=== PATIENT | female | born 1960 | race Caucasian/White ===

== ENCOUNTER 2018-03-12 16:24 | Inpatient (IN) | payer OTHER ==
[2018-03-12 17:00] VITALS: BMI 23.4
[2018-03-12] MEDS ORDERED: ALBUTEROL SO4 8 GM HFA INHALER IH PRN (18:21)
--- NOTE | 2018-03-12 18:21 | HP ---
Admission [facility] Chief Complaint: I am alcohol rehab Allergies/Adverse Reactions: Allergies Allergy/AdvReac Type Severity Reaction Status Date / Time No Known Allergies Allergy Verified 03/12/18 17:42 History of Present Illness: Patient is a 57 yo female with hx of nicotine, THC, crack / cocaine and alcohol dependence is here seeking alcohol rehabilitation. PMHX: GERD, COPD, OA, gastric bypass, depression and anxiety. Last detox [facility] 02/27/18 -03/03/18 . Denies suicidal or homicidal ideation. Denies hx of seizures, reports frequent blackouts with last episode two weeks ago. Longest period of sobriety 7 years. Exam Limitations: No Limitations - Ebola screening Have you been sick,other than usual withdrawal symptoms: No - Review of Systems Constitutional: Changes in sleep (" I feel anxious "), Unintentional Wgt. Loss EENT: reports: No Symptoms Reported Respiratory: reports: No Symptoms reported Cardiac: reports: No Symptoms Reported GI: reports: No Symptoms Reported : reports: Burning Musculoskeletal: reports: Back Pain, Joint Pain (right knee) Integumentary: reports: No Symptoms Reported Neuro: reports: Numbness (left hand) Endocrine: reports: Increased Thirst Hematology: reports: No Symptoms Reported Psychiatric: reports: Orientated x3, Anxious Other Systems: Reviewed and Negative Patient History - Patient Medical History Hx Anemia: No Hx Asthma: Yes Hx Chronic Obstructive Pulmonary Disease (COPD): Yes Hx Cancer: No Hx Cardiac Disorders: No Hx Congestive Heart Failure: No Hx Hypertension: Yes Hx Hypercholesterolemia: No Hx Pacemaker: No HX Cerebrovascular Accident: No Hx Seizures: No Hx Dementia: No Hx Diabetes: No Hx Gastrointestinal Disorders: Yes (GERD ) Hx Liver Disease: No Hx Genitourinary Disorders: No Hx Sexually Transmitted Disorders: No Hx Renal Disease (ESRD): No Hx Thyroid Disease: No Hx Human Immunodeficiency Virus (HIV): No Hx Hepatitis C: No Hx Depression: Yes Hx Suicide Attempt: No Hx Bipolar Disorder: No Hx Schizophrenia: No - Patient Surgical History Past Surgical History: Yes Hx Neurologic Surgery: No Hx Cataract Extraction: No Hx Cardiac Surgery: No Hx Lung Surgery: No Hx Breast Surgery: No Hx Breast Biopsy: No Hx Abdominal Surgery: Yes (tummy tuck, gastric by pass ) Hx Appendectomy: No Hx Cholecystectomy: No Hx Genitourinary Surgery: No Hx Section: Yes Hx Orthopedic Surgery: No Hx Hysterectomy: No Anesthesia Reaction: No - PPD History Previous Implant?: Yes Documented Results: Negative w/proof Date: 03/01/18 PPD to be Administered?: No - Reproductive History Patient is a Female of Child Bearing Age (11 -55 yrs old): No - Smoking Cessation Smoking history: Current every day smoker Have you smoked in the past 12 months: Yes Aproximately how many cigarettes per day: 20 Hx Chewing Tobacco Use: No Initiated information on smoking cessation: Yes 'Breaking Loose' booklet given: 03/12/18 - Substance & Tx. History Hx Alcohol Use: Yes Hx Substance Use: Yes Substance Use Type: Alcohol Hx Substance Use Treatment: Yes (Last detox [facility] 02/27/18 -03/03/18 .) Family Disease History - Family Disease History Family Disease History: Heart Disease: Father (, PA ), Mother (alive, HTN ), Sister ( PA), Other: Father, Mother, Sister Admission Physical Exam [facility] - Vital Signs Vital Signs: Vital Signs - 24 hr 03/12/18 16:48 Temperature 98.8 F Pulse Rate 95 H Respiratory 18 Rate Blood Pressure 138/78 - Physical General Appearance: Yes: Appropriately Dressed, Anxious HEENTM: Yes: EOMI, Hearing grossly Normal, Normal ENT Inspection, Normocephalic , Normal Voice, RODRIGO, Pharynx Normal, Tm's normal Respiratory: Yes: Chest Non-Tender, Lungs Clear, Normal Breath Sounds, No Respiratory Distress, No Accessory Muscle Use Neck: Yes: No masses,lesions,Nodules, Trachea in good position Breast: Yes: Breast Exam Deferred Cardiology: Yes: Regular Rhythm, Regular Rate Abdominal: Yes: Normal Bowel Sounds, Non Tender, Flat, Soft Genitourinary: Yes: Within Normal Limits Back: Yes: Normal Inspection Musculoskeletal: Yes: full range of Motion, Gait Steady, Pelvis Stable, Back pain, Other (right knee pain, no effusion or swelling, full rom) Extremities: Yes: Normal Capillary Refill, Normal Inspection, Normal Range of Motion, Non-Tender 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: 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: 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, Fully Oriented, Motor Strength 5/5, Depressed Affect Integumentary: Yes: Normal Color, Warm, Moist Lymphatic: Yes: Within Normal Limits - Diagnostic (1) Right knee pain Current Visit: Yes Status: Acute Qualifiers: Chronicity: acute Qualified Code(s): M25.561 - Pain in right knee (2) Alcohol dependence Current Visit: Yes Status: Acute Qualifiers: Substance use status: uncomplicated Qualified Code(s): F10.20 - Alcohol dependence, uncomplicated (3) COPD (chronic obstructive pulmonary disease) Current Visit: Yes Status: Chronic Qualifiers: Emphysema type: unspecified (4) Cocaine dependence Current Visit: Yes Status: Chronic Qualifiers: Substance use status: uncomplicated Qualified Code(s): F14.20 - Cocaine dependence, uncomplicated (5) GERD (gastroesophageal reflux disease) Current Visit: Yes Status: Chronic Qualifiers: Esophagitis presence: esophagitis presence not specified Qualified Code(s) : K21.9 - Gastro-esophageal reflux disease without esophagitis (6) History of gastric bypass Current Visit: Yes Status: Chronic (7) Nicotine dependence Current Visit: Yes Status: Chronic Qualifiers: Nicotine product type: cigarettes [facility] Breath Alcohol Content Breath Alcohol Content: 0 Urine Pregancy Test - Result Urine Test Results: Negative- NO Line Present Urine Drug Screen - Results Drug Screen Negative: No Urine Drug Screen Results: YASHIRA-Cocaine, BZO-Benzodiazepines Inpatient Rehab Admission - Initial Determination Are CD services needed?: Yes Free of communicable disease: Yes Not in need of hospitalization: Yes - Rehab Admission Criteria Previous failed treatment: Yes Poor recovery environment: Yes Comorbidities: Yes Lacks judgement: Yes Patient is meeting Inpatient Rehab admission criteria:: Yes
[2018-03-12] MEDS ORDERED: MAGNESIUM HYDROX 2400MG/30ML ORAL SUSPENSION 30 ML CUP PO PRN (18:27)
[2018-03-12] MEDS ORDERED: IBUPROFEN 400 MG TABLET (FP) PO PRN ×2 (18:27→18:33)
[2018-03-12] MEDS ORDERED: guaiFENesin/D-METHORPHAN HB 10 ML UNIT-DOSE CUPS PO PRN (18:27)
[2018-03-12] MEDS ORDERED: MAG HYDROX/AL HYDROX/SIMETH 30 ML UNIT-DOSE CUP PO PRN (18:27)
[2018-03-12] MEDS ORDERED: MAGNESIUM CITRATE 300 ML BOTTLE PO PRN (18:27)
[2018-03-12] MEDS ORDERED: LOPERAMIDE HCL 2 MG CAPSULE PO PRN (18:27)
[2018-03-12] MEDS ORDERED: P-EPHED 60MG/TRIPROLIDI 2.5MG TABLET PO PRN (18:27)
[2018-03-12] MEDS ORDERED: MENTHOL/PHENOL 1 EACH UD MM PRN (18:27)
[2018-03-12] MEDS ORDERED: NICOTINE POLACRILEX 2 MG GUM BUC PRN (18:54)
[2018-03-12] MEDS ORDERED: FLUTICASONE/SALMETEROL 100 MCG/50 MCG DISKUS IH SCH (22:00)
[2018-03-12] MEDS: METHYL SALICYLATE/MENTHOL OINT 30 GM TUBE TP SCH (22:32)
[2018-03-12] MEDS: BUDESONIDE/FORMETEROL FUMARATE 80/4.5 mcg INHALER IH SCH (22:32)
[2018-03-12] MEDS: THIAMINE HCL 100 MG TABLET (FP) PO SCH (22:33)
[2018-03-12] MEDS: hydrOXYzine PAMOATE 50 MG CAPSULE (FP) PO PRN (22:33)
[2018-03-13 00:09] LABS: URINE APPEARANCE TURBID; URINE BILIRUBIN NEGATIVE (<2.0 mg/dL); URINE COLOR YELLOW; URINE GLUCOSE (UA) NEGATIVE (NEGATIVE); URINE KETONE NEGATIVE (NEGATIVE); URINE LEUK ESTERASE NEGATIVE (NEGATIVE); URINE NITRITE NEGATIVE (NEGATIVE); URINE PROTEIN NEGATIVE (NEGATIVE); URINE UROBILINOGEN 4.0 E.U/dl mg/dL (0.2-1.0)
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
[2018-03-13 10:08] LABS: HEMATOCRIT 41.1 % (32.4-45.2); HEMOGLOBIN 13.7 GM/dL (10.7-15.3); MCH 30.3 pg (25.7-33.7); MCHC 33.3 g/dl (32.0-36.0); MEAN PLT VOLUME 8.4 fl (7.5-11.1); PLATELET COUNT 347 K/MM3 (134-434); RBC 4.51 M/mm3 (3.60-5.2); WHITE BLOOD COUNT 7.2 K/mm3 (4.0-10.0)
[2018-03-13] MEDS ORDERED: PT OWN MED DRAWER 7, Y5N ONE ×2 (10:32→19:46)
[2018-03-13] MEDS: hydrOXYzine PAMOATE 50 MG CAPSULE (FP) PO PRN ×2 (10:33→19:03)
[2018-03-13] MEDS: PRENATAL VITAMINS W/ FOLIC ACID TABLET (FP) PO SCH (10:33)
[2018-03-13] MEDS: METHYL SALICYLATE/MENTHOL OINT 30 GM TUBE TP SCH ×2 (10:34→22:09)
[2018-03-13] MEDS: NICOTINE 14 MG/24 HOURS TOPICAL PATCH TD SCH (10:34)
[2018-03-13] MEDS: BUDESONIDE/FORMETEROL FUMARATE 80/4.5 mcg INHALER IH SCH ×2 (10:36→22:09)
[2018-03-13 10:43] LABS: ALBUMIN 3.3 g/dl (3.4-5.0); ALK PHOS 72 U/L (45-117); ANION GAP 2 (8-16); BILIRUBIN,TOTAL 0.2 mg/dL (0.2-1.0); BLOOD UREA NITROGEN 10 mg/dL (7-18); CALCIUM 8.8 mg/dL (8.5-10.1); CHLORIDE 108 mmol/L (98-107); CO2 34 mmol/L (21-32); CREATININE 0.7 mg/dL (0.55-1.02); GLUCOSE,RANDOM 85 mg/dL (74-106); POTASSIUM 3.7 mmol/L (3.5-5.1); SGOT/AST 12 U/L (15-37); SGPT/ALT 17 U/L (12-78); SODIUM 144 mmol/L (136-145); TOT PROT 6.6 g/dl (6.4-8.2)
[2018-03-13] MEDS: SERTRALINE HCL 50 MG TABLET (FP) PO SCH (11:13)
--- NOTE | 2018-03-13 12:09 | EKG ---
Test Reason : Blood Pressure : / mmHG Vent. Rate : 095 BPM Atrial Rate : 095 BPM P-R Int : 194 ms QRS Dur : 098 ms QT Int : 380 ms P-R-T Axes : 079 -09 072 degrees QTc Int : 477 ms NORMAL SINUS RHYTHM BIATRIAL ENLARGEMENT INCOMPLETE RIGHT BUNDLE BRANCH BLOCK ABNORMAL ECG Confirmed by MD KERRY, JOHN ([id number]) on 03/13/2018 12:08:54 PM Referred By: Confirmed By:JOHN PAYNE MD
--- NOTE | 2018-03-13 13:14 | PN ---
[facility] Progress Note Note: Vital Signs Temperature 97.0 F L 03/13/18 06:41 Pulse Rate 98 H 03/13/18 09:23 Respiratory Rate 18 03/13/18 09:23 Blood Pressure 109/66 03/13/18 09:23 O2 Sat by Pulse Oximetry (%) Laboratory Last Values WBC 7.2 K/mm3 (4.0-10.0) 03/13/18 07:15 RBC 4.51 M/mm3 (3.60-5.2) 03/13/18 07:15 Hgb 13.7 GM/dL (10.7-15.3) 03/13/18 07:15 Hct 41.1 % (32.4-45.2) 03/13/18 07:15 MCV 91.0 fl (80-96) 03/13/18 07:15 MCH 30.3 pg (25.7-33.7) 03/13/18 07:15 MCHC 33.3 g/dl (32.0-36.0) 03/13/18 07:15 RDW 13.0 % (11.6-15.6) 03/13/18 07:15 Plt Count 347 K/MM3 (134-434) D 03/13/18 07:15 MPV 8.4 fl (7.5-11.1) 03/13/18 07:15 Sodium 144 mmol/L (136-145) 03/13/18 07:15 Potassium 3.7 mmol/L (3.5-5.1) 03/13/18 07:15 Chloride 108 mmol/L (98-107) H 03/13/18 07:15 Carbon Dioxide 34 mmol/L (21-32) H 03/13/18 07:15 Anion Gap 2 (8-16) L 03/13/18 07:15 BUN 10 mg/dL (7-18) 03/13/18 07:15 Creatinine 0.7 mg/dL (0.55-1.02) 03/13/18 07:15 Creat Clearance w eGFR > 60 (>60) 03/13/18 07:15 Random Glucose 85 mg/dL (74-106) 03/13/18 07:15 Calcium 8.8 mg/dL (8.5-10.1) 03/13/18 07:15 Total Bilirubin 0.2 mg/dL (0.2-1.0) 03/13/18 07:15 AST 12 U/L (15-37) L 03/13/18 07:15 ALT 17 U/L (12-78) 03/13/18 07:15 Alkaline Phosphatase 72 U/L (45-117) 03/13/18 07:15 Total Protein 6.6 g/dl (6.4-8.2) 03/13/18 07:15 Albumin 3.3 g/dl (3.4-5.0) L 03/13/18 07:15 Urine Color Yellow 03/12/18 23:50 Urine Appearance Turbid 03/12/18 23:50 Urine pH 5.0 (5.0-8.0) 03/12/18 23:50 Ur Specific [place] 1.030 (1.001-1.035) 03/12/18 23:50 Urine Protein Negative (NEGATIVE) 03/12/18 23:50 Urine Glucose (UA) Negative (NEGATIVE) 03/12/18 23:50 Urine Ketones Negative (NEGATIVE) 03/12/18 23:50 Urine Blood Negative (NEGATIVE) 03/12/18 23:50 Urine Nitrite Negative (NEGATIVE) 03/12/18 23:50 Urine Bilirubin Negative (<2.0 mg/dL) 03/12/18 23:50 Urine Urobilinogen 4.0 e.u/dl mg/dL (0.2-1.0) H 03/12/18 23:50 Ur Leukocyte Esterase Negative (NEGATIVE) 03/12/18 23:50 labs reviewed continue to monitor urine culture pending
[2018-03-13] MEDS: THIAMINE HCL 100 MG TABLET (FP) PO SCH (21:33)
[2018-03-13] MEDS ORDERED: QUEtiapine FUMARATE 50 MG TABLET PO SCH (22:00)
[2018-03-14] MEDS: ACETAMINOPHEN 325 MG TABLET (FP) PO PRN (06:40)
[2018-03-14] MEDS: hydrOXYzine PAMOATE 50 MG CAPSULE (FP) PO PRN ×2 (06:40→14:02)
[2018-03-14] MEDS: METHYL SALICYLATE/MENTHOL OINT 30 GM TUBE TP SCH ×2 (09:13→21:35)
[2018-03-14] MEDS: PRENATAL VITAMINS W/ FOLIC ACID TABLET (FP) PO SCH (09:14)
[2018-03-14] MEDS: SERTRALINE HCL 50 MG TABLET (FP) PO SCH (09:14)
[2018-03-14] MEDS: NICOTINE 14 MG/24 HOURS TOPICAL PATCH TD SCH (09:14)
[2018-03-14] MEDS: BUDESONIDE/FORMETEROL FUMARATE 80/4.5 mcg INHALER IH SCH ×2 (09:15→21:36)
[2018-03-14] MEDS: IBUPROFEN 600 MG TABLET (FP) PO PRN (10:05)
--- NOTE | 2018-03-14 13:21 | PN ---
[facility] Progress Note Note: PATIENT SEEN FOR C/O THICK, WHITE VAGINAL DISCHARGE AND VAGINAL ITCHING WITH BURNING UPON URINATION. RECENTLY TREATED FOR UTI IN PAST 2 WEEKS. DENIES FEVER AND PELVIC PAIN. Laboratory Tests 03/12/18 03/13/18 03/13/18 23:50 07:15 07:15 WBC 7.2 RBC 4.51 Hgb 13.7 Hct 41.1 MCV 91.0 MCH 30.3 MCHC 33.3 RDW 13.0 Plt Count 347 D MPV 8.4 Sodium 144 Potassium 3.7 Chloride 108 H Carbon Dioxide 34 H Anion Gap 2 L BUN 10 Creatinine 0.7 Creat Clearance w eGFR > 60 Random Glucose 85 Calcium 8.8 Total Bilirubin 0.2 AST 12 L ALT 17 Alkaline Phosphatase 72 Total Protein 6.6 Albumin 3.3 L Urine Color Yellow Urine Appearance Turbid Urine pH 5.0 Ur Specific [place] 1.030 Urine Protein Negative Urine Glucose (UA) Negative Urine Ketones Negative Urine Blood Negative Urine Nitrite Negative Urine Bilirubin Negative Urine Urobilinogen 4.0 e.u/dl H Ur Leukocyte Esterase Negative Vital Signs Temperature 97.6 F 03/14/18 07:26 Pulse Rate 83 03/14/18 07:26 Respiratory Rate 18 03/14/18 07:26 Blood Pressure 128/89 03/14/18 07:26 O2 Sat by Pulse Oximetry (%) OBJ: SKIN WARM AND DRY GI: NT, ND, SOFT : NO PELVIC TENDERNESS, NO CVAT A/P: VAGINITIS URINE C/S PENDING WILL START FLAGYL 500MG BID X 7 DAYS CONTINUE TO MONITOR CLINICALLY
--- NOTE | 2018-03-14 13:41 | PN ---
Psychiatric Progress Note Vital Signs: Vital Signs Period Temp Pulse Resp BP Sys/Rust Pulse Ox Last 24 Hr 97.6 F 83 16-18 128/89 Date of Session: 03/14/18 Chief Complaint:: "I can't sleep and i have anxiety." HPI: Patient admitted to [facility] for alcohol, marijuana, and cocaine dependence. ROS: Significant for COPD, hypertension, GERD, osteoarthritis, history of gastric bypass and sunshine tuck surgeries. Current Medications: Active Medications Generic Name Dose Route Start Last Admin Trade Name Freq PRN Reason Stop Dose Admin Acetaminophen 650 mg 03/12/18 18:27 03/14/18 06:40 Tylenol - PO 650 mg Q4H PRN Administration FEVER Al Hydroxide/Mg Hydroxide 30 ml 03/12/18 18:27 Mylanta Oral Suspension - PO Q6H PRN DYSPEPSIA Albuterol Sulfate 2 puff 03/12/18 18:21 Ventolin Hfa Inhaler - IH Q4H PRN ASTHMA Budesonide/Formoterol Fumarate 2 puff 03/12/18 22:00 03/14/18 09:15 Symbicort 80/4.5mcg - IH 2 puff BID SATISH Administration Cyclobenzaprine HCl 10 mg 03/14/18 14:00 Flexeril - PO TID SATISH Eucalyptus/Menthol/Phenol/Sorbitol 1 each 03/12/18 18:27 Cepastat Lozenge - MM Q4H PRN SORE THROAT Guaifenesin 10 ml 03/12/18 18:27 Robitussin Dm - PO Q6H PRN COUGH Hydroxyzine Pamoate 50 mg 03/12/18 18:27 03/14/18 06:40 Vistaril - PO 50 mg Q4H PRN Administration AGITATION Ibuprofen 600 mg 03/14/18 09:29 03/14/18 10:05 Motrin - PO 600 mg Q8H PRN Administration Pain level 4-6 Loperamide HCl 4 mg 03/12/18 18:27 Imodium - PO Q6H PRN DIARRHEA Magnesium Citrate 300 ml 03/12/18 18:27 Citroma - PO Q48H PRN CONSTIPATION Magnesium Hydroxide 30 ml 03/12/18 18:27 Milk Of Magnesia - PO DAILY PRN CONSTIPATION Melatonin 5 mg 03/12/18 22:00 Melatonin PO HS PRN INSOMNIA Methyl Salicylate 1 applic 03/12/18 22:00 03/14/18 09:13 Devante-Bernstein - TP 1 applic BID SATISH Administration Metronidazole 500 mg 03/14/18 22:00 Flagyl - PO 03/21/18 21:59 BID SATISH Nicotine 14 mg 03/13/18 10:00 03/14/18 09:14 Nicoderm Patch - TD 14 mg DAILY SATISH Administration Nicotine Polacrilex 2 mg 03/12/18 18:54 Nicorette Gum - BUC Q2H PRN NICOTINE REPLACEMENT RX Multivit/Folic Acid/Iron 1 tab 03/13/18 10:00 03/14/18 09:14 Vitamins (Sjr) - PO 1 tab DAILY SATISH Administration Pseudoephedrine/Triprolidine 1 combo 03/12/18 18:27 Actifed - PO TID PRN NASAL CONGESTION Quetiapine Fumarate 100 mg 03/14/18 22:00 Seroquel - PO HS SATISH Sertraline HCl 50 mg 03/13/18 10:45 03/14/18 09:14 Zoloft - PO 50 mg DAILY SATISH Administration Thiamine HCl 100 mg 03/12/18 22:00 03/13/18 21:33 Vitamin B1 - PO 100 mg HS SATISH Administration Medication(s) Change(s): Yes will increase seroquel to 100mg qhs Current Side Effect: No Lab tests ordered: No Lab tests reviewed: Yes Provider note:: Hide Stretcher Hand met with patient for psychiatric follow up. Pt. reports poor sleep and anxiety. States she is awake throughout the night and is tired during the day. Chart reviewed. Dr. Lopez's and Dr. Ca's note read and appreciated. Pt. is currently prescribed seroquel 50mg. Pt. was prescribed seroquel 100mg while in detox. As per chart, patient d/c seroquel 100mg due to feeling sluggish and therefore was restarted at Seroquel 50mg when she was admitted to rehab. Patient now requesting to increase seroquel to 100mg. Pt. also encouraged to accept melatonin 5mg for sleep. Pt. was also informed of the medication vistaril 50mg which is ordered for anxiety and is available for her every four hours as needed. Benefits and side effects discussed. Verbal consent given. Total face to face time:: 25 Mental Status Exam - Mental Status Exam Alert and Oriented to: Time, Place, Person Cognitive Function: Good Patient Appearance: Well Groomed Mood: Euthymic Affect: Mood Congruent Patient Behavior: Appropriate, Cooperative Speech Pattern: Clear, Appropriate Voice Loudness: Normal Thought Process: Goal Oriented Thought Disorder: Not Present Hallucinations: Denies Suicidal Ideation: Denies Homicidal Ideation: Denies Insight/Judgement: Poor Sleep: Poorly Appetite: Fair Muscle strength/Tone: Normal Gait/Station: Normal Psychiatric Treatment Plan - Problem List (1) Alcohol dependence Current Visit: Yes (2) Cocaine dependence Current Visit: Yes (3) Substance induced mood disorder Current Visit: Yes (4) Substance-induced sleep disorder Current Visit: Yes (5) COPD (chronic obstructive pulmonary disease) Current Visit: Yes Qualifiers: Emphysema type: unspecified (6) GERD (gastroesophageal reflux disease) Current Visit: Yes Qualifiers: Esophagitis presence: esophagitis presence not specified Qualified Code(s) : K21.9 - Gastro-esophageal reflux disease without esophagitis (7) History of gastric bypass Current Visit: Yes (8) Osteoarthritis Current Visit: Yes (9) MDD (major depressive disorder), recurrent episode, moderate Current Visit: Yes
[2018-03-14] MEDS: CYCLOBENZAPRINE HCL 10 MG TABLET (FP) PO SCH ×2 (15:13→21:33)
[2018-03-14] MEDS ORDERED: PT OWN MED DRAWER 7, Y5N ONE (15:15)
[2018-03-14] MEDS: THIAMINE HCL 100 MG TABLET (FP) PO SCH (21:33)
[2018-03-14] MEDS: MELATONIN 5 MG TABLETS PO PRN (21:34)
[2018-03-14] MEDS: metroNIDAZOLE 250 MG TABLET PO SCH (21:35)
[2018-03-14] MEDS: QUEtiapine FUMARATE 100 MG TABLET (FP) PO SCH (21:36)
[2018-03-15] MEDS: CYCLOBENZAPRINE HCL 10 MG TABLET (FP) PO SCH ×3 (06:22→21:31)
[2018-03-15] MEDS: hydrOXYzine PAMOATE 50 MG CAPSULE (FP) PO PRN ×3 (06:22→21:29)
[2018-03-15] MEDS ORDERED: PT OWN MED DRAWER 7, Y5N ONE (08:36)
[2018-03-15] MEDS: METHYL SALICYLATE/MENTHOL OINT 30 GM TUBE TP SCH ×2 (09:11→21:31)
[2018-03-15] MEDS: NICOTINE 14 MG/24 HOURS TOPICAL PATCH TD SCH (09:11)
[2018-03-15] MEDS: SERTRALINE HCL 50 MG TABLET (FP) PO SCH (09:11)
[2018-03-15] MEDS: metroNIDAZOLE 250 MG TABLET PO SCH ×2 (09:11→21:29)
[2018-03-15] MEDS: PRENATAL VITAMINS W/ FOLIC ACID TABLET (FP) PO SCH (09:11)
[2018-03-15] MEDS: BUDESONIDE/FORMETEROL FUMARATE 80/4.5 mcg INHALER IH SCH ×2 (09:12→21:30)
[2018-03-15] MEDS: QUEtiapine FUMARATE 100 MG TABLET (FP) PO SCH (21:29)
[2018-03-15] MEDS: THIAMINE HCL 100 MG TABLET (FP) PO SCH (21:30)
[2018-03-16] MEDS: CYCLOBENZAPRINE HCL 10 MG TABLET (FP) PO SCH ×3 (06:22→21:27)
[2018-03-16] MEDS: hydrOXYzine PAMOATE 50 MG CAPSULE (FP) PO PRN ×3 (06:22→21:27)
[2018-03-16] MEDS: IBUPROFEN 600 MG TABLET (FP) PO PRN (06:23)
[2018-03-16] MEDS ORDERED: PT OWN MED DRAWER 7, Y5N ONE (08:36)
[2018-03-16] MEDS: METHYL SALICYLATE/MENTHOL OINT 30 GM TUBE TP SCH ×2 (09:10→21:28)
[2018-03-16] MEDS: BUDESONIDE/FORMETEROL FUMARATE 80/4.5 mcg INHALER IH SCH ×2 (09:11→21:28)
[2018-03-16] MEDS: metroNIDAZOLE 250 MG TABLET PO SCH ×2 (09:11→21:27)
[2018-03-16] MEDS: PRENATAL VITAMINS W/ FOLIC ACID TABLET (FP) PO SCH (09:11)
[2018-03-16] MEDS: NICOTINE 14 MG/24 HOURS TOPICAL PATCH TD SCH (09:11)
[2018-03-16] MEDS: SERTRALINE HCL 50 MG TABLET (FP) PO SCH (09:11)
--- NOTE | 2018-03-16 14:27 | PN ---
[facility] Progress Note Note: LIDOCAINE PATCH ORDERED FOR LBP. WILL CONTINUE TO MONITOR CLINICALLY.
[2018-03-16] MEDS: LIDOCAINE 5% TOPICAL PATCH TP SCH (15:25)
[2018-03-16] MEDS: THIAMINE HCL 100 MG TABLET (FP) PO SCH (21:26)
[2018-03-16] MEDS: QUEtiapine FUMARATE 100 MG TABLET (FP) PO SCH (21:27)
[2018-03-16] MEDS: LIDOCAINE PATCH REMOVAL MC SCH (21:28)
[2018-03-17] MEDS: hydrOXYzine PAMOATE 50 MG CAPSULE (FP) PO PRN ×3 (06:25→18:28)
[2018-03-17] MEDS: CYCLOBENZAPRINE HCL 10 MG TABLET (FP) PO SCH ×3 (06:25→21:31)
[2018-03-17] MEDS ORDERED: PT OWN MED DRAWER 7, Y5N ONE (08:38)
[2018-03-17] MEDS: SERTRALINE HCL 50 MG TABLET (FP) PO SCH (10:06)
[2018-03-17] MEDS: metroNIDAZOLE 250 MG TABLET PO SCH ×2 (10:06→21:31)
[2018-03-17] MEDS: NICOTINE 14 MG/24 HOURS TOPICAL PATCH TD SCH (10:06)
[2018-03-17] MEDS: PRENATAL VITAMINS W/ FOLIC ACID TABLET (FP) PO SCH (10:06)
[2018-03-17] MEDS: BUDESONIDE/FORMETEROL FUMARATE 80/4.5 mcg INHALER IH SCH ×2 (10:08→21:32)
[2018-03-17] MEDS: LIDOCAINE 5% TOPICAL PATCH TP SCH (10:08)
[2018-03-17] MEDS: METHYL SALICYLATE/MENTHOL OINT 30 GM TUBE TP SCH ×2 (10:09→22:11)
[2018-03-17] MEDS: QUEtiapine FUMARATE 100 MG TABLET (FP) PO SCH (21:31)
[2018-03-17] MEDS: LIDOCAINE PATCH REMOVAL MC SCH (21:31)
[2018-03-17] MEDS: THIAMINE HCL 100 MG TABLET (FP) PO SCH (21:31)
[2018-03-17] MEDS: MELATONIN 5 MG TABLETS PO PRN (21:32)
[2018-03-18] MEDS: hydrOXYzine PAMOATE 50 MG CAPSULE (FP) PO PRN ×3 (06:12→21:19)
[2018-03-18] MEDS: CYCLOBENZAPRINE HCL 10 MG TABLET (FP) PO SCH ×3 (06:12→21:17)
[2018-03-18] MEDS ORDERED: PT OWN MED DRAWER 7, Y5N ONE (08:55)
[2018-03-18] MEDS: LIDOCAINE 5% TOPICAL PATCH TP SCH (09:09)
[2018-03-18] MEDS: metroNIDAZOLE 250 MG TABLET PO SCH ×2 (09:09→21:17)
[2018-03-18] MEDS: NICOTINE 14 MG/24 HOURS TOPICAL PATCH TD SCH (09:09)
[2018-03-18] MEDS: METHYL SALICYLATE/MENTHOL OINT 30 GM TUBE TP SCH ×2 (09:09→21:20)
[2018-03-18] MEDS: SERTRALINE HCL 50 MG TABLET (FP) PO SCH (09:09)
[2018-03-18] MEDS: BUDESONIDE/FORMETEROL FUMARATE 80/4.5 mcg INHALER IH SCH ×2 (09:10→21:17)
[2018-03-18] MEDS: PRENATAL VITAMINS W/ FOLIC ACID TABLET (FP) PO SCH (09:10)
[2018-03-18] MEDS: QUEtiapine FUMARATE 100 MG TABLET (FP) PO SCH (21:17)
[2018-03-18] MEDS: MELATONIN 5 MG TABLETS PO PRN (21:18)
[2018-03-18] MEDS: LIDOCAINE PATCH REMOVAL MC SCH (21:18)
[2018-03-18] MEDS: THIAMINE HCL 100 MG TABLET (FP) PO SCH (21:18)
[2018-03-19] MEDS: CYCLOBENZAPRINE HCL 10 MG TABLET (FP) PO SCH ×3 (06:44→21:35)
[2018-03-19] MEDS: hydrOXYzine PAMOATE 50 MG CAPSULE (FP) PO PRN ×3 (06:44→21:37)
[2018-03-19] MEDS ORDERED: PT OWN MED DRAWER 7, Y5N ONE (08:59)
[2018-03-19] MEDS: metroNIDAZOLE 250 MG TABLET PO SCH ×2 (10:10→21:35)
[2018-03-19] MEDS: SERTRALINE HCL 50 MG TABLET (FP) PO SCH (10:10)
[2018-03-19] MEDS: PRENATAL VITAMINS W/ FOLIC ACID TABLET (FP) PO SCH (10:10)
[2018-03-19] MEDS: NICOTINE 14 MG/24 HOURS TOPICAL PATCH TD SCH (10:11)
[2018-03-19] MEDS: METHYL SALICYLATE/MENTHOL OINT 30 GM TUBE TP SCH ×2 (10:12→21:34)
[2018-03-19] MEDS: LIDOCAINE 5% TOPICAL PATCH TP SCH (10:12)
[2018-03-19] MEDS: BUDESONIDE/FORMETEROL FUMARATE 80/4.5 mcg INHALER IH SCH ×2 (10:13→21:36)
[2018-03-19] MEDS: QUEtiapine FUMARATE 100 MG TABLET (FP) PO SCH (21:35)
[2018-03-19] MEDS: THIAMINE HCL 100 MG TABLET (FP) PO SCH (21:35)
[2018-03-19] MEDS: MELATONIN 5 MG TABLETS PO PRN (21:36)
[2018-03-19] MEDS: LIDOCAINE PATCH REMOVAL MC SCH (21:36)
[2018-03-20] MEDS: CYCLOBENZAPRINE HCL 10 MG TABLET (FP) PO SCH ×3 (06:24→21:45)
[2018-03-20] MEDS: hydrOXYzine PAMOATE 50 MG CAPSULE (FP) PO PRN ×3 (06:25→21:46)
[2018-03-20] MEDS: ACETAMINOPHEN 325 MG TABLET (FP) PO PRN (08:54)
[2018-03-20] MEDS ORDERED: ONDANSETRON *ODT* 4 MG TABLET SL PRN (08:56)
--- NOTE | 2018-03-20 08:58 | PN ---
[facility] Progress Note Note: nausea Vital Signs Temperature 97.3 F L 03/20/18 07:42 Pulse Rate 80 03/20/18 07:42 Respiratory Rate 18 03/20/18 07:42 Blood Pressure 111/74 03/20/18 07:42 O2 Sat by Pulse Oximetry (%) zofran 4 mg sl close monitoringprn for nausea,vomiting
[2018-03-20] MEDS: metroNIDAZOLE 250 MG TABLET PO SCH ×2 (09:23→21:46)
[2018-03-20] MEDS: NICOTINE 14 MG/24 HOURS TOPICAL PATCH TD SCH (09:23)
[2018-03-20] MEDS: PRENATAL VITAMINS W/ FOLIC ACID TABLET (FP) PO SCH (09:23)
[2018-03-20] MEDS: BUDESONIDE/FORMETEROL FUMARATE 80/4.5 mcg INHALER IH SCH ×2 (09:23→21:47)
[2018-03-20] MEDS: SERTRALINE HCL 50 MG TABLET (FP) PO SCH (09:23)
[2018-03-20] MEDS: LIDOCAINE 5% TOPICAL PATCH TP SCH (09:23)
[2018-03-20] MEDS: METHYL SALICYLATE/MENTHOL OINT 30 GM TUBE TP SCH ×2 (09:25→21:47)
--- NOTE | 2018-03-20 13:30 | PN ---
[facility] Progress Note Note: Vital Signs Temperature 97.3 F L 03/20/18 07:42 Pulse Rate 80 03/20/18 07:42 Respiratory Rate 18 03/20/18 07:42 Blood Pressure 111/74 03/20/18 07:42 O2 Sat by Pulse Oximetry (%) c/o of chronic right knee pain and at times the knee shauna. As per patient she pending (R) knee replacement sx. A/P Patient Aox3 no distress no adventitious breath sound FULL ROM, ambulating in the unit - chronic right knee pain Plan: BEN bandage right knee PRN, remove before bed cane for ambulation fall precautions NSAIDS PRN Patient educated on the importance to follow up with PMD upon discharge. continue to monitor
[2018-03-20] MEDS: QUEtiapine FUMARATE 100 MG TABLET (FP) PO SCH (21:45)
[2018-03-20] MEDS: THIAMINE HCL 100 MG TABLET (FP) PO SCH (21:45)
[2018-03-20] MEDS: MELATONIN 5 MG TABLETS PO PRN (21:46)
[2018-03-20] MEDS: LIDOCAINE PATCH REMOVAL MC SCH (21:46)
[2018-03-21] MEDS: CYCLOBENZAPRINE HCL 10 MG TABLET (FP) PO SCH ×3 (06:42→21:33)
[2018-03-21] MEDS: hydrOXYzine PAMOATE 50 MG CAPSULE (FP) PO PRN ×2 (06:43→14:41)
[2018-03-21] MEDS ORDERED: PT OWN MED DRAWER 7, Y5N ONE (08:30)
[2018-03-21] MEDS: LIDOCAINE 5% TOPICAL PATCH TP SCH (10:16)
[2018-03-21] MEDS: SERTRALINE HCL 50 MG TABLET (FP) PO SCH (10:17)
[2018-03-21] MEDS: BUDESONIDE/FORMETEROL FUMARATE 80/4.5 mcg INHALER IH SCH ×2 (10:17→21:33)
[2018-03-21] MEDS: PRENATAL VITAMINS W/ FOLIC ACID TABLET (FP) PO SCH (10:17)
[2018-03-21] MEDS: metroNIDAZOLE 250 MG TABLET PO SCH (10:17)
[2018-03-21] MEDS: NICOTINE 14 MG/24 HOURS TOPICAL PATCH TD SCH (10:17)
[2018-03-21] MEDS: METHYL SALICYLATE/MENTHOL OINT 30 GM TUBE TP SCH ×2 (10:17→21:34)
--- NOTE | 2018-03-21 13:13 | PN ---
Psychiatric Progress Note Vital Signs: Vital Signs Period Temp Pulse Resp BP Sys/Rust Pulse Ox Last 24 Hr 97.4 F 85 18-18 110/75 Date of Session: 03/21/18 Chief Complaint:: "I still feel depressed and i have trouble sleeping." HPI: Patient admitted to for alcohol, marijuana, and cocaine dependence. ROS: Significant for COPD, hypertension, GERD, osteoarthritis, history of gastric bypass and sunshine tuck surgeries. Current Medications: Active Medications Generic Name Dose Route Start Last Admin Trade Name Freq PRN Reason Stop Dose Admin Acetaminophen 650 mg 03/12/18 18:27 03/20/18 08:54 Tylenol - PO 650 mg Q4H PRN Administration FEVER Al Hydroxide/Mg Hydroxide 30 ml 03/12/18 18:27 Mylanta Oral Suspension - PO Q6H PRN DYSPEPSIA Albuterol Sulfate 2 puff 03/12/18 18:21 Ventolin Hfa Inhaler - IH Q4H PRN ASTHMA Budesonide/Formoterol Fumarate 2 puff 03/12/18 22:00 03/21/18 10:17 Symbicort 80/4.5mcg - IH 2 puff BID SATISH Administration Cyclobenzaprine HCl 10 mg 03/14/18 14:00 03/21/18 06:42 Flexeril - PO 10 mg TID SATISH Administration Eucalyptus/Menthol/Phenol/Sorbitol 1 each 03/12/18 18:27 Cepastat Lozenge - MM Q4H PRN SORE THROAT Guaifenesin 10 ml 03/12/18 18:27 Robitussin Dm - PO Q6H PRN COUGH Hydroxyzine Pamoate 50 mg 03/12/18 18:27 03/21/18 06:43 Vistaril - PO 50 mg Q4H PRN Administration AGITATION Ibuprofen 600 mg 03/14/18 09:29 03/16/18 06:23 Motrin - PO 600 mg Q8H PRN Administration Pain level 4-6 Lidocaine 1 patch 03/16/18 14:45 03/21/18 10:16 Lidoderm Patch - TP 1 patch DAILY SATISH Administration Loperamide HCl 4 mg 03/12/18 18:27 Imodium - PO Q6H PRN DIARRHEA Magnesium Citrate 300 ml 03/12/18 18:27 Citroma - PO Q48H PRN CONSTIPATION Magnesium Hydroxide 30 ml 03/12/18 18:27 Milk Of Magnesia - PO DAILY PRN CONSTIPATION Melatonin 5 mg 03/12/18 22:00 03/20/18 21:46 Melatonin PO 5 mg HS PRN Administration INSOMNIA Methyl Salicylate 1 applic 03/12/18 22:00 03/21/18 10:17 Devante-Bernstein - TP Not Given BID SATISH Metronidazole 500 mg 03/14/18 22:00 03/21/18 10:17 Flagyl - PO 03/21/18 21:59 500 mg BID SATISH Administration Miscellaneous 1 each 03/16/18 22:00 03/20/18 21:46 Lidoderm Patch Removal MC 1 each DAILY@2200 SATISH Administration Nicotine 14 mg 03/13/18 10:00 03/21/18 10:17 Nicoderm Patch - TD 14 mg DAILY SATISH Administration Nicotine Polacrilex 2 mg 03/12/18 18:54 Nicorette Gum - BUC Q2H PRN NICOTINE REPLACEMENT RX Ondansetron HCl 4 mg 03/20/18 08:56 Zofran Odt - SL Q6H PRN NAUSEA AND/OR VOMITING Multivit/Folic Acid/Iron 1 tab 03/13/18 10:00 03/21/18 10:17 Vitamins (Sjr) - PO 1 tab DAILY SATISH Administration Pseudoephedrine/Triprolidine 1 combo 03/12/18 18:27 Actifed - PO TID PRN NASAL CONGESTION Quetiapine Fumarate 100 mg 03/14/18 22:00 03/20/18 21:45 Seroquel - PO 100 mg HS SATISH Administration Sertraline HCl 50 mg 03/13/18 10:45 03/21/18 10:17 Zoloft - PO 50 mg DAILY SATISH Administration Thiamine HCl 100 mg 03/12/18 22:00 03/20/18 21:45 Vitamin B1 - PO 100 mg HS SATISH Administration Medication(s) Change(s): Yes. Will increase zoloft to 75mg. Melatonin increased to 8mg Current Side Effect: No Lab tests ordered: No Lab tests reviewed: Yes Provider note:: Computer Sciences Professor spoke to patient requesting psychiatric follow up. Patient reports increase in depression and anxiety, poor appetite, and feeling down. Pt. also reports poor sleep. Pt does report feeling motivated to wake up everyday and continues to focus on completing rehab. Pt. is currently prescribed zoloft 50mg + Seroquel 100mg + melatonin 5mg. Patient agreeable to increase in Zoloft to 75mg and melatonin 8mg. Benefits and side effects discussed. Verbal consent given. Total face to face time:: 25 Mental Status Exam - Mental Status Exam Alert and Oriented to: Time, Place, Person Cognitive Function: Good Patient Appearance: Well Groomed Mood: Euthymic Affect: Mood Congruent Patient Behavior: Appropriate, Cooperative Speech Pattern: Clear, Appropriate Voice Loudness: Normal Thought Process: Intact Thought Disorder: Not Present Hallucinations: Denies Suicidal Ideation: Denies Homicidal Ideation: Denies Insight/Judgement: Fair Sleep: Poorly Appetite: Fair Muscle strength/Tone: Normal Gait/Station: Normal Psychiatric Treatment Plan - Problem List (1) Alcohol dependence Current Visit: Yes (2) Cocaine dependence Current Visit: Yes (3) Substance induced mood disorder Current Visit: Yes (4) Substance-induced sleep disorder Current Visit: Yes (5) COPD (chronic obstructive pulmonary disease) Current Visit: Yes Qualifiers: Emphysema type: unspecified (6) GERD (gastroesophageal reflux disease) Current Visit: Yes Qualifiers: Esophagitis presence: esophagitis presence not specified Qualified Code(s) : K21.9 - Gastro-esophageal reflux disease without esophagitis (7) History of gastric bypass Current Visit: Yes (8) Osteoarthritis Current Visit: Yes (9) MDD (major depressive disorder), recurrent episode, moderate Current Visit: Yes
[2018-03-21] MEDS: THIAMINE HCL 100 MG TABLET (FP) PO SCH (21:33)
[2018-03-21] MEDS: MELATONIN 5 MG, MELATONIN 3 MG PO PRN (21:33)
[2018-03-21] MEDS: LIDOCAINE PATCH REMOVAL MC SCH (21:33)
[2018-03-21] MEDS: QUEtiapine FUMARATE 100 MG TABLET (FP) PO SCH (21:33)
[2018-03-21] MEDS ORDERED: MELATONIN 5 MG TABLETS PO PRN (22:00)
[2018-03-22] MEDS: CYCLOBENZAPRINE HCL 10 MG TABLET (FP) PO SCH ×3 (06:47→21:43)
[2018-03-22] MEDS: hydrOXYzine PAMOATE 50 MG CAPSULE (FP) PO PRN ×2 (06:48→21:43)
[2018-03-22] MEDS ORDERED: PT OWN MED DRAWER 7, Y5N ONE ×2 (08:34→21:42)
[2018-03-22] MEDS: NICOTINE 14 MG/24 HOURS TOPICAL PATCH TD SCH (09:13)
[2018-03-22] MEDS: BUDESONIDE/FORMETEROL FUMARATE 80/4.5 mcg INHALER IH SCH ×2 (09:14→21:43)
[2018-03-22] MEDS: METHYL SALICYLATE/MENTHOL OINT 30 GM TUBE TP SCH ×2 (09:14→21:44)
[2018-03-22] MEDS: PRENATAL VITAMINS W/ FOLIC ACID TABLET (FP) PO SCH (09:14)
[2018-03-22] MEDS: SERTRALINE HCL 25 MG TABLET (FP) PO SCH (09:15)
[2018-03-22] MEDS: LIDOCAINE 5% TOPICAL PATCH TP SCH (09:15)
[2018-03-22] MEDS: MELATONIN 5 MG, MELATONIN 3 MG PO PRN (21:43)
[2018-03-22] MEDS: QUEtiapine FUMARATE 100 MG TABLET (FP) PO SCH (21:43)
[2018-03-22] MEDS: THIAMINE HCL 100 MG TABLET (FP) PO SCH (21:43)
[2018-03-22] MEDS: LIDOCAINE PATCH REMOVAL MC SCH (21:44)
[2018-03-23] MEDS: CYCLOBENZAPRINE HCL 10 MG TABLET (FP) PO SCH ×3 (06:18→21:38)
[2018-03-23] MEDS: hydrOXYzine PAMOATE 50 MG CAPSULE (FP) PO PRN ×3 (06:19→21:42)
[2018-03-23] MEDS: PRENATAL VITAMINS W/ FOLIC ACID TABLET (FP) PO SCH (09:22)
[2018-03-23] MEDS: SERTRALINE HCL 25 MG TABLET (FP) PO SCH (09:22)
[2018-03-23] MEDS: LIDOCAINE 5% TOPICAL PATCH TP SCH (09:23)
[2018-03-23] MEDS: BUDESONIDE/FORMETEROL FUMARATE 80/4.5 mcg INHALER IH SCH ×2 (09:23→21:38)
[2018-03-23] MEDS: NICOTINE 14 MG/24 HOURS TOPICAL PATCH TD SCH (09:23)
[2018-03-23] MEDS: METHYL SALICYLATE/MENTHOL OINT 30 GM TUBE TP SCH ×2 (09:24→21:39)
[2018-03-23] MEDS ORDERED: BENZOCAINE 10 % GEL TUBE MM PRN (12:43)
--- NOTE | 2018-03-23 12:46 | PN ---
S Progress Note Note: PATIENT PRESENTS WITH C/O MOUTH SORE. DENIES FEVER. +OCCASIONAL PAIN TO GUMS. EXAM SHOWS SMALL SORE ON INSIDE OF BOTTOM LIP. NO ACTIVE BLEEDING. WILL ORDER ORAGEL MM NEEDED AND CONTINUE TO MONITOR CLINICALLY.
[2018-03-23] MEDS: THIAMINE HCL 100 MG TABLET (FP) PO SCH (21:38)
[2018-03-23] MEDS: QUEtiapine FUMARATE 100 MG TABLET (FP) PO SCH (21:38)
[2018-03-23] MEDS: LIDOCAINE PATCH REMOVAL MC SCH (21:39)
[2018-03-23] MEDS: MELATONIN 5 MG, MELATONIN 3 MG PO PRN (21:41)
[2018-03-23] MEDS ORDERED: PT OWN MED DRAWER 7, Y5N ONE (21:41)
[2018-03-24] MEDS: CYCLOBENZAPRINE HCL 10 MG TABLET (FP) PO SCH ×2 (06:51→13:57)
[2018-03-24 07:41] VITALS: BP 109/70; PULSE 97; TEMP 97.6
[2018-03-24] MEDS: BUDESONIDE/FORMETEROL FUMARATE 80/4.5 mcg INHALER IH SCH (10:17)
[2018-03-24] MEDS: SERTRALINE HCL 25 MG TABLET (FP) PO SCH (10:17)
[2018-03-24] MEDS: LIDOCAINE 5% TOPICAL PATCH TP SCH (10:17)
[2018-03-24] MEDS: PRENATAL VITAMINS W/ FOLIC ACID TABLET (FP) PO SCH (10:17)
[2018-03-24] MEDS: hydrOXYzine PAMOATE 50 MG CAPSULE (FP) PO PRN (10:18)
[2018-03-24] MEDS: METHYL SALICYLATE/MENTHOL OINT 30 GM TUBE TP SCH (10:19)
[2018-03-24] MEDS: NICOTINE 14 MG/24 HOURS TOPICAL PATCH TD SCH (10:19)
--- NOTE | 2018-03-24 16:00 | PN ---
RICH Progress Note Note: Psychiatrist instructional manager note Called by nursing staff for patient requesting to be discharged ahead of her scheduled discharge date of 03/26/18. Patient has a referral for outpatient treatment at [facility]. Her psychotropic medications(Zoloft, Seroquel) are electronically transferred to [facility] at [address] [place] [address]. As per nursing saff, patient is stable for discharge. Refer to nursing staff note for further information
== END 2018-03-24 16:06 | disposition home or self-care (01) | DRG 772 ==
LOC: YASAS 16:24 → Y3E 18:53
PROVIDERS: ADMIT Psychiatry & Neurology Psychiatry; ATTEND Psychiatry & Neurology Psychiatry
PROC: HZ42ZZZ Group Counseling for Substance Abuse Treatment, Cognitive-Behavioral (ICD-10-PCS; principal; 2018-03-12)
DX: F10.20 Alcohol dependence, uncomplicated (principal); F14.20 Cocaine dependence, uncomplicated; F12.20 Cannabis dependence, uncomplicated; F17.210 Nicotine dependence, cigarettes, uncomplicated; F33.1 Major depressive disorder, recurrent, moderate; F19.24 Other psychoactive substance dependence with psychoactive substance-induced mood disorder; F19.282 Other psychoactive substance dependence with psychoactive substance-induced sleep disorder; I10 Essential (primary) hypertension; K21.9 Gastro-esophageal reflux disease without esophagitis; J44.9 Chronic obstructive pulmonary disease, unspecified; M19.90 Unspecified osteoarthritis, unspecified site; K13.79 Other lesions of oral mucosa; M25.561 Pain in right knee; N76.0 Acute vaginitis; R26.89 Other abnormalities of gait and mobility; Z99.89 Dependence on other enabling machines and devices; Z98.84 Bariatric surgery status
CPT/HCPCS: 36415; 80053; 81003; 85027; 86593; 87086; 93005; 93010

== ENCOUNTER 2018-07-25 18:38 | Inpatient (IN) | payer OTHER ==
[2018-07-25 19:09] VITALS: BMI 25.9
--- NOTE | 2018-07-25 22:45 | HP ---
CIWA Score Nausea/Vomitin-Mild Nausea/No Vomiting Muscle Tremors: 4-Moderate,w/Arms Extend Anxiety: 4-Mod. Anxious/Guarded Agitation: 4-Moderately Restless Paroxysmal Sweats: 3 (Facial moisture) Orientation: 3-Disoriented Date>2 days Tacttile Disturbances: 0-None Auditory Disturbances: 0-None Visual Disturbances: 0-None Headache: 2-Mild CIWA-Ar Total Score: 21 - Admission Criteria OASAS Guidelines: Admission for Medically Managed Detox: Requires at least one of the followin. CIWA greater than 12 2. Seizures within the past 24 hours 3. Delirium tremens within the past 24 hours 4. Hallucinations within the past 24 hours 5. Acute intervention needed for co occurring medical disorder 6. Acute intervention needed for co occurring psychiatric disorder 7. Severe withdrawal that cannot be handled at a lower level of care (continued vomiting, continued diarrhea, abnormal vital signs) requiring intravenous medication and/or fluids 8. Patient presents the following: CIWA greater than 12 Admission Criteria Met: Admission criteria met Admission ROS [facility] Chief Complaint: Here for alcohol withdrawal. Allergies/Adverse Reactions: Allergies Allergy/AdvReac Type Severity Reaction Status Date / Time No Known Allergies Allergy Verified 07/25/18 21:52 History of Present Illness: Here for alcohol detox. Alcohol use since age 21. Cocaine use since age30. Nicotine use since age 25. Denies blackouts, seizures, overdose. Longest length of sobriety 8 years. Hx: asthma/COPD, acid reflux, s/p (R) Knee strain and (R) foot fracture MH: anxiety, depression - no current mental health provider Search Terms: Mariajose Silva, 1960 Search Date: 07/25/2018 10:35:37 PM The Drug Utilization Report below displays all of the controlled substance prescriptions, if any, that your patient has filled in the last twelve months. The information displayed on this report is compiled from pharmacy submissions to the Department, and accurately reflects the information as submitted by the pharmacies. This report was requested by: Megan Snider | Reference #: [id number] There are no results for the search terms that you entered. Exam Limitations: No Limitations - Ebola screening Have you traveled outside of the country in the last 21 days: No (N) Have you had contact with anyone from an Ebola affected area: Yes Have you been sick,other than usual withdrawal symptoms: No Do you have a fever: No - Review of Systems Constitutional: Diaphoresis, Changes in sleep (Difficulty falling asleep) EENT: reports: Blurred Vision, Nose Congestion, Dental Problems (Dentures - chews and swallows ok) Respiratory: reports: Shortness of Breath (Recent exacerbation of asthma) Cardiac: reports: No Symptoms Reported GI: reports: Nausea, Vomiting (of saliva), Indigestion (Acid reflux) : reports: No Symptoms Reported Musculoskeletal: reports: Other (Recent sprain in (R) knee and (R) broken foot - was seen at [facility]. Soft splint d/c but states foot still hurts. States pain in knee is a burning sensation and goes up to a "10") Integumentary: reports: Dryness Neuro: reports: Headache, Tremors (mild shakes) Endocrine: reports: No Symptoms Reported Hematology: reports: No Symptoms Reported Psychiatric: reports: Judgement Intact, Agitated, Anxious, Depressed (Denies thoughts of harming self or others), Disorientated (Knows month and year not date) Patient History - Patient Medical History Hx Anemia: No Hx Asthma: Yes (ON MDI) Hx Chronic Obstructive Pulmonary Disease (COPD): No Hx Cancer: No Hx Cardiac Disorders: No Hx Congestive Heart Failure: No Hx Hypertension: Yes Hx Hypercholesterolemia: No Hx Pacemaker: No HX Cerebrovascular Accident: No Hx Seizures: No Hx Dementia: No Hx Diabetes: No Hx Gastrointestinal Disorders: Yes (GASTRITIC BYPASS 4 YRS AGO) Hx Liver Disease: No Hx Genitourinary Disorders: No Hx Sexually Transmitted Disorders: No Hx Renal Disease (ESRD): No Hx Thyroid Disease: No Hx Human Immunodeficiency Virus (HIV): No (2018 - Neg) Hx Hepatitis C: No Hx Depression: Yes ( denies thoughts of harming self or others) Hx Suicide Attempt: No Hx Bipolar Disorder: No Hx Schizophrenia: No - Patient Surgical History Past Surgical History: Yes Hx Neurologic Surgery: No Hx Cataract Extraction: No Hx Cardiac Surgery: No Hx Lung Surgery: No Hx Breast Surgery: No Hx Breast Biopsy: No Hx Abdominal Surgery: Yes (tummy tuck, gastric by pass ) Hx Appendectomy: No Hx Cholecystectomy: No Hx Genitourinary Surgery: No Hx Section: Yes Hx Orthopedic Surgery: No Hx Hysterectomy: No Anesthesia Reaction: No - PPD History Previous Implant?: Yes Documented Results: Negative w/o proof Implanted On Prior R Admission?: Yes Date: 03/01/18 PPD to be Administered?: No - Reproductive History Patient is a Female of Child Bearing Age (11 -55 yrs old): No Patient : No - Smoking Cessation Smoking history: Current every day smoker Have you smoked in the past 12 months: Yes Aproximately how many cigarettes per day: 10 Hx Chewing Tobacco Use: No Initiated information on smoking cessation: Yes 'Breaking Loose' booklet given: 07/25/18 - Substance & Tx. History Hx Alcohol Use: Yes Hx Substance Use: Yes Substance Use Type: Alcohol, Cocaine Hx Substance Use Treatment: Yes (detox, rehab) - Substances Abused Alcohol Route: Oral Frequency: Daily Amount used: liquor- 1/2 pint, beer- 1 six pack Age of first use: 21 Date of Last Use: 07/25/18 Cocaine Route: Inhalation Frequency: Daily Amount used: 2 bags Age of first use: 30 Date of Last Use: 07/25/18 Family Disease History - Family Disease History Family Disease History: Heart Disease: Father (, [place] ), Mother (alive, HTN ), Sister ( [place]), Other: Father, Mother, Sister Admission Physical Exam [facility] - Vital Signs Vital Signs: Vital Signs - 24 hr 07/25/18 19:07 Temperature 97.2 F L Pulse Rate 90 Respiratory 18 Rate Blood Pressure 114/73 - Physical General Appearance: Yes: Mild Distress, Tremorous, Irritable, Sweating, Anxious HEENTM: Yes: EOMI, Hearing grossly Normal, Normocephalic, RODRIGO, Other ( Perforated nasal septum) Respiratory: Yes: Lungs Clear, Normal Breath Sounds, No Respiratory Distress Neck: Yes: No masses,lesions,Nodules, Supple Breast: Yes: Breast Exam Deferred Cardiology: Yes: Regular Rhythm, Regular Rate, S1, S2 Abdominal: Yes: Non Tender, Flat, Soft, Increased Bowel Sounds Genitourinary: Yes: Within Normal Limits Back: Yes: Normal Inspection Musculoskeletal: Yes: full range of Motion, Other (c/o tenderness (R) foot. FROM toes and ankle. Pedal pulses (+)) Extremities: Yes: Normal Capillary Refill, Tremors (moderate tremors of hands when arms extended) 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: Yes: hide inspector and sorter II-XII NML intact, Alert, Motor Strength 5/5, Normal Mood /Affect Integumentary: Yes: Normal Color, Dry, Warm Lymphatic: Yes: Within Normal Limits - Diagnostic (1) Nontraumatic perforated nasal septum Current Visit: Yes Status: Chronic (2) Alcohol dependence with withdrawal Current Visit: Yes Status: Acute Qualifiers: Complication of substance-induced condition: uncomplicated Qualified Code(s ): F10.230 - Alcohol dependence with withdrawal, uncomplicated (3) Right knee pain Current Visit: No Status: Acute Qualifiers: Chronicity: chronic Qualified Code(s): M25.561 - Pain in right knee; G89.29 - Other chronic pain Comment: States hx of sprain. (4) Cocaine dependence Current Visit: Yes Status: Chronic Qualifiers: Substance use status: uncomplicated Qualified Code(s): F14.20 - Cocaine dependence, uncomplicated (5) GERD (gastroesophageal reflux disease) Current Visit: Yes Status: Chronic Qualifiers: Esophagitis presence: esophagitis presence not specified Qualified Code(s) : K21.9 - Gastro-esophageal reflux disease without esophagitis (6) History of gastric bypass Current Visit: Yes Status: Chronic (7) COPD (chronic obstructive pulmonary disease) Current Visit: Yes Status: Chronic Qualifiers: COPD type: unspecified COPD Qualified Code(s): J44.9 - Chronic obstructive pulmonary disease, unspecified (8) Personal history of healed traumatic fracture Current Visit: Yes Status: Chronic Comment: (R) foot Cleared for Admission S - Detox or Rehab [facility] Level of Care: Medically Managed Detox Regimen/Protocol: Librium S Breath Alcohol Content Breath Alcohol Content: 0 Urine Pregancy Test - Result Urine Test Results: Negative- NO Line Present Urine Drug Screen - Results Drug Screen Negative: No Urine Drug Screen Results: YASHIRA-Cocaine
[2018-07-25] MEDS ORDERED: MAGNESIUM HYDROX 2400MG/30ML ORAL SUSPENSION 30 ML CUP PO PRN (23:09)
[2018-07-25] MEDS ORDERED: MENTHOL/PHENOL 1 EACH UD MM PRN (23:09)
[2018-07-25] MEDS ORDERED: MAGNESIUM CITRATE 300 ML BOTTLE PO PRN (23:09)
[2018-07-25] MEDS ORDERED: chlordiazePOXIDE HCL 25 MG CAPSULE PO PRN (23:09)
[2018-07-25] MEDS ORDERED: LOPERAMIDE HCL 2 MG CAPSULE PO PRN (23:09)
[2018-07-25] MEDS ORDERED: IBUPROFEN 400 MG TABLET (FP) PO PRN ×2 (23:09→23:11)
[2018-07-25] MEDS ORDERED: MAG HYDROX/AL HYDROX/SIMETH 30 ML UNIT-DOSE CUP PO PRN (23:09)
[2018-07-25] MEDS ORDERED: ACETAMINOPHEN 325 MG TABLET (FP) PO PRN (23:09)
[2018-07-25] MEDS ORDERED: hydrOXYzine HCL 25 MG TABLET (FP) PO PRN (23:11)
[2018-07-25] MEDS ORDERED: ALBUTEROL SO4 8 GM HFA INHALER IH PRN (23:11)
[2018-07-26] MEDS: chlordiazePOXIDE HCL 25 MG CAPSULE PO SCH ×5 (00:52→22:50)
[2018-07-26] MEDS: PANTOPRAZOLE 20 MG TABLET (FP) PO SCH ×3 (00:53→22:50)
[2018-07-26 01:50] LABS: URINE APPEARANCE TURBID; URINE BILIRUBIN NEGATIVE (<2.0 mg/dL); URINE COLOR YELLOW; URINE GLUCOSE (UA) NEGATIVE (NEGATIVE); URINE KETONE NEGATIVE (NEGATIVE); URINE LEUK ESTERASE 2+ (NEGATIVE); URINE NITRITE NEGATIVE (NEGATIVE); URINE PROTEIN NEGATIVE (NEGATIVE); URINE UROBILINOGEN NEGATIVE mg/dL (0.2-1.0)
[2018-07-26 02:17] LABS: EPI CELLS RARE /HPF (FEW); URINE BACTERIA RARE /hpf (NONE SEEN); URINE MUCUS RARE
[2018-07-26 10:21] LABS: HEMOGLOBIN 12.4 GM/dL (10.7-15.3); MCH 31.5 pg (25.7-33.7); MCHC 35.5 g/dl (32.0-36.0); MEAN CELL VOLUME 88.7 fl (80-96); MEAN PLT VOLUME 8.5 fl (7.5-11.1); PLATELET COUNT 277 K/MM3 (134-434); RBC 3.95 M/mm3 (3.60-5.2); RDW 13.7 % (11.6-15.6); WHITE BLOOD COUNT 6.1 K/mm3 (4.0-10.0)
[2018-07-26] MEDS: PRENATAL VITAMINS W/ FOLIC ACID TABLET (FP) PO SCH (10:43)
[2018-07-26] MEDS: BUDESONIDE/FORMETEROL FUMARATE 160/4.5 mcg INHALER IH SCH ×2 (10:44→22:49)
[2018-07-26] MEDS: NICOTINE 21 MG/24 HOURS TOPICAL PATCH TD SCH (10:45)
--- NOTE | 2018-07-26 10:55 | PN ---
S CIWA - CIWA Score Nausea/Vomitin-No Nausea/No Vomiting Muscle Tremors: 3 Anxiety: 3 Agitation: 3 Paroxysmal Sweats: 3 Orientation: 0-Oriented Tacttile Disturbances: 0-None Auditory Disturbances: 0-None Visual Disturbances: 0-None Headache: 0-None Present CIWA-Ar Total Score: 12 S Progress Note (SOAP) Subjective: sweats irritable dizzy agitation interrupted sleep Objective: 07/26/18 10:55 Vital Signs Temperature 97.9 F 07/26/18 09:35 Pulse Rate 97 H 07/26/18 09:35 Respiratory Rate 18 07/26/18 09:35 Blood Pressure 122/71 07/26/18 09:35 O2 Sat by Pulse Oximetry (%) Laboratory Tests 07/25/18 07/26/18 23:35 07:50 WBC 6.1 RBC 3.95 Hgb 12.4 Hct 35.0 MCV 88.7 MCH 31.5 MCHC 35.5 RDW 13.7 Plt Count 277 D MPV 8.5 Urine Color Yellow Urine Appearance Turbid Urine pH 5.0 Ur Specific [place] 1.027 Urine Protein Negative Urine Glucose (UA) Negative Urine Ketones Negative Urine Blood Negative Urine Nitrite Negative Urine Bilirubin Negative Urine Urobilinogen Negative Ur Leukocyte Esterase 2+ H Urine WBC (Auto) None Urine RBC (Auto) 2 Ur Epithelial Cells Rare Urine Bacteria Rare Urine Mucus Rare rest of labs pending aaox3 ambulating no acute distress Assessment: 07/26/18 10:55 withdrawal sx Plan: continue detox increase fluids labs pending
[2018-07-26 10:59] LABS: ALBUMIN 2.9 g/dl (3.4-5.0); ALK PHOS 64 U/L (45-117); ANION GAP 10 MMOL/L (8-16); BILIRUBIN,TOTAL 0.4 mg/dL (0.2-1); BLOOD UREA NITROGEN 19 mg/dL (7-18); CALCIUM 7.8 mg/dL (8.5-10.1); CHLORIDE 110 mmol/L (98-107); CO2 24 mmol/L (21-32); CREATININE 0.8 mg/dL (0.55-1.3); GLUCOSE,RANDOM 112 mg/dL (74-106); POTASSIUM 3.7 mmol/L (3.5-5.1); SGOT/AST 10 U/L (15-37); SGPT/ALT 13 U/L (13-61); SODIUM 144 mmol/L (136-145); TOT PROT 5.8 g/dl (6.4-8.2)
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
[2018-07-26] MEDS: QUEtiapine FUMARATE 100 MG TABLET (FP) PO SCH (22:50)
[2018-07-26] MEDS: THIAMINE HCL 100 MG TABLET (FP) PO SCH (22:50)
[2018-07-27] MEDS: chlordiazePOXIDE HCL 25 MG CAPSULE PO SCH ×3 (06:07→22:20)
[2018-07-27] MEDS: PRENATAL VITAMINS W/ FOLIC ACID TABLET (FP) PO SCH (10:41)
[2018-07-27] MEDS: BUDESONIDE/FORMETEROL FUMARATE 160/4.5 mcg INHALER IH SCH ×2 (10:41→22:40)
[2018-07-27] MEDS: NICOTINE 21 MG/24 HOURS TOPICAL PATCH TD SCH (10:41)
[2018-07-27] MEDS: PANTOPRAZOLE 20 MG TABLET (FP) PO SCH ×2 (10:42→22:37)
[2018-07-27] MEDS: SERTRALINE HCL 25 MG TABLET (FP) PO SCH (10:43)
--- NOTE | 2018-07-27 12:26 | PN ---
[facility] CIWA - CIWA Score Nausea/Vomitin-No Nausea/No Vomiting Muscle Tremors: 3 Anxiety: 3 Agitation: 3 Paroxysmal Sweats: 2 Orientation: 0-Oriented Tacttile Disturbances: 0-None Auditory Disturbances: 0-None Visual Disturbances: 0-None Headache: 0-None Present CIWA-Ar Total Score: 11 [facility] Progress Note (SOAP) Subjective: sweats chills shakes agitation Objective: 07/27/18 12:25 Vital Signs Temperature 97.9 F 07/27/18 09:23 Pulse Rate 99 H 07/27/18 09:23 Respiratory Rate 18 07/27/18 09:23 Blood Pressure 147/64 07/27/18 09:23 O2 Sat by Pulse Oximetry (%) Laboratory Tests 07/25/18 07/26/18 07/26/18 23:35 07:50 07:50 WBC 6.1 RBC 3.95 Hgb 12.4 Hct 35.0 MCV 88.7 MCH 31.5 MCHC 35.5 RDW 13.7 Plt Count 277 D MPV 8.5 Sodium 144 Potassium 3.7 Chloride 110 H Carbon Dioxide 24 Anion Gap 10 BUN 19 H Creatinine 0.8 Creat Clearance w eGFR > 60 Random Glucose 112 H Calcium 7.8 L Total Bilirubin 0.4 AST 10 L ALT 13 Alkaline Phosphatase 64 Total Protein 5.8 L Albumin 2.9 L Urine Color Yellow Urine Appearance Turbid Urine pH 5.0 Ur Specific [place] 1.027 Urine Protein Negative Urine Glucose (UA) Negative Urine Ketones Negative Urine Blood Negative Urine Nitrite Negative Urine Bilirubin Negative Urine Urobilinogen Negative Ur Leukocyte Esterase 2+ H Urine WBC (Auto) None Urine RBC (Auto) 2 Ur Epithelial Cells Rare Urine Bacteria Rare Urine Mucus Rare RPR Titer HIV 1&2 Antibody Screen HIV P24 Antigen 07/26/18 07/26/18 07:50 08:20 WBC RBC Hgb Hct MCV MCH MCHC RDW Plt Count MPV Sodium Potassium Chloride Carbon Dioxide Anion Gap BUN Creatinine Creat Clearance w eGFR Random Glucose Calcium Total Bilirubin AST ALT Alkaline Phosphatase Total Protein Albumin Urine Color Urine Appearance Urine pH Ur Specific [place] Urine Protein Urine Glucose (UA) Urine Ketones Urine Blood Urine Nitrite Urine Bilirubin Urine Urobilinogen Ur Leukocyte Esterase Urine WBC (Auto) Urine RBC (Auto) Ur Epithelial Cells Urine Bacteria Urine Mucus RPR Titer Nonreactive HIV 1&2 Antibody Screen Negative HIV P24 Antigen Negative aaox3 ambulating no acute distress Assessment: 07/27/18 12:25 withdrawal sx Plan: continue detox increase fluids
[2018-07-27] MEDS: chlordiazePOXIDE 5 MG CAPSULE PO SCH (22:38)
[2018-07-27] MEDS: QUEtiapine FUMARATE 100 MG TABLET (FP) PO SCH (22:38)
[2018-07-27] MEDS: MELATONIN 5 MG TABLETS PO PRN (22:39)
[2018-07-27] MEDS: NICOTINE POLACRILEX 2 MG GUM BC PRN (22:39)
[2018-07-27] MEDS: THIAMINE HCL 100 MG TABLET (FP) PO SCH (22:39)
[2018-07-28] MEDS: chlordiazePOXIDE 5 MG CAPSULE PO SCH ×3 (05:41→17:17)
[2018-07-28] MEDS: NICOTINE POLACRILEX 2 MG GUM BC PRN (05:45)
[2018-07-28] MEDS: BUDESONIDE/FORMETEROL FUMARATE 160/4.5 mcg INHALER IH SCH ×2 (10:24→22:16)
[2018-07-28] MEDS: SERTRALINE HCL 25 MG TABLET (FP) PO SCH (10:24)
[2018-07-28] MEDS: PRENATAL VITAMINS W/ FOLIC ACID TABLET (FP) PO SCH (10:24)
[2018-07-28] MEDS: NICOTINE 21 MG/24 HOURS TOPICAL PATCH TD SCH (10:24)
[2018-07-28] MEDS: PANTOPRAZOLE 20 MG TABLET (FP) PO SCH ×2 (10:24→22:17)
--- NOTE | 2018-07-28 12:57 | PN ---
[facility] Progress Note (SOAP) Subjective: anxiety restless Objective: 07/28/18 12:56 Vital Signs Temperature 98.4 F 07/28/18 09:42 Pulse Rate 86 07/28/18 09:42 Respiratory Rate 16 07/28/18 09:42 Blood Pressure 140/74 07/28/18 09:42 O2 Sat by Pulse Oximetry (%) aaox3 ambulating no acute distress Assessment: 07/28/18 12:56 withdrawal sx Plan: continue detox increase fluids d/c tomorrow to rehab [facility].
[2018-07-28] MEDS: QUEtiapine FUMARATE 100 MG TABLET (FP) PO SCH (22:17)
[2018-07-28] MEDS: MELATONIN 5 MG TABLETS PO PRN (22:17)
[2018-07-28] MEDS: THIAMINE HCL 100 MG TABLET (FP) PO SCH (22:17)
[2018-07-28] MEDS: chlordiazePOXIDE HCL 10 MG CAPSULE PO SCH (22:17)
[2018-07-29] MEDS: chlordiazePOXIDE HCL 10 MG CAPSULE PO SCH ×2 (05:53→10:23)
[2018-07-29 09:36] VITALS: BP 117/85; PULSE 99; TEMP 97.9
[2018-07-29] MEDS: PRENATAL VITAMINS W/ FOLIC ACID TABLET (FP) PO SCH (10:24)
[2018-07-29] MEDS: BUDESONIDE/FORMETEROL FUMARATE 160/4.5 mcg INHALER IH SCH (10:24)
[2018-07-29] MEDS: PANTOPRAZOLE 20 MG TABLET (FP) PO SCH (10:24)
[2018-07-29] MEDS: NICOTINE 21 MG/24 HOURS TOPICAL PATCH TD SCH (10:24)
[2018-07-29] MEDS: SERTRALINE HCL 25 MG TABLET (FP) PO SCH (10:24)
--- NOTE | 2018-07-29 11:09 | DS ---
[facility] Detox Discharge Summary Admission Date: 07/25/18 Discharge Date: 07/29/18 - History Present History: Alcohol Dependence - Physical Exam Results Vital Signs: Vital Signs Temperature 97.9 F 07/29/18 09:34 Pulse Rate 99 H 07/29/18 09:34 Respiratory Rate 16 07/29/18 09:34 Blood Pressure 117/85 07/29/18 09:34 O2 Sat by Pulse Oximetry (%) Pertinent Admission Physical Exam Findings: alcohol withdrawal sx Vital Signs Temperature 97.9 F 07/29/18 09:34 Pulse Rate 99 H 07/29/18 09:34 Respiratory Rate 16 07/29/18 09:34 Blood Pressure 117/85 07/29/18 09:34 O2 Sat by Pulse Oximetry (%) Laboratory Last Values WBC 6.1 K/mm3 (4.0-10.0) 07/26/18 07:50 RBC 3.95 M/mm3 (3.60-5.2) 07/26/18 07:50 Hgb 12.4 GM/dL (10.7-15.3) 07/26/18 07:50 Hct 35.0 % (32.4-45.2) 07/26/18 07:50 MCV 88.7 fl (80-96) 07/26/18 07:50 MCH 31.5 pg (25.7-33.7) 07/26/18 07:50 MCHC 35.5 g/dl (32.0-36.0) 07/26/18 07:50 RDW 13.7 % (11.6-15.6) 07/26/18 07:50 Plt Count 277 K/MM3 (134-434) D 07/26/18 07:50 MPV 8.5 fl (7.5-11.1) 07/26/18 07:50 Sodium 144 mmol/L (136-145) 07/26/18 07:50 Potassium 3.7 mmol/L (3.5-5.1) 07/26/18 07:50 Chloride 110 mmol/L (98-107) H 07/26/18 07:50 Carbon Dioxide 24 mmol/L (21-32) 07/26/18 07:50 Anion Gap 10 MMOL/L (8-16) 07/26/18 07:50 BUN 19 mg/dL (7-18) H 07/26/18 07:50 Creatinine 0.8 mg/dL (0.55-1.3) 07/26/18 07:50 Creat Clearance w eGFR > 60 (>60) 07/26/18 07:50 Random Glucose 112 mg/dL (74-106) H 07/26/18 07:50 Calcium 7.8 mg/dL (8.5-10.1) L 07/26/18 07:50 Total Bilirubin 0.4 mg/dL (0.2-1) 07/26/18 07:50 AST 10 U/L (15-37) L 07/26/18 07:50 ALT 13 U/L (13-61) 07/26/18 07:50 Alkaline Phosphatase 64 U/L (45-117) 07/26/18 07:50 Total Protein 5.8 g/dl (6.4-8.2) L 07/26/18 07:50 Albumin 2.9 g/dl (3.4-5.0) L 07/26/18 07:50 Urine Color Yellow 07/25/18 23:35 Urine Appearance Turbid 07/25/18 23:35 Urine pH 5.0 (5.0-8.0) 07/25/18 23:35 Ur Specific [place] 1.027 (1.010-1.035) 07/25/18 23:35 Urine Protein Negative (NEGATIVE) 07/25/18 23:35 Urine Glucose (UA) Negative (NEGATIVE) 07/25/18 23:35 Urine Ketones Negative (NEGATIVE) 07/25/18 23:35 Urine Blood Negative (NEGATIVE) 07/25/18 23:35 Urine Nitrite Negative (NEGATIVE) 07/25/18 23:35 Urine Bilirubin Negative (<2.0 mg/dL) 07/25/18 23:35 Urine Urobilinogen Negative mg/dL (0.2-1.0) 07/25/18 23:35 Ur Leukocyte Esterase 2+ (NEGATIVE) H 07/25/18 23:35 Urine WBC (Auto) None /hpf (3-5) 07/25/18 23:35 Urine RBC (Auto) 2 /hpf (0-3) 07/25/18 23:35 Ur Epithelial Cells Rare /HPF (FEW) 07/25/18 23:35 Urine Bacteria Rare /hpf (NONE SEEN) 07/25/18 23:35 Urine Mucus Rare 07/25/18 23:35 RPR Titer Nonreactive (NONREACTIVE) 07/26/18 07:50 HIV 1&2 Antibody Screen Negative 07/26/18 08:20 HIV P24 Antigen Negative 07/26/18 08:20 lab noted - Treatment Hospital Course: Detox Protocol Followed, Detoxed Safely, Responded well, Discharged Condition Good, Rehab Referral Accepted Patient has Accepted a Rehab Referral to: [facility] - Medication Discharge Medications: Ambulatory Orders Permethrin 60 gm TP ONCE #2 tube 06/15/16 hydrOXYzine HCL [Atarax -] 25 mg PO TID PRN #21 tablet 06/15/16 Sertraline HCl [Zoloft] 100 mg PO DAILY 03/02/18 Albuterol Sulfate Inhaler - [Ventolin HFA Inhaler -] 2 inh PO Q4H PRN #1 inhaler 03/23/18 Salmeterol/Fluticasone [Advair 100Mcg/50Mcg -] 1 inh PO BID #1 inhaler 03/23/18 Sertraline HCl [Zoloft -] 75 mg PO DAILY #90 tablet 03/24/18 Ibuprofen 800 mg PO TID PRN #21 tablet 05/03/18 Quetiapine Fumarate [Seroquel] 100 mg PO HS #30 tablet 07/26/18 Sertraline HCl [Zoloft -] 75 mg PO DAILY #90 tablet 07/26/18 - Diagnosis (1) Alcohol dependence with withdrawal Status: Acute Qualifiers: Complication of substance-induced condition: uncomplicated Qualified Code(s ): F10.230 - Alcohol dependence with withdrawal, uncomplicated (2) Substance induced mood disorder Status: Suspected (3) COPD (chronic obstructive pulmonary disease) Status: Chronic Qualifiers: Emphysema type: unspecified (4) GERD (gastroesophageal reflux disease) Status: Chronic Qualifiers: Esophagitis presence: esophagitis presence not specified Qualified Code(s) : K21.9 - Gastro-esophageal reflux disease without esophagitis (5) Nicotine dependence Status: Acute Qualifiers: Nicotine product type: cigarettes Substance use status: in withdrawal Qualified Code(s): F17.213 - Nicotine dependence, cigarettes, with withdrawal - AMA Did Patient Leave Against Medical Advice: No
== END 2018-07-29 11:01 | disposition other institution (70) | DRG 774 ==
LOC: YASAS 18:38 → Y6N 22:54
PROVIDERS: ADMIT Neuromusculoskeletal Medicine & OMM; ATTEND Neuromusculoskeletal Medicine & OMM
PROC: HZ2ZZZZ Detoxification Services for Substance Abuse Treatment (ICD-10-PCS; principal; 2018-07-25)
DX: F10.230 Alcohol dependence with withdrawal, uncomplicated (principal); F14.20 Cocaine dependence, uncomplicated; F12.20 Cannabis dependence, uncomplicated; F17.210 Nicotine dependence, cigarettes, uncomplicated; F19.282 Other psychoactive substance dependence with psychoactive substance-induced sleep disorder; F19.24 Other psychoactive substance dependence with psychoactive substance-induced mood disorder; F33.1 Major depressive disorder, recurrent, moderate; J44.9 Chronic obstructive pulmonary disease, unspecified; K21.9 Gastro-esophageal reflux disease without esophagitis; M19.90 Unspecified osteoarthritis, unspecified site; M25.561 Pain in right knee; G89.29 Other chronic pain; K13.79 Other lesions of oral mucosa; Z87.81 Personal history of (healed) traumatic fracture; Z98.84 Bariatric surgery status
CPT/HCPCS: 36415; 80053; 81003; 81015; 85027; 86593; 87389

== ENCOUNTER 2018-07-29 10:54 | Inpatient (IN) | payer OTHER ==
[2018-07-29] MEDS ORDERED: MAGNESIUM CITRATE 300 ML BOTTLE PO PRN (11:06)
[2018-07-29] MEDS ORDERED: NICOTINE POLACRILEX 2 MG GUM BUC PRN (11:06)
[2018-07-29] MEDS ORDERED: guaiFENesin/D-METHORPHAN HB 10 ML UNIT-DOSE CUPS PO PRN (11:06)
[2018-07-29] MEDS ORDERED: ACETAMINOPHEN 325 MG TABLET (FP) PO PRN (11:06)
[2018-07-29] MEDS ORDERED: MAGNESIUM HYDROX 2400MG/30ML ORAL SUSPENSION 30 ML CUP PO PRN (11:06)
[2018-07-29] MEDS ORDERED: P-EPHED 60MG/TRIPROLIDI 2.5MG TABLET PO PRN (11:06)
[2018-07-29] MEDS ORDERED: NICOTINE 14 MG/24 HOURS TOPICAL PATCH TD PRN (11:06)
[2018-07-29] MEDS ORDERED: MAG HYDROX/AL HYDROX/SIMETH 30 ML UNIT-DOSE CUP PO PRN (11:06)
[2018-07-29] MEDS ORDERED: MENTHOL/PHENOL 1 EACH UD MM PRN (11:06)
[2018-07-29] MEDS ORDERED: LOPERAMIDE HCL 2 MG CAPSULE PO PRN (11:06)
--- NOTE | 2018-07-29 11:06 | HP ---
[facility] Rehab Assess/Revision - Admission History Admitted to Rehab from: [facility] Date of Admission to Rehab: 07/29/18 - Findings Detox History & Physical reviewed: Yes Concur with findings: Yes Comments/Additional Findings: transferred from detox to rehab admission as per protocol Inpatient Rehab Admission - Initial Determination Are CD services needed?: Yes Free of communicable disease: Yes Not in need of hospitalization: Yes - Rehab Admission Criteria Previous failed treatment: Yes Poor recovery environment: Yes Comorbidities: Yes Lacks judgement: No Patient is meeting Inpatient Rehab admission criteria:: Yes
[2018-07-29] MEDS ORDERED: ALBUTEROL SO4 8 GM HFA INHALER IH PRN (15:54)
[2018-07-29] MEDS ORDERED: PATIENT'S OWN MEDICATION (NON-FORMULARY) (Ibuprofen [Ibuprofen] 800 MG) PO PRN (15:54)
[2018-07-29] MEDS ORDERED: hydrOXYzine HCL 25 MG TABLET (FP) PO PRN (16:01)
--- NOTE | 2018-07-29 16:01 | PN ---
[facility] Progress Note Note: Psychiatry Attending's on-call note : Called for medications orders. Chart reviewed. Dr Lopez's note (07/26/18) : appreciated. Ms Silva completed detox (6 N). Now at [facility]. For rehabilitation treatment. Medications revisited. Doses confirmed. Reconciled. As : seroquel 100 mg po hs zoloft 75 mg po daily vistaril 25 mg po q 4 hrs prn Regimen since detox on [address] [place] [address] unit. Well tolerated. No report of adverse effects. Requested by the patient for continuity of care. Orders entered at nurse/patient's requests.
[2018-07-29] MEDS: THIAMINE HCL 100 MG TABLET (FP) PO SCH (21:50)
[2018-07-29] MEDS: QUEtiapine FUMARATE 100 MG TABLET (FP) PO SCH (21:52)
[2018-07-29] MEDS: BUDESONIDE/FORMETEROL FUMARATE 80/4.5 mcg INHALER IH SCH (21:52)
[2018-07-29] MEDS: PANTOPRAZOLE 20 MG TABLET (FP) PO SCH (23:51)
[2018-07-30] MEDS: PRENATAL VITAMINS W/ FOLIC ACID TABLET (FP) PO SCH (10:28)
[2018-07-30] MEDS: SERTRALINE HCL 25 MG TABLET (FP) PO SCH (10:28)
[2018-07-30] MEDS: PANTOPRAZOLE 20 MG TABLET (FP) PO SCH ×2 (10:29→21:58)
[2018-07-30] MEDS: BUDESONIDE/FORMETEROL FUMARATE 80/4.5 mcg INHALER IH SCH ×2 (10:30→21:59)
--- NOTE | 2018-07-30 10:39 | HP ---
Psychiatrist Admission - Data Date of interview: 07/30/18 Admission source: detox Identifying data: This is the first admission to [address] [place] [address] for this 57 yo H mother of 5 ,homeless,supported by [facility]. Medical History: COPD,H/O Gastric bypass. Psychiatric History: First contact with psychiatrist about 10 [facility] ([facility]).She was dx with MDD and placed on medications.patient reports 4-5 more psychiatric admissions.Most recent was about 6 years ago.patient is non compliant with her outpatient [facility] care.Patient stopped to see her psychiatrist about 1 year ago.restarted Zoloft 75 mg po daily and Seroquel 100 mg po hs while being in Detox on ,prescribed by . Physical/Sexual Abuse/Trauma History: denies Vital Signs: Vital Signs - 24 hr 07/29/18 07/30/18 07/30/18 11:24 00:30 03:30 Temperature 97.1 F L Pulse Rate 105 H Respiratory 16 16 16 Rate Blood Pressure 122/78 07/30/18 07:14 Temperature 97.1 F L Pulse Rate 90 Respiratory 16 Rate Blood Pressure 120/79 Allergies/Adverse Reactions: Allergies Allergy/AdvReac Type Severity Reaction Status Date / Time No Known Allergies Allergy Verified 07/25/18 21:52 Date of last physical exam: 07/25/18 Concur with the findings of this exam: Yes - Substance Abuse/Tx History Hx Alcohol Use: Yes Hx Substance Use: Yes Substance Use Type: Alcohol, Cocaine Hx Substance Use Treatment: Yes Mental Status Exam - Mental Status Exam Alert and Oriented to: Time, Place, Person Cognitive Function: Grossly Intact Patient Appearance: Unkempt Mood: Sad, Anxious Affect: Labile Patient Behavior: Cooperative Speech Pattern: Clear Voice Loudness: Normal Thought Process: Goal Oriented Thought Disorder: Not Present Hallucinations: Denies Suicidal Ideation: Denies Homicidal Ideation: Denies Insight/Judgement: Fair Sleep: Fair Appetite: Fair Muscle strength/Tone: Normal Gait/Station: Normal Psychiatric Findings - Problem List ([place] 1, 2,3) (1) Cocaine dependence Current Visit: Yes Status: Chronic Qualifiers: Substance use status: uncomplicated Qualified Code(s): F14.20 - Cocaine dependence, uncomplicated (2) Marijuana dependence Current Visit: Yes Status: Chronic (3) Nicotine dependence Current Visit: Yes Status: Chronic Qualifiers: Nicotine product type: cigarettes Substance use status: in withdrawal Qualified Code(s): F17.213 - Nicotine dependence, cigarettes, with withdrawal (4) COPD (chronic obstructive pulmonary disease) Current Visit: Yes Status: Chronic (5) History of gastric bypass Current Visit: Yes Status: Chronic (6) MDD (major depressive disorder), recurrent episode, moderate Current Visit: Yes Status: Chronic (7) Osteoarthritis Current Visit: Yes Status: Chronic (8) Cocaine dependence Current Visit: Yes Status: Chronic (9) GERD (gastroesophageal reflux disease) Current Visit: Yes Status: Chronic Qualifiers: Esophagitis presence: esophagitis presence not specified Qualified Code(s) : K21.9 - Gastro-esophageal reflux disease without esophagitis - Initial Treatment Plan Initial Treatment Plan: Seroquel 100 mg po hs,Zoloft 75 mg po dsaily and Vistaril 50 mg po q 4 hrs for anxiety.
[2018-07-30] MEDS: IBUPROFEN 400 MG TABLET (FP) PO PRN (11:18)
[2018-07-30] MEDS: hydrOXYzine HCL 25 MG TABLET (FP) PO PRN ×2 (11:18→21:56)
[2018-07-30] MEDS: THIAMINE HCL 100 MG TABLET (FP) PO SCH (21:56)
[2018-07-30] MEDS: QUEtiapine FUMARATE 100 MG TABLET (FP) PO SCH (21:57)
[2018-07-30] MEDS: METHYL SALICYLATE/MENTHOL OINT 30 GM TUBE TP SCH (22:01)
[2018-07-31] MEDS: hydrOXYzine HCL 25 MG TABLET (FP) PO PRN ×3 (06:32→21:45)
[2018-07-31] MEDS: SERTRALINE HCL 25 MG TABLET (FP) PO SCH (09:12)
[2018-07-31] MEDS: METHYL SALICYLATE/MENTHOL OINT 30 GM TUBE TP SCH ×2 (09:12→21:46)
[2018-07-31] MEDS: PRENATAL VITAMINS W/ FOLIC ACID TABLET (FP) PO SCH (09:12)
[2018-07-31] MEDS: PANTOPRAZOLE 20 MG TABLET (FP) PO SCH ×2 (09:12→21:42)
[2018-07-31] MEDS: IBUPROFEN 400 MG TABLET (FP) PO PRN (09:13)
[2018-07-31] MEDS: BUDESONIDE/FORMETEROL FUMARATE 80/4.5 mcg INHALER IH SCH ×2 (09:14→21:43)
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
[2018-07-31] MEDS: LIDOCAINE 5% TOPICAL PATCH TP SCH (11:47)
[2018-07-31] MEDS ORDERED: FLU VACCINE QUAD 60 MCG/0.5 ML (MDV 18-19) IM ONE (12:00)
--- NOTE | 2018-07-31 16:25 | PN ---
Psychiatric Progress Note Vital Signs: Vital Signs Period Temp Pulse Resp BP Sys/Ruts Pulse Ox Last 24 Hr 97.2 F 98 16-18 135/76 Date of Session: 07/31/18 Chief Complaint:: "I have anxiety." HPI: Patient admitted to for treatment of alcohol and cocaine dependence. Current Medications: Active Medications Generic Name Dose Route Start Last Admin Trade Name Freq PRN Reason Stop Dose Admin Acetaminophen 650 mg 07/29/18 11:06 Tylenol - PO Q4H PRN FEVER Al Hydroxide/Mg Hydroxide 30 ml 07/29/18 11:06 Mylanta Oral Suspension - PO Q6H PRN DYSPEPSIA Albuterol Sulfate 2 puff 07/29/18 15:54 Ventolin Hfa Inhaler - IH Q4H PRN ASTHMA Budesonide/Formoterol Fumarate 2 puff 07/29/18 22:00 07/31/18 09:14 Symbicort 80/4.5mcg - IH 2 inh BID SATISH Administration Eucalyptus/Menthol/Phenol/Sorbitol 1 each 07/29/18 11:06 Cepastat Lozenge - MM Q4H PRN SORE THROAT Guaifenesin 10 ml 07/29/18 11:06 Robitussin Dm - PO Q6H PRN COUGH Hydroxyzine HCl 50 mg 07/30/18 10:39 07/31/18 16:04 Atarax - PO 50 mg Q8H PRN Administration itching Ibuprofen 400 mg 07/29/18 11:06 07/31/18 09:13 Motrin - PO 400 mg Q6H PRN Administration Pain Level 4-6 Lidocaine 1 patch 07/31/18 10:45 07/31/18 11:47 Lidoderm Patch - TP 1 patch DAILY SATISH Administration Loperamide HCl 4 mg 07/29/18 11:06 Imodium - PO Q6H PRN DIARRHEA Magnesium Citrate 300 ml 07/29/18 11:06 Citroma - PO Q48H PRN CONSTIPATION Magnesium Hydroxide 30 ml 07/29/18 11:06 Milk Of Magnesia - PO DAILY PRN CONSTIPATION Melatonin 5 mg 07/29/18 22:00 Melatonin PO HS PRN INSOMNIA Methyl Salicylate 1 applic 07/30/18 22:00 07/31/18 09:12 Devante-Bernstein - TP 1 applic BID SATISH Administration Miscellaneous 1 each 07/31/18 22:00 Lidoderm Patch Removal MC DAILY@2200 SATISH Nicotine 14 mg 07/29/18 11:06 Nicoderm Patch - TD DAILY PRN WITHDRAWAL(CONT SUBST) Nicotine Polacrilex 2 mg 07/29/18 11:06 Nicorette Gum - BUC Q2H PRN NICOTINE REPLACEMENT RX Pantoprazole Sodium 20 mg 07/29/18 22:00 07/31/18 09:12 Protonix - PO 20 mg BID SATISH Administration Multivit/Folic Acid/Iron 1 tab 07/30/18 10:00 07/31/18 09:12 Vitamins (Sjr) - PO 1 tab DAILY SATISH Administration Pseudoephedrine/Triprolidine 1 combo 07/29/18 11:06 Actifed - PO TID PRN NASAL CONGESTION Quetiapine Fumarate 100 mg 07/29/18 22:00 07/30/18 21:57 Seroquel - PO 100 mg HS SATISH Administration Sertraline HCl 75 mg 07/30/18 10:00 07/31/18 09:12 Zoloft - PO 75 mg DAILY SATISH Administration Thiamine HCl 100 mg 07/29/18 22:00 07/30/18 21:56 Vitamin B1 - PO 100 mg HS SATISH Administration Medication(s) Change(s): Yes. Will d/c vistaril 50mg q8h and add vistaril 50mg q6h Current Side Effect: No Lab tests ordered: No Lab tests reviewed: Yes Provider note:: Chart reviewed. Patient is currently prescribed vistaril 50mg q8h for anxiety. Patient requesting to have the medication available more often due to her ongoing anxiety on 3E. Pt. encouraged to utilize her coping skills to help manage her anxiety. Will d/c vistaril 50mg q8h and order vistaril 50mg q6h. Verbal consent given. Patient satisified and receptive to feedback. Total face to face time:: 25 Mental Status Exam - Mental Status Exam Alert and Oriented to: Time (Patient ambulates with a cane. ), Place, Person Cognitive Function: Good Patient Appearance: Well Groomed Mood: Hopeful, Euthymic Affect: Appropriate Patient Behavior: Appropriate, Cooperative Speech Pattern: Appropriate Voice Loudness: Normal Thought Process: Intact, Goal Oriented Thought Disorder: Not Present Hallucinations: Denies Suicidal Ideation: Denies Homicidal Ideation: Denies Insight/Judgement: Poor Sleep: Fair Appetite: Fair Muscle strength/Tone: Normal Gait/Station: Other ([place]) Psychiatric Treatment Plan - Problem List (1) Cocaine dependence Current Visit: Yes Qualifiers: Substance use status: uncomplicated Qualified Code(s): F14.20 - Cocaine dependence, uncomplicated (2) MDD (major depressive disorder), recurrent episode, moderate Current Visit: Yes (3) Marijuana dependence Current Visit: Yes (4) Nicotine dependence Current Visit: Yes Qualifiers: Nicotine product type: cigarettes Substance use status: in withdrawal Qualified Code(s): F17.213 - Nicotine dependence, cigarettes, with withdrawal
[2018-07-31] MEDS ORDERED: hydrOXYzine HCL 25 MG TABLET (FP) PO PRN (16:35)
[2018-07-31] MEDS: QUEtiapine FUMARATE 100 MG TABLET (FP) PO SCH (21:42)
[2018-07-31] MEDS: THIAMINE HCL 100 MG TABLET (FP) PO SCH (21:42)
[2018-07-31] MEDS: LIDOCAINE PATCH REMOVAL MC SCH (21:42)
[2018-08-01] MEDS ORDERED: PT OWN MED DRAWER 7, Y5N ONE (08:37)
[2018-08-01] MEDS: PANTOPRAZOLE 20 MG TABLET (FP) PO SCH ×2 (10:00→21:27)
[2018-08-01] MEDS: LIDOCAINE 5% TOPICAL PATCH TP SCH (10:00)
[2018-08-01] MEDS: SERTRALINE HCL 25 MG TABLET (FP) PO SCH (10:00)
[2018-08-01] MEDS: PRENATAL VITAMINS W/ FOLIC ACID TABLET (FP) PO SCH (10:00)
[2018-08-01] MEDS: hydrOXYzine HCL 25 MG TABLET (FP) PO PRN ×2 (10:02→17:46)
[2018-08-01] MEDS: BUDESONIDE/FORMETEROL FUMARATE 80/4.5 mcg INHALER IH SCH ×2 (10:04→21:27)
[2018-08-01] MEDS: METHYL SALICYLATE/MENTHOL OINT 30 GM TUBE TP SCH ×2 (10:04→21:28)
[2018-08-01] MEDS: MINERAL OIL/PETROLAT/WATER TOPICAL CREAM 113 GM JAR TP SCH (13:30)
[2018-08-01] MEDS: THIAMINE HCL 100 MG TABLET (FP) PO SCH (21:26)
[2018-08-01] MEDS: QUEtiapine FUMARATE 100 MG TABLET (FP) PO SCH (21:27)
[2018-08-01] MEDS: LIDOCAINE PATCH REMOVAL MC SCH (21:28)
[2018-08-02] MEDS: MINERAL OIL/PETROLAT/WATER TOPICAL CREAM 113 GM JAR TP SCH (10:07)
[2018-08-02] MEDS: METHYL SALICYLATE/MENTHOL OINT 30 GM TUBE TP SCH ×2 (10:07→21:20)
[2018-08-02] MEDS: LIDOCAINE 5% TOPICAL PATCH TP SCH (10:07)
[2018-08-02] MEDS: PANTOPRAZOLE 20 MG TABLET (FP) PO SCH ×2 (10:08→21:19)
[2018-08-02] MEDS: PRENATAL VITAMINS W/ FOLIC ACID TABLET (FP) PO SCH (10:08)
[2018-08-02] MEDS: BUDESONIDE/FORMETEROL FUMARATE 80/4.5 mcg INHALER IH SCH ×2 (10:08→23:59)
[2018-08-02] MEDS: SERTRALINE HCL 25 MG TABLET (FP) PO SCH (10:09)
[2018-08-02] MEDS: hydrOXYzine HCL 25 MG TABLET (FP) PO PRN ×2 (10:09→16:23)
[2018-08-02] MEDS: THIAMINE HCL 100 MG TABLET (FP) PO SCH (21:19)
[2018-08-02] MEDS: QUEtiapine FUMARATE 100 MG TABLET (FP) PO SCH (21:19)
[2018-08-02] MEDS: MELATONIN 5 MG TABLETS PO PRN (21:20)
[2018-08-02] MEDS: LIDOCAINE PATCH REMOVAL MC SCH (21:20)
[2018-08-02] MEDS: HYDROCORTISONE 1% TOPICAL CREAM 30 GM TUBE TP SCH (23:58)
[2018-08-03] MEDS: hydrOXYzine HCL 25 MG TABLET (FP) PO PRN (06:34)
[2018-08-03] MEDS ORDERED: PT OWN MED DRAWER 7, Y5N ONE (08:47)
[2018-08-03] MEDS: PRENATAL VITAMINS W/ FOLIC ACID TABLET (FP) PO SCH (10:07)
[2018-08-03] MEDS: PANTOPRAZOLE 20 MG TABLET (FP) PO SCH ×2 (10:07→21:44)
[2018-08-03] MEDS: SERTRALINE HCL 25 MG TABLET (FP) PO SCH (10:07)
[2018-08-03] MEDS: MINERAL OIL/PETROLAT/WATER TOPICAL CREAM 113 GM JAR TP SCH (10:08)
[2018-08-03] MEDS: METHYL SALICYLATE/MENTHOL OINT 30 GM TUBE TP SCH ×2 (10:08→21:45)
[2018-08-03] MEDS: BUDESONIDE/FORMETEROL FUMARATE 80/4.5 mcg INHALER IH SCH ×2 (10:08→21:46)
[2018-08-03] MEDS: HYDROCORTISONE 1% TOPICAL CREAM 30 GM TUBE TP SCH ×2 (10:09→21:45)
[2018-08-03] MEDS: LIDOCAINE 5% TOPICAL PATCH TP SCH (10:09)
--- NOTE | 2018-08-03 14:36 | PN ---
Psychiatric Progress Note Vital Signs: Vital Signs Period Temp Pulse Resp BP Sys/Rust Pulse Ox Last 24 Hr 97.5 F 78 17-17 105/64 Date of Session: 08/03/18 Chief Complaint:: Floyd very nervious and restless durine the day. HPI: Cannabis,Cocaine dependence comorbid with Substance induced mood disorder. ROS: Significant for COPD,GERD,H/O Gastric bypass. Current Medications: Active Medications Generic Name Dose Route Start Last Admin Trade Name Freq PRN Reason Stop Dose Admin Acetaminophen 650 mg 07/29/18 11:06 Tylenol - PO Q4H PRN FEVER Al Hydroxide/Mg Hydroxide 30 ml 07/29/18 11:06 Mylanta Oral Suspension - PO Q6H PRN DYSPEPSIA Albuterol Sulfate 2 puff 07/29/18 15:54 Ventolin Hfa Inhaler - IH Q4H PRN ASTHMA Budesonide/Formoterol Fumarate 2 puff 07/29/18 22:00 08/03/18 10:08 Symbicort 80/4.5mcg - IH Not Given BID SATISH Eucalyptus/Menthol/Phenol/Sorbitol 1 each 07/29/18 11:06 Cepastat Lozenge - MM Q4H PRN SORE THROAT Guaifenesin 10 ml 07/29/18 11:06 Robitussin Dm - PO Q6H PRN COUGH Hydrocortisone 1 applic 08/02/18 22:00 08/03/18 10:09 Hytone 1% Cream - TP Not Given BID SATISH Hydroxyzine HCl 50 mg 07/31/18 16:36 08/03/18 06:34 Atarax - PO 50 mg Q6H PRN Administration ANXIETY Ibuprofen 400 mg 07/29/18 11:06 07/31/18 09:13 Motrin - PO 400 mg Q6H PRN Administration Pain Level 4-6 Lidocaine 1 patch 07/31/18 10:45 08/03/18 10:09 Lidoderm Patch - TP 1 patch DAILY SATISH Administration Loperamide HCl 4 mg 07/29/18 11:06 Imodium - PO Q6H PRN DIARRHEA Magnesium Citrate 300 ml 07/29/18 11:06 Citroma - PO Q48H PRN CONSTIPATION Magnesium Hydroxide 30 ml 07/29/18 11:06 Milk Of Magnesia - PO DAILY PRN CONSTIPATION Melatonin 5 mg 07/29/18 22:00 08/02/18 21:20 Melatonin PO 5 mg HS PRN Administration INSOMNIA Methyl Salicylate 1 applic 07/30/18 22:00 08/03/18 10:08 Devante-Bernstein - TP Not Given BID SATISH Miscellaneous 1 each 07/31/18 22:00 08/02/18 21:20 Lidoderm Patch Removal MC 1 each DAILY@2200 SATISH Administration Multi-Ingredient Lotion 1 applic 08/01/18 12:30 08/03/18 10:08 Eucerin (Small Jar) - TP Not Given DAILY SATISH Nicotine 14 mg 07/29/18 11:06 Nicoderm Patch - TD DAILY PRN WITHDRAWAL(CONT SUBST) Nicotine Polacrilex 2 mg 07/29/18 11:06 Nicorette Gum - BUC Q2H PRN NICOTINE REPLACEMENT RX Pantoprazole Sodium 20 mg 07/29/18 22:00 08/03/18 10:07 Protonix - PO 20 mg BID SATISH Administration Multivit/Folic Acid/Iron 1 tab 07/30/18 10:00 08/03/18 10:07 Vitamins (Sjr) - PO 1 tab DAILY SATISH Administration Pseudoephedrine/Triprolidine 1 combo 07/29/18 11:06 Actifed - PO TID PRN NASAL CONGESTION Quetiapine Fumarate 100 mg 07/29/18 22:00 08/02/18 21:19 Seroquel - PO 100 mg HS SATISH Administration Quetiapine Fumarate 25 mg 08/03/18 14:30 Seroquel - PO DAILY SATISH Sertraline HCl 100 mg 08/03/18 14:27 Zoloft - PO DAILY SATISH Thiamine HCl 100 mg 07/29/18 22:00 08/02/18 21:19 Vitamin B1 - PO 100 mg HS SATISH Administration Current Side Effect: No Lab tests ordered: No Lab tests reviewed: Yes Provider note:: Chart was revuewes,labs noticed ,met with the patient.She addressed ongoing anxity,restlessness,inability to stay still,nerviousness, depressed mood on and off.Porperties of Zoloft has been discussed with the patient including side effects,benefits and dose adjustment.Zoloft 75 mg po daily will be adjust to 100 mg po daily,Seroquel 25 mg po daily will be added today. Supportive therapy provided,relaxation techniques has been discussed as well. Total face to face time:: 35 Mental Status Exam - Mental Status Exam Alert and Oriented to: Time, Place, Person Cognitive Function: Grossly Intact Patient Appearance: Well Groomed Mood: Anxious, Expansive Affect: Labile Patient Behavior: Cooperative Speech Pattern: Clear Voice Loudness: Normal Thought Process: Goal Oriented Thought Disorder: Not Present Hallucinations: Denies Suicidal Ideation: Denies Homicidal Ideation: Denies Insight/Judgement: Fair Sleep: Fair Appetite: Good Muscle strength/Tone: Normal Gait/Station: Normal Psychiatric Treatment Plan - Problem List (1) Cocaine dependence Current Visit: Yes Qualifiers: Substance use status: uncomplicated Qualified Code(s): F14.20 - Cocaine dependence, uncomplicated (2) Marijuana dependence Current Visit: Yes (3) Nicotine dependence Current Visit: Yes Qualifiers: Nicotine product type: cigarettes Substance use status: in withdrawal Qualified Code(s): F17.213 - Nicotine dependence, cigarettes, with withdrawal (4) COPD (chronic obstructive pulmonary disease) Current Visit: Yes (5) History of gastric bypass Current Visit: Yes (6) MDD (major depressive disorder), recurrent episode, moderate Current Visit: Yes (7) Osteoarthritis Current Visit: Yes (8) Cocaine dependence Current Visit: Yes (9) GERD (gastroesophageal reflux disease) Current Visit: Yes Qualifiers: Esophagitis presence: esophagitis presence not specified Qualified Code(s) : K21.9 - Gastro-esophageal reflux disease without esophagitis
[2018-08-03] MEDS: QUEtiapine FUMARATE 25 MG TABLET (FP) PO SCH (14:50)
[2018-08-03] MEDS ORDERED: SERTRALINE HCL 50 MG TABLET (FP) PO SCH (15:00)
[2018-08-03] MEDS: QUEtiapine FUMARATE 100 MG TABLET (FP) PO SCH (21:44)
[2018-08-03] MEDS: THIAMINE HCL 100 MG TABLET (FP) PO SCH (21:44)
[2018-08-03] MEDS: LIDOCAINE PATCH REMOVAL MC SCH (21:45)
[2018-08-04] MEDS ORDERED: PT OWN MED DRAWER 7, Y5N ONE (08:47)
[2018-08-04] MEDS: QUEtiapine FUMARATE 25 MG TABLET (FP) PO SCH (10:19)
[2018-08-04] MEDS: PRENATAL VITAMINS W/ FOLIC ACID TABLET (FP) PO SCH (10:19)
[2018-08-04] MEDS: SERTRALINE HCL 50 MG TABLET (FP) PO SCH (10:19)
[2018-08-04] MEDS: PANTOPRAZOLE 20 MG TABLET (FP) PO SCH ×2 (10:19→21:19)
[2018-08-04] MEDS: LIDOCAINE 5% TOPICAL PATCH TP SCH (10:20)
[2018-08-04] MEDS: METHYL SALICYLATE/MENTHOL OINT 30 GM TUBE TP SCH ×2 (10:20→21:20)
[2018-08-04] MEDS: HYDROCORTISONE 1% TOPICAL CREAM 30 GM TUBE TP SCH ×2 (10:20→22:37)
[2018-08-04] MEDS: BUDESONIDE/FORMETEROL FUMARATE 80/4.5 mcg INHALER IH SCH ×2 (10:21→21:19)
[2018-08-04] MEDS: MINERAL OIL/PETROLAT/WATER TOPICAL CREAM 113 GM JAR TP SCH (10:21)
[2018-08-04] MEDS: hydrOXYzine HCL 25 MG TABLET (FP) PO PRN (16:55)
[2018-08-04] MEDS: THIAMINE HCL 100 MG TABLET (FP) PO SCH (21:19)
[2018-08-04] MEDS: QUEtiapine FUMARATE 100 MG TABLET (FP) PO SCH (21:19)
[2018-08-04] MEDS: LIDOCAINE PATCH REMOVAL MC SCH (21:30)
[2018-08-05] MEDS: LIDOCAINE 5% TOPICAL PATCH TP SCH (09:23)
[2018-08-05] MEDS: PRENATAL VITAMINS W/ FOLIC ACID TABLET (FP) PO SCH (09:23)
[2018-08-05] MEDS: PANTOPRAZOLE 20 MG TABLET (FP) PO SCH ×2 (09:24→21:13)
[2018-08-05] MEDS: BUDESONIDE/FORMETEROL FUMARATE 80/4.5 mcg INHALER IH SCH ×2 (09:24→21:24)
[2018-08-05] MEDS: SERTRALINE HCL 50 MG TABLET (FP) PO SCH (09:24)
[2018-08-05] MEDS: QUEtiapine FUMARATE 25 MG TABLET (FP) PO SCH (09:24)
[2018-08-05] MEDS: MINERAL OIL/PETROLAT/WATER TOPICAL CREAM 113 GM JAR TP SCH (09:26)
[2018-08-05] MEDS: METHYL SALICYLATE/MENTHOL OINT 30 GM TUBE TP SCH ×2 (09:26→22:50)
[2018-08-05] MEDS: HYDROCORTISONE 1% TOPICAL CREAM 30 GM TUBE TP SCH ×2 (09:26→22:50)
[2018-08-05] MEDS: hydrOXYzine HCL 25 MG TABLET (FP) PO PRN (17:25)
[2018-08-05] MEDS ORDERED: PT OWN MED DRAWER 7, Y5N ONE (20:02)
[2018-08-05] MEDS: QUEtiapine FUMARATE 100 MG TABLET (FP) PO SCH (21:13)
[2018-08-05] MEDS: THIAMINE HCL 100 MG TABLET (FP) PO SCH (21:13)
[2018-08-05] MEDS: MELATONIN 5 MG TABLETS PO PRN (21:14)
[2018-08-05] MEDS: LIDOCAINE PATCH REMOVAL MC SCH (21:24)
[2018-08-06] MEDS: BUDESONIDE/FORMETEROL FUMARATE 80/4.5 mcg INHALER IH SCH ×2 (10:23→22:07)
[2018-08-06] MEDS: PRENATAL VITAMINS W/ FOLIC ACID TABLET (FP) PO SCH (10:23)
[2018-08-06] MEDS: LIDOCAINE 5% TOPICAL PATCH TP SCH (10:23)
[2018-08-06] MEDS: QUEtiapine FUMARATE 25 MG TABLET (FP) PO SCH (10:23)
[2018-08-06] MEDS: PANTOPRAZOLE 20 MG TABLET (FP) PO SCH ×2 (10:23→21:37)
[2018-08-06] MEDS: SERTRALINE HCL 50 MG TABLET (FP) PO SCH (10:23)
[2018-08-06] MEDS: MINERAL OIL/PETROLAT/WATER TOPICAL CREAM 113 GM JAR TP SCH (10:24)
[2018-08-06] MEDS: HYDROCORTISONE 1% TOPICAL CREAM 30 GM TUBE TP SCH ×2 (10:24→21:38)
[2018-08-06] MEDS: METHYL SALICYLATE/MENTHOL OINT 30 GM TUBE TP SCH ×2 (10:24→22:07)
[2018-08-06] MEDS ORDERED: PT OWN MED DRAWER 7, Y5N ONE ×2 (11:25→16:41)
--- NOTE | 2018-08-06 14:03 | PN ---
[facility] Progress Note Note: PATIENT C/O RASH TO RIGHT FOREARM. DENIES RECENT CHANGE IN SOAP, DETERGENT OR FOOD. PATIENT ALERT AND ORIENTED X 3, SKIN WARM AND DRY. MILD MACULAR-RED RASH NOTED ON RIGHT FOREARM, NO OPEN AREAS. A/P CONTACT DERMATITIS. WILL TREAT WITH HYDORCORTISONE CREAM AND CONTINUE TO MONITOR CLINICALLY. Vital Signs Temperature 97.7 F 08/06/18 07:10 Pulse Rate 84 08/06/18 07:10 Respiratory Rate 16 08/06/18 07:10 Blood Pressure 117/81 08/06/18 07:10 O2 Sat by Pulse Oximetry (%)
[2018-08-06] MEDS: QUEtiapine FUMARATE 25 MG TABLET (FP) PO PRN (14:05)
[2018-08-06] MEDS: hydrOXYzine HCL 25 MG TABLET (FP) PO PRN (16:43)
[2018-08-06] MEDS: THIAMINE HCL 100 MG TABLET (FP) PO SCH (21:36)
[2018-08-06] MEDS: QUEtiapine FUMARATE 100 MG TABLET (FP) PO SCH (21:36)
[2018-08-06] MEDS: MELATONIN 5 MG TABLETS PO PRN (21:37)
[2018-08-06] MEDS: LIDOCAINE PATCH REMOVAL MC SCH (22:07)
[2018-08-07] MEDS: hydrOXYzine HCL 25 MG TABLET (FP) PO PRN ×2 (06:23→17:55)
[2018-08-07] MEDS ORDERED: PT OWN MED DRAWER 7, Y5N ONE ×2 (06:23→09:18)
[2018-08-07] MEDS: BUDESONIDE/FORMETEROL FUMARATE 80/4.5 mcg INHALER IH SCH ×2 (09:15→21:09)
[2018-08-07] MEDS: METHYL SALICYLATE/MENTHOL OINT 30 GM TUBE TP SCH ×2 (09:16→21:10)
[2018-08-07] MEDS: LIDOCAINE 5% TOPICAL PATCH TP SCH (09:16)
[2018-08-07] MEDS: MINERAL OIL/PETROLAT/WATER TOPICAL CREAM 113 GM JAR TP SCH (09:17)
[2018-08-07] MEDS: HYDROCORTISONE 1% TOPICAL CREAM 30 GM TUBE TP SCH ×2 (09:18→21:10)
[2018-08-07] MEDS: PRENATAL VITAMINS W/ FOLIC ACID TABLET (FP) PO SCH (09:19)
[2018-08-07] MEDS: PANTOPRAZOLE 20 MG TABLET (FP) PO SCH ×2 (09:19→21:09)
[2018-08-07] MEDS: SERTRALINE HCL 50 MG TABLET (FP) PO SCH (09:19)
[2018-08-07] MEDS: QUEtiapine FUMARATE 25 MG TABLET (FP) PO PRN (09:20)
[2018-08-07] MEDS: THIAMINE HCL 100 MG TABLET (FP) PO SCH (21:09)
[2018-08-07] MEDS: QUEtiapine FUMARATE 100 MG TABLET (FP) PO SCH (21:09)
[2018-08-07] MEDS: LIDOCAINE PATCH REMOVAL MC SCH (21:10)
[2018-08-08] MEDS: hydrOXYzine HCL 25 MG TABLET (FP) PO PRN ×3 (08:43→18:17)
[2018-08-08] MEDS: PRENATAL VITAMINS W/ FOLIC ACID TABLET (FP) PO SCH (10:01)
[2018-08-08] MEDS: PANTOPRAZOLE 20 MG TABLET (FP) PO SCH ×2 (10:01→21:24)
[2018-08-08] MEDS: SERTRALINE HCL 50 MG TABLET (FP) PO SCH (10:01)
[2018-08-08] MEDS: BUDESONIDE/FORMETEROL FUMARATE 80/4.5 mcg INHALER IH SCH ×2 (10:01→21:24)
[2018-08-08] MEDS: LIDOCAINE 5% TOPICAL PATCH TP SCH (10:01)
[2018-08-08] MEDS: QUEtiapine FUMARATE 25 MG TABLET (FP) PO PRN (10:02)
[2018-08-08] MEDS: METHYL SALICYLATE/MENTHOL OINT 30 GM TUBE TP SCH ×2 (10:02→21:23)
[2018-08-08] MEDS: MINERAL OIL/PETROLAT/WATER TOPICAL CREAM 113 GM JAR TP SCH (10:03)
[2018-08-08] MEDS: HYDROCORTISONE 1% TOPICAL CREAM 30 GM TUBE TP SCH ×2 (10:03→21:24)
[2018-08-08] MEDS ORDERED: COLLOIDAL OATMEAL 1 BAR EACH TP PRN (10:25)
--- NOTE | 2018-08-08 10:30 | PN ---
[facility] Progress Note Note: PATIENT C/O ITCHING OR RIGHT ARM, CURRENTLY HAS HYDROCORTISONE FOR RASH. SKIN WARM AND DRY, RIGHT ARM RASH RESOLVING, SMALL SCAB NOTED DUE TO SCRATCHING WILL CONTINUE HYDROCORTISONE CREAM AND ADD AVEENO SOAP PRN. CONTINUE TO MONITOR.
[2018-08-08] MEDS: THIAMINE HCL 100 MG TABLET (FP) PO SCH (21:24)
[2018-08-08] MEDS: MELATONIN 5 MG TABLETS PO PRN (21:24)
[2018-08-08] MEDS: LIDOCAINE PATCH REMOVAL MC SCH (21:24)
[2018-08-08] MEDS: QUEtiapine FUMARATE 100 MG TABLET (FP) PO SCH (21:24)
[2018-08-09 07:19] VITALS: TEMP 97.8
[2018-08-09] MEDS ORDERED: PT OWN MED DRAWER 7, Y5N ONE (08:21)
[2018-08-09] MEDS: hydrOXYzine HCL 25 MG TABLET (FP) PO PRN ×3 (09:58→21:11)
[2018-08-09] MEDS: PANTOPRAZOLE 20 MG TABLET (FP) PO SCH ×2 (09:58→21:11)
[2018-08-09] MEDS: PRENATAL VITAMINS W/ FOLIC ACID TABLET (FP) PO SCH (09:58)
[2018-08-09] MEDS: QUEtiapine FUMARATE 25 MG TABLET (FP) PO PRN (09:59)
[2018-08-09] MEDS: SERTRALINE HCL 50 MG TABLET (FP) PO SCH (10:01)
[2018-08-09] MEDS: MINERAL OIL/PETROLAT/WATER TOPICAL CREAM 113 GM JAR TP SCH (10:29)
[2018-08-09] MEDS: METHYL SALICYLATE/MENTHOL OINT 30 GM TUBE TP SCH ×2 (10:33→21:12)
[2018-08-09] MEDS: HYDROCORTISONE 1% TOPICAL CREAM 30 GM TUBE TP SCH ×2 (10:33→21:12)
[2018-08-09] MEDS: LIDOCAINE 5% TOPICAL PATCH TP SCH (10:34)
[2018-08-09] MEDS: BUDESONIDE/FORMETEROL FUMARATE 80/4.5 mcg INHALER IH SCH ×2 (10:34→23:12)
--- NOTE | 2018-08-09 11:59 | PN ---
Psychiatric Progress Note Vital Signs: Vital Signs Period Temp Pulse Resp BP Sys/Rust Pulse Ox Last 24 Hr 97.8 F 98 16-18 110/75 Date of Session: 08/09/18 Chief Complaint:: Discharge Note HPI: Patient addressing Cocaine and Cannabis Dependence comorbid with Nicotine Dependence and MDD ROS: COPD, GERD, Osteoarthritis, S/P Gastric bypass Current Medications: Active Medications Generic Name Dose Route Start Last Admin Trade Name Freq PRN Reason Stop Dose Admin Acetaminophen 650 mg 07/29/18 11:06 Tylenol - PO Q4H PRN FEVER Al Hydroxide/Mg Hydroxide 30 ml 07/29/18 11:06 Mylanta Oral Suspension - PO Q6H PRN DYSPEPSIA Albuterol Sulfate 2 puff 07/29/18 15:54 Ventolin Hfa Inhaler - IH Q4H PRN ASTHMA Budesonide/Formoterol Fumarate 2 puff 07/29/18 22:00 08/09/18 10:34 Symbicort 80/4.5mcg - IH Not Given BID SATISH Colloidal Oatmeal 1 applic 08/08/18 10:25 08/08/18 10:40 Aveeno Soap - TP 1 applic DAILY PRN Administration HYGEINE Eucalyptus/Menthol/Phenol/Sorbitol 1 each 07/29/18 11:06 08/07/18 09:22 Cepastat Lozenge - MM 1 each Q4H PRN Administration SORE THROAT Guaifenesin 10 ml 07/29/18 11:06 Robitussin Dm - PO Q6H PRN COUGH Hydrocortisone 1 applic 08/02/18 22:00 08/09/18 10:33 Hytone 1% Cream - TP 1 applic BID SATISH Administration Hydroxyzine HCl 50 mg 08/06/18 11:01 08/09/18 09:58 Atarax - PO 50 mg Q4H PRN Administration ANXIETY Ibuprofen 400 mg 07/29/18 11:06 07/31/18 09:13 Motrin - PO 400 mg Q6H PRN Administration Pain Level 4-6 Lidocaine 1 patch 07/31/18 10:45 08/09/18 10:34 Lidoderm Patch - TP 1 patch DAILY SATISH Administration Loperamide HCl 4 mg 07/29/18 11:06 Imodium - PO Q6H PRN DIARRHEA Magnesium Citrate 300 ml 07/29/18 11:06 Citroma - PO Q48H PRN CONSTIPATION Magnesium Hydroxide 30 ml 07/29/18 11:06 Milk Of Magnesia - PO DAILY PRN CONSTIPATION Melatonin 5 mg 07/29/18 22:00 08/08/18 21:24 Melatonin PO 5 mg HS PRN Administration INSOMNIA Methyl Salicylate 1 applic 07/30/18 22:00 08/09/18 10:33 Devante-Bernstein - TP 1 applic BID SATISH Administration Miscellaneous 1 each 07/31/18 22:00 08/08/18 21:24 Lidoderm Patch Removal MC 1 each DAILY@2200 SATISH Administration Multi-Ingredient Lotion 1 applic 08/01/18 12:30 08/09/18 10:29 Eucerin (Small Jar) - TP 1 applic DAILY SATISH Administration Nicotine 14 mg 07/29/18 11:06 Nicoderm Patch - TD DAILY PRN WITHDRAWAL(CONT SUBST) Nicotine Polacrilex 2 mg 07/29/18 11:06 Nicorette Gum - BUC Q2H PRN NICOTINE REPLACEMENT RX Pantoprazole Sodium 20 mg 07/29/18 22:00 08/09/18 09:58 Protonix - PO 20 mg BID SATISH Administration Multivit/Folic Acid/Iron 1 tab 07/30/18 10:00 08/09/18 09:58 Vitamins (Sjr) - PO 1 tab DAILY SATISH Administration Pseudoephedrine/Triprolidine 1 combo 07/29/18 11:06 Actifed - PO TID PRN NASAL CONGESTION Quetiapine Fumarate 100 mg 07/29/18 22:00 08/08/18 21:24 Seroquel - PO 100 mg HS SATISH Administration Quetiapine Fumarate 25 mg 08/06/18 11:00 08/09/18 09:59 Seroquel - PO 25 mg DAILY PRN Administration ANXIETY Sertraline HCl 100 mg 08/04/18 10:00 08/09/18 10:01 Zoloft - PO 100 mg DAILY SATISH Administration Thiamine HCl 100 mg 07/29/18 22:00 08/08/18 21:24 Vitamin B1 - PO 100 mg HS SATISH Administration Current Side Effect: No Lab tests ordered: Yes Lab tests reviewed: Yes Provider note:: Patient will complete this program on 08/10/18. She has met her treatment goals and will continue to address her issues in outpatient treatment at [facility] at [address] [place] [address]. Told movie writer that from her participation in this program, he has learned the importance of making meetings and get a sponsor. She responded well to Seroquel 25 mg daily & 100 mg HS and Zoloft 100 mg po daily. Scripts for 30 days supply of medications will be electronicaly transmitted to [facility] at [address] [place] [address]. She is stable for discharge on 08/10/18 Total face to face time:: 35 Mental Status Exam - Mental Status Exam Alert and Oriented to: Time, Place, Person Cognitive Function: Fair Patient Appearance: Well Groomed Mood: Hopeful, Euthymic Affect: Appropriate Patient Behavior: Cooperative Speech Pattern: Clear Voice Loudness: Normal Thought Process: Intact, Goal Oriented Hallucinations: Denies Suicidal Ideation: Denies Homicidal Ideation: Denies Insight/Judgement: Fair Sleep: Fair Appetite: Fair Muscle strength/Tone: Normal Gait/Station: Normal Psychiatric Treatment Plan - Problem List (1) Cocaine dependence Current Visit: Yes Qualifiers: Substance use status: uncomplicated Qualified Code(s): F14.20 - Cocaine dependence, uncomplicated (2) Cannabis dependence Current Visit: Yes (3) Nicotine dependence Current Visit: Yes Qualifiers: Nicotine product type: cigarettes Substance use status: in withdrawal Qualified Code(s): F17.213 - Nicotine dependence, cigarettes, with withdrawal (4) MDD (major depressive disorder), recurrent episode, moderate Current Visit: Yes (5) COPD (chronic obstructive pulmonary disease) Current Visit: Yes (6) GERD (gastroesophageal reflux disease) Current Visit: Yes Qualifiers: Esophagitis presence: esophagitis presence not specified Qualified Code(s) : K21.9 - Gastro-esophageal reflux disease without esophagitis (7) History of gastric bypass Current Visit: Yes (8) Osteoarthritis Current Visit: Yes Initial treatment plan: Patient will be discharged tomorrow and referred to [facility] for outpatient treatment
[2018-08-09] MEDS: MELATONIN 5 MG TABLETS PO PRN (21:11)
[2018-08-09] MEDS: LIDOCAINE PATCH REMOVAL MC SCH (21:11)
[2018-08-09] MEDS: QUEtiapine FUMARATE 100 MG TABLET (FP) PO SCH (21:11)
[2018-08-09] MEDS: THIAMINE HCL 100 MG TABLET (FP) PO SCH (21:12)
[2018-08-10 07:08] VITALS: BP 117/78; PULSE 84
== END 2018-08-10 08:20 | disposition home or self-care (01) | DRG 772 ==
LOC: YASAS 10:54 → Y3E 10:55
PROVIDERS: ADMIT Psychiatry & Neurology Psychiatry; ATTEND Psychiatry & Neurology Psychiatry
PROC: HZ40ZZZ Group Counseling for Substance Abuse Treatment, Cognitive (ICD-10-PCS; principal; 2018-07-29)
DX: F14.20 Cocaine dependence, uncomplicated (principal); F12.20 Cannabis dependence, uncomplicated; F17.213 Nicotine dependence, cigarettes, with withdrawal; F33.1 Major depressive disorder, recurrent, moderate; K21.9 Gastro-esophageal reflux disease without esophagitis; J44.9 Chronic obstructive pulmonary disease, unspecified; M19.90 Unspecified osteoarthritis, unspecified site; R21 Rash and other nonspecific skin eruption; L25.9 Unspecified contact dermatitis, unspecified cause; R26.89 Other abnormalities of gait and mobility; Z99.89 Dependence on other enabling machines and devices; Z98.84 Bariatric surgery status; Z91.5 Personal history of self-harm
CPT/HCPCS: 90688; G0008

== ENCOUNTER 2018-12-01 18:57 | Inpatient (IN) | payer OTHER ==
[2018-12-01 20:56] VITALS: BMI 28.5
--- NOTE | 2018-12-01 21:51 | HP ---
CIWA Score Nausea/Vomitin-No Nausea/No Vomiting Muscle Tremors: None Anxiety: 4-Mod. Anxious/Guarded Agitation: 4-Moderately Restless Paroxysmal Sweats: 3 Orientation: 2-Disoriented Date<2 days Tacttile Disturbances: 2-Mild Itch/Numbness/Burn Auditory Disturbances: 2-Mild Harshness/Frighten Visual Disturbances: 2-Mild Sensitivity Headache: 2-Mild CIWA-Ar Total Score: 21 - Admission Criteria OASAS Guidelines: Admission for Medically Managed Detox: Requires at least one of the followin. CIWA greater than 12 2. Seizures within the past 24 hours 3. Delirium tremens within the past 24 hours 4. Hallucinations within the past 24 hours 5. Acute intervention needed for co occurring medical disorder 6. Acute intervention needed for co occurring psychiatric disorder 7. Severe withdrawal that cannot be handled at a lower level of care (continued vomiting, continued diarrhea, abnormal vital signs) requiring intravenous medication and/or fluids 8. Patient presents the following: CIWA greater than 12, Acute intervention needed for co-occurring med or psych disorder Admission Criteria Met: Admission criteria met Admission ROS [facility] Chief Complaint: C/O WORSENING WITHDRAWAL SX'S. SEEKING DETOX Allergies/Adverse Reactions: Allergies Allergy/AdvReac Type Severity Reaction Status Date / Time No Known Allergies Allergy Verified 12/01/18 20:30 History of Present Illness: 89 Y.O. FEMALE WITH ALCOHOLISM HERE FOR DETOX. CLIENT IS SELF REFERRED SHE IS KNOWN TO THIS PROGRAM. MULTIPLE PAST ADMISSION NOTED TO INCLUDE REHAB SERVICES. PRESENTS TODAY WITH C/O WORSENING WITHDRAWAL SX'S. CIWA 21. DENIES HX/ O SEIZURES BUT HAS BLACKED OUT. SHE REPORTS OTHER ILLICIT SUBSTANCE ABUSE TO INCLUDE CANNABIS. REPORTS LONGEST CLEAN TIME 7 YEARS. MOST RECENT CLEAN TIME 3 MONTHS RELAPSING A YEAR AGO. PMHX- GERD, ASTHMA, OA, HTN, . PSYCH- HX/O SI WITH ATTEMPTS PRESENTLY DENIES MOST RECENT WAS SI 1 MONTH AGO WITH A PLAN TO THROW HERSELF OVER A [place]. PRESENTLY DENIES SI/HI, AVH. LIVES WITH DAUGHTER, MIKE, DENIES LEGALS Exam Limitations: No Limitations - Ebola screening Have you traveled outside of the country in the last 21 days: No (N) Have you had contact with anyone from an Ebola affected area: No Have you been sick,other than usual withdrawal symptoms: No Do you have a fever: No - Review of Systems Constitutional: Chills, Loss of Appetite, Malaise (CHRONIC), Night Sweats, Changes in sleep EENT: reports: Dental Problems (DENTURES), Throat Pain ("FROM SMOKING CIGARETTES ") Respiratory: reports: Shortness of Breath (HX/O ASTHMA) Cardiac: reports: No Symptoms Reported GI: reports: Poor Appetite : reports: No Symptoms Reported Musculoskeletal: reports: Back Pain (CHRONIC), Joint Pain (CHRONIC) Integumentary: reports: No Symptoms Reported Neuro: reports: Tingling Endocrine: reports: No Symptoms Reported Hematology: reports: No Symptoms Reported Psychiatric: reports: Orientated x3, Anxious, Depressed Other Systems: Reviewed and Negative Patient History - Patient Medical History Hx Anemia: No Hx Asthma: Yes Hx Chronic Obstructive Pulmonary Disease (COPD): Yes Hx Cancer: No Hx Cardiac Disorders: No Hx Congestive Heart Failure: No Hx Hypertension: No Hx Hypercholesterolemia: No Hx Pacemaker: No HX Cerebrovascular Accident: No Hx Seizures: No Hx Dementia: No Hx Diabetes: No Hx Gastrointestinal Disorders: Yes (GERD) Hx Liver Disease: No Hx Genitourinary Disorders: No Hx Sexually Transmitted Disorders: No Hx Renal Disease (ESRD): No Hx Thyroid Disease: No Hx Human Immunodeficiency Virus (HIV): No Hx Hepatitis C: No Hx Depression: Yes Hx Suicide Attempt: No Hx Bipolar Disorder: No Hx Schizophrenia: No - Patient Surgical History Past Surgical History: Yes Hx Neurologic Surgery: No Hx Cataract Extraction: No Hx Cardiac Surgery: No Hx Lung Surgery: No Hx Breast Surgery: No Hx Breast Biopsy: No Hx Abdominal Surgery: Yes (tummy tuck, gastric by pass ) Hx Appendectomy: No Hx Cholecystectomy: No Hx Genitourinary Surgery: No Hx Section: Yes Hx Orthopedic Surgery: No Hx Hysterectomy: No Anesthesia Reaction: No - PPD History Previous Implant?: Yes Documented Results: Negative w/proof Implanted On Prior [facility] Admission?: Yes Date: 03/01/18 Results: 0MM PPD to be Administered?: No - Reproductive History Patient is a Female of Child Bearing Age (11 -55 yrs old): No Patient : No (NEG CG) - Smoking Cessation Smoking history: Current every day smoker Have you smoked in the past 12 months: Yes Aproximately how many cigarettes per day: 20 Cigars Per Day: 0 Hx Chewing Tobacco Use: No Initiated information on smoking cessation: Yes 'Breaking Loose' booklet given: 12/01/18 - Substance & Tx. History Hx Alcohol Use: Yes Hx Substance Use: Yes Substance Use Type: Alcohol, Marijuana Hx Substance Use Treatment: Yes ([facility]) - Substances Abused Alcohol Route: Oral Frequency: Daily Amount used: LIQUOR- 1 PINT, BEER- 1 SIX PACK Age of first use: 25 Date of Last Use: 12/01/18 Marijuana/Hashish Route: Smoking Frequency: Daily Amount used: 1 BLUNT Age of first use: 20 Date of Last Use: 11/30/18 Family Disease History - Family Disease History Family Disease History: Heart Disease: Father (, CA ), Mother (alive, HTN ), Sister ( [place]), Other: Father, Mother, Sister Admission Physical Exam [facility] - Vital Signs Vital Signs: Vital Signs - 24 hr 12/01/18 20:47 Temperature 97.2 F L Pulse Rate 92 H Respiratory 18 Rate Blood Pressure 127/82 - Physical General Appearance: Yes: Appropriately Dressed, Mild Distress, Anxious HEENTM: Yes: EOMI, Normocephalic, RODRIGO, Pharynx Normal, Other (OVERSIZED TOP DENTURES) Respiratory: Yes: Chest Non-Tender, Lungs Clear, Normal Breath Sounds, No Respiratory Distress, No Accessory Muscle Use Neck: Yes: No masses,lesions,Nodules, Supple, Trachea in good position Breast: Yes: Breast Exam Deferred Cardiology: Yes: Regular Rhythm, Regular Rate, S1, S2 Abdominal: Yes: Non Tender, Soft, Increased Bowel Sounds Genitourinary: Yes: Within Normal Limits (NO C/O OFFERED) Back: Yes: Normal Inspection Musculoskeletal: Yes: full range of Motion, Gait Steady Extremities: Yes: Normal Range of Motion, Non-Tender 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: Yes: Alert, Motor Strength 5/5, Depressed Affect Integumentary: Yes: Dry, Warm Lymphatic: Yes: Within Normal Limits - Diagnostic (1) Alcohol dependence with withdrawal Current Visit: Yes Status: Acute Qualifiers: Complication of substance-induced condition: uncomplicated Qualified Code(s ): F10.230 - Alcohol dependence with withdrawal, uncomplicated (2) Cannabis dependence Current Visit: Yes Status: Acute (3) Substance induced mood disorder Current Visit: Yes Status: Chronic (4) Substance-induced sleep disorder Current Visit: Yes Status: Chronic (5) COPD (chronic obstructive pulmonary disease) Current Visit: Yes Status: Chronic Qualifiers: Emphysema type: unspecified (6) GERD (gastroesophageal reflux disease) Current Visit: Yes Status: Chronic Qualifiers: Esophagitis presence: esophagitis presence not specified Qualified Code(s) : K21.9 - Gastro-esophageal reflux disease without esophagitis (7) MDD (major depressive disorder), recurrent episode, moderate Current Visit: Yes Status: Chronic (8) Nicotine dependence Current Visit: Yes Status: Chronic Qualifiers: Nicotine product type: cigarettes Substance use status: in withdrawal Qualified Code(s): F17.213 - Nicotine dependence, cigarettes, with withdrawal (9) Osteoarthritis Current Visit: Yes Status: Chronic Cleared for Admission [facility] - Detox or Rehab S Level of Care: Medically Managed Detox Regimen/Protocol: Librium Claeared for Rehab Admission: No BHS Breath Alcohol Content Breath Alcohol Content: 0 Urine Pregancy Test - Result Urine Test Results: Negative - NO line present Urine Drug Screen - Results Drug Screen Negative: No Urine Drug Screen Results: THC-Marijuana, YASHIRA-Cocaine Inpatient Rehab Admission - Rehab Decision to Admit Inpatient rehab admission?: No
[2018-12-01] MEDS ORDERED: NICOTINE POLACRILEX 2 MG GUM BUC PRN (21:56)
[2018-12-01] MEDS ORDERED: MAG HYDROX/AL HYDROX/SIMETH 30 ML UNIT-DOSE CUP PO PRN (21:56)
[2018-12-01] MEDS ORDERED: DICYCLOMINE HCL 10 MG CAPSULE PO PRN (21:56)
[2018-12-01] MEDS ORDERED: MENTHOL/PHENOL 1 EACH UD MM PRN (21:56)
[2018-12-01] MEDS ORDERED: guaiFENesin 200 MG/10 ML 10 ML UNIT-DOSE CUPS PO PRN (21:56)
[2018-12-01] MEDS ORDERED: P-EPHED 60MG/TRIPROLIDI 2.5MG TABLET PO PRN (21:56)
[2018-12-01] MEDS ORDERED: BISMUTH SUBSALICYLATE 524 MG/30 ML UD PO PRN (21:56)
[2018-12-01] MEDS ORDERED: METHOCARBAMOL 500 MG TABLET PO PRN (21:56)
[2018-12-01] MEDS ORDERED: MELATONIN 5 MG TABLETS PO PRN (21:56)
[2018-12-01] MEDS ORDERED: MAGNESIUM CITRATE 300 ML BOTTLE PO PRN (21:56)
[2018-12-01] MEDS ORDERED: IBUPROFEN 400 MG TABLET (FP) PO PRN (21:56)
[2018-12-01] MEDS ORDERED: ACETAMINOPHEN 325 MG TABLET (FP) PO PRN ×2 (21:56)
[2018-12-01] MEDS ORDERED: chlordiazePOXIDE HCL 25 MG CAPSULE PO PRN (21:56)
[2018-12-01] MEDS ORDERED: ONDANSETRON *ODT* 4 MG TABLET SL PRN (21:56)
[2018-12-01] MEDS ORDERED: MAGNESIUM HYDROX 2400MG/30ML ORAL SUSPENSION 30 ML CUP PO PRN (21:56)
[2018-12-01] MEDS: chlordiazePOXIDE HCL 25 MG CAPSULE PO SCH (23:43)
[2018-12-01] MEDS: THIAMINE HCL 100 MG TABLET (FP) PO SCH (23:44)
[2018-12-02] MEDS: chlordiazePOXIDE HCL 25 MG CAPSULE PO SCH ×4 (06:06→22:46)
[2018-12-02] MEDS: hydrOXYzine PAMOATE 25 MG CAPSULE (FP) PO PRN (06:08)
[2018-12-02 10:35] LABS: HEMOGLOBIN 12.6 GM/dL (10.7-15.3); MCH 29.2 pg (25.7-33.7); MCHC 32.3 g/dl (32.0-36.0); MEAN CELL VOLUME 90.5 fl (80-96); MEAN PLT VOLUME 8.4 fl (7.5-11.1); PLATELET COUNT 302 K/MM3 (134-434); RBC 4.31 M/mm3 (3.60-5.2); RDW 13.3 % (11.6-15.6); WHITE BLOOD COUNT 6.4 K/mm3 (4.0-10.0)
[2018-12-02 10:44] LABS: ALK PHOS 61 U/L (45-117); ANION GAP 6 MMOL/L (8-16); BILIRUBIN,TOTAL 0.2 mg/dL (0.2-1); BLOOD UREA NITROGEN 14 mg/dL (7-18); CALCIUM 7.9 mg/dL (8.5-10.1); CHLORIDE 110 mmol/L (98-107); CO2 28 mmol/L (21-32); CREATININE 0.9 mg/dL (0.55-1.3); GLUCOSE,RANDOM 97 mg/dL (74-106); POTASSIUM 3.9 mmol/L (3.5-5.1); SGOT/AST 10 U/L (15-37); SGPT/ALT 13 U/L (13-61); SODIUM 144 mmol/L (136-145); TOT PROT 5.8 g/dl (6.4-8.2)
[2018-12-02 10:50] LABS: EPI CELLS 2.8 /HPF (0-5); URINE APPEARANCE TURBID; URINE BACTERIA 27.3 /hpf (NEGATIVE); URINE BILIRUBIN NEGATIVE (NEGATIVE); URINE CASTS 3 /hpf (0-8); URINE COLOR DK YELLOW; URINE GLUCOSE (UA) NEGATIVE (NEGATIVE); URINE KETONE TRACE (NEGATIVE); URINE LEUK ESTERASE 1+ (NEGATIVE); URINE NITRITE NEGATIVE (NEGATIVE); URINE PROTEIN NEGATIVE (NEGATIVE); URINE RBC 2 /hpf (0-4); URINE WBC 4 /hpf (0-5)
[2018-12-02] MEDS: NICOTINE 21 MG/24 HOURS TOPICAL PATCH TD SCH (10:57)
[2018-12-02] MEDS: PRENATAL VITAMINS W/ FOLIC ACID TABLET (FP) PO SCH (10:57)
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
[2018-12-02] MEDS: SERTRALINE HCL 50 MG TABLET (FP) PO SCH (13:18)
[2018-12-02] MEDS: risperiDONE 2 MG TABLET PO SCH (13:19)
[2018-12-02 14:40] LABS: URINE CRYSTALS CA OC /hpf
--- NOTE | 2018-12-02 15:47 | PN ---
[facility] CIWA - CIWA Score Nausea/Vomitin-Mild Nausea/No Vomiting Muscle Tremors: 4-Moderate,w/Arms Extend Anxiety: 4-Mod. Anxious/Guarded Agitation: 3 Paroxysmal Sweats: 1-Minimal Palms Moist Orientation: 2-Disoriented Date<2 days Tacttile Disturbances: 0-None Auditory Disturbances: 0-None Visual Disturbances: 0-None Headache: 1-Very Mild CIWA-Ar Total Score: 16 BHS Progress Note (SOAP) Subjective: feeling ok today wish to be see by a paychiatrist Objective: 12/02/18 15:46 Vital Signs Temperature 98.3 F 12/02/18 13:18 Pulse Rate 88 12/02/18 13:18 Respiratory Rate 20 12/02/18 13:18 Blood Pressure 120/91 12/02/18 13:18 O2 Sat by Pulse Oximetry (%) Laboratory Last Values WBC 6.4 K/mm3 (4.0-10.0) 12/02/18 07:30 RBC 4.31 M/mm3 (3.60-5.2) 12/02/18 07:30 Hgb 12.6 GM/dL (10.7-15.3) 12/02/18 07:30 Hct 39.0 % (32.4-45.2) 12/02/18 07:30 MCV 90.5 fl (80-96) 12/02/18 07:30 MCH 29.2 pg (25.7-33.7) 12/02/18 07:30 MCHC 32.3 g/dl (32.0-36.0) 12/02/18 07:30 RDW 13.3 % (11.6-15.6) 12/02/18 07:30 Plt Count 302 K/MM3 (134-434) 12/02/18 07:30 MPV 8.4 fl (7.5-11.1) 12/02/18 07:30 Sodium 144 mmol/L (136-145) 12/02/18 07:30 Potassium 3.9 mmol/L (3.5-5.1) 12/02/18 07:30 Chloride 110 mmol/L (98-107) H 12/02/18 07:30 Carbon Dioxide 28 mmol/L (21-32) 12/02/18 07:30 Anion Gap 6 MMOL/L (8-16) L 12/02/18 07:30 BUN 14 mg/dL (7-18) 12/02/18 07:30 Creatinine 0.9 mg/dL (0.55-1.3) 12/02/18 07:30 Creat Clearance w eGFR 64.31 (>60) 12/02/18 07:30 Random Glucose 97 mg/dL (74-106) 12/02/18 07:30 Calcium 7.9 mg/dL (8.5-10.1) L 12/02/18 07:30 Total Bilirubin 0.2 mg/dL (0.2-1) 12/02/18 07:30 AST 10 U/L (15-37) L 12/02/18 07:30 ALT 13 U/L (13-61) 12/02/18 07:30 Alkaline Phosphatase 61 U/L (45-117) 12/02/18 07:30 Total Protein 5.8 g/dl (6.4-8.2) L 12/02/18 07:30 Albumin 3.0 g/dl (3.4-5.0) L 12/02/18 07:30 Urine Color Dk yellow 12/02/18 08:20 Urine Appearance Turbid 12/02/18 08:20 Urine pH 5.0 (5.0-8.0) 12/02/18 08:20 Ur Specific [place] 1.030 (1.010-1.035) 12/02/18 08:20 Urine Protein Negative (NEGATIVE) 12/02/18 08:20 Urine Glucose (UA) Negative (NEGATIVE) 12/02/18 08:20 Urine Ketones Trace (NEGATIVE) H 12/02/18 08:20 Urine Blood Negative (NEGATIVE) 12/02/18 08:20 Urine Nitrite Negative (NEGATIVE) 12/02/18 08:20 Urine Bilirubin Negative (NEGATIVE) 12/02/18 08:20 Urine Urobilinogen 1.0 mg/dL (0.2-1.0) 12/02/18 08:20 Ur Leukocyte Esterase 1+ (NEGATIVE) H 12/02/18 08:20 Urine WBC (Auto) 4 /hpf (0-5) 12/02/18 08:20 Urine RBC (Auto) 2 /hpf (0-4) 12/02/18 08:20 Urine Casts (Auto) 3 /hpf (0-8) 12/02/18 08:20 U Epithel Cells (Auto) 2.8 /HPF (0-5) 12/02/18 08:20 Urine Crystals (Auto) Ca oc /hpf 12/02/18 08:20 Urine Bacteria (Auto) 27.3 /hpf (NEGATIVE) 12/02/18 08:20 RPR Titer Nonreactive (NONREACTIVE) 12/02/18 07:30 lab noted Assessment: 12/02/18 15:47 withdrawl sx Plan: continue detox
[2018-12-02] MEDS: THIAMINE HCL 100 MG TABLET (FP) PO SCH (22:46)
[2018-12-03] MEDS: chlordiazePOXIDE HCL 25 MG CAPSULE PO SCH ×3 (05:31→17:54)
[2018-12-03] MEDS: risperiDONE 2 MG TABLET PO SCH (10:22)
[2018-12-03] MEDS: PRENATAL VITAMINS W/ FOLIC ACID TABLET (FP) PO SCH (10:22)
[2018-12-03] MEDS: BENZTROPINE MESYLATE 1 MG TABLET (FP) PO SCH (10:22)
[2018-12-03] MEDS: SERTRALINE HCL 50 MG TABLET (FP) PO SCH (10:22)
[2018-12-03] MEDS: NICOTINE 21 MG/24 HOURS TOPICAL PATCH TD SCH (10:23)
--- NOTE | 2018-12-03 15:26 | PN ---
S CIWA - CIWA Score Nausea/Vomitin-No Nausea/No Vomiting Muscle Tremors: None Anxiety: 3 Agitation: 0-Normal Activity Paroxysmal Sweats: 3 Orientation: 0-Oriented Tacttile Disturbances: 0-None Auditory Disturbances: 2-Mild Harshness/Frighten Visual Disturbances: 2-Mild Sensitivity Headache: 0-None Present CIWA-Ar Total Score: 10 BHS Progress Note (SOAP) Subjective: Body Aches, Anxious, Sweating. Objective: PATIENT A & O X 2 (UNCERTAIN ABOUT CURRENT DAY / DATE). IN NO ACUTE DISTRESS. 12/03/18 15:23 Vital Signs Temperature 98.9 F 12/03/18 13:05 Pulse Rate 115 H 12/03/18 13:05 Respiratory Rate 18 12/03/18 13:05 Blood Pressure 140/92 12/03/18 13:05 O2 Sat by Pulse Oximetry (%) Laboratory Tests 12/02/18 12/02/18 12/02/18 07:30 07:30 07:30 WBC 6.4 RBC 4.31 Hgb 12.6 Hct 39.0 MCV 90.5 MCH 29.2 MCHC 32.3 RDW 13.3 Plt Count 302 MPV 8.4 Sodium 144 Potassium 3.9 Chloride 110 H Carbon Dioxide 28 Anion Gap 6 L BUN 14 Creatinine 0.9 Creat Clearance w eGFR 64.31 Random Glucose 97 Calcium 7.9 L Total Bilirubin 0.2 AST 10 L ALT 13 Alkaline Phosphatase 61 Total Protein 5.8 L Albumin 3.0 L Urine Color Urine Appearance Urine pH Ur Specific [place] Urine Protein Urine Glucose (UA) Urine Ketones Urine Blood Urine Nitrite Urine Bilirubin Urine Urobilinogen Ur Leukocyte Esterase Urine WBC (Auto) Urine RBC (Auto) Urine Casts (Auto) U Epithel Cells (Auto) Urine Crystals (Auto) Urine Bacteria (Auto) RPR Titer Nonreactive 12/02/18 08:20 WBC RBC Hgb Hct MCV MCH MCHC RDW Plt Count MPV Sodium Potassium Chloride Carbon Dioxide Anion Gap BUN Creatinine Creat Clearance w eGFR Random Glucose Calcium Total Bilirubin AST ALT Alkaline Phosphatase Total Protein Albumin Urine Color Dk yellow Urine Appearance Turbid Urine pH 5.0 Ur Specific [place] 1.030 Urine Protein Negative Urine Glucose (UA) Negative Urine Ketones Trace H Urine Blood Negative Urine Nitrite Negative Urine Bilirubin Negative Urine Urobilinogen 1.0 Ur Leukocyte Esterase 1+ H Urine WBC (Auto) 4 Urine RBC (Auto) 2 Urine Casts (Auto) 3 U Epithel Cells (Auto) 2.8 Urine Crystals (Auto) Ca oc Urine Bacteria (Auto) 27.3 RPR Titer LABS NOTED. Assessment: 12/03/18 15:24 WITHDRAWAL SYMPTOMS. HYPOCALCEMIA. Plan: CONTINUE DETOX. OSCAL, 500 MG PO BID FOR HYPOCALCEMIA.
[2018-12-03] MEDS: LIDOCAINE 5% TOPICAL PATCH TP SCH (15:35)
[2018-12-03] MEDS: CALCIUM 500MG/VIT-D 200 UNITS COMBO TABLET (FP) PO SCH (22:24)
[2018-12-03] MEDS: chlordiazePOXIDE HCL 10 MG CAPSULE PO SCH (22:24)
[2018-12-03] MEDS: LIDOCAINE PATCH REMOVAL MC SCH (22:24)
[2018-12-03] MEDS: THIAMINE HCL 100 MG TABLET (FP) PO SCH (22:24)
[2018-12-03] MEDS ORDERED: chlordiazePOXIDE HCL 10 MG CAPSULE PO PRN (23:00)
[2018-12-04] MEDS: chlordiazePOXIDE HCL 10 MG CAPSULE PO SCH ×4 (05:24→22:10)
[2018-12-04] MEDS: hydrOXYzine PAMOATE 25 MG CAPSULE (FP) PO PRN (09:28)
[2018-12-04] MEDS: NICOTINE 21 MG/24 HOURS TOPICAL PATCH TD SCH (10:14)
[2018-12-04] MEDS: risperiDONE 2 MG TABLET PO SCH (10:15)
[2018-12-04] MEDS: SERTRALINE HCL 50 MG TABLET (FP) PO SCH (10:15)
[2018-12-04] MEDS: LIDOCAINE 5% TOPICAL PATCH TP SCH (10:15)
[2018-12-04] MEDS: PRENATAL VITAMINS W/ FOLIC ACID TABLET (FP) PO SCH (10:15)
[2018-12-04] MEDS: BENZTROPINE MESYLATE 1 MG TABLET (FP) PO SCH (10:15)
[2018-12-04] MEDS: CALCIUM 500MG/VIT-D 200 UNITS COMBO TABLET (FP) PO SCH ×2 (10:15→22:09)
--- NOTE | 2018-12-04 16:37 | PN ---
[facility] Progress Note (SOAP) Subjective: Body Aches. Objective: PATIENT A & O X 2 (UNCERTAIN ABOUT CURRENT DAY / DATE). PATIENT OBSERVED AMBULATING ON UNIT. IN NO ACUTE DISTRESS. 12/04/18 16:35 Vital Signs Temperature 97.5 F L 12/04/18 13:38 Pulse Rate 114 H 12/04/18 13:38 Respiratory Rate 18 12/04/18 13:38 Blood Pressure 125/85 12/04/18 13:38 O2 Sat by Pulse Oximetry (%) Laboratory Tests 12/02/18 12/02/18 12/02/18 07:30 07:30 07:30 WBC 6.4 RBC 4.31 Hgb 12.6 Hct 39.0 MCV 90.5 MCH 29.2 MCHC 32.3 RDW 13.3 Plt Count 302 MPV 8.4 Sodium 144 Potassium 3.9 Chloride 110 H Carbon Dioxide 28 Anion Gap 6 L BUN 14 Creatinine 0.9 Creat Clearance w eGFR 64.31 Random Glucose 97 Calcium 7.9 L Total Bilirubin 0.2 AST 10 L ALT 13 Alkaline Phosphatase 61 Total Protein 5.8 L Albumin 3.0 L Urine Color Urine Appearance Urine pH Ur Specific [place] Urine Protein Urine Glucose (UA) Urine Ketones Urine Blood Urine Nitrite Urine Bilirubin Urine Urobilinogen Ur Leukocyte Esterase Urine WBC (Auto) Urine RBC (Auto) Urine Casts (Auto) U Epithel Cells (Auto) Urine Crystals (Auto) Urine Bacteria (Auto) RPR Titer Nonreactive 12/02/18 08:20 WBC RBC Hgb Hct MCV MCH MCHC RDW Plt Count MPV Sodium Potassium Chloride Carbon Dioxide Anion Gap BUN Creatinine Creat Clearance w eGFR Random Glucose Calcium Total Bilirubin AST ALT Alkaline Phosphatase Total Protein Albumin Urine Color Dk yellow Urine Appearance Turbid Urine pH 5.0 Ur Specific [place] 1.030 Urine Protein Negative Urine Glucose (UA) Negative Urine Ketones Trace H Urine Blood Negative Urine Nitrite Negative Urine Bilirubin Negative Urine Urobilinogen 1.0 Ur Leukocyte Esterase 1+ H Urine WBC (Auto) 4 Urine RBC (Auto) 2 Urine Casts (Auto) 3 U Epithel Cells (Auto) 2.8 Urine Crystals (Auto) Ca oc Urine Bacteria (Auto) 27.3 RPR Titer LABS NOTED. Assessment: 12/04/18 16:36 WITHDRAWAL SYMPTOMS. HYPOCALCEMIA. 12/04/18 16:36 Plan: CONTINUE DETOX. CONTINUE OSCAL FOR HYPOCALCEMIA. PATIENT SCHEDULED FOR D/C TOMORROW AM.
[2018-12-04] MEDS: THIAMINE HCL 100 MG TABLET (FP) PO SCH (22:09)
[2018-12-04] MEDS: LIDOCAINE PATCH REMOVAL MC SCH (23:35)
[2018-12-05 06:20] VITALS: BP 117/79; PULSE 100; TEMP 97.1
[2018-12-05] MEDS ORDERED: CALCIUM 500MG/VIT-D 200 UNITS COMBO TABLET (FP) PO ONE (07:00)
[2018-12-05] MEDS: PRENATAL VITAMINS W/ FOLIC ACID TABLET (FP) PO SCH (10:01)
[2018-12-05] MEDS: BENZTROPINE MESYLATE 1 MG TABLET (FP) PO SCH (10:01)
[2018-12-05] MEDS: CALCIUM 500MG/VIT-D 200 UNITS COMBO TABLET (FP) PO SCH (10:01)
[2018-12-05] MEDS: SERTRALINE HCL 50 MG TABLET (FP) PO SCH (10:01)
[2018-12-05] MEDS: LIDOCAINE 5% TOPICAL PATCH TP SCH (10:02)
[2018-12-05] MEDS: NICOTINE 21 MG/24 HOURS TOPICAL PATCH TD SCH (10:02)
[2018-12-05] MEDS: risperiDONE 2 MG TABLET PO SCH (10:04)
[2018-12-05] MEDS: chlordiazePOXIDE HCL 10 MG CAPSULE PO SCH (10:05)
--- NOTE | 2018-12-05 13:41 | DS ---
[facility] Detox Discharge Summary Admission Date: 12/01/18 Discharge Date: 12/05/18 - History Present History: Alcohol Dependence, Cannabis Dependence, Cocaine Dependence Additional Comments: PATIENT GOING TO [facility] ([facility]) FOR AFTERCARE. PATIENT WAS DISCHARGED FROM DETOX UNIT TO BE TAKEN OVER TO REHAB UNIT IN STABLE MEDICAL CONDITION. Pertinent Past History: Asthma, C.O.P.D. (Chronic Emphysema), Major Depressive Disorder, G.E.R.D., Nicotine Dependence, Osteoarthritis, Hypocalcemia, History of Gastric Bypass. - Physical Exam Results Vital Signs: Vital Signs Temperature 97.1 F L 12/05/18 06:19 Pulse Rate 100 H 12/05/18 06:19 Respiratory Rate 18 12/05/18 06:30 Blood Pressure 117/79 12/05/18 06:19 O2 Sat by Pulse Oximetry (%) Pertinent Admission Physical Exam Findings: WITHDRAWAL SYMPTOMS. Laboratory Tests 12/02/18 12/02/18 12/02/18 07:30 07:30 07:30 WBC 6.4 RBC 4.31 Hgb 12.6 Hct 39.0 MCV 90.5 MCH 29.2 MCHC 32.3 RDW 13.3 Plt Count 302 MPV 8.4 Sodium 144 Potassium 3.9 Chloride 110 H Carbon Dioxide 28 Anion Gap 6 L BUN 14 Creatinine 0.9 Creat Clearance w eGFR 64.31 Random Glucose 97 Calcium 7.9 L Total Bilirubin 0.2 AST 10 L ALT 13 Alkaline Phosphatase 61 Total Protein 5.8 L Albumin 3.0 L Urine Color Urine Appearance Urine pH Ur Specific [place] Urine Protein Urine Glucose (UA) Urine Ketones Urine Blood Urine Nitrite Urine Bilirubin Urine Urobilinogen Ur Leukocyte Esterase Urine WBC (Auto) Urine RBC (Auto) Urine Casts (Auto) U Epithel Cells (Auto) Urine Crystals (Auto) Urine Bacteria (Auto) RPR Titer Nonreactive 12/02/18 08:20 WBC RBC Hgb Hct MCV MCH MCHC RDW Plt Count MPV Sodium Potassium Chloride Carbon Dioxide Anion Gap BUN Creatinine Creat Clearance w eGFR Random Glucose Calcium Total Bilirubin AST ALT Alkaline Phosphatase Total Protein Albumin Urine Color Dk yellow Urine Appearance Turbid Urine pH 5.0 Ur Specific [place] 1.030 Urine Protein Negative Urine Glucose (UA) Negative Urine Ketones Trace H Urine Blood Negative Urine Nitrite Negative Urine Bilirubin Negative Urine Urobilinogen 1.0 Ur Leukocyte Esterase 1+ H Urine WBC (Auto) 4 Urine RBC (Auto) 2 Urine Casts (Auto) 3 U Epithel Cells (Auto) 2.8 Urine Crystals (Auto) Ca oc Urine Bacteria (Auto) 27.3 RPR Titer LABS NOTED. - Treatment Hospital Course: Detox Protocol Followed, Detoxed Safely, Responded well, Discharged Condition Good, Rehab Referral Accepted Patient has Accepted a Rehab Referral to: [facility] ([place], [place]). - Medication Discharge Medications: Ambulatory Orders Ibuprofen 800 mg PO TID PRN #21 tablet 05/03/18 Pantoprazole Sodium [Protonix -] 20 mg PO BID 07/29/18 Albuterol Sulfate Inhaler - [Ventolin HFA Inhaler -] 2 inh PO Q4H PRN #1 inhaler 08/09/18 Quetiapine Fumarate [Seroquel] 100 mg PO HS #30 tablet 08/09/18 Salmeterol/Fluticasone [Advair 100Mcg/50Mcg -] 1 inh PO BID #1 inhaler 08/09/18 Benztropine Mesylate [Cogentin -] 1 mg PO DAILY 12/05/18 Calcium (Oyster Shell) [Os-Stefano 500Mg -] 500 mg PO BID 12/05/18 Quetiapine Fumarate [Seroquel -] 25 mg PO DAILY 12/05/18 Risperidone [Risperdal] 2 mg PO DAILY 12/05/18 Sertraline HCl [Zoloft] 50 mg PO DAILY 12/05/18 - Diagnosis (1) Alcohol dependence with withdrawal Status: Acute Qualifiers: Complication of substance-induced condition: uncomplicated Qualified Code(s ): F10.230 - Alcohol dependence with withdrawal, uncomplicated (2) Cannabis dependence Status: Acute (3) COPD (chronic obstructive pulmonary disease) Status: Chronic Qualifiers: COPD type: emphysema Emphysema type: unspecified Qualified Code(s): J43.9 - Emphysema, unspecified (4) GERD (gastroesophageal reflux disease) Status: Chronic Qualifiers: Esophagitis presence: esophagitis presence not specified Qualified Code(s) : K21.9 - Gastro-esophageal reflux disease without esophagitis (5) Osteoarthritis Status: Chronic Qualifiers: Osteoarthritis location: unspecified site Osteoarthritis type: unspecified Qualified Code(s): M19.90 - Unspecified osteoarthritis, unspecified site (6) Substance induced mood disorder Status: Chronic (7) Substance-induced sleep disorder Status: Chronic (8) MDD (major depressive disorder), recurrent episode, moderate Status: Ruled-out (9) Nicotine dependence Status: Chronic Qualifiers: Nicotine product type: cigarettes Substance use status: in withdrawal Qualified Code(s): F17.213 - Nicotine dependence, cigarettes, with withdrawal (10) History of gastric bypass Status: Chronic - AMA Did Patient Leave Against Medical Advice: No
== END 2018-12-05 10:30 | disposition other institution (70) | DRG 774 ==
LOC: YASAS 18:57 → Y3N 22:16
PROVIDERS: ADMIT Surgery; ATTEND Surgery
PROC: HZ2ZZZZ Detoxification Services for Substance Abuse Treatment (ICD-10-PCS; principal; 2018-12-01)
DX: F10.230 Alcohol dependence with withdrawal, uncomplicated (principal); F14.20 Cocaine dependence, uncomplicated; F12.20 Cannabis dependence, uncomplicated; F17.213 Nicotine dependence, cigarettes, with withdrawal; F19.24 Other psychoactive substance dependence with psychoactive substance-induced mood disorder; F19.282 Other psychoactive substance dependence with psychoactive substance-induced sleep disorder; F33.1 Major depressive disorder, recurrent, moderate; I10 Essential (primary) hypertension; J43.9 Emphysema, unspecified; K21.9 Gastro-esophageal reflux disease without esophagitis; M19.90 Unspecified osteoarthritis, unspecified site; E83.51 Hypocalcemia; Z98.84 Bariatric surgery status
CPT/HCPCS: 36415; 80053; 81003; 85027; 86593

== ENCOUNTER 2018-12-05 10:32 | Inpatient (IN) | payer OTHER ==
[2018-12-05] MEDS ORDERED: IBUPROFEN 400 MG TABLET (FP) PO PRN (11:58)
[2018-12-05] MEDS ORDERED: MENTHOL/PHENOL 1 EACH UD MM PRN (11:58)
[2018-12-05] MEDS ORDERED: ACETAMINOPHEN 325 MG TABLET (FP) PO PRN (11:58)
[2018-12-05] MEDS ORDERED: LOPERAMIDE HCL 2 MG CAPSULE PO PRN (11:58)
[2018-12-05] MEDS ORDERED: P-EPHED 60MG/TRIPROLIDI 2.5MG TABLET PO PRN (11:58)
[2018-12-05] MEDS ORDERED: MAGNESIUM HYDROX 2400MG/30ML ORAL SUSPENSION 30 ML CUP PO PRN (11:58)
[2018-12-05] MEDS ORDERED: MAGNESIUM CITRATE 300 ML BOTTLE PO PRN (11:58)
[2018-12-05] MEDS ORDERED: guaiFENesin 200 MG/10 ML 10 ML UNIT-DOSE CUPS PO PRN (11:58)
[2018-12-05] MEDS ORDERED: MAG HYDROX/AL HYDROX/SIMETH 30 ML UNIT-DOSE CUP PO PRN (11:58)
[2018-12-05] MEDS ORDERED: NICOTINE POLACRILEX 2 MG GUM BUC PRN (13:24)
[2018-12-05] MEDS ORDERED: ALBUTEROL SO4 8 GM HFA INHALER IH PRN (13:25)
--- NOTE | 2018-12-05 13:31 | HP ---
[facility] Rehab Assess/Revision - Admission History Date of Admission to Rehab: 12/05/2018 - Vital signs Vital Signs: Vital Signs Period Temp Pulse Resp BP Sys/Rust Pulse Ox Last 24 Hr 98.0 F 98 18 141/86 - Findings Detox History & Physical reviewed: Yes Concur with findings: Yes Comments/Additional Findings: PATIENT'S MEDICAL / MEDICATION HISTORY REVIEWED PRIOR TO DISCHARGE FROM DETOX UNIT. PATIENT WAS DISCHARGED FROM DETOX UNIT TO BE TAKEN OVER TO REHAB UNIT IN STABLE MEDICAL CONDITION. Inpatient Rehab Admission - Rehab Decision to Admit Inpatient rehab admission?: Yes - Initial Determination Are CD services needed?: Yes Free of communicable disease: Yes Not in need of hospitalization: Yes - Rehab Admission Criteria Previous failed treatment: Yes Poor recovery environment: Yes Comorbidities: Yes Lacks judgement: Yes Patient is meeting Inpatient Rehab admission criteria:: Yes
[2018-12-05] MEDS: hydrOXYzine PAMOATE 50 MG CAPSULE (FP) PO PRN ×2 (16:55→23:11)
[2018-12-05] MEDS: FLUTICASONE/SALMETEROL 100 MCG/50 MCG DISKUS IH SCH (21:40)
[2018-12-05] MEDS: PANTOPRAZOLE 20 MG TABLET (FP) PO SCH (21:42)
[2018-12-05] MEDS: CALCIUM (OYSTER SHELL) 500 MG TABLET (FP) PO SCH (21:43)
[2018-12-05] MEDS ORDERED: PT OWN MED DRAWER 7, Y5N ONE (21:43)
[2018-12-05] MEDS ORDERED: THIAMINE HCL 100 MG TABLET (FP) PO SCH (22:00)
[2018-12-05] MEDS ORDERED: LIDOCAINE PATCH REMOVAL MC SCH (22:00)
[2018-12-05] MEDS ORDERED: MELATONIN 5 MG TABLETS PO PRN (22:00)
[2018-12-06 07:09] VITALS: TEMP 97.1
[2018-12-06] MEDS ORDERED: PT OWN MED DRAWER 7, Y5N ONE (08:59)
[2018-12-06] MEDS: PANTOPRAZOLE 20 MG TABLET (FP) PO SCH (09:11)
[2018-12-06] MEDS: CALCIUM (OYSTER SHELL) 500 MG TABLET (FP) PO SCH (09:11)
[2018-12-06] MEDS: FLUTICASONE/SALMETEROL 100 MCG/50 MCG DISKUS IH SCH (09:11)
[2018-12-06] MEDS: hydrOXYzine PAMOATE 50 MG CAPSULE (FP) PO PRN (09:12)
[2018-12-06] MEDS ORDERED: NICOTINE 21 MG/24 HOURS TOPICAL PATCH TD SCH (10:00)
[2018-12-06] MEDS ORDERED: PRENATAL VITAMINS W/ FOLIC ACID TABLET (FP) PO SCH (10:00)
[2018-12-06] MEDS ORDERED: LIDOCAINE 5% TOPICAL PATCH TP SCH (10:00)
[2018-12-06 10:25] VITALS: BP 117/82; PULSE 99
--- NOTE | 2018-12-06 11:03 | PN ---
S Progress Note (SOAP) Subjective: Patient leaving against medical advice for personal reasons/ Objective: 12/06/18 10:59 Laboratory Results - last 24 hr 12/06/18 07:00 HIV 1&2 Antibody Screen Negative HIV P24 Antigen Negative 12/06/18 11:00 Vital Signs (72 hours) 12/05/18 12/06/18 12/06/18 11:15 00:43 07:09 Temperature 98.0 F 97.1 F L Pulse Rate 98 H 85 Respiratory 18 18 18 Rate Blood Pressure 141/86 128/87 12/06/18 10:00 Temperature Pulse Rate 99 H Respiratory Rate Blood Pressure 117/82 Medical stable for discharge; A+O x 3; 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ly intact, Heart rate regular , s1s2 audible. Assessment: Stable for discharge Diagnoses: ETOH dependance, chronic GERD Marijuana Dependance, chronic COPD Cocaine Dependance, Chronic 12/06/18 11:01 Plan: Client will seek aftercare at [facility]; she has primary care at Dr. Alcocer in [place].
== END 2018-12-06 11:42 | disposition left against medical advice (07) | DRG 770 ==
LOC: YASAS 10:32 → Y3E 10:36
PROVIDERS: ADMIT Neuromusculoskeletal Medicine & OMM; ATTEND Neuromusculoskeletal Medicine & OMM
PROC: HZ42ZZZ Group Counseling for Substance Abuse Treatment, Cognitive-Behavioral (ICD-10-PCS; principal; 2018-12-05)
DX: F10.20 Alcohol dependence, uncomplicated (principal); F14.20 Cocaine dependence, uncomplicated; F12.20 Cannabis dependence, uncomplicated; F17.210 Nicotine dependence, cigarettes, uncomplicated; F19.24 Other psychoactive substance dependence with psychoactive substance-induced mood disorder; F19.282 Other psychoactive substance dependence with psychoactive substance-induced sleep disorder; F33.1 Major depressive disorder, recurrent, moderate; K21.9 Gastro-esophageal reflux disease without esophagitis; J44.9 Chronic obstructive pulmonary disease, unspecified
CPT/HCPCS: 36415; 87389

== ENCOUNTER 2019-05-09 17:06 | Inpatient (IN) | payer OTHER ==
[2019-05-09 20:01] VITALS: BMI 30.4
--- NOTE | 2019-05-09 21:41 | HP ---
CIWA Score Nausea/Vomitin-Mild Nausea/No Vomiting Muscle Tremors: 3 Anxiety: 4-Mod. Anxious/Guarded Agitation: 3 Paroxysmal Sweats: 2 Orientation: 2-Disoriented Date<2 days Tacttile Disturbances: 0-None Auditory Disturbances: 0-None Visual Disturbances: 0-None Headache: 0-None Present CIWA-Ar Total Score: 15 - Admission Criteria OASAS Guidelines: Admission for Medically Managed Detox: Requires at least one of the followin. CIWA greater than 12 2. Seizures within the past 24 hours 3. Delirium tremens within the past 24 hours 4. Hallucinations within the past 24 hours 5. Acute intervention needed for co occurring medical disorder 6. Acute intervention needed for co occurring psychiatric disorder 7. Severe withdrawal that cannot be handled at a lower level of care (continued vomiting, continued diarrhea, abnormal vital signs) requiring intravenous medication and/or fluids 8. Admission ROS [facility] Chief Complaint: Alcohol withdrawal symptoms Allergies/Adverse Reactions: Allergies Allergy/AdvReac Type Severity Reaction Status Date / Time No Known Allergies Allergy Verified 05/09/19 19:47 History of Present Illness: 58 years old female with a long history of alcohol dependence is seeking admission to detox. Patient has been to previous detox and reports 7 years of sobriety. She has history of asthma, depression, hypertension, anxiety,GERD and COPD. She reports suicide attempt in 2017 and denies suicidal ideation at this time. - Ebola screening Have you traveled outside of the country in the last 21 days: No (N) Have you had contact with anyone from an Ebola affected area: No Do you have a fever: No - Review of Systems Constitutional: Loss of Appetite, Malaise, Night Sweats, Changes in sleep, Weakness EENT: reports: Sinus Pressure Respiratory: reports: No Symptoms reported Cardiac: reports: No Symptoms Reported GI: reports: Poor Appetite, Poor Fluid Intake, Abdominal cramping : reports: No Symptoms Reported Musculoskeletal: reports: Back Pain, Joint Pain, Muscle Pain Integumentary: reports: Dryness, Flushing Neuro: reports: Headache, Tremors Endocrine: reports: No Symptoms Reported Hematology: reports: No Symptoms Reported Psychiatric: reports: Mood/Affect Appropiate, Orientated x3, Anxious, Depressed Other Systems: Reviewed and Negative Patient History - Patient Medical History Hx Anemia: No Hx Asthma: Yes (Advair, Ventolin, Symbicort) Hx Chronic Obstructive Pulmonary Disease (COPD): Yes ([place], Ventolin, Symbicort) Hx Cancer: No Hx Cardiac Disorders: No Hx Congestive Heart Failure: No Hx Hypertension: Yes (Not on medication) Hx Hypercholesterolemia: No Hx Pacemaker: No HX Cerebrovascular Accident: No Hx Seizures: No Hx Dementia: No Hx Diabetes: No Hx Gastrointestinal Disorders: No Hx Liver Disease: No Hx Genitourinary Disorders: No Hx Sexually Transmitted Disorders: No Hx Renal Disease (ESRD): No Hx Thyroid Disease: No Hx Human Immunodeficiency Virus (HIV): No Hx Hepatitis C: No Hx Depression: Yes (Xanax) Hx Suicide Attempt: Yes (2yrs ago with pills. Denies suicidal ideation at this time) Hx Bipolar Disorder: No Hx Schizophrenia: No Other Medical History: Anxiety, - Xanax - Patient Surgical History Past Surgical History: Yes Hx Neurologic Surgery: No Hx Cataract Extraction: No Hx Cardiac Surgery: No Hx Lung Surgery: No Hx Breast Surgery: No Hx Breast Biopsy: No Hx Abdominal Surgery: Yes (Tummy tuck 2015, gastric by pass 2016) Hx Appendectomy: No Hx Cholecystectomy: No Hx Genitourinary Surgery: No Hx Section: Yes (32 years ago) Hx Orthopedic Surgery: No Hx Hysterectomy: No Anesthesia Reaction: No - PPD History Previous Implant?: Yes Documented Results: Negative w/proof Implanted On Prior [facility] Admission?: Yes Date: 03/01/18 Results: 0mm PPD to be Administered?: Yes - Reproductive History Patient is a Female of Child Bearing Age (11 -55 yrs old): Yes LMP comment: last period at age 49 Patient : No - Smoking Cessation Smoking history: Current every day smoker Have you smoked in the past 12 months: Yes Aproximately how many cigarettes per day: 6 Cigars Per Day: 0 Hx Chewing Tobacco Use: No Initiated information on smoking cessation: Yes 'Breaking Loose' booklet given: 05/09/19 - Substance & Tx. History Hx Alcohol Use: Yes Hx Substance Use: Yes Substance Use Type: Alcohol, Cocaine Hx Substance Use Treatment: Yes ([facility]) - Substances abused Crack Substance route: Smoking Frequency: Daily Amount used: 100 to 200 dollars Age of first use: 20 Date of last use: 05/08/19 Alcohol Substance route: Oral Frequency: Daily Amount used: 1 and half to 2 pints of Bacardi, 12 of the 12 ounces. Age of first use: 20 Date of last use: 05/09/19 Family Disease History - Family Disease History Family Disease History: Heart Disease: Father (, [place] ), Mother (alive, HTN ), Sister ( [place]), Other: Father, Mother, Sister Admission Physical Exam [facility] - Vital Signs Vital Signs: Vital Signs - 24 hr 05/09/19 19:56 Temperature 99.8 F H Pulse Rate 100 H Respiratory 20 Rate Blood Pressure 122/76 - Physical General Appearance: Yes: Moderate Distress, Tremorous, Sweating, Anxious HEENTM: Yes: Within Normal Limits Respiratory: Yes: Lungs Clear, Normal Breath Sounds, No Respiratory Distress Neck: Yes: Supple Breast: Yes: Breast Exam Deferred Cardiology: Yes: Regular Rhythm, Regular Rate Abdominal: Yes: Normal Bowel Sounds Genitourinary: Yes: Within Normal Limits Back: Yes: Normal Inspection Musculoskeletal: Yes: Back pain, Muscle Pain Extremities: Yes: Tremors 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: Yes: Within Normal Limits, Alert, Normal Mood/Affect Integumentary: Yes: Warm Lymphatic: Yes: Within Normal Limits - Diagnostic (1) Hypertension Current Visit: Yes Status: Chronic Qualifiers: Hypertension type: essential hypertension Qualified Code(s): I10 - Essential (primary) hypertension (2) Asthma Current Visit: Yes Status: Acute Qualifiers: Asthma severity: unspecified severity (3) Depression Current Visit: Yes Status: Chronic Qualifiers: Depression Type: unspecified Qualified Code(s): F32.9 - Major depressive disorder, single episode, unspecified (4) Anxiety Current Visit: Yes Status: Chronic (5) Alcohol dependence with withdrawal Current Visit: Yes Status: Acute Qualifiers: Complication of substance-induced condition: uncomplicated Qualified Code(s ): F10.230 - Alcohol dependence with withdrawal, uncomplicated (6) Cannabis dependence Current Visit: Yes Status: Chronic (7) COPD (chronic obstructive pulmonary disease) Current Visit: Yes Status: Chronic Qualifiers: COPD type: emphysema Emphysema type: unspecified Qualified Code(s): J43.9 - Emphysema, unspecified (8) GERD (gastroesophageal reflux disease) Current Visit: Yes Status: Chronic Qualifiers: Esophagitis presence: esophagitis presence not specified Qualified Code(s) : K21.9 - Gastro-esophageal reflux disease without esophagitis (9) Nicotine dependence Current Visit: Yes Status: Chronic Qualifiers: Nicotine product type: cigarettes Substance use status: in withdrawal Qualified Code(s): F17.213 - Nicotine dependence, cigarettes, with withdrawal Cleared for Admission [facility] - Detox or Rehab [facility] Level of Care: Medically Managed Detox Regimen/Protocol: Librium Breathalyzer - Breathalyzer Breathalyzer: 0 Urine Drug Screen - Test Device Lot number: [id number] Expiration date: 02/01/21 - Control Is test valid?: Yes - Results Drug screen NEGATIVE: No Urine drug screen results: YASHIRA-Cocaine Inpatient Rehab Admission - Rehab Decision to Admit Inpatient rehab admission?: No
[2019-05-09] MEDS ORDERED: chlordiazePOXIDE HCL 25 MG CAPSULE PO PRN (21:56)
[2019-05-09] MEDS ORDERED: BISMUTH SUBSALICYLATE 524 MG/30 ML UD PO PRN (21:56)
[2019-05-09] MEDS ORDERED: MAGNESIUM CITRATE 300 ML BOTTLE PO PRN (21:56)
[2019-05-09] MEDS ORDERED: NICOTINE POLACRILEX 2 MG GUM BUC PRN (21:56)
[2019-05-09] MEDS ORDERED: MAG HYDROX/AL HYDROX/SIMETH 30 ML UNIT-DOSE CUP PO PRN (21:56)
[2019-05-09] MEDS ORDERED: MENTHOL/PHENOL 1 EACH UD MM PRN (21:56)
[2019-05-09] MEDS ORDERED: ACETAMINOPHEN 325 MG TABLET (FP) PO PRN ×2 (21:56)
[2019-05-09] MEDS ORDERED: MAGNESIUM HYDROX 2400MG/30ML ORAL SUSPENSION 30 ML CUP PO PRN (21:56)
[2019-05-10] MEDS: chlordiazePOXIDE HCL 25 MG CAPSULE PO SCH ×5 (00:51→22:34)
[2019-05-10] MEDS: PANTOPRAZOLE 20 MG TABLET (FP) PO SCH ×3 (00:53→22:34)
[2019-05-10] MEDS: CALCIUM (OYSTER SHELL) 500 MG TABLET (FP) PO SCH ×3 (00:55→22:36)
[2019-05-10] MEDS: THIAMINE HCL 100 MG TABLET (FP) PO SCH ×2 (00:55→22:34)
[2019-05-10] MEDS: FLUTICASONE/SALMETEROL 100 MCG/50 MCG DISKUS IH SCH ×3 (00:55→22:36)
[2019-05-10] MEDS: ALBUTEROL SO4 8 GM HFA INHALER IH PRN ×2 (06:16→22:39)
[2019-05-10] MEDS: NICOTINE 14 MG/24 HOURS TOPICAL PATCH TD SCH (10:08)
[2019-05-10] MEDS: PRENATAL VITAMINS W/ FOLIC ACID TABLET (FP) PO SCH (10:08)
[2019-05-10] MEDS: hydrOXYzine PAMOATE 25 MG CAPSULE (FP) PO PRN (10:11)
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
[2019-05-10 12:10] LABS: HEMATOCRIT 32.6 % (32.4-45.2); HEMOGLOBIN 10.4 GM/dL (10.7-15.3); MCH 26.2 pg (25.7-33.7); MEAN CELL VOLUME 81.6 fl (80-96); MEAN PLT VOLUME 8.3 fl (7.5-11.1); PLATELET COUNT 376 K/MM3 (134-434); RBC 3.99 M/mm3 (3.60-5.2); RDW 14.4 % (11.6-15.6)
[2019-05-10 12:17] LABS: ALBUMIN 3.1 g/dl (3.4-5.0); BILIRUBIN,TOTAL 0.2 mg/dL (0.2-1); CALCIUM 8.9 mg/dL (8.5-10.1); CREATININE 0.7 mg/dL (0.55-1.3); POTASSIUM 3.5 mmol/L (3.5-5.1); TOT PROT 6.2 g/dl (6.4-8.2)
--- NOTE | 2019-05-10 12:17 | EKG ---
Test Reason : Blood Pressure : / mmHG Vent. Rate : 090 BPM Atrial Rate : 090 BPM P-R Int : 146 ms QRS Dur : 092 ms QT Int : 396 ms P-R-T Axes : 074 -11 053 degrees QTc Int : 484 ms NORMAL SINUS RHYTHM RSR' OR QR PATTERN IN V1 SUGGESTS RIGHT VENTRICULAR CONDUCTION DELAY PROLONGED QT ABNORMAL ECG WHEN COMPARED WITH ECG OF 12-MAR-2018 21:16, NO SIGNIFICANT CHANGE WAS FOUND Confirmed by JUANCHO GARCIA MD ([id number]) on 05/10/2019 12:17:20 PM Referred By: GILBERTO ODEN Confirmed By:JUANCHO GARCIA MD
--- NOTE | 2019-05-10 14:14 | PN ---
S CIWA - CIWA Score Nausea/Vomitin-No Nausea/No Vomiting Muscle Tremors: 3 Anxiety: 2 Agitation: 3 Paroxysmal Sweats: 3 Orientation: 0-Oriented Tacttile Disturbances: 0-None Auditory Disturbances: 0-None Visual Disturbances: 0-None Headache: 0-None Present CIWA-Ar Total Score: 11 S Progress Note (SOAP) Subjective: irritable agitation sweats interrupted sleep Objective: 05/10/19 14:14 Vital Signs Temperature 98.1 F 05/10/19 09:36 Pulse Rate 98 H 05/10/19 09:36 Respiratory Rate 18 05/10/19 09:36 Blood Pressure 111/72 05/10/19 09:36 O2 Sat by Pulse Oximetry (%) Laboratory Tests 05/10/19 05/10/19 05/10/19 08:30 08:30 08:30 WBC 6.0 RBC 3.99 Hgb 10.4 L Hct 32.6 D MCV 81.6 MCH 26.2 D MCHC 32.0 RDW 14.4 Plt Count 376 D MPV 8.3 Sodium 145 Potassium 3.5 Chloride 110 H Carbon Dioxide 28 Anion Gap 6 L BUN 12.0 Creatinine 0.7 Est GFR (CKD-EPI)AfAm 110.69 Est GFR (CKD-EPI)NonAf 95.50 Random Glucose 74 Calcium 8.9 Total Bilirubin 0.2 AST 12 L ALT 13 Alkaline Phosphatase 68 Total Protein 6.2 L Albumin 3.1 L RPR Titer Nonreactive labs noted aaox3 ambulating no acute distress Assessment: 05/10/19 14:14 withdrawal sx Plan: continue detox increase fluids
[2019-05-10] MEDS: MELATONIN 5 MG TABLETS PO PRN (22:39)
[2019-05-11] MEDS: chlordiazePOXIDE HCL 25 MG CAPSULE PO SCH ×4 (05:57→22:38)
[2019-05-11] MEDS: hydrOXYzine PAMOATE 25 MG CAPSULE (FP) PO PRN ×2 (09:49→17:53)
[2019-05-11] MEDS: PANTOPRAZOLE 20 MG TABLET (FP) PO SCH ×2 (10:15→22:37)
[2019-05-11] MEDS: CALCIUM (OYSTER SHELL) 500 MG TABLET (FP) PO SCH ×2 (10:16→22:40)
[2019-05-11] MEDS: FLUTICASONE/SALMETEROL 100 MCG/50 MCG DISKUS IH SCH ×2 (10:16→22:41)
[2019-05-11] MEDS: PRENATAL VITAMINS W/ FOLIC ACID TABLET (FP) PO SCH (10:16)
[2019-05-11] MEDS: NICOTINE 14 MG/24 HOURS TOPICAL PATCH TD SCH (10:16)
[2019-05-11] MEDS: IBUPROFEN 400 MG TABLET (FP) PO PRN ×2 (10:17→17:53)
[2019-05-11] MEDS: METHOCARBAMOL 500 MG TABLET PO PRN ×2 (10:18→17:53)
--- NOTE | 2019-05-11 12:48 | PN ---
S CIWA - CIWA Score Nausea/Vomitin-No Nausea/No Vomiting Muscle Tremors: None Anxiety: 3 Agitation: 3 Paroxysmal Sweats: 3 Orientation: 0-Oriented Tacttile Disturbances: 0-None Auditory Disturbances: 0-None Visual Disturbances: 0-None Headache: 2-Mild CIWA-Ar Total Score: 11 S Progress Note (SOAP) Subjective: c/o agitation, anxiety, headache, and sweats. Objective: 05/11/19 12:47 Vital Signs 05/11/19 05/11/19 06:00 09:21 Temperature 97.0 F L 96.1 F L Pulse Rate 79 88 Respiratory 18 18 Rate Blood Pressure 107/64 120/74 Lab Results WBC 6.0 K/mm3 (4.0-10.0) 05/10/19 08:30 RBC 3.99 M/mm3 (3.60-5.2) 05/10/19 08:30 Hgb 10.4 GM/dL (10.7-15.3) L 05/10/19 08:30 Hct 32.6 % (32.4-45.2) D 05/10/19 08:30 MCV 81.6 fl (80-96) 05/10/19 08:30 MCHC 32.0 g/dl (32.0-36.0) 05/10/19 08:30 RDW 14.4 % (11.6-15.6) 05/10/19 08:30 Plt Count 376 K/MM3 (134-434) D 05/10/19 08:30 Sodium 145 mmol/L (136-145) 05/10/19 08:30 Potassium 3.5 mmol/L (3.5-5.1) 05/10/19 08:30 Chloride 110 mmol/L (98-107) H 05/10/19 08:30 Carbon Dioxide 28 mmol/L (21-32) 05/10/19 08:30 Anion Gap 6 MMOL/L (8-16) L 05/10/19 08:30 BUN 12.0 mg/dL (7-18) 05/10/19 08:30 Creatinine 0.7 mg/dL (0.55-1.3) 05/10/19 08:30 Random Glucose 74 mg/dL (74-106) 05/10/19 08:30 Calcium 8.9 mg/dL (8.5-10.1) 05/10/19 08:30 Labs noted. Assessment: 05/11/19 12:47 AOX3, in no acute respiratory distress. Full ROM, ambulating in the unit. Withdrawal symptoms. Plan: continue detox.
[2019-05-11] MEDS: THIAMINE HCL 100 MG TABLET (FP) PO SCH (22:37)
[2019-05-11] MEDS: MELATONIN 5 MG TABLETS PO PRN (22:40)
[2019-05-11] MEDS: ALBUTEROL SO4 8 GM HFA INHALER IH PRN (22:43)
--- NOTE | 2019-05-11 23:57 | PN ---
[facility] Progress Note Note: Psychiatry Attending's note : Called earlier by nurse. Reason : order for paxil + seroquel. Chart reviewed. Dr Lopez's note : read. Nursing progress notes : appreciated. Report of adequate sleep. Benign hospital course. Orders will be entered by Dr Lopez in the morning. Discussed with nurse.
[2019-05-12] MEDS ORDERED: chlordiazePOXIDE HCL 10 MG CAPSULE PO PRN
[2019-05-12] MEDS: chlordiazePOXIDE HCL 10 MG CAPSULE PO SCH ×4 (05:40→22:55)
[2019-05-12] MEDS: hydrOXYzine PAMOATE 25 MG CAPSULE (FP) PO PRN (05:43)
[2019-05-12] MEDS: FLUTICASONE/SALMETEROL 100 MCG/50 MCG DISKUS IH SCH ×2 (10:11→22:58)
[2019-05-12] MEDS: NICOTINE 14 MG/24 HOURS TOPICAL PATCH TD SCH (10:12)
[2019-05-12] MEDS: PRENATAL VITAMINS W/ FOLIC ACID TABLET (FP) PO SCH (10:12)
[2019-05-12] MEDS: PANTOPRAZOLE 20 MG TABLET (FP) PO SCH ×2 (10:12→22:56)
[2019-05-12] MEDS: CALCIUM (OYSTER SHELL) 500 MG TABLET (FP) PO SCH ×2 (10:12→22:55)
[2019-05-12] MEDS: IBUPROFEN 400 MG TABLET (FP) PO PRN ×2 (10:13→17:54)
[2019-05-12] MEDS: METHOCARBAMOL 500 MG TABLET PO PRN ×2 (10:15→16:56)
[2019-05-12] MEDS: PARoxetine HCL 10 MG TABLET PO SCH (14:33)
--- NOTE | 2019-05-12 17:51 | PN ---
S CIWA - CIWA Score Nausea/Vomitin-No Nausea/No Vomiting Muscle Tremors: 2 Anxiety: 3 Agitation: 2 Paroxysmal Sweats: 2 Orientation: 0-Oriented Tacttile Disturbances: 0-None Auditory Disturbances: 0-None Visual Disturbances: 0-None Headache: 0-None Present CIWA-Ar Total Score: 9 BHS Progress Note (SOAP) Subjective: Tremor, anxious, interrupted sleep. Patient c/o right knee pain (s/p right knee surgery 2 months ago as per patient, motrin not enough and requesting muscle relaxant and cane for easier mobility) Objective: 05/12/19 17:50 Last Vital Signs Temp Pulse Resp BP Pulse Ox 98.4 F 94 H 18 132/73 05/12/19 17:04 05/12/19 17:04 05/12/19 17:04 05/12/19 17:04 Laboratory Tests 05/10/19 05/10/19 05/10/19 08:30 08:30 08:30 WBC 6.0 RBC 3.99 Hgb 10.4 L Hct 32.6 D MCV 81.6 MCH 26.2 D MCHC 32.0 RDW 14.4 Plt Count 376 D MPV 8.3 Sodium 145 Potassium 3.5 Chloride 110 H Carbon Dioxide 28 Anion Gap 6 L BUN 12.0 Creatinine 0.7 Est GFR (CKD-EPI)AfAm 110.69 Est GFR (CKD-EPI)NonAf 95.50 Random Glucose 74 Calcium 8.9 Total Bilirubin 0.2 AST 12 L ALT 13 Alkaline Phosphatase 68 Total Protein 6.2 L Albumin 3.1 L RPR Titer Nonreactive TB (QFT) Incubation TB Test (QFT) Nil TB Test (QFT) Mitogen TB Test (QFT) Antigen TB Test (QFT) TB Positive Criteria 05/10/19 08:30 WBC RBC Hgb Hct MCV MCH MCHC RDW Plt Count MPV Sodium Potassium Chloride Carbon Dioxide Anion Gap BUN Creatinine Est GFR (CKD-EPI)AfAm Est GFR (CKD-EPI)NonAf Random Glucose Calcium Total Bilirubin AST ALT Alkaline Phosphatase Total Protein Albumin RPR Titer TB (QFT) Incubation TB Test (QFT) Nil 0.03 TB Test (QFT) Mitogen >10.00 TB Test (QFT) Antigen 0.03 TB Test (QFT) Negative TB Positive Criteria Labs reviewed Assessment: 05/12/19 17:51 Withdrawal sxs Plan: Continue detox Encouraged PO water intake
[2019-05-12] MEDS ORDERED: QUEtiapine FUMARATE 25 MG TABLET (FP) PO SCH (22:00)
[2019-05-12] MEDS: THIAMINE HCL 100 MG TABLET (FP) PO SCH (22:58)
[2019-05-13] MEDS ORDERED: chlordiazePOXIDE HCL 10 MG CAPSULE PO SCH (05:00)
[2019-05-13 09:48] VITALS: BP 132/72; PULSE 88; TEMP 97.3
[2019-05-13] MEDS: PRENATAL VITAMINS W/ FOLIC ACID TABLET (FP) PO SCH (10:16)
[2019-05-13] MEDS: FLUTICASONE/SALMETEROL 100 MCG/50 MCG DISKUS IH SCH (10:16)
[2019-05-13] MEDS: CALCIUM (OYSTER SHELL) 500 MG TABLET (FP) PO SCH (10:16)
[2019-05-13] MEDS: PANTOPRAZOLE 20 MG TABLET (FP) PO SCH (10:16)
[2019-05-13] MEDS: hydrOXYzine PAMOATE 25 MG CAPSULE (FP) PO PRN (10:17)
[2019-05-13] MEDS: NICOTINE 14 MG/24 HOURS TOPICAL PATCH TD SCH (10:17)
[2019-05-13] MEDS: PARoxetine HCL 10 MG TABLET PO SCH (10:17)
[2019-05-13] MEDS: ALBUTEROL SO4 8 GM HFA INHALER IH PRN (10:19)
--- NOTE | 2019-05-13 10:30 | DS ---
[facility] Detox Discharge Summary Admission Date: 05/09/19 Discharge Date: 05/13/19 - History Present History: Alcohol Dependence, Cannabis Dependence, Cocaine Dependence - Physical Exam Results Vital Signs: Vital Signs Temperature 97.3 F L 05/13/19 09:48 Pulse Rate 88 05/13/19 09:48 Respiratory Rate 17 05/13/19 09:48 Blood Pressure 132/72 05/13/19 09:48 O2 Sat by Pulse Oximetry (%) Pertinent Admission Physical Exam Findings: pt arrived in withdrawals Laboratory Tests 05/10/19 05/10/19 05/10/19 08:30 08:30 08:30 WBC 6.0 RBC 3.99 Hgb 10.4 L Hct 32.6 D MCV 81.6 MCH 26.2 D MCHC 32.0 RDW 14.4 Plt Count 376 D MPV 8.3 Sodium 145 Potassium 3.5 Chloride 110 H Carbon Dioxide 28 Anion Gap 6 L BUN 12.0 Creatinine 0.7 Est GFR (CKD-EPI)AfAm 110.69 Est GFR (CKD-EPI)NonAf 95.50 Random Glucose 74 Calcium 8.9 Total Bilirubin 0.2 AST 12 L ALT 13 Alkaline Phosphatase 68 Total Protein 6.2 L Albumin 3.1 L RPR Titer Nonreactive TB (QFT) Incubation TB Test (QFT) Nil TB Test (QFT) Mitogen TB Test (QFT) Antigen TB Test (QFT) TB Positive Criteria 05/10/19 08:30 WBC RBC Hgb Hct MCV MCH MCHC RDW Plt Count MPV Sodium Potassium Chloride Carbon Dioxide Anion Gap BUN Creatinine Est GFR (CKD-EPI)AfAm Est GFR (CKD-EPI)NonAf Random Glucose Calcium Total Bilirubin AST ALT Alkaline Phosphatase Total Protein Albumin RPR Titer TB (QFT) Incubation TB Test (QFT) Nil 0.03 TB Test (QFT) Mitogen >10.00 TB Test (QFT) Antigen 0.03 TB Test (QFT) Negative TB Positive Criteria today pt is aaox3 ambulating no acute distress no s/s of withdrawals - Treatment Hospital Course: Detox Protocol Followed, Detoxed Safely, Responded well, Discharged Condition Good, Rehab Referral Accepted Patient has Accepted a Rehab Referral to: referred to [facility] - Medication Discharge Medications: Ambulatory Orders Ibuprofen 800 mg PO TID PRN #21 tablet 05/03/18 Benztropine Mesylate [Cogentin -] 1 mg PO DAILY 12/05/18 Quetiapine Fumarate [Seroquel -] 50 mg PO DAILY 12/05/18 Risperidone [Risperdal] 2 mg PO DAILY 12/05/18 Sertraline HCl [Zoloft] 50 mg PO DAILY 12/05/18 Albuterol Sulfate Inhaler - [Ventolin HFA Inhaler -] 2 inh PO Q4H PRN #1 inhaler 12/06/18 Calcium (Oyster Shell) [Os-Stefano 500MG -] 500 mg PO BID 14 Days #14 tablet Pantoprazole Sodium [Protonix -] 20 mg PO BID 7 Days #7 tab 12/06/18 Quetiapine Fumarate [Seroquel] 100 mg PO HS #30 tablet 12/06/18 Salmeterol/Fluticasone [Advair 100Mcg/50Mcg -] 1 inh PO BID #1 inhaler 12/06/18 Alprazolam [Xanax] 0.5 mg PO BID 05/09/19 Oxycodone HCl/Acetaminophen [Percocet 10-325 mg Tablet] 1 tablet PO BID - Diagnosis (1) Alcohol dependence with withdrawal Status: Chronic Qualifiers: Complication of substance-induced condition: uncomplicated Qualified Code(s ): F10.230 - Alcohol dependence with withdrawal, uncomplicated (2) Cocaine dependence Status: Acute (3) Foot fracture, right Status: Acute Qualifiers: Encounter type: initial encounter Fracture type: closed Qualified Code(s) : S92.901A - Unspecified fracture of right foot, initial encounter for closed fracture (4) Hypocalcemia Status: Chronic (5) Right knee pain Status: Acute Qualifiers: Chronicity: chronic Qualified Code(s): M25.561 - Pain in right knee; G89.29 - Other chronic pain (6) Right knee sprain Status: Acute Qualifiers: Encounter type: initial encounter Involved ligament of knee: other ligament Qualified Code(s): S83.8X1A - Sprain of other specified parts of right knee, initial encounter (7) Substance induced mood disorder Status: Acute (8) Substance-induced sleep disorder Status: Acute (9) Anxiety Status: Chronic (10) Asthma Status: Chronic Qualifiers: Asthma severity: unspecified severity Asthma persistence: unspecified Asthma complication type: uncomplicated Qualified Code(s): J45.909 - Unspecified asthma, uncomplicated (11) COPD (chronic obstructive pulmonary disease) Status: Chronic Qualifiers: COPD type: emphysema Emphysema type: unspecified Qualified Code(s): J43.9 - Emphysema, unspecified (12) Cannabis dependence Status: Chronic (13) Cocaine dependence Status: Chronic Qualifiers: Substance use status: uncomplicated Qualified Code(s): F14.20 - Cocaine dependence, uncomplicated (14) Depression Status: Chronic Qualifiers: Depression Type: unspecified Qualified Code(s): F32.9 - Major depressive disorder, single episode, unspecified (15) Drug-induced mood disorder Status: Chronic (16) GERD (gastroesophageal reflux disease) Status: Chronic Qualifiers: Esophagitis presence: without esophagitis Qualified Code(s): K21.9 - Gastro -esophageal reflux disease without esophagitis (17) Hypertension Status: Chronic Qualifiers: Hypertension type: essential hypertension Qualified Code(s): I10 - Essential (primary) hypertension (18) MDD (major depressive disorder), recurrent episode, moderate Status: Chronic (19) Nicotine dependence Status: Chronic Qualifiers: Nicotine product type: cigarettes Substance use status: uncomplicated Qualified Code(s): F17.210 - Nicotine dependence, cigarettes, uncomplicated (20) Nontraumatic perforated nasal septum Status: Chronic (21) Osteoarthritis Status: Chronic Qualifiers: Osteoarthritis location: unspecified site Osteoarthritis type: unspecified Qualified Code(s): M19.90 - Unspecified osteoarthritis, unspecified site (22) Personal history of healed traumatic fracture Status: Chronic (23) Substance induced mood disorder Status: Suspected (24) History of gastric bypass Status: Chronic (25) Bipolar II disorder Status: Ruled-out (26) MDD (major depressive disorder), recurrent episode, moderate Status: Ruled-out - AMA Did Patient Leave Against Medical Advice: No
[2019-05-13] MEDS ORDERED: hydrOXYzine PAMOATE 50 MG CAPSULE (FP) PO PRN (11:43)
[2019-05-14] MEDS ORDERED: chlordiazePOXIDE HCL 10 MG CAPSULE PO ONE (05:00)
== END 2019-05-13 12:44 | disposition other institution (70) | DRG 774 ==
LOC: YASAS 17:06 → Y6N 22:27
PROVIDERS: ADMIT Surgery; ATTEND Surgery
PROC: HZ2ZZZZ Detoxification Services for Substance Abuse Treatment (ICD-10-PCS; principal; 2019-05-09)
DX: F10.230 Alcohol dependence with withdrawal, uncomplicated (principal); F14.20 Cocaine dependence, uncomplicated; F12.20 Cannabis dependence, uncomplicated; F17.210 Nicotine dependence, cigarettes, uncomplicated; F33.1 Major depressive disorder, recurrent, moderate; F31.81 Bipolar II disorder; F19.24 Other psychoactive substance dependence with psychoactive substance-induced mood disorder; F19.282 Other psychoactive substance dependence with psychoactive substance-induced sleep disorder; F41.9 Anxiety disorder, unspecified; I10 Essential (primary) hypertension; J43.9 Emphysema, unspecified; J45.909 Unspecified asthma, uncomplicated; E83.51 Hypocalcemia; K21.9 Gastro-esophageal reflux disease without esophagitis; M19.90 Unspecified osteoarthritis, unspecified site; Z96.651 Presence of right artificial knee joint; Z98.84 Bariatric surgery status
CPT/HCPCS: 36415; 80053; 85027; 86480; 86593; 93005; 93010

== ENCOUNTER 2019-05-13 13:16 | Inpatient (IN) | payer OTHER | END 2019-05-22 13:14 | disposition home or self-care (01) | LOC: Y3E 05-15 11:26 → YASAS 13:16 → Y3E 13:17 ==

== ENCOUNTER 2020-05-04 14:44 | Inpatient (IN) | payer OTHER ==
--- NOTE | 2020-05-04 15:08 | BHS.RME ---
Substance Use & Tx History - Substance Use History Alcohol Substance amount: 1-2 pints Vodka, beer: 6 pck or 2 every 2 days Frequency of use: Daily Substance route: Oral Date of Last Use: 05/04/20 Cocaine-Crack Substance amount: $500 Frequency of use: Daily Substance route: Smoking Date of Last Use: 05/02/20 Nicotine Substance amount: 1.5 ppd Frequency of use: Daily Substance route: Smoking Date of Last Use: 05/04/20 - Last Treatment Date of last treatment: 05/09/19 to 05/22/19 Detox and Rehab Treatment type: Substance Use Disorder (ELEONORA) Physical/Psych/Mental Status - Behavior General Behavior: Increased activity (restlessness, agitation) Eye Contact: Normal - Cooperativeness Cooperativeness: Cooperative - Thinking Thought Processes: Tight Thought content: Future oriented - Physical Health Problems Is patient presently having any pain?: Yes (low back pain, chronic, right knee pain) Does patient presently have any injuries (include location): Yes (fell at home 2 days ago, hit right elbow) Does patient currently have a fever: No CIWA Nausea/Vomitin-No Nausea/No Vomiting Muscle Tremors: 2 Anxiety: 4-Mod. Anxious/Guarded Agitation: 1-Slight > Activity Paroxysmal Sweats: 1-Minimal Palms Moist Orientation: 1-Uncertain about Date Tacttile Disturbances: 1-Very Mild Itch/Numbness Auditory Disturbances: 2-Mild Harshness/Frighten Visual Disturbances: 2-Mild Sensitivity Headache: 0-None Present CIWA-Ar Total Score: 14
[2020-05-04 16:58] VITALS: BMI 27.6
--- NOTE | 2020-05-04 17:11 | HP ---
CIWA Score Nausea/Vomitin Muscle Tremors: 3 Anxiety: 4-Mod. Anxious/Guarded Agitation: 2 Paroxysmal Sweats: 2 Orientation: 1-Uncertain about Date Tacttile Disturbances: 1-Very Mild Itch/Numbness Auditory Disturbances: 0-None Visual Disturbances: 0-None Headache: 0-None Present CIWA-Ar Total Score: 15 - Admission Criteria OASAS Guidelines: Admission for Medically Managed Detox: Requires at least one of the followin. CIWA greater than 12 2. Seizures within the past 24 hours 3. Delirium tremens within the past 24 hours 4. Hallucinations within the past 24 hours 5. Acute intervention needed for co occurring medical disorder 6. Acute intervention needed for co occurring psychiatric disorder 7. Severe withdrawal that cannot be handled at a lower level of care (continued vomiting, continued diarrhea, abnormal vital signs) requiring intravenous medication and/or fluids 8. Admitting History and Physical - Smoking History Smoking history: Current every day smoker Have you smoked in the past 12 months: Yes Aproximately how many cigarettes per day: 6 - Alcohol/Substance Use Hx Alcohol Use: Yes Admission [facility] Chief Complaint: Alcohol withdrawal symptoms Allergies/Adverse Reactions: Allergies Allergy/AdvReac Type Severity Reaction Status Date / Time No Known Allergies Allergy Verified 05/09/19 19:47 History of Present Illness: 59 years old female with a long history of alcohol dependence is seeking admission to detox. Her last detox was for the period 05/13/2019 - 05/22/2019 and she relapsed a couple of days post discharge. She reports that she drinks 2 pints of vodka daily. She has medical history of COPD, asthma, osteoarthritis, GERD, hypertension, psych. of depression and anxiety. Patient reports suicide attempt in 2016 and denies suicidal ideation at this time. She is unemployed, lives with her son and denies any legal issues. She reports + eye carton filler, blackouts and denies alcohol related seizures. Exam Limitations: No Limitations - Ebola screening Have you traveled outside of the country in the last 21 days: No Have you had contact with anyone from an Ebola affected area: No Have you been sick,other than usual withdrawal symptoms: No Do you have a fever: No - Review of Systems Constitutional: Chills, Malaise, Changes in sleep EENT: reports: No Symptoms Reported Respiratory: reports: No Symptoms reported Cardiac: reports: No Symptoms Reported GI: reports: Constipated, Nausea, Poor Appetite, Poor Fluid Intake, Abdominal c ramping : reports: No Symptoms Reported Musculoskeletal: reports: Back Pain, Muscle Pain Integumentary: reports: Dryness, Flushing Neuro: reports: Tremors Endocrine: reports: No Symptoms Reported Hematology: reports: No Symptoms Reported Psychiatric: reports: Orientated x3, Anxious, Depressed Other Systems: Reviewed and Negative Patient History - Patient Medical History Hx Anemia: No Hx Asthma: Yes (Albuterol) Hx Chronic Obstructive Pulmonary Disease (COPD): Yes Hx Cancer: No Hx Cardiac Disorders: No Hx Congestive Heart Failure: No Hx Hypertension: Yes Hx Hypercholesterolemia: No Hx Pacemaker: No HX Cerebrovascular Accident: No Hx Seizures: No Hx Dementia: No Hx Diabetes: No Hx Gastrointestinal Disorders: Yes (GERD) Hx Liver Disease: No Hx Genitourinary Disorders: No Hx Sexually Transmitted Disorders: No Hx Renal Disease (ESRD): No Hx Thyroid Disease: No Hx Human Immunodeficiency Virus (HIV): No (Negative 2018) Hx Hepatitis C: No Hx Depression: Yes Hx Suicide Attempt: Yes (Attempt in 2016, denies suicidal ideation at this time) Hx Bipolar Disorder: No Hx Schizophrenia: No Other Medical History: Arthrits - Patient Surgical History Past Surgical History: Yes Hx Neurologic Surgery: No Hx Cataract Extraction: No Hx Cardiac Surgery: No Hx Lung Surgery: No Hx Breast Surgery: No Hx Breast Biopsy: No Hx Abdominal Surgery: Yes (Tummy tuck 2015, gastric by pass 2016) Hx Appendectomy: No Hx Cholecystectomy: No Hx Genitourinary Surgery: No Hx Section: Yes (32 years ago) Hx Orthopedic Surgery: No Hx Hysterectomy: No Anesthesia Reaction: No - PPD History Previous Implant?: Yes Documented Results: Negative w/proof Implanted On Prior [facility] Admission?: Yes Date: 03/01/18 Results: 0mm PPD to be Administered?: Yes - Reproductive History Patient is a Female of Child Bearing Age (11 -55 yrs old): Yes LMP comment: Menopausal - Smoking Cessation Smoking history: Current every day smoker Have you smoked in the past 12 months: Yes Aproximately how many cigarettes per day: 40 Hx Chewing Tobacco Use: No Initiated information on smoking cessation: Yes 'Breaking Loose' booklet given: 05/04/20 - Substance & Tx. History Hx Alcohol Use: Yes Hx Substance Use: Yes Substance Use Type: Alcohol, Cocaine Hx Substance Use Treatment: Yes ([facility]) - Substances abused Alcohol Substance route: Oral Frequency: Daily Amount used: 2 PINTS VODKKeegan Age of first use: 25 Date of last use: 05/04/20 Admission Physical Exam S - Vital Signs Vital Signs: Vital Signs - 24 hr 05/04/20 16:55 Temperature 98.7 F Pulse Rate 105 H Respiratory 16 Rate Blood Pressure 121/82 - Physical General Appearance: Yes: Moderate Distress, Tremorous, Irritable, Anxious HEENTM: Yes: Within Normal Limits Respiratory: Yes: Lungs Clear, Normal Breath Sounds, No Respiratory Distress Neck: Yes: Within Normal Limits Breast: Yes: Breast Exam Deferred Cardiology: Yes: Tachycardia Abdominal: Yes: Normal Bowel Sounds Genitourinary: Yes: Within Normal Limits Back: Yes: Normal Inspection Musculoskeletal: Yes: Back pain, Muscle Pain Extremities: Yes: Tremors 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: Yes: Within Normal Limits Integumentary: Yes: Within Normal Limits Lymphatic: Yes: Within Normal Limits - Diagnostic (1) Alcohol dependence with withdrawal, uncomplicated Current Visit: Yes Status: Acute (2) Anxiety Current Visit: Yes Status: Chronic (3) Asthma Current Visit: Yes Status: Chronic Qualifiers: Asthma severity: moderate Asthma persistence: persistent Asthma complication type: uncomplicated Qualified Code(s): J45.40 - Moderate persistent asthma, uncomplicated (4) COPD (chronic obstructive pulmonary disease) Current Visit: Yes Status: Chronic Qualifiers: COPD type: emphysema Emphysema type: unspecified Qualified Code(s): J43.9 - Emphysema, unspecified (5) Cocaine dependence Current Visit: Yes Status: Chronic Qualifiers: Substance use status: uncomplicated Qualified Code(s): F14.20 - Cocaine dependence, uncomplicated (6) Depression Current Visit: Yes Status: Chronic Qualifiers: Depression Type: unspecified Qualified Code(s): F32.9 - Major depressive disorder, single episode, unspecified (7) Hypertension Current Visit: Yes Status: Chronic Qualifiers: Hypertension type: essential hypertension Qualified Code(s): I10 - Essential (primary) hypertension (8) Nicotine dependence Current Visit: Yes Status: Chronic Qualifiers: Nicotine product type: cigarettes Substance use status: uncomplicated Qualified Code(s): F17.210 - Nicotine dependence, cigarettes, uncomplicated Comment: .. (9) Osteoarthritis Current Visit: Yes Status: Chronic Qualifiers: Osteoarthritis location: unspecified site Osteoarthritis type: unspecified Qualified Code(s): M19.90 - Unspecified osteoarthritis, unspecified site (10) Bipolar II disorder Current Visit: Yes Status: Chronic Cleared for Admission B[facility] - Detox or Rehab [facility] Level of Care: Medically Managed Detox Regimen/Protocol: Librium Claeared for Rehab Admission: No Breathalyzer - Breathalyzer Breathalyzer: 0.060 Urine Drug Screen - Test Device Lot number: [id number] Expiration date: 05/04/21 - Control Is test valid?: Yes - Results Drug screen NEGATIVE: No Urine drug screen results: YASHIRA-Cocaine Inpatient Rehab Admission - Rehab Decision to Admit Inpatient rehab admission?: No
[2020-05-04] MEDS ORDERED: ONDANSETRON *ODT* 4 MG TABLET SL ONE (17:34)
[2020-05-04] MEDS ORDERED: hydrOXYzine PAMOATE 25 MG CAPSULE (FP) PO PRN (17:34)
[2020-05-04] MEDS ORDERED: BISMUTH SUBSALICYLATE 524 MG/30 ML UD PO PRN (17:34)
[2020-05-04] MEDS ORDERED: MAG HYDROX/AL HYDROX/SIMETH 30 ML UNIT-DOSE CUP PO PRN (17:34)
[2020-05-04] MEDS ORDERED: ACETAMINOPHEN 325 MG TABLET (FP) PO PRN ×2 (17:34)
[2020-05-04] MEDS ORDERED: MAGNESIUM CITRATE 300 ML BOTTLE PO PRN (17:34)
[2020-05-04] MEDS ORDERED: IBUPROFEN 400 MG TABLET (FP) PO PRN (17:34)
[2020-05-04] MEDS ORDERED: chlordiazePOXIDE HCL 25 MG CAPSULE PO PRN (17:34)
[2020-05-04] MEDS ORDERED: MENTHOL/PHENOL 1 EACH UD MM PRN (17:34)
[2020-05-04] MEDS ORDERED: MAGNESIUM HYDROX 2400MG/30ML ORAL SUSPENSION 30 ML CUP PO PRN (17:34)
[2020-05-04] MEDS ORDERED: NICOTINE POLACRILEX 2 MG GUM BUC PRN (17:34)
[2020-05-04] MEDS: METHOCARBAMOL 500 MG TABLET PO PRN (19:38)
[2020-05-04] MEDS: THIAMINE HCL 100 MG TABLET (FP) PO SCH (22:47)
[2020-05-04] MEDS: MELATONIN 5 MG TABLETS PO SCH (22:47)
[2020-05-04] MEDS: chlordiazePOXIDE HCL 25 MG CAPSULE PO SCH (22:47)
[2020-05-04] MEDS: FLUTICASONE/SALMETEROL 100 MCG/50 MCG DISKUS IH SCH (22:50)
[2020-05-05] MEDS: chlordiazePOXIDE HCL 25 MG CAPSULE PO SCH ×4 (05:43→22:26)
--- NOTE | 2020-05-05 09:27 | PN ---
S CIWA - CIWA Score Nausea/Vomitin-Mild Nausea/No Vomiting Muscle Tremors: 3 Anxiety: 3 Agitation: 1-Slight > Activity Paroxysmal Sweats: 2 Orientation: 0-Oriented Tacttile Disturbances: 0-None Auditory Disturbances: 0-None Visual Disturbances: 0-None Headache: 2-Mild CIWA-Ar Total Score: 12 BHS Progress Note (SOAP) Subjective: 59 years old female was admitted on 05/04/20 for alcohol withdrawal sx management treating with librium detox regiment muscle cramping and aching robaxin 750 mg po x 1 motrin 400 mgl po x 1 ms rodriguez requests to be seen by a psychiatrist for chronic anxiety Objective: 05/05/20 09:28 Vital Signs - 24 hr 05/04/20 05/04/20 05/04/20 16:55 19:03 20:49 Temperature 98.7 F 96.4 F L 98.0 F Pulse Rate 105 H 108 H 97 H Respiratory 16 18 16 Rate Blood Pressure 121/82 110/75 112/73 O2 Sat by Pulse 100 94 L Oximetry (%) 05/05/20 05/05/20 06:37 08:45 Temperature 97.6 F 97.7 F Pulse Rate 55 L 96 H Respiratory 18 18 Rate Blood Pressure 105/62 119/76 O2 Sat by Pulse 100 100 Oximetry (%) 05/05/20 09:29 lab pending Assessment: 05/05/20 09:29 alcohol withdrawal Plan: librium regiment
[2020-05-05] MEDS ORDERED: METHOCARBAMOL 750 MG TABLET PO ONE (09:45)
[2020-05-05] MEDS ORDERED: IBUPROFEN 400 MG TABLET (FP) PO ONE (09:45)
[2020-05-05] MEDS ORDERED: NICOTINE 21 MG/24 HOURS TOPICAL PATCH TD SCH (10:00)
[2020-05-05] MEDS: PRENATAL VITAMINS W/ FOLIC ACID TABLET (FP) PO SCH (10:16)
[2020-05-05] MEDS: FLUTICASONE/SALMETEROL 100 MCG/50 MCG DISKUS IH SCH ×2 (10:17→22:23)
[2020-05-05] MEDS: NICOTINE 21 MG/24 HOURS TOPICAL PATCH TD SCH (10:18)
[2020-05-05 10:27] LABS: HEMOGLOBIN 12.3 GM/dL (10.7-15.3); MCH 28.6 pg (25.7-33.7); MCHC 33.1 g/dl (32.0-36.0); MEAN CELL VOLUME 86.3 fl (80-96); MEAN PLT VOLUME 8.8 fl (7.5-11.1); PLATELET COUNT 325 K/MM3 (134-434); RBC 4.29 M/mm3 (3.60-5.2); WHITE BLOOD COUNT 6.6 K/mm3 (4.0-10.0)
--- NOTE | 2020-05-05 10:39 | EKG ---
Test Reason : Blood Pressure : / mmHG Vent. Rate : 098 BPM Atrial Rate : 098 BPM P-R Int : 142 ms QRS Dur : 090 ms QT Int : 376 ms P-R-T Axes : 076 -10 063 degrees QTc Int : 480 ms NORMAL SINUS RHYTHM POSSIBLE LEFT ATRIAL ENLARGEMENT PROLONGED QT ABNORMAL ECG WHEN COMPARED WITH ECG OF 09-MAY-2019 23:45, NO SIGNIFICANT CHANGE WAS FOUND Confirmed by Rao Buckner MD ([id number]) on 05/05/2020 10:38:43 AM Referred By: Confirmed By:Rao Buckner MD
[2020-05-05 10:44] LABS: ALBUMIN 3.2 g/dl (3.4-5.0); BILIRUBIN,TOTAL 0.3 mg/dL (0.2-1); BLOOD UREA NITROGEN 14.7 mg/dL (7-18); CALCIUM 8.6 mg/dL (8.5-10.1); CREATININE 0.7 mg/dL (0.55-1.3); POTASSIUM 4.3 mmol/L (3.5-5.1); TOT PROT 6.4 g/dl (6.4-8.2)
[2020-05-05] MEDS: FAMOTIDINE 20 MG TABLET PO SCH ×2 (11:16→22:22)
[2020-05-05] MEDS: NICOTINE POLACRILEX 2 MG GUM BUC PRN (11:26)
--- NOTE | 2020-05-05 11:49 | EKG ---
Test Reason : Blood Pressure : / mmHG Vent. Rate : 088 BPM Atrial Rate : 088 BPM P-R Int : 130 ms QRS Dur : 080 ms QT Int : 386 ms P-R-T Axes : 064 -02 050 degrees QTc Int : 467 ms NORMAL SINUS RHYTHM NORMAL ECG WHEN COMPARED WITH ECG OF 04-MAY-2020 17:23, NO SIGNIFICANT CHANGE WAS FOUND Confirmed by MD LOPEZ PENG ([id number]) on 05/05/2020 11:48:30 AM Referred By: Confirmed By:PRINCE LOPEZ MD
--- NOTE | 2020-05-05 15:20 | CONSULT ---
[facility] Psychiatric Consult - Data Date of interview: 05/05/20 Admission source: [facility] Identifying data: Readmission to [facility] at [address] [place] [address] for this 59 y/o female self-referred for detoxification treatment. ELEONORA issues : alcohol, crack/cocaine, nicotine. Patient is , a mother of five, domiciled (lives with son), unemployed and supported on SSI benefits. Substance Abuse History: Discussed with the patient. ELEONORA profile as follows : Sm oking history: Current every day smoker. Have you smoked in the past 12 months: Yes. Approximately how many cigarettes per day: 40. Hx Chewing Tobacco Use: No. Initiated information on smoking cessation: Yes. 'Breaking Loose' booklet given: 05/04/20. - Substance & Tx. History. Hx Alcohol Use: Yes. Hx Substance Use: Yes. Substance Use Type: Alcohol, Cocaine. Hx Substance Use Treatment: Shad castillo ([facility]). - Substances abused. Alcohol. Substance route: Oral. Frequency: Daily. Amount used: 2 PINTS VODKA. Age of first use: 25. Date of last use: 05/04/20 Medical History: Medical background is remarkable for bronchial asthma, COPD, hypertension, GERD and multiple surgeries (gastric bypass in 2017, tummy tuck in 2016, section 32 years ago, right knee replacement in January 2019). No known allergies. Psychiatric History: Patient presents with history of multiple psychiatric hospitalizations ([facility] + [facility]). First psychiatric breakdown occurred about 10 years ago (depression + suicide attempt via overdose with pills). Diagnosed with MDD and Anxiety Disorder (self-report). Patient reports chronic non-adherence to OPD care and psychotropic medications. No contact with mental health workers (psychologists, psychiatrists, therapists or nurse practitioners). Ms Silva relies on her primary care providers for refills of seroquel + prozac (or paxil). Patient endorses remote history of suicide attempts (overdose + self-mutilation). Physical/Sexual Abuse/Trauma History: Patient denies. Additional Comment: Urine drug screen results: YASHIRA-Cocaine. Noted. Mental Status Exam - Mental Status Exam Alert and Oriented to: Time, Place, Person Cognitive Function: Good Patient Appearance: Well Groomed (short stature) Mood: Nervous, Irritable Affect: Mood Congruent, Labile Patient Behavior: Fatigued, Impulsive, Talkative, Cooperative Speech Pattern: Clear, Appropriate Voice Loudness: Normal Thought Process: Goal Oriented Thought Disorder: Not Present Hallucinations: Denies Suicidal Ideation: Denies Homicidal Ideation: Denies Insight/Judgement: Poor Sleep: Poorly, Difficulty falling asleep Appetite: Good Gait/Station: Normal Psychiatric Findings - Problem List (Irving 1, 2,3) (1) Alcohol dependence with withdrawal, uncomplicated Status: Acute (2) Cocaine dependence Status: Chronic Qualifiers: Substance use status: uncomplicated Qualified Code(s): F14.20 - Cocaine dependence, uncomplicated (3) Nicotine dependence Status: Chronic Qualifiers: Nicotine product type: cigarettes Substance use status: uncomplicated Qualified Code(s): F17.210 - Nicotine dependence, cigarettes, uncomplicated Comment: .. (4) Substance induced mood disorder Status: Chronic Comment: .. (5) History of depression Status: Chronic (6) Insomnia Status: Chronic (7) Non-compliance Status: Chronic Comment: Non-adherent to OPD care. - Initial Treatment Plan Initial Treatment Plan: Contact made with pharmacist at [facility] ([phone]) : most recent refills for paxil 10 mg/30 tablets + seroquel 25 mg/30 tablets were picked up in December 2019. Will resume seroquel 25 mg po bid + paxil 10 mg po daily. Side effects/benefits of these drugs are discussed with the patient. Ms Silva consent to this plan of care. Psychoeducation. Support. Sleep hygiene. Observation.
[2020-05-05] MEDS: QUEtiapine FUMARATE 50 MG TABLET PO SCH (22:21)
[2020-05-05] MEDS: MELATONIN 5 MG TABLETS PO SCH (22:21)
[2020-05-05] MEDS: THIAMINE HCL 100 MG TABLET (FP) PO SCH (22:21)
[2020-05-06] MEDS: chlordiazePOXIDE HCL 25 MG CAPSULE PO SCH ×4 (05:29→23:24)
--- NOTE | 2020-05-06 09:37 | PN ---
S CIWA - CIWA Score Nausea/Vomitin-Mild Nausea/No Vomiting Muscle Tremors: 1-None Visible, but [place] Anxiety: 2 Agitation: 2 Paroxysmal Sweats: No Perspiration Orientation: 0-Oriented Tacttile Disturbances: 0-None Auditory Disturbances: 0-None Visual Disturbances: 0-None Headache: 1-Very Mild CIWA-Ar Total Score: 7 S Progress Note (SOAP) Subjective: 59 years old female was admitted on 05/04/20 for alcohol withdrawal sx management treating with librium detox regiment seen by psychiatrist brody leigh feels ok today ambulating on hallway encourage to consider options for aftercare and follow up with aftercare arrangement Objective: 05/06/20 09:50 Vital Signs - 24 hr 05/05/20 05/05/20 05/05/20 12:45 16:44 20:57 Temperature 97.8 F 98.1 F 97.3 F L Pulse Rate 92 H 100 H 96 H Respiratory 18 18 18 Rate Blood Pressure 126/77 119/69 138/89 O2 Sat by Pulse 100 95 Oximetry (%) 05/06/20 05/06/20 06:33 08:48 Temperature 97.6 F 97.1 F L Pulse Rate 71 87 Respiratory 16 16 Rate Blood Pressure 103/74 115/83 O2 Sat by Pulse 99 Oximetry (%) Laboratory Tests 05/05/20 05/05/20 05/05/20 08:15 08:15 08:15 WBC 6.6 RBC 4.29 Hgb 12.3 Hct 37.0 MCV 86.3 MCH 28.6 MCHC 33.1 RDW 14.0 Plt Count 325 MPV 8.8 Sodium 142 Potassium 4.3 Chloride 109 H Carbon Dioxide 27 Anion Gap 6 L BUN 14.7 Creatinine 0.7 Est GFR (CKD-EPI)AfAm 109.91 Est GFR (CKD-EPI)NonAf 94.84 Random Glucose 120 H Calcium 8.6 Total Bilirubin 0.3 AST 10 L ALT 11 L Alkaline Phosphatase 84 Total Protein 6.4 Albumin 3.2 L Syphilis Serology Non-reactive HIV Ag/Ab Combo Qual 05/05/20 08:15 WBC RBC Hgb Hct MCV MCH MCHC RDW Plt Count MPV Sodium Potassium Chloride Carbon Dioxide Anion Gap BUN Creatinine Est GFR (CKD-EPI)AfAm Est GFR (CKD-EPI)NonAf Random Glucose Calcium Total Bilirubin AST ALT Alkaline Phosphatase Total Protein Albumin Syphilis Serology HIV Ag/Ab Combo Qual Negative 05/06/20 09:51 covid pending glucose elevation 05/06/20 09:54 fasting pending Assessment: 05/06/20 09:54 alcohol withdrawal Plan: librium regiment
[2020-05-06] MEDS: FLUTICASONE/SALMETEROL 100 MCG/50 MCG DISKUS IH SCH ×2 (10:10→23:25)
[2020-05-06] MEDS: NICOTINE 21 MG/24 HOURS TOPICAL PATCH TD SCH (10:11)
[2020-05-06] MEDS: FAMOTIDINE 20 MG TABLET PO SCH ×2 (10:11→23:25)
[2020-05-06] MEDS: PARoxetine HCL 10 MG TABLET PO SCH (10:11)
[2020-05-06] MEDS: PRENATAL VITAMINS W/ FOLIC ACID TABLET (FP) PO SCH (10:11)
[2020-05-06] MEDS: QUEtiapine FUMARATE 50 MG TABLET PO SCH ×2 (10:11→23:25)
[2020-05-06] MEDS: ALBUTEROL SO4 HFA INHALER IH PRN (23:22)
[2020-05-06] MEDS: THIAMINE HCL 100 MG TABLET (FP) PO SCH (23:24)
[2020-05-06] MEDS: MELATONIN 5 MG TABLETS PO SCH (23:25)
[2020-05-07] MEDS ORDERED: chlordiazePOXIDE HCL 10 MG CAPSULE PO PRN
[2020-05-07] MEDS: chlordiazePOXIDE HCL 10 MG CAPSULE PO SCH ×4 (05:45→22:25)
[2020-05-07] MEDS ORDERED: MASKS NR ONE (09:09)
[2020-05-07] MEDS ORDERED: IBUPROFEN 600 MG TABLET (FP) PO PRN (09:35)
[2020-05-07] MEDS: FLUTICASONE/SALMETEROL 100 MCG/50 MCG DISKUS IH SCH ×2 (10:08→22:26)
[2020-05-07] MEDS: PRENATAL VITAMINS W/ FOLIC ACID TABLET (FP) PO SCH (10:10)
[2020-05-07] MEDS: METHOCARBAMOL 500 MG TABLET PO PRN (10:10)
[2020-05-07] MEDS: PARoxetine HCL 10 MG TABLET PO SCH (10:10)
[2020-05-07] MEDS: FAMOTIDINE 20 MG TABLET PO SCH ×2 (10:10→22:25)
[2020-05-07] MEDS: QUEtiapine FUMARATE 50 MG TABLET PO SCH (10:10)
[2020-05-07] MEDS: NICOTINE 21 MG/24 HOURS TOPICAL PATCH TD SCH (10:11)
[2020-05-07] MEDS: ALBUTEROL SO4 HFA INHALER IH PRN ×2 (10:11→22:27)
[2020-05-07] MEDS: NICOTINE POLACRILEX 2 MG GUM BUC PRN (10:12)
[2020-05-07] MEDS ORDERED: hydrOXYzine PAMOATE 25 MG CAPSULE (FP) PO PRN (11:21)
--- NOTE | 2020-05-07 11:26 | PN ---
Psychiatric Progress Note Vital Signs: Vital Signs Period Temp Pulse Resp BP Sys/Rust Pulse Ox Last 24 Hr 96 F-97.7 F 69-103 16-18 105-130/72-92 96-98 Date of Session: 05/07/20 Chief Complaint:: " I'm having anxiety and I did not sleep well last night." HPI: Patient admitted to for alcohol, crack/cocaine, and nicotine dependence. Consulation ordered due to complaints of insomnia and anxiety. ROS: Patient is ambulatory, alert +oriented X3. Current Medications: Active Medications Generic Name Dose Route Start Last Admin Trade Name Freq PRN Reason Stop Dose Admin Acetaminophen 650 mg 05/04/20 17:34 05/05/20 22:26 Tylenol - PO 650 mg Q6H PRN Administration PAIN LEVEL 4 - 6 Acetaminophen 650 mg 05/04/20 17:34 Tylenol - PO Q6H PRN FEVER Al Hydroxide/Mg Hydroxide 30 ml 05/04/20 17:34 Mylanta Oral Suspension - PO Q6H PRN DYSPEPSIA Albuterol Sulfate 2 puff 05/04/20 17:38 05/07/20 10:11 Ventolin Hfa Inhaler - IH 2 puff Q4H PRN Administration ASTHMA Bismuth Subsalicylate 524 mg 05/04/20 17:34 Pepto-Bismol - PO Q1H PRN DIARRHEA Chlordiazepoxide HCl 10 mg 05/07/20 05:00 05/07/20 10:10 Librium - PO 05/07/20 23:01 10 mg [id number] SATISH Administration Chlordiazepoxide HCl 10 mg 05/08/20 05:00 Librium - PO 05/08/20 17:01 Q12H SATISH Chlordiazepoxide HCl 10 mg 05/07/20 00:00 Librium - PO 05/08/20 00:00 Q4H PRN WITHDRAWAL(CONT SUBST) Chlordiazepoxide HCl 10 mg 05/09/20 05:00 Librium - PO 05/09/20 05:01 ONCE@0500 ONE Eucalyptus/Menthol/Phenol/Sorbitol 1 each 05/04/20 17:34 Cepastat Lozenge - MM 05/10/20 17:34 Q4H PRN SORE THROAT Famotidine 20 mg 05/05/20 11:30 05/07/20 10:10 Pepcid - PO 20 mg BID SATISH Administration Ibuprofen 600 mg 05/07/20 09:35 05/07/20 10:09 Motrin - PO 600 mg Q6H PRN Administration PAIN LEVEL 4 - 6 Magnesium Citrate 300 ml 05/04/20 17:34 Citroma - PO Q48H PRN CONSTIPATION Magnesium Hydroxide 30 ml 05/04/20 17:34 Milk Of Magnesia - PO PRN PRN CONSTIPATION Melatonin 5 mg 05/04/20 22:00 05/06/20 23:25 Melatonin PO 5 mg HS SATISH Administration Methocarbamol 500 mg 05/04/20 17:34 05/07/20 10:10 Robaxin - PO 05/10/20 17:34 500 mg Q6H PRN Administration MUSCLE SPASMS Nicotine 21 mg 05/04/20 19:25 05/07/20 10:11 Nicoderm Patch - TD 21 mg DAILY SATISH Administration Nicotine Polacrilex 2 mg 05/04/20 19:25 05/07/20 10:12 Nicorette Gum - BUC 2 mg Q2H PRN Administration NICOTINE REPLACEMENT RX Paroxetine HCl 10 mg 05/06/20 10:00 05/07/20 10:10 Paxil - PO 10 mg DAILY SATISH Administration Multivit/Folic Acid/Iron 1 tab 05/05/20 10:00 05/07/20 10:10 Vitamins (Sjr) - PO 1 tab DAILY SATISH Administration Quetiapine Fumarate 100 mg 05/07/20 22:00 Seroquel - PO HS SATISH Quetiapine Fumarate 25 mg 05/08/20 10:00 Seroquel - PO DAILY SATISH Fluticasone/Salmeterol 1 puff 05/04/20 22:00 05/07/20 10:08 Advair 100mcg/50mcg - IH 1 pfu BID SATISH Administration Thiamine HCl 100 mg 05/04/20 22:00 05/06/20 23:24 Vitamin B1 - PO 100 mg HS SATISH Administration Medication(s) Change(s): Yes. Will d/c Seroquel 50mg BID. 2) Will order Seroquel 25mg daily + Seroquel 100mg HS. Current Side Effect: No Lab tests ordered: No Lab tests reviewed: Yes Provider note:: Patient seen by Dr. Howard. Dr. Howard note read and appreciated. Ms. Silva is reporting difficulty sleeping and worsening anxiety. Medications reviewed. 1) Will order Vistaril 25mg q4h PRN 2) Will d/c Seroquel 50mg BID + Melatonin 5mg HS. 3) Will order Seroquel 25mg daily + 75mg HS + Melatonin 10mg HS. Patient also educated on the importance of proper sleep hygiene and on utilizing her coping skills to better manage her anxiety. Patient receptive and satisifed with feedback. Benefits and side effects of medications discussed. Verbal consent given. Total face to face time:: 25 Mental Status Exam - Mental Status Exam Alert and Oriented to: Time, Place, Person Cognitive Function: Good Patient Appearance: Well Groomed Mood: Withdrawn Affect: Mood Congruent Patient Behavior: Cooperative Speech Pattern: Appropriate Voice Loudness: Normal Thought Process: Goal Oriented Thought Disorder: Not Present Hallucinations: Denies Suicidal Ideation: Denies Homicidal Ideation: Denies Insight/Judgement: Poor Sleep: Poorly Appetite: Fair Muscle strength/Tone: Normal Gait/Station: Normal Psychiatric Treatment Plan - Problem List (1) Alcohol dependence with withdrawal, uncomplicated Current Visit: Yes (2) Cocaine dependence Current Visit: Yes Qualifiers: Substance use status: uncomplicated Qualified Code(s): F14.20 - Cocaine dependence, uncomplicated (3) History of depression Current Visit: Yes (4) Nicotine dependence Current Visit: Yes Qualifiers: Nicotine product type: cigarettes Substance use status: uncomplicated Qualified Code(s): F17.210 - Nicotine dependence, cigarettes, uncomplicated Comment: .. (5) Substance induced mood disorder Current Visit: Yes Comment: .. (6) Substance-induced sleep disorder Current Visit: Yes
--- NOTE | 2020-05-07 15:43 | PN ---
S CIWA - CIWA Score Nausea/Vomitin-Mild Nausea/No Vomiting Muscle Tremors: 2 Anxiety: 2 Agitation: 2 Paroxysmal Sweats: No Perspiration Orientation: 0-Oriented Tacttile Disturbances: 1-Very Mild Itch/Numbness Auditory Disturbances: 0-None Visual Disturbances: 0-None Headache: 1-Very Mild CIWA-Ar Total Score: 9 S Progress Note (SOAP) Subjective: alert,irritable,anxious,interrupted sleep,pain in the back and knee Objective: 05/07/20 15:46 Vital Signs Temperature 98.0 F 05/07/20 12:48 Pulse Rate 104 H 05/07/20 12:48 Respiratory Rate 18 05/07/20 12:48 Blood Pressure 125/80 05/07/20 12:48 O2 Sat by Pulse Oximetry (%) 100 05/07/20 12:48 Assessment: 05/07/20 15:46 withdrawal symptom Plan: continue detox librium regimen,discharge in am
[2020-05-07] MEDS ORDERED: MELATONIN 5 MG TABLETS PO SCH (22:00)
[2020-05-07] MEDS ORDERED: QUEtiapine FUMARATE 50 MG TABLET PO SCH (22:00)
[2020-05-07] MEDS ORDERED: QUEtiapine FUMARATE 25 MG TABLET PO SCH (22:00)
[2020-05-07] MEDS: THIAMINE HCL 100 MG TABLET (FP) PO SCH (22:25)
[2020-05-08] MEDS ORDERED: chlordiazePOXIDE HCL 10 MG CAPSULE PO SCH (05:00)
[2020-05-08 09:17] VITALS: BP 140/80; PULSE 103; TEMP 97.3
[2020-05-08] MEDS ORDERED: QUEtiapine FUMARATE 25 MG TABLET PO SCH (10:00)
--- NOTE | 2020-05-08 10:07 | DS ---
[facility] Detox Discharge Summary Admission Date: 05/04/20 Discharge Date: 05/08/20 - History Additional Comments: alert,oriented x 3 ambulation on the unit lung clear on auscultation bilaterally no abdominal pain detox completed no withdrawal symptom patient is stable for discharge today follow up with after care program as arrangement,[facility] total time spending on discharge 35 minutes Pertinent Past History: hypertension low back pain arthritis history of depression - Physical Exam Results Vital Signs: Vital Signs Temperature 97.3 F L 05/08/20 08:52 Pulse Rate 103 H 05/08/20 08:52 Respiratory Rate 18 05/08/20 08:52 Blood Pressure 140/80 05/08/20 08:52 O2 Sat by Pulse Oximetry (%) 99 05/08/20 08:52 Pertinent Admission Physical Exam Findings: withdrawal sing and symptom Laboratory Last Values WBC 6.6 K/mm3 (4.0-10.0) 05/05/20 08:15 RBC 4.29 M/mm3 (3.60-5.2) 05/05/20 08:15 Hgb 12.3 GM/dL (10.7-15.3) 05/05/20 08:15 Hct 37.0 % (32.4-45.2) 05/05/20 08:15 MCV 86.3 fl (80-96) 05/05/20 08:15 MCH 28.6 pg (25.7-33.7) 05/05/20 08:15 MCHC 33.1 g/dl (32.0-36.0) 05/05/20 08:15 RDW 14.0 % (11.6-15.6) 05/05/20 08:15 Plt Count 325 K/MM3 (134-434) 05/05/20 08:15 MPV 8.8 fl (7.5-11.1) 05/05/20 08:15 Sodium 142 mmol/L (136-145) 05/05/20 08:15 Potassium 4.3 mmol/L (3.5-5.1) 05/05/20 08:15 Chloride 109 mmol/L (98-107) H 05/05/20 08:15 Carbon Dioxide 27 mmol/L (21-32) 05/05/20 08:15 Anion Gap 6 MMOL/L (8-16) L 05/05/20 08:15 BUN 14.7 mg/dL (7-18) 05/05/20 08:15 Creatinine 0.7 mg/dL (0.55-1.3) 05/05/20 08:15 Est GFR (CKD-EPI)AfAm 109.91 05/05/20 08:15 Est GFR (CKD-EPI)NonAf 94.84 05/05/20 08:15 Random Glucose 120 mg/dL (74-106) H 05/05/20 08:15 Fasting Glucose 121 mg/dL (74-106) H 05/08/20 08:40 Calcium 8.6 mg/dL (8.5-10.1) 05/05/20 08:15 Total Bilirubin 0.3 mg/dL (0.2-1) 05/05/20 08:15 AST 10 U/L (15-37) L 05/05/20 08:15 ALT 11 U/L (13-61) L 05/05/20 08:15 Alkaline Phosphatase 84 U/L (45-117) 05/05/20 08:15 Total Protein 6.4 g/dl (6.4-8.2) 05/05/20 08:15 Albumin 3.2 g/dl (3.4-5.0) L 05/05/20 08:15 Syphilis Serology Non-reactive (NONREACTIVE) 05/05/20 08:15 COVID-19 ([place]) Not detected (Not Detected) 05/04/20 18:50 HIV Ag/Ab Combo Qual Negative (NEGATIVE) 05/05/20 08:15 - Treatment Hospital Course: Detox Protocol Followed, Detoxed Safely, Responded well, Discharged Condition Good, Rehab Referral Accepted Patient has Accepted a Rehab Referral to: [facility] - Medication Discharge Medications: Ambulatory Orders Ibuprofen 800 mg PO TID PRN #21 tablet 05/03/18 Quetiapine Fumarate [Seroquel -] 50 mg PO BID 12/05/18 Risperidone [Risperdal] 2 mg PO DAILY 12/05/18 Sertraline HCl [Zoloft] 50 mg PO DAILY 12/05/18 Pantoprazole Sodium [Protonix -] 20 mg PO BID 7 Days #7 tab 12/06/18 Albuterol Sulfate Inhaler - [Ventolin HFA Inhaler -] 2 puff IH Q4H PRN 05/13/19 Quetiapine Fumarate [Seroquel -] 75 mg PO HS 05/13/19 Salmeterol/Fluticasone [Advair 100Mcg/50Mcg -] 1 puff IH BID 05/13/19 Paroxetine HCl [Paxil -] 10 mg PO DAILY #30 tablet 05/22/19 Famotidine [Acid Controller] 20 mg PO BID 05/08/20 Quetiapine Fumarate [Seroquel -] 25 mg PO DAILY 05/08/20 - Diagnosis (1) Alcohol dependence with withdrawal, uncomplicated Status: Acute (2) Cannabis dependence Status: Chronic (3) History of depression Status: Chronic (4) Hypertension Status: Chronic Qualifiers: Hypertension type: essential hypertension Qualified Code(s): I10 - Essential (primary) hypertension (5) Insomnia Status: Chronic (6) Osteoarthritis Status: Chronic Qualifiers: Osteoarthritis location: unspecified site Osteoarthritis type: unspecified Qualified Code(s): M19.90 - Unspecified osteoarthritis, unspecified site - AMA Did Patient Leave Against Medical Advice: No
--- NOTE | 2020-05-08 10:07 | PN ---
[facility] CIWA - CIWA Score Nausea/Vomitin-No Nausea/No Vomiting Muscle Tremors: None Anxiety: 1-Mildly Anxious Agitation: 0-Normal Activity Paroxysmal Sweats: No Perspiration Orientation: 0-Oriented Tacttile Disturbances: 0-None Auditory Disturbances: 0-None Visual Disturbances: 0-None Headache: 0-None Present CIWA-Ar Total Score: 1 S Progress Note (SOAP) Subjective: alert,no complaint Objective: 05/08/20 13:21 Vital Signs Temperature 97.3 F L 05/08/20 08:52 Pulse Rate 103 H 05/08/20 08:52 Respiratory Rate 18 05/08/20 08:52 Blood Pressure 140/80 05/08/20 08:52 O2 Sat by Pulse Oximetry (%) 99 05/08/20 08:52 Assessment: 05/08/20 14:03 detox completed,no withdrawal symptom Plan: stable for discharge today,follow up with after care program [facility] as arrangement
[2020-05-08] MEDS: FLUTICASONE/SALMETEROL 100 MCG/50 MCG DISKUS IH SCH (10:54)
[2020-05-08] MEDS: PRENATAL VITAMINS W/ FOLIC ACID TABLET (FP) PO SCH (10:55)
[2020-05-08] MEDS: PARoxetine HCL 10 MG TABLET PO SCH (10:55)
[2020-05-08] MEDS: FAMOTIDINE 20 MG TABLET PO SCH (10:55)
[2020-05-08] MEDS: NICOTINE 21 MG/24 HOURS TOPICAL PATCH TD SCH (10:55)
[2020-05-08] MEDS: ALBUTEROL SO4 HFA INHALER IH PRN (11:02)
[2020-05-09] MEDS ORDERED: chlordiazePOXIDE HCL 10 MG CAPSULE PO ONE (05:00)
== END 2020-05-08 11:34 | disposition other institution (70) | DRG 774 ==
LOC: YASAS 14:44 → Y3N 18:39
PROVIDERS: ADMIT Allergy & Immunology; ATTEND Allergy & Immunology
PROC: HZ2ZZZZ Detoxification Services for Substance Abuse Treatment (ICD-10-PCS; principal; 2020-05-04)
DX: F10.230 Alcohol dependence with withdrawal, uncomplicated (principal); F14.20 Cocaine dependence, uncomplicated; F12.20 Cannabis dependence, uncomplicated; F17.210 Nicotine dependence, cigarettes, uncomplicated; F19.282 Other psychoactive substance dependence with psychoactive substance-induced sleep disorder; F19.24 Other psychoactive substance dependence with psychoactive substance-induced mood disorder; F31.81 Bipolar II disorder; G47.00 Insomnia, unspecified; I10 Essential (primary) hypertension; J45.40 Moderate persistent asthma, uncomplicated; J44.9 Chronic obstructive pulmonary disease, unspecified; K21.9 Gastro-esophageal reflux disease without esophagitis; M19.90 Unspecified osteoarthritis, unspecified site; M54.5 Low back pain; Z96.651 Presence of right artificial knee joint; Z98.84 Bariatric surgery status; Z98.890 Other specified postprocedural states; Z91.5 Personal history of self-harm
CPT/HCPCS: 36415; 80053; 82947; 85027; 86780; 87389; 93005; 93010; U0003

== ENCOUNTER 2020-05-08 10:50 | Inpatient (IN) | payer OTHER ==
[2020-05-08] MEDS ORDERED: MENTHOL/PHENOL 1 EACH UD MM PRN (13:20)
[2020-05-08] MEDS ORDERED: NICOTINE POLACRILEX 2 MG GUM BUC PRN (13:20)
[2020-05-08] MEDS ORDERED: LOPERAMIDE HCL 2 MG CAPSULE PO PRN (13:20)
[2020-05-08] MEDS ORDERED: ACETAMINOPHEN 325 MG TABLET (FP) PO PRN (13:20)
[2020-05-08] MEDS ORDERED: MAGNESIUM HYDROX 2400MG/30ML ORAL SUSPENSION 30 ML CUP PO PRN (13:20)
[2020-05-08] MEDS ORDERED: guaiFENesin 200 MG/10 ML 10 ML UNIT-DOSE CUPS PO PRN (13:20)
[2020-05-08] MEDS ORDERED: P-EPHED 60MG/TRIPROLIDI 2.5MG TABLET PO PRN (13:20)
[2020-05-08] MEDS ORDERED: MAGNESIUM CITRATE 300 ML BOTTLE PO PRN (13:20)
[2020-05-08] MEDS ORDERED: MAG HYDROX/AL HYDROX/SIMETH 30 ML UNIT-DOSE CUP PO PRN (13:20)
--- NOTE | 2020-05-08 13:20 | HP ---
[facility] Rehab Assess/Revision - Admission History Admitted to Rehab from: [facility] - Vital signs Vital Signs: Vital Signs Period Temp Pulse Resp BP Sys/Rust Pulse Ox Last 24 Hr 97.7 F 107 16 120/81 - Findings Detox History & Physical reviewed: Yes Concur with findings: Yes Inpatient Rehab Admission - Rehab Decision to Admit Inpatient rehab admission?: Yes - Initial Determination Are CD services needed?: Yes Free of communicable disease: Yes Not in need of hospitalization: Yes - Rehab Admission Criteria Previous failed treatment: Yes Poor recovery environment: Yes Comorbidities: Yes Lacks judgement: No Patient is meeting Inpatient Rehab admission criteria:: Yes
[2020-05-08] MEDS: hydrOXYzine PAMOATE 25 MG CAPSULE (FP) PO PRN ×2 (17:14→21:29)
[2020-05-08] MEDS: THIAMINE HCL 100 MG TABLET (FP) PO SCH (21:26)
[2020-05-08] MEDS: MELATONIN 5 MG TABLETS PO SCH (21:26)
[2020-05-08] MEDS: QUEtiapine FUMARATE 25 MG TABLET PO SCH (21:28)
[2020-05-08] MEDS: FAMOTIDINE 20 MG TABLET PO SCH (21:29)
[2020-05-08] MEDS: FLUTICASONE/SALMETEROL 100 MCG/50 MCG DISKUS IH SCH (21:30)
[2020-05-08] MEDS ORDERED: MELATONIN 5 MG TABLETS PO SCH (22:00)
[2020-05-09] MEDS: FLUTICASONE/SALMETEROL 100 MCG/50 MCG DISKUS IH SCH ×2 (10:11→21:42)
[2020-05-09] MEDS: NICOTINE 7 MG/24 HOURS TOPICAL PATCH TD SCH (10:12)
[2020-05-09] MEDS: FAMOTIDINE 20 MG TABLET PO SCH ×2 (10:12→21:42)
[2020-05-09] MEDS: PRENATAL VITAMINS W/ FOLIC ACID TABLET (FP) PO SCH (10:12)
[2020-05-09] MEDS: QUEtiapine FUMARATE 25 MG TABLET PO SCH ×2 (10:13→21:41)
[2020-05-09] MEDS: hydrOXYzine PAMOATE 25 MG CAPSULE (FP) PO PRN ×3 (10:14→21:41)
[2020-05-09] MEDS: IBUPROFEN 400 MG TABLET (FP) PO PRN (21:39)
[2020-05-09] MEDS: THIAMINE HCL 100 MG TABLET (FP) PO SCH (21:42)
[2020-05-09] MEDS: MELATONIN 5 MG TABLETS PO SCH (21:42)
[2020-05-10] MEDS: hydrOXYzine PAMOATE 25 MG CAPSULE (FP) PO PRN ×3 (06:44→21:45)
[2020-05-10] MEDS ORDERED: PT OWN MED DRAWER 7, Y5N ONE ×2 (08:37→10:16)
[2020-05-10] MEDS: FAMOTIDINE 20 MG TABLET PO SCH ×2 (10:14→21:45)
[2020-05-10] MEDS: PRENATAL VITAMINS W/ FOLIC ACID TABLET (FP) PO SCH (10:14)
[2020-05-10] MEDS: NICOTINE 7 MG/24 HOURS TOPICAL PATCH TD SCH (10:16)
[2020-05-10] MEDS: FLUTICASONE/SALMETEROL 100 MCG/50 MCG DISKUS IH SCH ×2 (10:16→22:28)
[2020-05-10] MEDS: QUEtiapine FUMARATE 25 MG TABLET PO SCH ×2 (10:18→21:45)
[2020-05-10] MEDS: IBUPROFEN 400 MG TABLET (FP) PO PRN (10:31)
[2020-05-10] MEDS ORDERED: MASKS NR ONE (16:15)
[2020-05-10] MEDS: THIAMINE HCL 100 MG TABLET (FP) PO SCH (21:45)
[2020-05-10] MEDS: MELATONIN 5 MG TABLETS PO SCH (21:45)
[2020-05-11] MEDS ORDERED: PT OWN MED DRAWER 7, Y5N ONE (08:27)
[2020-05-11] MEDS ORDERED: NICOTINE POLACRILEX 4 MG GUM BUC PRN (09:07)
[2020-05-11] MEDS: QUEtiapine FUMARATE 25 MG TABLET PO SCH (10:01)
[2020-05-11] MEDS: hydrOXYzine PAMOATE 25 MG CAPSULE (FP) PO PRN ×3 (10:01→21:19)
[2020-05-11] MEDS: NICOTINE 21 MG/24 HOURS TOPICAL PATCH TD SCH (10:02)
[2020-05-11] MEDS: FAMOTIDINE 20 MG TABLET PO SCH ×2 (10:02→21:20)
[2020-05-11] MEDS: PRENATAL VITAMINS W/ FOLIC ACID TABLET (FP) PO SCH (10:02)
[2020-05-11] MEDS: ALBUTEROL SO4 HFA INHALER IH PRN (10:04)
[2020-05-11] MEDS: FLUTICASONE/SALMETEROL 100 MCG/50 MCG DISKUS IH SCH ×2 (10:04→21:21)
--- NOTE | 2020-05-11 12:45 | PN ---
[facility] Progress Note Note: Vital Signs Temperature 96.9 F L 05/10/20 06:40 Pulse Rate 90 05/10/20 06:40 Respiratory Rate 16 05/10/20 06:40 Blood Pressure 122/82 05/10/20 06:40 O2 Sat by Pulse Oximetry (%) 99 05/10/20 20:47 Patient evaluated for c/o right knee pain and body aches. Patient has hx of right TKR, OA, alcohol use and bipolar disorder. Also states feeling anxious and not sleeping well at night. PE alert and oriented x 3 skin warm and dry +perrla, eoms intact bl gi nt,nd ext mild swelling of right knee, no redness, +surgical scar (old) no tremors amb with limp A/P anxiety sleep disturbance right knee discomfort/OA Cane ordered Flexeril 5mg po tid prn for pain psych consult continue to monitor clinically
--- NOTE | 2020-05-11 15:15 | CONSULT ---
[facility] Psychiatric Consult - Data Date of interview: 05/11/20 Admission source: Transfer from [address] [place] [address]. Identifying data: Detoxification treatment completed at [address] [place] [address]. Readmission to [facility] for rehabilitation aiming at preservation of sobriety + management of co-morbid anxiety disorder. ELEONORA issues : alcohol, crack/cocaine, nicotine. Patient a 59 y/o female, , a mother of five, domiciled (lives with son), unemployed and supported on [facility] benefits. Substance Abuse History: Re-discussed with the patient in this interview. ELEONORA profile as follows : Smoking history: Current every day smoker. Have you smoked in the past 12 months: Yes. Approximately how many cigarettes per day: 40. Hx Chewing Tobacco Use: No. Initiated information on smoking cessation: Yes. 'Breaking Loose' booklet given: 05/04/20. - Substance & Tx. History. Hx Alcohol Use: Yes. Hx Substance Use: Yes. Substance Use Type: Alcohol, Cocaine. Hx Substance Use Treatment: Yes ([facility]). - Substances abused. Alcohol. Substance route: Oral. Frequency: Daily. Amount used: 2 PINTS VODKA. Age of first use: 25. Date of last use: 05/04/20. History of multiple ELEONORA treatment failures. Medical History: Medical background is remarkable for bronchial asthma, COPD, hypertension, GERD and multiple surgeries (gastric bypass in 2017, tummy tuck in 2015, remote history of section, right knee replacement in January 2019). No known allergies. Psychiatric History: No changes in personal history since my interview of 05/05/20 (refer to my note). As follows : patient presents with history of multiple psychiatric hospitalizations ([facility] + [facility]). First psychiatric breakdown occurred about 10 years ago (depression + suicide attempt via overdose with pills). Chronic non-adherence to OPD care and psychotropic medications. No contact with mental health workers (psychologists, psychiatrists, therapists or nurse practitioners). Ms Silva relies on her primary care providers for refills of seroquel + prozac (or paxil). Patient endorses remote history of suicide attempts (overdose + self- mutilation). Physical/Sexual Abuse/Trauma History: Patient denies. Additional Comment: Urine drug screen results: YASHIRA-Cocaine. Noted on admission (05/04/20). Mental Status Exam - Mental Status Exam Alert and Oriented to: Time, Place, Person Cognitive Function: Good Patient Appearance: Well Groomed Mood: Hopeful, Euthymic Affect: Appropriate, Normal Range Patient Behavior: Appropriate, Cooperative Speech Pattern: Clear, Appropriate Voice Loudness: Normal Thought Process: Intact, Goal Oriented Thought Disorder: Not Present Hallucinations: Denies Suicidal Ideation: Denies Homicidal Ideation: Denies Insight/Judgement: Fair Sleep: Well Appetite: Good Gait/Station: Normal Psychiatric Findings - Problem List ([place] 1, 2,3) (1) Alcohol dependence Current Visit: Yes Status: Chronic Qualifiers: Substance use status: uncomplicated Qualified Code(s): F10.20 - Alcohol dependence, uncomplicated Comment: .. (2) Cocaine dependence Current Visit: Yes Status: Chronic Qualifiers: Substance use status: uncomplicated Qualified Code(s): F14.20 - Cocaine dependence, uncomplicated (3) Nicotine dependence Current Visit: Yes Status: Chronic Qualifiers: Nicotine product type: cigarettes Substance use status: uncomplicated Qualified Code(s): F17.210 - Nicotine dependence, cigarettes, uncomplicated Comment: .. (4) Drug-induced mood disorder Current Visit: Yes Status: Chronic (5) History of depression Current Visit: Yes Status: Chronic (6) Insomnia Current Visit: Yes Status: Chronic (7) Non-compliance Current Visit: Yes Status: Chronic Comment: Non-adherent to OPD care. - Initial Treatment Plan Initial Treatment Plan: Motivational counseling. MAT-ETOH interventions : discussed. Psychoeducation. Support. AA meetings (with full observance of COVID- 19 guidelines : social distancing + mask wearing + hand washing). Continue seroquel (dose optimized to 100 mg/hs) + paxil 10 mg/day as ordered. Side eff ects/benefits discussed wih the patient. Consent (verbal) granted to MD. Head.
[2020-05-11] MEDS: QUEtiapine FUMARATE 100 MG TABLET (FP) PO SCH (21:19)
[2020-05-11] MEDS: THIAMINE HCL 100 MG TABLET (FP) PO SCH (21:19)
[2020-05-11] MEDS: MELATONIN 5 MG TABLETS PO SCH (21:20)
[2020-05-11] MEDS: IBUPROFEN 400 MG TABLET (FP) PO PRN (21:21)
[2020-05-12] MEDS ORDERED: PT OWN MED DRAWER 7, Y5N ONE ×4 (08:56→17:19)
[2020-05-12] MEDS: FLUTICASONE/SALMETEROL 100 MCG/50 MCG DISKUS IH SCH ×2 (10:02→21:16)
[2020-05-12] MEDS: NICOTINE 21 MG/24 HOURS TOPICAL PATCH TD SCH (10:02)
[2020-05-12] MEDS: PRENATAL VITAMINS W/ FOLIC ACID TABLET (FP) PO SCH (10:03)
[2020-05-12] MEDS: QUEtiapine FUMARATE 25 MG TABLET PO SCH (10:03)
[2020-05-12] MEDS: FAMOTIDINE 20 MG TABLET PO SCH ×2 (10:03→21:17)
[2020-05-12] MEDS: ALBUTEROL SO4 HFA INHALER IH PRN (10:04)
[2020-05-12] MEDS: PARoxetine HCL 10 MG TABLET PO SCH (10:32)
[2020-05-12] MEDS: hydrOXYzine PAMOATE 25 MG CAPSULE (FP) PO PRN ×3 (10:34→21:15)
--- NOTE | 2020-05-12 10:55 | PN ---
[facility] Progress Note (SOAP) Subjective: Patient with c/o right knee pain. States that her leg is swelling. Past surgical hx of knee replacement. Also c/o vaginal discharge. denies burning on urination. Rash on left forearm for 21mg nicoderm patch; patient states that the 7mg nicoderm patch does not give her a rash. Objective: 05/12/20 10:54 Vital Signs Period Temp Pulse Resp BP Sys/Rust Pulse Ox Last 24 Hr 97.5 F 94 18 148/86 98-100 P/E: General: no apparent distress MSK: full weight bearing, gait favors right leg. SKIN:surgical scar, right leg Extremities: slight lower leg edema, right; circular, raised, red area on left arm. : deferred at patient request 05/12/20 10:55 05/12/20 10:56 Assessment: Right leg pain vaginal discharge allergic rash, left forearm 05/12/20 10:56 05/12/20 10:57 Plan: Right Knee Pain: Cane ordered, BEN bandage ordered, lidoderm patch ordered, motrin dose increased and patient encouraged to use muscle relaxer Vaginal discharge: Diflucan ordered Allergic rash: 7mg Nicoderm patch ordered
[2020-05-12] MEDS: LIDOCAINE 5% TOPICAL PATCH TP SCH (10:58)
[2020-05-12] MEDS: CYCLOBENZAPRINE HCL 5 MG TABLET PO PRN ×2 (10:58→17:26)
[2020-05-12] MEDS: IBUPROFEN 600 MG TABLET (FP) PO PRN (10:59)
[2020-05-12] MEDS ORDERED: FLUCONAZOLE 50 MG TABLET PO ONE (11:00)
[2020-05-12] MEDS: NICOTINE 7 MG/24 HOURS TOPICAL PATCH TD SCH (11:03)
[2020-05-12] MEDS: QUEtiapine FUMARATE 100 MG TABLET (FP) PO SCH (21:15)
[2020-05-12] MEDS: THIAMINE HCL 100 MG TABLET (FP) PO SCH (21:15)
[2020-05-12] MEDS: MELATONIN 5 MG TABLETS PO SCH (21:17)
[2020-05-12] MEDS: LIDOCAINE PATCH REMOVAL MC SCH (21:17)
[2020-05-13] MEDS ORDERED: PT OWN MED DRAWER 7, Y5N ONE ×2 (03:17→18:00)
[2020-05-13] MEDS: hydrOXYzine PAMOATE 25 MG CAPSULE (FP) PO PRN ×3 (06:50→21:14)
[2020-05-13] MEDS: CYCLOBENZAPRINE HCL 5 MG TABLET PO PRN ×2 (06:50→18:01)
[2020-05-13] MEDS: LIDOCAINE 5% TOPICAL PATCH TP SCH (09:44)
[2020-05-13] MEDS: NICOTINE 7 MG/24 HOURS TOPICAL PATCH TD SCH (09:45)
[2020-05-13] MEDS: PARoxetine HCL 10 MG TABLET PO SCH (09:45)
[2020-05-13] MEDS: QUEtiapine FUMARATE 25 MG TABLET PO SCH (09:45)
[2020-05-13] MEDS: PRENATAL VITAMINS W/ FOLIC ACID TABLET (FP) PO SCH (09:46)
[2020-05-13] MEDS: FAMOTIDINE 20 MG TABLET PO SCH ×2 (09:46→21:14)
[2020-05-13] MEDS: FLUTICASONE/SALMETEROL 100 MCG/50 MCG DISKUS IH SCH ×2 (09:47→21:15)
[2020-05-13] MEDS: IBUPROFEN 600 MG TABLET (FP) PO PRN (18:01)
[2020-05-13] MEDS: THIAMINE HCL 100 MG TABLET (FP) PO SCH (21:13)
[2020-05-13] MEDS: QUEtiapine FUMARATE 100 MG TABLET (FP) PO SCH (21:14)
[2020-05-13] MEDS: MELATONIN 5 MG TABLETS PO SCH (21:15)
[2020-05-13] MEDS: LIDOCAINE PATCH REMOVAL MC SCH (21:15)
[2020-05-14] MEDS ORDERED: PT OWN MED DRAWER 7, Y5N ONE ×2 (03:09→09:08)
[2020-05-14] MEDS: CYCLOBENZAPRINE HCL 5 MG TABLET PO PRN (06:47)
[2020-05-14] MEDS: hydrOXYzine PAMOATE 25 MG CAPSULE (FP) PO PRN (06:47)
[2020-05-14] MEDS: LIDOCAINE 5% TOPICAL PATCH TP SCH (09:54)
[2020-05-14] MEDS: PARoxetine HCL 10 MG TABLET PO SCH (09:55)
[2020-05-14] MEDS: FAMOTIDINE 20 MG TABLET PO SCH ×2 (09:55→21:25)
[2020-05-14] MEDS: QUEtiapine FUMARATE 25 MG TABLET PO SCH (09:55)
[2020-05-14] MEDS: FLUTICASONE/SALMETEROL 100 MCG/50 MCG DISKUS IH SCH ×2 (09:55→21:25)
[2020-05-14] MEDS: NICOTINE 7 MG/24 HOURS TOPICAL PATCH TD SCH (09:55)
[2020-05-14] MEDS: PRENATAL VITAMINS W/ FOLIC ACID TABLET (FP) PO SCH (09:55)
[2020-05-14] MEDS ORDERED: hydrOXYzine PAMOATE 50 MG CAPSULE (FP) PO PRN (10:02)
--- NOTE | 2020-05-14 10:07 | PN ---
Psychiatric Progress Note Vital Signs: Vital Signs Period Temp Pulse Resp BP Sys/Rust Pulse Ox Last 24 Hr 97.8 F 94 20 104/68 98-100 Date of Session: 05/14/20 Chief Complaint:: "I feel restless and anxious and am not sleeping well." HPI: Patient admitted to for treatment of crack/cocaine, and nicotine dependence co-morbid anxiety disorder. ROS: Patient is ambulatory, alert +oriented X3. Current Medications: Active Medications Generic Name Dose Route Start Last Admin Trade Name Freq PRN Reason Stop Dose Admin Acetaminophen 650 mg 05/08/20 13:20 Tylenol - PO Q4H PRN FEVER Al Hydroxide/Mg Hydroxide 30 ml 05/08/20 13:20 Mylanta Oral Suspension - PO Q6H PRN DYSPEPSIA Albuterol Sulfate 2 puff 05/08/20 13:17 05/12/20 10:04 Ventolin Hfa Inhaler - IH 2 puff Q4H PRN Administration ASTHMA Cyclobenzaprine HCl 5 mg 05/11/20 12:43 05/14/20 06:47 Cyclobenzaprine Hcl PO 5 mg TID PRN Administration MODERATE PAIN Eucalyptus/Menthol/Phenol/Sorbitol 1 each 05/08/20 13:20 Cepastat Lozenge - MM Q4H PRN SORE THROAT Famotidine 20 mg 05/08/20 22:00 05/14/20 09:55 Pepcid - PO 20 mg BID SATISH Administration Guaifenesin 10 ml 05/08/20 13:20 Robitussin - PO Q6H PRN COUGH Hydroxyzine Pamoate 50 mg 05/14/20 10:03 Vistaril - PO Q6H PRN INSOMNIA Ibuprofen 600 mg 05/12/20 10:41 05/13/20 18:01 Motrin - PO 600 mg Q4H PRN Administration FEVER Lidocaine 1 patch 05/12/20 11:00 05/14/20 09:54 Lidoderm Patch - TP 1 patch DAILY SATISH Administration Loperamide HCl 4 mg 05/08/20 13:20 Imodium - PO Q6H PRN DIARRHEA Magnesium Citrate 300 ml 05/08/20 13:20 Citroma - PO Q48H PRN CONSTIPATION Magnesium Hydroxide 30 ml 05/08/20 13:20 Milk Of Magnesia - PO DAILY PRN CONSTIPATION Melatonin 10 mg 05/08/20 22:00 09/09/20 21:15 Melatonin PO 10 mg HS SATISH Administration Miscellaneous 1 each 05/12/20 22:00 05/13/20 21:15 Lidoderm Patch Removal MC 1 each DAILY@2200 SATISH Administration Nicotine 7 mg 05/12/20 11:00 05/14/20 09:55 Nicoderm Patch - TD 7 mg DAILY SATISH Administration Nicotine Polacrilex 4 mg 05/11/20 09:07 05/13/20 14:25 Nicorette Gum - BUC 4 mg Q2H PRN Administration NICOTINE REPLACEMENT RX Paroxetine HCl 10 mg 05/12/20 10:00 05/14/20 09:55 Paxil - PO 10 mg DAILY SATISH Administration Multivit/Folic Acid/Iron 1 tab 05/09/20 10:00 05/14/20 09:55 Vitamins (Sjr) - PO 1 tab DAILY SATISH Administration Pseudoephedrine/Triprolidine 1 combo 05/08/20 13:20 Actifed - PO TID PRN NASAL CONGESTION Quetiapine Fumarate 25 mg 05/09/20 10:00 05/14/20 09:55 Seroquel - PO 25 mg DAILY SATISH Administration Quetiapine Fumarate 100 mg 05/11/20 22:00 05/13/20 21:14 Seroquel - PO 100 mg HS SATISH Administration Fluticasone/Salmeterol 1 puff 05/08/20 22:00 05/14/20 09:55 Advair 100mcg/50mcg - IH Not Given BID SATISH Suvorexant 10 mg 05/14/20 22:00 Belsomra PO HS PRN INSOMNIA Thiamine HCl 100 mg 05/08/20 22:00 05/13/20 21:13 Vitamin B1 - PO 100 mg HS SATISH Administration Medication(s) Change(s): Yes. Will d/c seroquel 25mg daily + Vistaril 25mg q4h. Will order Seroquel 50mg daily + Vistaril 50mg q6h + Belsomra 10mg HS PRN for insomnia. Current Side Effect: No Lab tests ordered: No Lab tests reviewed: Yes Provider note:: Patient seen by press writer several times. Dr. Howard note read and appreciated. Patient reports worsening anxiety and difficulty sleeping. Medications reviewed. Medications to be adjusted (please review medication changes section). Patient edcuated on the importance of utilizing her coping ski lls to help better manage her anxiety. And also educated on the importance of proper sleep hygiene. Benefits and side effects of medications discussed. Verbal consent given. Patient satisifed and receptive to feedback. Total face to face time:: 25 Mental Status Exam - Mental Status Exam Alert and Oriented to: Time, Place, Person Cognitive Function: Good Patient Appearance: Well Groomed Mood: Anxious, Hopeful Affect: Mood Congruent Patient Behavior: Appropriate, Cooperative Speech Pattern: Appropriate Voice Loudness: Normal Thought Process: Intact, Goal Oriented Thought Disorder: Not Present Hallucinations: Denies Suicidal Ideation: Denies Homicidal Ideation: Denies Insight/Judgement: Poor Sleep: Poorly Appetite: Fair Muscle strength/Tone: Normal Gait/Station: Normal Psychiatric Treatment Plan - Problem List (1) Alcohol dependence Current Visit: Yes Qualifiers: Substance use status: uncomplicated Qualified Code(s): F10.20 - Alcohol d ependence, uncomplicated Comment: .. (2) Cocaine dependence Current Visit: Yes Qualifiers: Substance use status: uncomplicated Qualified Code(s): F14.20 - Cocaine dependence, uncomplicated (3) History of depression Current Visit: Yes (4) Nicotine dependence Current Visit: Yes Qualifiers: Nicotine product type: cigarettes Substance use status: uncomplicated Qualified Code(s): F17.210 - Nicotine dependence, cigarettes, uncomplicated Comment: .. (5) Substance-induced anxiety disorder Current Visit: Yes (6) Insomnia Current Visit: Yes
[2020-05-14] MEDS: hydrOXYzine PAMOATE 50 MG CAPSULE (FP) PO PRN ×2 (13:24→21:24)
[2020-05-14] MEDS: QUEtiapine FUMARATE 100 MG TABLET (FP) PO SCH (21:24)
[2020-05-14] MEDS: THIAMINE HCL 100 MG TABLET (FP) PO SCH (21:24)
[2020-05-14] MEDS: MELATONIN 5 MG TABLETS PO SCH (21:25)
[2020-05-14] MEDS: LIDOCAINE PATCH REMOVAL MC SCH (21:25)
[2020-05-14] MEDS ORDERED: SUVOREXANT 10 MG TABLET PO PRN (22:00)
[2020-05-15] MEDS ORDERED: PT OWN MED DRAWER 7, Y5N ONE ×4 (03:09→19:14)
[2020-05-15] MEDS: FLUTICASONE/SALMETEROL 100 MCG/50 MCG DISKUS IH SCH ×2 (09:38→21:18)
[2020-05-15] MEDS: QUEtiapine FUMARATE 50 MG TABLET PO SCH (09:38)
[2020-05-15] MEDS: PARoxetine HCL 10 MG TABLET PO SCH (09:38)
[2020-05-15] MEDS: PRENATAL VITAMINS W/ FOLIC ACID TABLET (FP) PO SCH (09:38)
[2020-05-15] MEDS: hydrOXYzine PAMOATE 50 MG CAPSULE (FP) PO PRN ×3 (09:39→21:20)
[2020-05-15] MEDS: LIDOCAINE 5% TOPICAL PATCH TP SCH (09:40)
[2020-05-15] MEDS: NICOTINE 7 MG/24 HOURS TOPICAL PATCH TD SCH (09:41)
[2020-05-15] MEDS: FAMOTIDINE 20 MG TABLET PO SCH ×2 (09:41→21:18)
[2020-05-15] MEDS: CYCLOBENZAPRINE HCL 5 MG TABLET PO PRN (12:28)
[2020-05-15] MEDS: IBUPROFEN 600 MG TABLET (FP) PO PRN (16:58)
[2020-05-15] MEDS: MELATONIN 5 MG TABLETS PO SCH (21:17)
[2020-05-15] MEDS: QUEtiapine FUMARATE 100 MG TABLET (FP) PO SCH (21:18)
[2020-05-15] MEDS: THIAMINE HCL 100 MG TABLET (FP) PO SCH (21:18)
[2020-05-15] MEDS: LIDOCAINE PATCH REMOVAL MC SCH (21:29)
[2020-05-16] MEDS: LIDOCAINE 5% TOPICAL PATCH TP SCH (09:47)
[2020-05-16] MEDS: PRENATAL VITAMINS W/ FOLIC ACID TABLET (FP) PO SCH (09:47)
[2020-05-16] MEDS: FLUTICASONE/SALMETEROL 100 MCG/50 MCG DISKUS IH SCH ×2 (09:47→21:24)
[2020-05-16] MEDS: PARoxetine HCL 10 MG TABLET PO SCH (09:48)
[2020-05-16] MEDS: FAMOTIDINE 20 MG TABLET PO SCH ×2 (09:48→21:23)
[2020-05-16] MEDS: NICOTINE 7 MG/24 HOURS TOPICAL PATCH TD SCH (09:48)
[2020-05-16] MEDS: QUEtiapine FUMARATE 50 MG TABLET PO SCH (09:48)
[2020-05-16] MEDS ORDERED: PT OWN MED DRAWER 7, Y5N ONE (12:31)
[2020-05-16] MEDS: CYCLOBENZAPRINE HCL 5 MG TABLET PO PRN (12:32)
[2020-05-16] MEDS: hydrOXYzine PAMOATE 50 MG CAPSULE (FP) PO PRN ×2 (12:32→21:22)
[2020-05-16] MEDS: THIAMINE HCL 100 MG TABLET (FP) PO SCH (21:22)
[2020-05-16] MEDS: QUEtiapine FUMARATE 100 MG TABLET (FP) PO SCH (21:23)
[2020-05-16] MEDS: MELATONIN 5 MG TABLETS PO SCH (21:23)
[2020-05-16] MEDS: LIDOCAINE PATCH REMOVAL MC SCH (21:24)
[2020-05-17] MEDS: hydrOXYzine PAMOATE 50 MG CAPSULE (FP) PO PRN ×3 (06:37→21:34)
[2020-05-17] MEDS: IBUPROFEN 600 MG TABLET (FP) PO PRN (06:37)
[2020-05-17] MEDS: FLUTICASONE/SALMETEROL 100 MCG/50 MCG DISKUS IH SCH ×2 (09:18→21:36)
[2020-05-17] MEDS: LIDOCAINE 5% TOPICAL PATCH TP SCH (09:18)
[2020-05-17] MEDS: PARoxetine HCL 10 MG TABLET PO SCH (09:19)
[2020-05-17] MEDS: PRENATAL VITAMINS W/ FOLIC ACID TABLET (FP) PO SCH (09:19)
[2020-05-17] MEDS: QUEtiapine FUMARATE 50 MG TABLET PO SCH (09:19)
[2020-05-17] MEDS: NICOTINE 7 MG/24 HOURS TOPICAL PATCH TD SCH (09:19)
[2020-05-17] MEDS: CYCLOBENZAPRINE HCL 5 MG TABLET PO PRN (09:19)
[2020-05-17] MEDS: FAMOTIDINE 20 MG TABLET PO SCH ×2 (09:20→21:36)
--- NOTE | 2020-05-17 11:16 | PN ---
[facility] Progress Note Note: Psychiatric nurse practitoner note: Belsomra 10mg renewed X3 days. Verbal consent given.
[2020-05-17] MEDS: THIAMINE HCL 100 MG TABLET (FP) PO SCH (21:34)
[2020-05-17] MEDS: QUEtiapine FUMARATE 100 MG TABLET (FP) PO SCH (21:35)
[2020-05-17] MEDS: LIDOCAINE PATCH REMOVAL MC SCH (21:36)
[2020-05-17] MEDS: MELATONIN 5 MG TABLETS PO SCH (21:36)
[2020-05-17] MEDS ORDERED: SUVOREXANT 10 MG TABLET PO PRN (22:00)
[2020-05-18] MEDS ORDERED: PT OWN MED DRAWER 7, Y5N ONE ×2 (08:55→09:39)
[2020-05-18] MEDS: FLUTICASONE/SALMETEROL 100 MCG/50 MCG DISKUS IH SCH ×2 (09:38→21:19)
[2020-05-18] MEDS: PARoxetine HCL 10 MG TABLET PO SCH (09:38)
[2020-05-18] MEDS: QUEtiapine FUMARATE 50 MG TABLET PO SCH (09:38)
[2020-05-18] MEDS: hydrOXYzine PAMOATE 50 MG CAPSULE (FP) PO PRN ×3 (09:39→21:16)
[2020-05-18] MEDS: CYCLOBENZAPRINE HCL 5 MG TABLET PO PRN (09:39)
[2020-05-18] MEDS: PRENATAL VITAMINS W/ FOLIC ACID TABLET (FP) PO SCH (09:40)
[2020-05-18] MEDS: LIDOCAINE 5% TOPICAL PATCH TP SCH (09:41)
[2020-05-18] MEDS: FAMOTIDINE 20 MG TABLET PO SCH ×2 (09:41→21:17)
[2020-05-18] MEDS: NICOTINE 7 MG/24 HOURS TOPICAL PATCH TD SCH (09:41)
[2020-05-18] MEDS ORDERED: COLLOIDAL OATMEAL 1 BAR EACH TP PRN (15:02)
[2020-05-18] MEDS ORDERED: NICOTINE POLACRILEX 4 MG GUM BUC PRN (15:04)
[2020-05-18] MEDS ORDERED: NICOTINE 7 MG/24 HOURS TOPICAL PATCH TD SCH (16:30)
[2020-05-18] MEDS: THIAMINE HCL 100 MG TABLET (FP) PO SCH (21:16)
[2020-05-18] MEDS: QUEtiapine FUMARATE 100 MG TABLET (FP) PO SCH (21:17)
[2020-05-18] MEDS: NICOTINE 21 MG/24 HOURS TOPICAL PATCH TD SCH (21:18)
[2020-05-18] MEDS: MELATONIN 5 MG TABLETS PO SCH (21:18)
[2020-05-18] MEDS: LIDOCAINE PATCH REMOVAL MC SCH (21:19)
[2020-05-19] MEDS ORDERED: PT OWN MED DRAWER 7, Y5N ONE ×2 (03:04→08:49)
[2020-05-19] MEDS: hydrOXYzine PAMOATE 50 MG CAPSULE (FP) PO PRN (06:51)
[2020-05-19 07:20] VITALS: BP 122/74; PULSE 66; TEMP 96
--- NOTE | 2020-05-19 08:40 | DS ---
[facility] Re[facility] Discharge Summary - [facility] Discharge Summary Admission Date: 05/08/20 Discharge Date: 05/19/20 - History Present History: Alcohol dependence, Cannabis dependence, Cocaine dependence Pertinent Past History: GERD Asthma COPD Osteoarthritis Depression - Discharge Physical Exam Vital Signs: Vital Signs Temperature 96 F L 05/19/20 06:20 Pulse Rate 66 05/19/20 06:20 Respiratory Rate 18 05/19/20 06:20 Blood Pressure 122/74 05/19/20 06:20 O2 Sat by Pulse Oximetry (%) 99 05/19/20 06:20 Pertinent Admission Physical Exam Findings: s/p detox Laboratory Tests 05/13/20 05/14/20 06:49 06:46 POC Glucometer 105 105 - Treatment Discharge Condition: Discharge condition good, Rehabilitated safely, Responded well, Outpatient referral accepted Hospital Course: Referred to [facility] for CD aftercare - Medication Discharge Medications: Ambulatory Orders Ibuprofen 800 mg PO TID PRN #21 tablet 05/03/18 Sertraline HCl [Zoloft] 50 mg PO DAILY 12/05/18 Pantoprazole Sodium [Protonix -] 20 mg PO BID 7 Days #7 tab 12/06/18 Quetiapine Fumarate [Seroquel -] 25 mg PO DAILY 05/08/20 Albuterol Sulfate Inhaler - [Ventolin HFA Inhaler -] 2 puff IH Q4H PRN #1 inhaler 05/19/20 Famotidine [Acid Controller] 20 mg PO BID #30 tablet 05/19/20 Nicotine [Nicotine Patch 21 mg/24 hr] 1 each TD DAILY #14 patch.td24 05/19/20 Paroxetine HCl [Paxil -] 10 mg PO DAILY #30 tablet 05/19/20 Quetiapine Fumarate [Seroquel -] 50 mg PO DAILY #30 tablet 05/19/20 Quetiapine Fumarate [Seroquel -] 100 mg PO HS #30 tablet 05/19/20 Salmeterol/Fluticasone [Advair 100Mcg/50Mcg -] 1 puff IH BID #1 inhaler 05/19/20 - Medication-Assisted Treatment (MAT) Medication-Assisted Treatment (MAT): No - Discharge Instructions Diet, activity, other medical instructions: Diet:Regular Activity: oob ad phillip Other medical instructions:follow up with CD aftercare as scheduled. folow up for medical management with your PCP Dr. Rodriguez, [address] [place] [address]. - Diagnosis (1) Alcohol use disorder Status: Chronic (2) Asthma Status: Chronic Qualifiers: Asthma severity: unspecified severity Asthma persistence: unspecified Asthma complication type: uncomplicated Qualified Code(s): J45.909 - Unspecified asthma, uncomplicated (3) COPD (chronic obstructive pulmonary disease) Status: Chronic Qualifiers: COPD type: emphysema Emphysema type: unspecified Qualified Code(s): J43.9 - Emphysema, unspecified (4) Cannabis dependence Status: Chronic (5) Cocaine dependence Status: Chronic Qualifiers: Substance use status: uncomplicated Qualified Code(s): F14.20 - Cocaine dependence, uncomplicated (6) GERD (gastroesophageal reflux disease) Status: Chronic Qualifiers: Esophagitis presence: without esophagitis Qualified Code(s): K21.9 - Gastro-esophageal reflux disease without esophagitis (7) Nicotine dependence Status: Chronic Qualifiers: Nicotine product type: cigarettes Substance use status: uncomplicated Qualified Code(s): F17.210 - Nicotine dependence, cigarettes, uncomplicated (8) Nontraumatic perforated nasal septum Status: Chronic (9) Osteoarthritis Status: Chronic Qualifiers: Osteoarthritis location: unspecified site Osteoarthritis type: unspecified Qualified Code(s): M19.90 - Unspecified osteoarthritis, unspecified site - Follow-up Referral Minutes to complete discharge: 25 - AMA Did Patient Leave Against Medical Advice: No Additional Comments: [facility] Rx for nicotine patch 21 mg daily #14, Pepcid 20 mg PO bid # 30, albuterol inhaler #1 electronically 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
[2020-05-19] MEDS: LIDOCAINE 5% TOPICAL PATCH TP SCH (09:06)
[2020-05-19] MEDS: FLUTICASONE/SALMETEROL 100 MCG/50 MCG DISKUS IH SCH (09:06)
[2020-05-19] MEDS: QUEtiapine FUMARATE 50 MG TABLET PO SCH (09:07)
[2020-05-19] MEDS: PRENATAL VITAMINS W/ FOLIC ACID TABLET (FP) PO SCH (09:07)
[2020-05-19] MEDS: PARoxetine HCL 10 MG TABLET PO SCH (09:09)
[2020-05-19] MEDS: FAMOTIDINE 20 MG TABLET PO SCH (09:10)
--- NOTE | 2020-05-19 09:18 | PN ---
[facility] Progress Note Note: Patient is discharged today. Script for 30 days supply of medications(Paxil 10 mg/day, Seroquel 50 mg/day & 100 mg/hs) are electronically transmitted to [facility], [address] [id number]
== END 2020-05-19 09:24 | disposition home or self-care (01) | DRG 772 ==
LOC: YASAS 10:50 → Y3E 10:51
PROVIDERS: ADMIT Allergy & Immunology; ATTEND Allergy & Immunology
PROC: HZ42ZZZ Group Counseling for Substance Abuse Treatment, Cognitive-Behavioral (ICD-10-PCS; principal; 2020-05-08)
DX: F10.20 Alcohol dependence, uncomplicated (principal); F14.20 Cocaine dependence, uncomplicated; F12.20 Cannabis dependence, uncomplicated; F17.210 Nicotine dependence, cigarettes, uncomplicated; F19.280 Other psychoactive substance dependence with psychoactive substance-induced anxiety disorder; F19.24 Other psychoactive substance dependence with psychoactive substance-induced mood disorder; F32.9 Major depressive disorder, single episode, unspecified; I10 Essential (primary) hypertension; J43.9 Emphysema, unspecified; J45.998 Other asthma; K21.9 Gastro-esophageal reflux disease without esophagitis; M19.90 Unspecified osteoarthritis, unspecified site; M17.0 Bilateral primary osteoarthritis of knee; N89.8 Other specified noninflammatory disorders of vagina; L23.3 Allergic contact dermatitis due to drugs in contact with skin; T44.1X5A Adverse effect of other parasympathomimetics [cholinergics], initial encounter; Y92.238 Other place in hospital as the place of occurrence of the external cause; Z96.651 Presence of right artificial knee joint; Z98.84 Bariatric surgery status; M25.561 Pain in right knee
CPT/HCPCS: 82962

== ENCOUNTER 2021-02-06 15:15 | Inpatient (IN) | payer OTHER ==
[2021-02-06 19:19] VITALS: BMI 28.3
[2021-02-06] MEDS ORDERED: chlordiazePOXIDE HCL 25 MG CAPSULE PO SCH (23:00)
[2021-02-06] MEDS ORDERED: NICOTINE POLACRILEX 2 MG GUM BUC PRN (23:18)
[2021-02-06] MEDS ORDERED: MENTHOL/PHENOL 1 EACH UD MM PRN (23:18)
[2021-02-06] MEDS ORDERED: chlordiazePOXIDE HCL 25 MG CAPSULE PO PRN (23:18)
[2021-02-06] MEDS ORDERED: MAGNESIUM CITRATE 300 ML BOTTLE PO PRN (23:18)
[2021-02-06] MEDS ORDERED: ONDANSETRON *ODT* 4 MG TABLET SL PRN (23:18)
[2021-02-06] MEDS ORDERED: MAG HYDROX/AL HYDROX/SIMETH 30 ML UNIT-DOSE CUP PO PRN (23:18)
[2021-02-06] MEDS ORDERED: MAGNESIUM HYDROX 2400MG/30ML ORAL SUSPENSION 30 ML CUP PO PRN (23:18)
[2021-02-06] MEDS ORDERED: BISMUTH SUBSALICYLATE 524 MG/30 ML PO PRN (23:18)
[2021-02-06] MEDS ORDERED: ACETAMINOPHEN 325 MG TABLET (FP) PO PRN ×2 (23:18)
[2021-02-07] MEDS: diazePAM 5 MG TABLET PO PRN ×2 (01:51→13:16)
[2021-02-07] MEDS: diazePAM 5 MG TABLET PO SCH ×4 (06:39→22:14)
[2021-02-07] MEDS: NICOTINE 21 MG/24 HOURS TOPICAL PATCH TD SCH (10:01)
[2021-02-07] MEDS: PRENATAL VITAMINS W/ FOLIC ACID TABLET (FP) PO SCH (10:01)
[2021-02-07] MEDS: METHOCARBAMOL 500 MG TABLET PO PRN ×2 (10:03→17:29)
[2021-02-07] MEDS: IBUPROFEN 400 MG TABLET (FP) PO PRN (10:03)
[2021-02-07] MEDS: PARoxetine HCL 10 MG TABLET PO SCH (13:31)
[2021-02-07] MEDS ORDERED: ALBUTEROL SO4 HFA INHALER IH PRN (14:00)
[2021-02-07] MEDS: FAMOTIDINE 20 MG TABLET PO SCH ×2 (14:58→22:14)
[2021-02-07] MEDS: MELATONIN 5 MG TABLETS PO SCH (22:14)
[2021-02-07] MEDS: THIAMINE HCL 100 MG TABLET (FP) PO SCH (22:14)
[2021-02-07] MEDS: QUEtiapine FUMARATE 50 MG TABLET PO SCH (22:14)
[2021-02-07] MEDS: BUDESONIDE/FORMETEROL FUMARATE 160/4.5 mcg INHALER IH SCH (22:16)
[2021-02-08] MEDS ORDERED: chlordiazePOXIDE HCL 25 MG CAPSULE PO SCH (05:00)
[2021-02-08] MEDS: diazePAM 5 MG TABLET PO SCH ×3 (06:08→22:14)
[2021-02-08 10:22] LABS: HEMATOCRIT 36.8 % (32.4-45.2); HEMOGLOBIN 12.2 GM/dL (10.7-15.3); MCH 29.1 pg (25.7-33.7); MCHC 33.2 g/dl (32.0-36.0); MEAN CELL VOLUME 87.5 fl (80-96); PLATELET COUNT 288 K/MM3 (134-434); RDW 14.2 % (11.6-15.6); WHITE BLOOD COUNT 6.3 K/mm3 (4.0-10.0)
[2021-02-08 10:29] LABS: ALBUMIN 2.9 g/dl (3.4-5.0); BLOOD UREA NITROGEN 9.6 mg/dL (7-18); CALCIUM 8.9 mg/dL (8.5-10.1)
[2021-02-08 10:32] LABS: BILIRUBIN,TOTAL 0.3 mg/dL (0.2-1); CREATININE 0.6 mg/dL (0.55-1.3); TOT PROT 5.7 g/dl (6.4-8.2)
[2021-02-08] MEDS: BUDESONIDE/FORMETEROL FUMARATE 160/4.5 mcg INHALER IH SCH ×2 (10:37→22:17)
[2021-02-08] MEDS: PARoxetine HCL 10 MG TABLET PO SCH (10:37)
[2021-02-08] MEDS: PRENATAL VITAMINS W/ FOLIC ACID TABLET (FP) PO SCH (10:37)
[2021-02-08] MEDS: FAMOTIDINE 20 MG TABLET PO SCH ×2 (10:37→22:13)
[2021-02-08] MEDS: NICOTINE 21 MG/24 HOURS TOPICAL PATCH TD SCH (10:38)
[2021-02-08] MEDS: METHOCARBAMOL 500 MG TABLET PO PRN ×2 (10:40→17:03)
[2021-02-08] MEDS: diazePAM 5 MG TABLET PO PRN ×2 (10:42→17:02)
[2021-02-08] MEDS: MELATONIN 5 MG TABLETS PO SCH (22:14)
[2021-02-08] MEDS: THIAMINE HCL 100 MG TABLET (FP) PO SCH (22:14)
[2021-02-08] MEDS: QUEtiapine FUMARATE 50 MG TABLET PO SCH (22:16)
[2021-02-09] MEDS ORDERED: chlordiazePOXIDE HCL 10 MG CAPSULE PO PRN
[2021-02-09] MEDS ORDERED: chlordiazePOXIDE HCL 10 MG CAPSULE PO SCH (05:00)
[2021-02-09] MEDS: diazePAM 5 MG TABLET PO SCH ×2 (06:07→17:39)
[2021-02-09] MEDS: METHOCARBAMOL 500 MG TABLET PO PRN ×2 (06:08→11:21)
[2021-02-09] MEDS: PRENATAL VITAMINS W/ FOLIC ACID TABLET (FP) PO SCH (10:17)
[2021-02-09] MEDS: NICOTINE 21 MG/24 HOURS TOPICAL PATCH TD SCH (10:17)
[2021-02-09] MEDS: BUDESONIDE/FORMETEROL FUMARATE 160/4.5 mcg INHALER IH SCH ×2 (10:17→22:23)
[2021-02-09] MEDS: FAMOTIDINE 20 MG TABLET PO SCH ×2 (10:17→22:23)
[2021-02-09] MEDS: PARoxetine HCL 10 MG TABLET PO SCH (10:18)
[2021-02-09] MEDS: diazePAM 5 MG TABLET PO PRN (10:19)
[2021-02-09] MEDS: IBUPROFEN 400 MG TABLET (FP) PO PRN (10:20)
[2021-02-09] MEDS ORDERED: cloNIDine HCL 0.1 MG TABLET PO PRN (15:01)
[2021-02-09] MEDS: hydrOXYzine PAMOATE 25 MG CAPSULE (FP) PO PRN (15:43)
[2021-02-09] MEDS: THIAMINE HCL 100 MG TABLET (FP) PO SCH (22:23)
[2021-02-09] MEDS: MELATONIN 5 MG TABLETS PO SCH (22:23)
[2021-02-09] MEDS: QUEtiapine FUMARATE 50 MG TABLET PO SCH (22:23)
[2021-02-10] MEDS ORDERED: chlordiazePOXIDE HCL 10 MG CAPSULE PO SCH (05:00)
[2021-02-10] MEDS: hydrOXYzine PAMOATE 25 MG CAPSULE (FP) PO PRN ×2 (05:53→10:36)
[2021-02-10] MEDS ORDERED: diazePAM 5 MG TABLET PO ONE (06:00)
[2021-02-10] MEDS: NICOTINE 21 MG/24 HOURS TOPICAL PATCH TD SCH (10:34)
[2021-02-10] MEDS: PARoxetine HCL 10 MG TABLET PO SCH (10:34)
[2021-02-10] MEDS: BUDESONIDE/FORMETEROL FUMARATE 160/4.5 mcg INHALER IH SCH (10:34)
[2021-02-10] MEDS: FAMOTIDINE 20 MG TABLET PO SCH (10:34)
[2021-02-10] MEDS: PRENATAL VITAMINS W/ FOLIC ACID TABLET (FP) PO SCH (10:34)
[2021-02-10 13:25] VITALS: BP 146/81; PULSE 97; TEMP 97.7
[2021-02-11] MEDS ORDERED: chlordiazePOXIDE HCL 10 MG CAPSULE PO ONE (05:00)
== END 2021-02-10 15:05 | disposition other institution (70) | DRG 774 ==
LOC: YASAS 15:15 → Y6N 02-07 01:10
PROVIDERS: ADMIT Allergy & Immunology; ATTEND Allergy & Immunology
PROC: HZ2ZZZZ Detoxification Services for Substance Abuse Treatment (ICD-10-PCS; principal; 2021-02-07)
DX: F10.230 Alcohol dependence with withdrawal, uncomplicated (principal); F14.20 Cocaine dependence, uncomplicated; F17.213 Nicotine dependence, cigarettes, with withdrawal; F31.81 Bipolar II disorder; F19.24 Other psychoactive substance dependence with psychoactive substance-induced mood disorder; I10 Essential (primary) hypertension; J43.9 Emphysema, unspecified; K21.9 Gastro-esophageal reflux disease without esophagitis; Z98.84 Bariatric surgery status; Z96.651 Presence of right artificial knee joint; Z99.89 Dependence on other enabling machines and devices
CPT/HCPCS: 36415; 80053; 85027; 86780; C9803; J0735; U0003; U0005

== ENCOUNTER 2021-02-10 15:18 | Inpatient (IN) | payer OTHER ==
[2021-02-10] MEDS ORDERED: P-EPHED 60MG/TRIPROLIDI 2.5MG TABLET PO PRN (15:50)
[2021-02-10] MEDS ORDERED: NICOTINE POLACRILEX 2 MG GUM BUC PRN (15:50)
[2021-02-10] MEDS ORDERED: ACETAMINOPHEN 325 MG TABLET (FP) PO PRN (15:50)
[2021-02-10] MEDS ORDERED: guaiFENesin 200 MG/10 ML 10 ML UNIT-DOSE CUPS PO PRN (15:50)
[2021-02-10] MEDS ORDERED: MENTHOL/PHENOL 1 EACH UD MM PRN (15:50)
[2021-02-10] MEDS ORDERED: IBUPROFEN 400 MG TABLET (FP) PO PRN (15:50)
[2021-02-10] MEDS ORDERED: MAGNESIUM CITRATE 300 ML BOTTLE PO PRN (15:50)
[2021-02-10] MEDS ORDERED: MAGNESIUM HYDROX 2400MG/30ML ORAL SUSPENSION 30 ML CUP PO PRN (15:50)
[2021-02-10] MEDS ORDERED: LOPERAMIDE HCL 2 MG CAPSULE PO PRN (15:50)
[2021-02-10] MEDS ORDERED: MAG HYDROX/AL HYDROX/SIMETH 30 ML UNIT-DOSE CUP PO PRN (15:50)
[2021-02-10] MEDS ORDERED: ALBUTEROL SO4 HFA INHALER IH PRN (15:54)
[2021-02-10] MEDS ORDERED: MASKS NR ONE (15:56)
[2021-02-10] MEDS: hydrOXYzine PAMOATE 25 MG CAPSULE (FP) PO SCH ×2 (17:58→21:30)
[2021-02-10] MEDS: METHOCARBAMOL 500 MG TABLET PO SCH ×2 (17:58→21:30)
[2021-02-10] MEDS: THIAMINE HCL 100 MG TABLET (FP) PO SCH (21:30)
[2021-02-10] MEDS: MELATONIN 5 MG TABLETS PO SCH (21:30)
[2021-02-10] MEDS ORDERED: QUEtiapine FUMARATE 50 MG TABLET PO SCH (22:00)
[2021-02-11] MEDS: hydrOXYzine PAMOATE 25 MG CAPSULE (FP) PO SCH ×2 (06:37→10:40)
[2021-02-11] MEDS ORDERED: NICOTINE 7 MG/24 HOURS TOPICAL PATCH TD SCH ×2 (10:00)
[2021-02-11] MEDS: METHOCARBAMOL 500 MG TABLET PO SCH ×4 (10:38→21:50)
[2021-02-11] MEDS: PARoxetine HCL 10 MG TABLET PO SCH (10:39)
[2021-02-11] MEDS: PRENATAL VITAMINS W/ FOLIC ACID TABLET (FP) PO SCH (10:40)
[2021-02-11] MEDS ORDERED: NICOTINE 21 MG/24 HOURS TOPICAL PATCH TD SCH (10:55)
[2021-02-11 10:59] LABS: HIV INTERPRETATION NEGATIVE (NEGATIVE)
[2021-02-11] MEDS: NICOTINE 21 MG/24 HOURS TOPICAL PATCH TD SCH (11:03)
[2021-02-11] MEDS: PANTOPRAZOLE 40 MG TABLET PO SCH (11:09)
[2021-02-11] MEDS: QUEtiapine FUMARATE 25 MG TABLET PO SCH (11:09)
[2021-02-11] MEDS ORDERED: ALBUTEROL SO4 HFA INHALER IH PRN (11:12)
[2021-02-11] MEDS: BUDESONIDE/FORMETEROL FUMARATE 160/4.5 mcg INHALER IH SCH ×2 (11:27→21:56)
[2021-02-11] MEDS: LIDOCAINE 5% TOPICAL PATCH TP SCH (11:28)
[2021-02-11] MEDS: METHYL SALICYLATE/MENTHOL OINT 30 GM TUBE TP SCH ×2 (11:43→22:00)
[2021-02-11] MEDS: hydrOXYzine PAMOATE 25 MG CAPSULE (FP) PO PRN ×2 (14:39→21:54)
[2021-02-11] MEDS: THIAMINE HCL 100 MG TABLET (FP) PO SCH (21:50)
[2021-02-11] MEDS: MELATONIN 5 MG TABLETS PO SCH (21:51)
[2021-02-11] MEDS: QUEtiapine FUMARATE 100 MG TABLET (FP) PO SCH (21:53)
[2021-02-11] MEDS: LIDOCAINE PATCH REMOVAL MC SCH (22:00)
[2021-02-12] MEDS: hydrOXYzine PAMOATE 25 MG CAPSULE (FP) PO PRN ×3 (06:39→21:57)
[2021-02-12] MEDS: PANTOPRAZOLE 40 MG TABLET PO SCH (10:20)
[2021-02-12] MEDS: PRENATAL VITAMINS W/ FOLIC ACID TABLET (FP) PO SCH (10:20)
[2021-02-12] MEDS: QUEtiapine FUMARATE 25 MG TABLET PO SCH (10:21)
[2021-02-12] MEDS: METHOCARBAMOL 500 MG TABLET PO SCH ×4 (10:21→21:56)
[2021-02-12] MEDS: PARoxetine HCL 10 MG TABLET PO SCH (10:21)
[2021-02-12] MEDS: BUDESONIDE/FORMETEROL FUMARATE 160/4.5 mcg INHALER IH SCH ×2 (10:21→21:55)
[2021-02-12] MEDS: NICOTINE 21 MG/24 HOURS TOPICAL PATCH TD SCH (10:22)
[2021-02-12] MEDS: METHYL SALICYLATE/MENTHOL OINT 30 GM TUBE TP SCH ×2 (10:23→21:58)
[2021-02-12] MEDS: LIDOCAINE 5% TOPICAL PATCH TP SCH (10:23)
[2021-02-12] MEDS ORDERED: PT OWN MED DRAWER 7, Y5N ONE (20:19)
[2021-02-12] MEDS: THIAMINE HCL 100 MG TABLET (FP) PO SCH (21:55)
[2021-02-12] MEDS: MELATONIN 5 MG TABLETS PO SCH (21:55)
[2021-02-12] MEDS: LIDOCAINE PATCH REMOVAL MC SCH (21:55)
[2021-02-12] MEDS: QUEtiapine FUMARATE 100 MG TABLET (FP) PO SCH (21:56)
[2021-02-13] MEDS ORDERED: MAGNESIUM HYDROX 2400MG/30ML ORAL SUSPENSION 30 ML CUP PO PRN (00:54)
[2021-02-13] MEDS ORDERED: guaiFENesin 200 MG/10 ML 10 ML UNIT-DOSE CUPS PO PRN (00:54)
[2021-02-13] MEDS ORDERED: MAG HYDROX/AL HYDROX/SIMETH 30 ML UNIT-DOSE CUP PO PRN (00:54)
[2021-02-13] MEDS ORDERED: NICOTINE POLACRILEX 2 MG GUM BUC PRN (00:54)
[2021-02-13] MEDS ORDERED: IBUPROFEN 400 MG TABLET (FP) PO PRN (00:54)
[2021-02-13] MEDS ORDERED: LOPERAMIDE HCL 2 MG CAPSULE PO PRN (00:54)
[2021-02-13] MEDS ORDERED: ACETAMINOPHEN 325 MG TABLET (FP) PO PRN (00:54)
[2021-02-13] MEDS ORDERED: MAGNESIUM CITRATE 300 ML BOTTLE PO PRN (00:54)
[2021-02-13] MEDS ORDERED: MENTHOL/PHENOL 1 EACH UD MM PRN (00:54)
[2021-02-13] MEDS ORDERED: P-EPHED 60MG/TRIPROLIDI 2.5MG TABLET PO PRN (00:54)
[2021-02-13] MEDS ORDERED: PRENATAL VITAMINS W/ FOLIC ACID TABLET (FP) PO SCH (10:00)
[2021-02-13] MEDS: PRENATAL VITAMINS W/ FOLIC ACID TABLET (FP) PO SCH (10:33)
[2021-02-13] MEDS: METHYL SALICYLATE/MENTHOL OINT 30 GM TUBE TP SCH ×2 (10:33→21:29)
[2021-02-13] MEDS: BUDESONIDE/FORMETEROL FUMARATE 160/4.5 mcg INHALER IH SCH ×2 (10:33→21:30)
[2021-02-13] MEDS: METHOCARBAMOL 500 MG TABLET PO SCH ×4 (10:34→21:29)
[2021-02-13] MEDS: PANTOPRAZOLE 40 MG TABLET PO SCH (10:34)
[2021-02-13] MEDS: QUEtiapine FUMARATE 25 MG TABLET PO SCH (10:34)
[2021-02-13] MEDS: LIDOCAINE 5% TOPICAL PATCH TP SCH (10:34)
[2021-02-13] MEDS: PARoxetine HCL 10 MG TABLET PO SCH (10:35)
[2021-02-13] MEDS: NICOTINE 21 MG/24 HOURS TOPICAL PATCH TD SCH (10:35)
[2021-02-13] MEDS: hydrOXYzine PAMOATE 25 MG CAPSULE (FP) PO PRN ×2 (10:36→17:41)
[2021-02-13] MEDS: QUEtiapine FUMARATE 100 MG TABLET (FP) PO SCH (21:29)
[2021-02-13] MEDS: MELATONIN 5 MG TABLETS PO SCH (21:29)
[2021-02-13] MEDS: LIDOCAINE PATCH REMOVAL MC SCH (21:29)
[2021-02-13] MEDS: THIAMINE HCL 100 MG TABLET (FP) PO SCH (21:29)
[2021-02-13] MEDS ORDERED: MELATONIN 5 MG TABLETS PO SCH (22:00)
[2021-02-13] MEDS ORDERED: THIAMINE HCL 100 MG TABLET (FP) PO SCH (22:00)
[2021-02-14] MEDS: METHYL SALICYLATE/MENTHOL OINT 30 GM TUBE TP SCH ×2 (10:40→21:47)
[2021-02-14] MEDS: LIDOCAINE 5% TOPICAL PATCH TP SCH (10:40)
[2021-02-14] MEDS: PANTOPRAZOLE 40 MG TABLET PO SCH (10:41)
[2021-02-14] MEDS: PARoxetine HCL 10 MG TABLET PO SCH (10:41)
[2021-02-14] MEDS: NICOTINE 21 MG/24 HOURS TOPICAL PATCH TD SCH (10:41)
[2021-02-14] MEDS: PRENATAL VITAMINS W/ FOLIC ACID TABLET (FP) PO SCH (10:41)
[2021-02-14] MEDS: QUEtiapine FUMARATE 25 MG TABLET PO SCH (10:41)
[2021-02-14] MEDS: METHOCARBAMOL 500 MG TABLET PO SCH ×4 (10:41→21:46)
[2021-02-14] MEDS: hydrOXYzine PAMOATE 25 MG CAPSULE (FP) PO PRN ×3 (10:42→21:48)
[2021-02-14] MEDS: BUDESONIDE/FORMETEROL FUMARATE 160/4.5 mcg INHALER IH SCH ×2 (10:42→21:49)
[2021-02-14] MEDS: MELATONIN 5 MG TABLETS PO SCH (21:46)
[2021-02-14] MEDS: QUEtiapine FUMARATE 100 MG TABLET (FP) PO SCH (21:46)
[2021-02-14] MEDS: LIDOCAINE PATCH REMOVAL MC SCH (21:47)
[2021-02-14] MEDS: THIAMINE HCL 100 MG TABLET (FP) PO SCH (21:47)
[2021-02-14] MEDS ORDERED: PT OWN MED DRAWER 7, Y5N ONE (21:49)
[2021-02-15 00:07] LABS: SARS-CoV-2 NAA Not Detected (Not Detected)
[2021-02-15] MEDS: PANTOPRAZOLE 40 MG TABLET PO SCH (10:35)
[2021-02-15] MEDS: BUDESONIDE/FORMETEROL FUMARATE 160/4.5 mcg INHALER IH SCH ×2 (10:35→21:50)
[2021-02-15] MEDS: PARoxetine HCL 10 MG TABLET PO SCH (10:35)
[2021-02-15] MEDS: hydrOXYzine PAMOATE 25 MG CAPSULE (FP) PO PRN ×3 (10:35→21:49)
[2021-02-15] MEDS: QUEtiapine FUMARATE 25 MG TABLET PO SCH (10:35)
[2021-02-15] MEDS: PRENATAL VITAMINS W/ FOLIC ACID TABLET (FP) PO SCH (10:35)
[2021-02-15] MEDS: NICOTINE 21 MG/24 HOURS TOPICAL PATCH TD SCH (10:36)
[2021-02-15] MEDS: METHOCARBAMOL 500 MG TABLET PO SCH ×4 (10:36→21:49)
[2021-02-15] MEDS: LIDOCAINE 5% TOPICAL PATCH TP SCH (10:37)
[2021-02-15] MEDS: METHYL SALICYLATE/MENTHOL OINT 30 GM TUBE TP SCH ×2 (10:38→21:50)
[2021-02-15] MEDS: MELATONIN 5 MG TABLETS PO SCH (21:49)
[2021-02-15] MEDS: THIAMINE HCL 100 MG TABLET (FP) PO SCH (21:49)
[2021-02-15] MEDS: QUEtiapine FUMARATE 100 MG TABLET (FP) PO SCH (21:49)
[2021-02-15] MEDS: LIDOCAINE PATCH REMOVAL MC SCH (21:50)
[2021-02-16] MEDS: LIDOCAINE 5% TOPICAL PATCH TP SCH (10:22)
[2021-02-16] MEDS: PRENATAL VITAMINS W/ FOLIC ACID TABLET (FP) PO SCH (10:22)
[2021-02-16] MEDS: QUEtiapine FUMARATE 25 MG TABLET PO SCH (10:23)
[2021-02-16] MEDS: METHOCARBAMOL 500 MG TABLET PO SCH ×4 (10:23→21:42)
[2021-02-16] MEDS: BUDESONIDE/FORMETEROL FUMARATE 160/4.5 mcg INHALER IH SCH ×2 (10:23→21:42)
[2021-02-16] MEDS: PANTOPRAZOLE 40 MG TABLET PO SCH (10:23)
[2021-02-16] MEDS: METHYL SALICYLATE/MENTHOL OINT 30 GM TUBE TP SCH ×2 (10:23→21:43)
[2021-02-16] MEDS: PARoxetine HCL 10 MG TABLET PO SCH (10:24)
[2021-02-16] MEDS: NICOTINE 21 MG/24 HOURS TOPICAL PATCH TD SCH (10:25)
[2021-02-16] MEDS: hydrOXYzine PAMOATE 25 MG CAPSULE (FP) PO PRN ×2 (14:05→21:42)
[2021-02-16] MEDS: MELATONIN 5 MG TABLETS PO SCH (21:42)
[2021-02-16] MEDS: THIAMINE HCL 100 MG TABLET (FP) PO SCH (21:42)
[2021-02-16] MEDS: QUEtiapine FUMARATE 100 MG TABLET (FP) PO SCH (21:42)
[2021-02-16] MEDS: LIDOCAINE PATCH REMOVAL MC SCH (21:43)
[2021-02-17] MEDS: PRENATAL VITAMINS W/ FOLIC ACID TABLET (FP) PO SCH (10:26)
[2021-02-17] MEDS: LIDOCAINE 5% TOPICAL PATCH TP SCH (10:26)
[2021-02-17] MEDS: METHOCARBAMOL 500 MG TABLET PO SCH ×4 (10:27→21:37)
[2021-02-17] MEDS: QUEtiapine FUMARATE 25 MG TABLET PO SCH (10:27)
[2021-02-17] MEDS: PANTOPRAZOLE 40 MG TABLET PO SCH (10:27)
[2021-02-17] MEDS: NICOTINE 21 MG/24 HOURS TOPICAL PATCH TD SCH (10:27)
[2021-02-17] MEDS: PARoxetine HCL 10 MG TABLET PO SCH (10:27)
[2021-02-17] MEDS: BUDESONIDE/FORMETEROL FUMARATE 160/4.5 mcg INHALER IH SCH ×2 (10:28→22:26)
[2021-02-17] MEDS: METHYL SALICYLATE/MENTHOL OINT 30 GM TUBE TP SCH ×2 (10:28→21:36)
[2021-02-17] MEDS: hydrOXYzine PAMOATE 25 MG CAPSULE (FP) PO PRN ×3 (10:29→21:37)
[2021-02-17] MEDS: MELATONIN 5 MG TABLETS PO SCH (21:37)
[2021-02-17] MEDS: QUEtiapine FUMARATE 100 MG TABLET (FP) PO SCH (21:37)
[2021-02-17] MEDS: LIDOCAINE PATCH REMOVAL MC SCH (21:37)
[2021-02-17] MEDS: THIAMINE HCL 100 MG TABLET (FP) PO SCH (21:37)
[2021-02-18] MEDS: METHYL SALICYLATE/MENTHOL OINT 30 GM TUBE TP SCH ×2 (10:41→21:29)
[2021-02-18] MEDS: LIDOCAINE 5% TOPICAL PATCH TP SCH (10:41)
[2021-02-18] MEDS: PRENATAL VITAMINS W/ FOLIC ACID TABLET (FP) PO SCH (10:41)
[2021-02-18] MEDS: QUEtiapine FUMARATE 25 MG TABLET PO SCH (10:42)
[2021-02-18] MEDS: PARoxetine HCL 10 MG TABLET PO SCH (10:42)
[2021-02-18] MEDS: METHOCARBAMOL 500 MG TABLET PO SCH ×4 (10:42→21:29)
[2021-02-18] MEDS: PANTOPRAZOLE 40 MG TABLET PO SCH (10:42)
[2021-02-18] MEDS: BUDESONIDE/FORMETEROL FUMARATE 160/4.5 mcg INHALER IH SCH ×2 (10:42→21:30)
[2021-02-18] MEDS: NICOTINE 21 MG/24 HOURS TOPICAL PATCH TD SCH (10:42)
[2021-02-18] MEDS: hydrOXYzine PAMOATE 25 MG CAPSULE (FP) PO PRN ×3 (10:43→21:29)
[2021-02-18] MEDS: DOCUSATE SODIUM 100 MG CAPSULE (FP) PO SCH ×2 (13:50→21:29)
[2021-02-18] MEDS: MELATONIN 5 MG TABLETS PO SCH (21:29)
[2021-02-18] MEDS: LIDOCAINE PATCH REMOVAL MC SCH (21:29)
[2021-02-18] MEDS: traZODone HCL 50 MG TABLET (FP) PO SCH (21:29)
[2021-02-18] MEDS: THIAMINE HCL 100 MG TABLET (FP) PO SCH (21:29)
[2021-02-18] MEDS: QUEtiapine FUMARATE 100 MG TABLET (FP) PO SCH (21:30)
[2021-02-19] MEDS: DOCUSATE SODIUM 100 MG CAPSULE (FP) PO SCH ×3 (07:06→21:22)
[2021-02-19] MEDS: PRENATAL VITAMINS W/ FOLIC ACID TABLET (FP) PO SCH (10:23)
[2021-02-19] MEDS: METHYL SALICYLATE/MENTHOL OINT 30 GM TUBE TP SCH ×2 (10:23→21:22)
[2021-02-19] MEDS: LIDOCAINE 5% TOPICAL PATCH TP SCH (10:23)
[2021-02-19] MEDS: PANTOPRAZOLE 40 MG TABLET PO SCH (10:25)
[2021-02-19] MEDS: METHOCARBAMOL 500 MG TABLET PO SCH ×4 (10:25→21:22)
[2021-02-19] MEDS: QUEtiapine FUMARATE 25 MG TABLET PO SCH (10:25)
[2021-02-19] MEDS: hydrOXYzine PAMOATE 25 MG CAPSULE (FP) PO PRN ×3 (10:26→21:22)
[2021-02-19] MEDS: NICOTINE 21 MG/24 HOURS TOPICAL PATCH TD SCH (10:27)
[2021-02-19] MEDS: BUDESONIDE/FORMETEROL FUMARATE 160/4.5 mcg INHALER IH SCH ×2 (10:27→21:44)
[2021-02-19] MEDS: PARoxetine HCL 20 MG TABLET PO SCH (10:57)
[2021-02-19] MEDS ORDERED: PT OWN MED DRAWER 7, Y5N ONE (19:45)
[2021-02-19] MEDS: QUEtiapine FUMARATE 100 MG TABLET (FP) PO SCH (21:22)
[2021-02-19] MEDS: traZODone HCL 50 MG TABLET (FP) PO SCH (21:22)
[2021-02-19] MEDS: THIAMINE HCL 100 MG TABLET (FP) PO SCH (21:23)
[2021-02-19] MEDS: LIDOCAINE PATCH REMOVAL MC SCH (21:23)
[2021-02-19] MEDS: MELATONIN 5 MG TABLETS PO SCH (21:23)
[2021-02-20] MEDS: DOCUSATE SODIUM 100 MG CAPSULE (FP) PO SCH ×3 (07:07→21:17)
[2021-02-20] MEDS ORDERED: PT OWN MED DRAWER 7, Y5N ONE ×2 (09:02→19:41)
[2021-02-20] MEDS: METHYL SALICYLATE/MENTHOL OINT 30 GM TUBE TP SCH ×2 (10:08→21:18)
[2021-02-20] MEDS: PRENATAL VITAMINS W/ FOLIC ACID TABLET (FP) PO SCH (10:08)
[2021-02-20] MEDS: LIDOCAINE 5% TOPICAL PATCH TP SCH (10:09)
[2021-02-20] MEDS: NICOTINE 21 MG/24 HOURS TOPICAL PATCH TD SCH (10:09)
[2021-02-20] MEDS: PARoxetine HCL 20 MG TABLET PO SCH (10:09)
[2021-02-20] MEDS: QUEtiapine FUMARATE 25 MG TABLET PO SCH (10:10)
[2021-02-20] MEDS: PANTOPRAZOLE 40 MG TABLET PO SCH (10:10)
[2021-02-20] MEDS: hydrOXYzine PAMOATE 25 MG CAPSULE (FP) PO PRN ×3 (10:11→21:17)
[2021-02-20] MEDS: BUDESONIDE/FORMETEROL FUMARATE 160/4.5 mcg INHALER IH SCH ×2 (10:11→21:17)
[2021-02-20] MEDS: METHOCARBAMOL 500 MG TABLET PO SCH ×4 (10:12→21:17)
[2021-02-20] MEDS: MELATONIN 5 MG TABLETS PO SCH (21:17)
[2021-02-20] MEDS: traZODone HCL 50 MG TABLET (FP) PO SCH (21:17)
[2021-02-20] MEDS: QUEtiapine FUMARATE 100 MG TABLET (FP) PO SCH (21:17)
[2021-02-20] MEDS: THIAMINE HCL 100 MG TABLET (FP) PO SCH (21:17)
[2021-02-20] MEDS: LIDOCAINE PATCH REMOVAL MC SCH (21:19)
[2021-02-21] MEDS: DOCUSATE SODIUM 100 MG CAPSULE (FP) PO SCH ×3 (06:35→21:13)
[2021-02-21] MEDS: NICOTINE 21 MG/24 HOURS TOPICAL PATCH TD SCH (10:00)
[2021-02-21] MEDS: METHYL SALICYLATE/MENTHOL OINT 30 GM TUBE TP SCH ×2 (10:00→21:14)
[2021-02-21] MEDS: LIDOCAINE 5% TOPICAL PATCH TP SCH (10:00)
[2021-02-21] MEDS: PARoxetine HCL 20 MG TABLET PO SCH (10:01)
[2021-02-21] MEDS: QUEtiapine FUMARATE 25 MG TABLET PO SCH (10:01)
[2021-02-21] MEDS: METHOCARBAMOL 500 MG TABLET PO SCH ×4 (10:01→21:13)
[2021-02-21] MEDS: PRENATAL VITAMINS W/ FOLIC ACID TABLET (FP) PO SCH (10:01)
[2021-02-21] MEDS: PANTOPRAZOLE 40 MG TABLET PO SCH (10:01)
[2021-02-21] MEDS: BUDESONIDE/FORMETEROL FUMARATE 160/4.5 mcg INHALER IH SCH ×2 (10:02→21:13)
[2021-02-21] MEDS: hydrOXYzine PAMOATE 25 MG CAPSULE (FP) PO PRN ×3 (10:03→18:25)
[2021-02-21] MEDS: QUEtiapine FUMARATE 100 MG TABLET (FP) PO SCH (21:13)
[2021-02-21] MEDS: traZODone HCL 50 MG TABLET (FP) PO SCH (21:13)
[2021-02-21] MEDS: MELATONIN 5 MG TABLETS PO SCH (21:13)
[2021-02-21] MEDS: THIAMINE HCL 100 MG TABLET (FP) PO SCH (21:13)
[2021-02-21] MEDS: LIDOCAINE PATCH REMOVAL MC SCH (21:14)
[2021-02-22] MEDS: DOCUSATE SODIUM 100 MG CAPSULE (FP) PO SCH (06:56)
[2021-02-22 07:31] VITALS: BP 127/66; PULSE 63; TEMP 97.1
[2021-02-22] MEDS: NICOTINE 21 MG/24 HOURS TOPICAL PATCH TD SCH (10:04)
[2021-02-22] MEDS: METHYL SALICYLATE/MENTHOL OINT 30 GM TUBE TP SCH (10:04)
[2021-02-22] MEDS: PRENATAL VITAMINS W/ FOLIC ACID TABLET (FP) PO SCH (10:04)
[2021-02-22] MEDS: METHOCARBAMOL 500 MG TABLET PO SCH (10:05)
[2021-02-22] MEDS: QUEtiapine FUMARATE 25 MG TABLET PO SCH (10:05)
[2021-02-22] MEDS: LIDOCAINE 5% TOPICAL PATCH TP SCH (10:05)
[2021-02-22] MEDS: PARoxetine HCL 20 MG TABLET PO SCH (10:05)
[2021-02-22] MEDS: PANTOPRAZOLE 40 MG TABLET PO SCH (10:05)
[2021-02-22] MEDS: BUDESONIDE/FORMETEROL FUMARATE 160/4.5 mcg INHALER IH SCH (10:06)
== END 2021-02-22 10:20 | disposition home or self-care (01) | DRG 772 ==
LOC: YASAS 15:18 → Y5N 15:21
PROVIDERS: ADMIT Allergy & Immunology; ATTEND Allergy & Immunology
PROC: HZ42ZZZ Group Counseling for Substance Abuse Treatment, Cognitive-Behavioral (ICD-10-PCS; principal; 2021-02-10)
DX: F10.20 Alcohol dependence, uncomplicated (principal); F14.20 Cocaine dependence, uncomplicated; F17.210 Nicotine dependence, cigarettes, uncomplicated; F19.282 Other psychoactive substance dependence with psychoactive substance-induced sleep disorder; F31.81 Bipolar II disorder; F41.9 Anxiety disorder, unspecified; F39 Unspecified mood [affective] disorder; G47.00 Insomnia, unspecified; I10 Essential (primary) hypertension; J44.9 Chronic obstructive pulmonary disease, unspecified; J45.20 Mild intermittent asthma, uncomplicated; K21.9 Gastro-esophageal reflux disease without esophagitis; M19.90 Unspecified osteoarthritis, unspecified site; M25.561 Pain in right knee; Z96.651 Presence of right artificial knee joint; Z98.84 Bariatric surgery status; Z99.89 Dependence on other enabling machines and devices; Z91.19 Patient's noncompliance with other medical treatment and regimen
CPT/HCPCS: 36415; 87389; C9803; U0003; U0005

== ENCOUNTER 2021-08-02 17:03 | Inpatient (IN) | payer OTHER ==
[2021-08-02 18:45] VITALS: BMI 27.9
[2021-08-02] MEDS ORDERED: MAGNESIUM HYDROX 2400MG/30ML ORAL SUSPENSION 30 ML CUP PO PRN (19:31)
[2021-08-02] MEDS ORDERED: MAGNESIUM CITRATE 300 ML BOTTLE PO PRN (19:31)
[2021-08-02] MEDS ORDERED: MAG HYDROX/AL HYDROX/SIMETH 30 ML UNIT-DOSE CUP PO PRN (19:31)
[2021-08-02] MEDS ORDERED: NICOTINE 10 MG CARTRIDGE (INHALER) IH PRN (19:31)
[2021-08-02] MEDS ORDERED: MENTHOL/PHENOL 1 EACH UD MM PRN (19:31)
[2021-08-02] MEDS ORDERED: BISMUTH SUBSALICYLATE 524 MG/30 ML PO PRN (19:31)
[2021-08-02] MEDS ORDERED: ACETAMINOPHEN 325 MG TABLET (FP) PO PRN ×2 (19:31)
[2021-08-02] MEDS ORDERED: PHENYLEPHRINE 0.25% NASAL SPRAY 15 ML BOTTLE NS PRN (19:37)
[2021-08-02] MEDS ORDERED: ALBUTEROL SO4 2 MG TABLET PO PRN (19:41)
[2021-08-02] MEDS ORDERED: QUEtiapine FUMARATE 100 MG TABLET (FP) PO ONE (22:00)
[2021-08-02] MEDS: MELATONIN 5 MG TABLETS PO SCH (22:11)
[2021-08-02] MEDS: hydrOXYzine PAMOATE 25 MG CAPSULE (FP) PO SCH (22:11)
[2021-08-02] MEDS: THIAMINE HCL 100 MG TABLET (FP) PO SCH (22:12)
[2021-08-02] MEDS: BUDESONIDE/FORMETEROL FUMARATE 160/4.5 mcg INHALER IH SCH (22:12)
[2021-08-02] MEDS: METHOCARBAMOL 500 MG TABLET PO PRN (22:13)
[2021-08-03] MEDS: hydrOXYzine PAMOATE 25 MG CAPSULE (FP) PO SCH ×5 (05:44→22:28)
[2021-08-03] MEDS: BUDESONIDE/FORMETEROL FUMARATE 160/4.5 mcg INHALER IH SCH ×2 (10:03→22:25)
[2021-08-03] MEDS: PANTOPRAZOLE 20 MG TABLET PO SCH (10:03)
[2021-08-03] MEDS: NICOTINE 21 MG/24 HOURS TOPICAL PATCH TD SCH (10:03)
[2021-08-03] MEDS: PRENATAL VITAMINS W/ FOLIC ACID TABLET (FP) PO SCH (10:04)
[2021-08-03] MEDS: METHOCARBAMOL 500 MG TABLET PO PRN (10:05)
[2021-08-03] MEDS ORDERED: chlordiazePOXIDE HCL 25 MG CAPSULE PO PRN (10:39)
[2021-08-03] MEDS: chlordiazePOXIDE HCL 25 MG CAPSULE PO SCH ×3 (11:19→22:26)
[2021-08-03] MEDS ORDERED: QUEtiapine FUMARATE 25 MG TABLET PO SCH (12:15)
[2021-08-03] MEDS ORDERED: QUEtiapine FUMARATE 50 MG TABLET PO ONE (12:17)
[2021-08-03] MEDS: LIDOCAINE 5% TOPICAL PATCH TP SCH (13:38)
[2021-08-03 14:03] LABS: HEMATOCRIT 34.9 % (32.4-45.2); HEMOGLOBIN 11.8 GM/dL (10.7-15.3); MCH 29.5 pg (25.7-33.7); MCHC 33.7 g/dl (32.0-36.0); MEAN CELL VOLUME 87.4 fl (80-96); MEAN PLT VOLUME 8.7 fl (7.5-11.1); PLATELET COUNT 273 10^3/uL (134-434); RDW 13.7 % (11.6-15.6); WHITE BLOOD COUNT 6.1 K/mm3 (4.0-10.0)
[2021-08-03 14:12] LABS: CALCIUM 8.5 mg/dL (8.5-10.1)
[2021-08-03 14:13] LABS: ALBUMIN 2.8 g/dl (3.4-5.0); BLOOD UREA NITROGEN 16.9 mg/dL (7-18)
[2021-08-03 14:16] LABS: CREATININE 0.8 mg/dL (0.55-1.3)
[2021-08-03 14:18] LABS: TOT PROT 5.8 g/dl (6.4-8.2)
[2021-08-03 14:21] LABS: BILIRUBIN,TOTAL 0.2 mg/dL (0.2-1)
[2021-08-03] MEDS: IBUPROFEN 400 MG TABLET (FP) PO PRN (17:32)
[2021-08-03] MEDS: MELATONIN 5 MG TABLETS PO SCH (22:25)
[2021-08-03] MEDS: THIAMINE HCL 100 MG TABLET (FP) PO SCH (22:26)
[2021-08-03] MEDS: traZODone HCL 50 MG TABLET (FP) PO SCH (22:26)
[2021-08-03] MEDS: QUEtiapine FUMARATE 100 MG TABLET (FP) PO SCH (22:26)
[2021-08-03] MEDS: LIDOCAINE PATCH REMOVAL MC SCH (22:27)
[2021-08-03] MEDS: ONDANSETRON *ODT* 4 MG TABLET SL PRN (22:28)
[2021-08-04] MEDS ORDERED: chlordiazePOXIDE HCL 10 MG CAPSULE PO PRN
[2021-08-04] MEDS: chlordiazePOXIDE HCL 25 MG CAPSULE PO SCH ×4 (06:35→22:54)
[2021-08-04] MEDS: hydrOXYzine PAMOATE 25 MG CAPSULE (FP) PO SCH ×5 (06:35→22:54)
[2021-08-04] MEDS: METHOCARBAMOL 500 MG TABLET PO PRN (06:35)
[2021-08-04] MEDS ORDERED: ALBUTEROL SO4 HFA INHALER IH PRN (08:53)
[2021-08-04] MEDS: PRENATAL VITAMINS W/ FOLIC ACID TABLET (FP) PO SCH (10:43)
[2021-08-04] MEDS: BUDESONIDE/FORMETEROL FUMARATE 160/4.5 mcg INHALER IH SCH ×2 (10:43→23:16)
[2021-08-04] MEDS: NICOTINE 21 MG/24 HOURS TOPICAL PATCH TD SCH (10:43)
[2021-08-04] MEDS: QUEtiapine FUMARATE 50 MG TABLET PO SCH (10:44)
[2021-08-04] MEDS: PANTOPRAZOLE 20 MG TABLET PO SCH (10:45)
[2021-08-04] MEDS: LIDOCAINE 5% TOPICAL PATCH TP SCH (10:45)
[2021-08-04] MEDS: METHYL SALICYLATE/MENTHOL OINT 30 GM TUBE TP SCH (22:52)
[2021-08-04] MEDS: THIAMINE HCL 100 MG TABLET (FP) PO SCH (22:54)
[2021-08-04] MEDS: traZODone HCL 50 MG TABLET (FP) PO SCH (22:54)
[2021-08-04] MEDS: MELATONIN 5 MG TABLETS PO SCH (22:54)
[2021-08-04] MEDS: QUEtiapine FUMARATE 100 MG TABLET (FP) PO SCH (22:54)
[2021-08-04] MEDS: LIDOCAINE PATCH REMOVAL MC SCH (22:55)
[2021-08-04] MEDS: ONDANSETRON *ODT* 4 MG TABLET SL PRN (22:56)
[2021-08-05] MEDS: hydrOXYzine PAMOATE 25 MG CAPSULE (FP) PO SCH ×5 (06:18→22:17)
[2021-08-05] MEDS: chlordiazePOXIDE HCL 25 MG CAPSULE PO SCH ×4 (06:18→22:17)
[2021-08-05] MEDS: METHOCARBAMOL 500 MG TABLET PO PRN ×2 (06:20→22:17)
[2021-08-05] MEDS: LIDOCAINE 5% TOPICAL PATCH TP SCH (10:04)
[2021-08-05] MEDS: PANTOPRAZOLE 20 MG TABLET PO SCH (10:05)
[2021-08-05] MEDS: NICOTINE 21 MG/24 HOURS TOPICAL PATCH TD SCH (10:05)
[2021-08-05] MEDS: PRENATAL VITAMINS W/ FOLIC ACID TABLET (FP) PO SCH (10:05)
[2021-08-05] MEDS: QUEtiapine FUMARATE 50 MG TABLET PO SCH (10:05)
[2021-08-05] MEDS: BUDESONIDE/FORMETEROL FUMARATE 160/4.5 mcg INHALER IH SCH ×2 (10:08→22:21)
[2021-08-05] MEDS: METHYL SALICYLATE/MENTHOL OINT 30 GM TUBE TP SCH ×2 (10:23→22:20)
[2021-08-05] MEDS: traZODone HCL 50 MG TABLET (FP) PO SCH (22:17)
[2021-08-05] MEDS: QUEtiapine FUMARATE 100 MG TABLET (FP) PO SCH (22:17)
[2021-08-05] MEDS: THIAMINE HCL 100 MG TABLET (FP) PO SCH (22:17)
[2021-08-05] MEDS: MELATONIN 5 MG TABLETS PO SCH (22:17)
[2021-08-05] MEDS: LIDOCAINE PATCH REMOVAL MC SCH (22:21)
[2021-08-06] MEDS ORDERED: chlordiazePOXIDE HCL 10 MG CAPSULE PO PRN ×2 (00:01)
[2021-08-06] MEDS: chlordiazePOXIDE HCL 10 MG CAPSULE PO SCH ×4 (06:29→22:21)
[2021-08-06] MEDS: hydrOXYzine PAMOATE 25 MG CAPSULE (FP) PO SCH ×5 (06:30→22:21)
[2021-08-06] MEDS: PRENATAL VITAMINS W/ FOLIC ACID TABLET (FP) PO SCH (10:12)
[2021-08-06] MEDS: LIDOCAINE 5% TOPICAL PATCH TP SCH (10:12)
[2021-08-06] MEDS: PANTOPRAZOLE 20 MG TABLET PO SCH (10:12)
[2021-08-06] MEDS: QUEtiapine FUMARATE 50 MG TABLET PO SCH (10:12)
[2021-08-06] MEDS: METHYL SALICYLATE/MENTHOL OINT 30 GM TUBE TP SCH ×2 (10:24→22:19)
[2021-08-06] MEDS: NICOTINE 21 MG/24 HOURS TOPICAL PATCH TD SCH (10:24)
[2021-08-06] MEDS: BUDESONIDE/FORMETEROL FUMARATE 160/4.5 mcg INHALER IH SCH ×2 (10:25→22:34)
[2021-08-06] MEDS ORDERED: JANSSEN COVID-19 VAC,AD26/PF 0.5 ML IM ONE (11:00)
[2021-08-06] MEDS: METHOCARBAMOL 500 MG TABLET PO PRN (17:34)
[2021-08-06] MEDS: MELATONIN 5 MG TABLETS PO SCH (22:19)
[2021-08-06] MEDS: traZODone HCL 50 MG TABLET (FP) PO SCH (22:19)
[2021-08-06] MEDS: QUEtiapine FUMARATE 100 MG TABLET (FP) PO SCH (22:19)
[2021-08-06] MEDS: LIDOCAINE PATCH REMOVAL MC SCH (22:20)
[2021-08-06] MEDS: THIAMINE HCL 100 MG TABLET (FP) PO SCH (22:21)
[2021-08-07] MEDS: chlordiazePOXIDE HCL 10 MG CAPSULE PO SCH ×2 (06:45→17:18)
[2021-08-07] MEDS: hydrOXYzine PAMOATE 25 MG CAPSULE (FP) PO SCH ×5 (06:46→22:18)
[2021-08-07] MEDS: QUEtiapine FUMARATE 50 MG TABLET PO SCH (10:43)
[2021-08-07] MEDS: PANTOPRAZOLE 20 MG TABLET PO SCH (10:44)
[2021-08-07] MEDS: NICOTINE 21 MG/24 HOURS TOPICAL PATCH TD SCH (10:45)
[2021-08-07] MEDS: LIDOCAINE 5% TOPICAL PATCH TP SCH (10:45)
[2021-08-07] MEDS: METHYL SALICYLATE/MENTHOL OINT 30 GM TUBE TP SCH ×2 (10:46→22:18)
[2021-08-07] MEDS: PRENATAL VITAMINS W/ FOLIC ACID TABLET (FP) PO SCH (10:46)
[2021-08-07] MEDS: BUDESONIDE/FORMETEROL FUMARATE 160/4.5 mcg INHALER IH SCH ×2 (10:46→22:19)
[2021-08-07] MEDS: IBUPROFEN 400 MG TABLET (FP) PO PRN (17:20)
[2021-08-07] MEDS: QUEtiapine FUMARATE 100 MG TABLET (FP) PO SCH (22:18)
[2021-08-07] MEDS: MELATONIN 5 MG TABLETS PO SCH (22:18)
[2021-08-07] MEDS: traZODone HCL 50 MG TABLET (FP) PO SCH (22:18)
[2021-08-07] MEDS: THIAMINE HCL 100 MG TABLET (FP) PO SCH (22:18)
[2021-08-07] MEDS: LIDOCAINE PATCH REMOVAL MC SCH (23:06)
[2021-08-08] MEDS ORDERED: chlordiazePOXIDE HCL 10 MG CAPSULE PO ONE (05:00)
[2021-08-08] MEDS: hydrOXYzine PAMOATE 25 MG CAPSULE (FP) PO SCH ×3 (06:34→13:27)
[2021-08-08 09:05] VITALS: PULSE 92
[2021-08-08] MEDS: PANTOPRAZOLE 20 MG TABLET PO SCH (10:21)
[2021-08-08] MEDS: QUEtiapine FUMARATE 50 MG TABLET PO SCH (10:21)
[2021-08-08] MEDS: LIDOCAINE 5% TOPICAL PATCH TP SCH (10:21)
[2021-08-08] MEDS: PRENATAL VITAMINS W/ FOLIC ACID TABLET (FP) PO SCH (10:21)
[2021-08-08] MEDS: NICOTINE 21 MG/24 HOURS TOPICAL PATCH TD SCH (10:21)
[2021-08-08] MEDS: BUDESONIDE/FORMETEROL FUMARATE 160/4.5 mcg INHALER IH SCH (10:22)
[2021-08-08] MEDS: METHYL SALICYLATE/MENTHOL OINT 30 GM TUBE TP SCH (10:22)
[2021-08-08 13:17] VITALS: BP 115/74; TEMP 96.9
== END 2021-08-08 13:57 | disposition home or self-care (01) | DRG 774 ==
LOC: YASAS 17:03 → Y3N 19:41
PROVIDERS: ADMIT Allergy & Immunology; ATTEND Allergy & Immunology
PROC: HZ2ZZZZ Detoxification Services for Substance Abuse Treatment (ICD-10-PCS; principal; 2021-08-02)
DX: F10.230 Alcohol dependence with withdrawal, uncomplicated (principal); F14.20 Cocaine dependence, uncomplicated; F17.210 Nicotine dependence, cigarettes, uncomplicated; F19.24 Other psychoactive substance dependence with psychoactive substance-induced mood disorder; F19.282 Other psychoactive substance dependence with psychoactive substance-induced sleep disorder; F41.9 Anxiety disorder, unspecified; I10 Essential (primary) hypertension; E87.0 Hyperosmolality and hypernatremia; E87.8 Other disorders of electrolyte and fluid balance, not elsewhere classified; E46 Unspecified protein-calorie malnutrition; Z68.27 Body mass index [BMI] 27.0-27.9, adult; G47.33 Obstructive sleep apnea (adult) (pediatric); J45.20 Mild intermittent asthma, uncomplicated; J43.9 Emphysema, unspecified; K21.9 Gastro-esophageal reflux disease without esophagitis; M19.90 Unspecified osteoarthritis, unspecified site; G47.00 Insomnia, unspecified; R73.9 Hyperglycemia, unspecified; Z91.19 Patient's noncompliance with other medical treatment and regimen; Z96.651 Presence of right artificial knee joint; Z98.84 Bariatric surgery status; Z56.0 Unemployment, unspecified
CPT/HCPCS: 0031A; 36415; 80053; 82947; 85027; 86780; 91303; C9803; Q0162; U0003; U0005

== ENCOUNTER 2021-10-20 18:13 | Inpatient (IN) | payer OTHER ==
[2021-10-20 20:06] VITALS: BMI 28.1
[2021-10-20] MEDS ORDERED: ALBUTEROL SO4 HFA INHALER IH PRN (21:42)
[2021-10-20] MEDS ORDERED: BISMUTH SUBSALICYLATE 524 MG/30 ML PO PRN (21:43)
[2021-10-20] MEDS ORDERED: MAG HYDROX/AL HYDROX/SIMETH 30 ML UNIT-DOSE CUP PO PRN (21:43)
[2021-10-20] MEDS ORDERED: IBUPROFEN 400 MG TABLET (FP) PO PRN (21:43)
[2021-10-20] MEDS ORDERED: ONDANSETRON *ODT* 4 MG TABLET SL PRN (21:43)
[2021-10-20] MEDS ORDERED: P-EPHED 60MG/TRIPROLIDI 2.5MG TABLET PO PRN (21:43)
[2021-10-20] MEDS ORDERED: MAGNESIUM CITRATE 300 ML BOTTLE PO PRN (21:43)
[2021-10-20] MEDS ORDERED: LOPERAMIDE HCL 2 MG CAPSULE PO PRN (21:43)
[2021-10-20] MEDS ORDERED: MENTHOL/PHENOL 1 EACH UD MM PRN (21:43)
[2021-10-20] MEDS ORDERED: MAGNESIUM HYDROX 2400MG/30ML ORAL SUSPENSION 30 ML CUP PO PRN (21:43)
[2021-10-20] MEDS ORDERED: ACETAMINOPHEN 325 MG TABLET (FP) PO PRN ×2 (21:43)
[2021-10-20] MEDS ORDERED: diazePAM 5 MG TABLET PO PRN (21:45)
[2021-10-21] MEDS ORDERED: diazePAM 5 MG TABLET ONE (01:36)
[2021-10-21] MEDS: THIAMINE HCL 100 MG TABLET (FP) PO SCH ×2 (01:41→22:27)
[2021-10-21] MEDS: diazePAM 5 MG TABLET PO SCH ×3 (01:41→11:06)
[2021-10-21] MEDS: BUDESONIDE/FORMETEROL FUMARATE 160/4.5 mcg INHALER IH SCH ×3 (01:42→23:25)
[2021-10-21] MEDS ORDERED: METHOCARBAMOL 500 MG TABLET ONE (02:07)
[2021-10-21] MEDS: METHOCARBAMOL 500 MG TABLET PO PRN ×2 (02:10→17:42)
[2021-10-21] MEDS: PRENATAL VITAMINS W/ FOLIC ACID TABLET (FP) PO SCH (11:05)
[2021-10-21] MEDS: NICOTINE 7 MG/24 HOURS TOPICAL PATCH TD SCH (11:05)
[2021-10-21] MEDS ORDERED: QUEtiapine FUMARATE 50 MG TABLET PO ONE (11:37)
[2021-10-21] MEDS ORDERED: chlordiazePOXIDE HCL 25 MG CAPSULE PO PRN (11:38)
[2021-10-21] MEDS: FAMOTIDINE 20 MG TABLET PO SCH (11:56)
[2021-10-21] MEDS ORDERED: FLU VACC QS2021-22(6MOS UP)/PF 60 MCG/0.5 ML SYRINGE IM ONE (12:00)
[2021-10-21 12:07] LABS: HEMATOCRIT 36.5 % (32.4-45.2); HEMOGLOBIN 11.9 GM/dL (10.7-15.3); MCH 29.1 pg (25.7-33.7); MCHC 32.5 g/dl (32.0-36.0); MEAN CELL VOLUME 89.3 fl (80-96); MEAN PLT VOLUME 8.8 fl (7.5-11.1); PLATELET COUNT 291 10^3/uL (134-434); RBC 4.09 M/mm3 (3.60-5.2); RDW 14.5 % (11.6-15.6); WHITE BLOOD COUNT 6.9 K/mm3 (4.0-10.0)
[2021-10-21 13:07] LABS: HIV INTERPRETATION NEGATIVE (NEGATIVE)
[2021-10-21 13:50] LABS: CALCIUM 8.7 mg/dL (8.5-10.1)
[2021-10-21 13:51] LABS: ALBUMIN 3.2 g/dl (3.4-5.0); BLOOD UREA NITROGEN 15.3 mg/dL (7-18)
[2021-10-21 13:54] LABS: CREATININE 0.8 mg/dL (0.55-1.3)
[2021-10-21 13:55] LABS: BILIRUBIN,TOTAL 0.2 mg/dL (0.2-1); TOT PROT 6.1 g/dl (6.4-8.2)
[2021-10-21] MEDS: hydrOXYzine PAMOATE 25 MG CAPSULE (FP) PO PRN (17:42)
[2021-10-21] MEDS: chlordiazePOXIDE HCL 25 MG CAPSULE PO SCH ×2 (17:45→22:24)
[2021-10-21] MEDS: QUEtiapine FUMARATE 100 MG TABLET (FP) PO SCH (22:24)
[2021-10-21] MEDS ORDERED: FAMOTIDINE 20 MG TABLET PO ONE (23:04)
[2021-10-22] MEDS ORDERED: diazePAM 5 MG TABLET PO SCH (06:00)
[2021-10-22] MEDS: METHOCARBAMOL 500 MG TABLET PO PRN ×3 (06:44→23:24)
[2021-10-22] MEDS: chlordiazePOXIDE HCL 25 MG CAPSULE PO SCH ×4 (06:44→23:24)
[2021-10-22] MEDS: hydrOXYzine PAMOATE 25 MG CAPSULE (FP) PO PRN ×2 (06:44→16:25)
[2021-10-22] MEDS: NICOTINE 7 MG/24 HOURS TOPICAL PATCH TD SCH (10:26)
[2021-10-22] MEDS: FAMOTIDINE 20 MG TABLET PO SCH (10:26)
[2021-10-22] MEDS: QUEtiapine FUMARATE 50 MG TABLET PO SCH (10:26)
[2021-10-22] MEDS: PRENATAL VITAMINS W/ FOLIC ACID TABLET (FP) PO SCH (10:26)
[2021-10-22] MEDS: BUDESONIDE/FORMETEROL FUMARATE 160/4.5 mcg INHALER IH SCH ×2 (10:31→23:23)
[2021-10-22] MEDS ORDERED: QUEtiapine FUMARATE 50 MG TABLET PO SCH (11:30)
[2021-10-22 14:07] LABS: SARS-CoV-2 NAA Not Detected (Not Detected)
[2021-10-22] MEDS: THIAMINE HCL 100 MG TABLET (FP) PO SCH (23:24)
[2021-10-22] MEDS: QUEtiapine FUMARATE 100 MG TABLET (FP) PO SCH (23:24)
[2021-10-23] MEDS ORDERED: diazePAM 5 MG TABLET PO SCH (06:00)
[2021-10-23] MEDS: chlordiazePOXIDE HCL 10 MG CAPSULE PO SCH ×4 (06:06→22:06)
[2021-10-23] MEDS: hydrOXYzine PAMOATE 25 MG CAPSULE (FP) PO PRN ×5 (06:08→22:05)
[2021-10-23] MEDS: METHOCARBAMOL 500 MG TABLET PO PRN ×2 (06:08→15:13)
[2021-10-23] MEDS: NICOTINE 7 MG/24 HOURS TOPICAL PATCH TD SCH (10:24)
[2021-10-23] MEDS: PRENATAL VITAMINS W/ FOLIC ACID TABLET (FP) PO SCH (10:26)
[2021-10-23] MEDS: QUEtiapine FUMARATE 50 MG TABLET PO SCH (10:26)
[2021-10-23] MEDS: FAMOTIDINE 20 MG TABLET PO SCH (10:26)
[2021-10-23] MEDS: BUDESONIDE/FORMETEROL FUMARATE 160/4.5 mcg INHALER IH SCH ×2 (11:41→22:05)
[2021-10-23] MEDS: QUEtiapine FUMARATE 100 MG TABLET (FP) PO SCH (22:05)
[2021-10-23] MEDS: THIAMINE HCL 100 MG TABLET (FP) PO SCH (22:05)
[2021-10-23] MEDS: MELATONIN 5 MG TABLETS PO PRN (22:06)
[2021-10-24] MEDS: METHOCARBAMOL 500 MG TABLET PO PRN ×2 (01:28→18:27)
[2021-10-24] MEDS: chlordiazePOXIDE HCL 10 MG CAPSULE PO PRN ×2 (01:28→10:21)
[2021-10-24] MEDS ORDERED: diazePAM 5 MG TABLET PO ONE (06:00)
[2021-10-24] MEDS: chlordiazePOXIDE HCL 10 MG CAPSULE PO SCH ×2 (06:08→18:26)
[2021-10-24] MEDS: hydrOXYzine PAMOATE 25 MG CAPSULE (FP) PO PRN ×2 (06:09→10:21)
[2021-10-24] MEDS: PRENATAL VITAMINS W/ FOLIC ACID TABLET (FP) PO SCH (10:19)
[2021-10-24] MEDS: FAMOTIDINE 20 MG TABLET PO SCH (10:21)
[2021-10-24] MEDS: QUEtiapine FUMARATE 50 MG TABLET PO SCH (10:21)
[2021-10-24] MEDS: BUDESONIDE/FORMETEROL FUMARATE 160/4.5 mcg INHALER IH SCH ×2 (10:23→22:28)
[2021-10-24] MEDS: NICOTINE 21 MG/24 HOURS TOPICAL PATCH TD SCH (10:58)
[2021-10-24] MEDS: hydrOXYzine PAMOATE 50 MG CAPSULE (FP) PO PRN ×2 (15:42→22:28)
[2021-10-24] MEDS: THIAMINE HCL 100 MG TABLET (FP) PO SCH (22:28)
[2021-10-24] MEDS: QUEtiapine FUMARATE 100 MG TABLET (FP) PO SCH (22:28)
[2021-10-24] MEDS: MELATONIN 5 MG TABLETS PO PRN (22:28)
[2021-10-25] MEDS ORDERED: chlordiazePOXIDE HCL 10 MG CAPSULE PO ONE (05:00)
[2021-10-25] MEDS: METHOCARBAMOL 500 MG TABLET PO PRN ×2 (05:46→13:08)
[2021-10-25] MEDS: hydrOXYzine PAMOATE 50 MG CAPSULE (FP) PO PRN ×2 (05:47→13:08)
[2021-10-25 08:50] VITALS: TEMP 96.9
[2021-10-25] MEDS ORDERED: NICOTINE 10 MG CARTRIDGE (INHALER) IH PRN (08:58)
[2021-10-25] MEDS: PRENATAL VITAMINS W/ FOLIC ACID TABLET (FP) PO SCH (10:11)
[2021-10-25] MEDS: QUEtiapine FUMARATE 50 MG TABLET PO SCH (10:13)
[2021-10-25] MEDS: NICOTINE 21 MG/24 HOURS TOPICAL PATCH TD SCH (10:14)
[2021-10-25] MEDS: BUDESONIDE/FORMETEROL FUMARATE 160/4.5 mcg INHALER IH SCH (10:16)
[2021-10-25] MEDS: FAMOTIDINE 20 MG TABLET PO SCH (10:49)
[2021-10-25 13:20] VITALS: BP 116/70; PULSE 101
== END 2021-10-25 15:48 | disposition other institution (70) | DRG 774 ==
LOC: YASAS 18:13 → Y6N 23:26 → Y3N 10-21 02:25
PROVIDERS: ADMIT Allergy & Immunology; ATTEND Allergy & Immunology
PROC: HZ2ZZZZ Detoxification Services for Substance Abuse Treatment (ICD-10-PCS; principal; 2021-10-20)
DX: F10.230 Alcohol dependence with withdrawal, uncomplicated (principal); F14.20 Cocaine dependence, uncomplicated; F12.20 Cannabis dependence, uncomplicated; F17.210 Nicotine dependence, cigarettes, uncomplicated; F19.282 Other psychoactive substance dependence with psychoactive substance-induced sleep disorder; F32.A Depression, unspecified; I10 Essential (primary) hypertension; J44.9 Chronic obstructive pulmonary disease, unspecified; K21.9 Gastro-esophageal reflux disease without esophagitis
CPT/HCPCS: 36415; 80053; 85027; 86780; 87389; 87811; 90686; C9803-CS; G0008; U0003; U0005

== ENCOUNTER 2022-09-24 10:17 | Inpatient (IN) | payer OTHER ==
[2022-09-24] MEDS ORDERED: chlordiazePOXIDE HCL 25 MG CAPSULE PO PRN (12:39)
[2022-09-24] MEDS ORDERED: BISMUTH SUBSALICYLATE 524 MG/30 ML PO PRN (12:39)
[2022-09-24] MEDS ORDERED: MAGNESIUM HYDROX 2400MG/30ML ORAL SUSPENSION 30 ML CUP PO PRN (12:39)
[2022-09-24] MEDS ORDERED: POLYETHYLENE GLYCOL (HEALTHYLAX) 3350 17 GM PACKET PO PRN (12:39)
[2022-09-24] MEDS ORDERED: BENZOCAINE/MENTHOL (CHLORASEPTIC ) LOZENGE MM PRN (12:39)
[2022-09-24] MEDS ORDERED: ONDANSETRON *ODT* 4 MG TABLET SL PRN (12:39)
[2022-09-24] MEDS ORDERED: LOPERAMIDE HCL 2 MG CAPSULE PO PRN (12:39)
[2022-09-24] MEDS ORDERED: IBUPROFEN 600 MG TABLET (FP) PO PRN (12:39)
[2022-09-24] MEDS ORDERED: MAG HYDROX/AL HYDROX/SIMETH 30 ML UNIT-DOSE CUP PO PRN (12:39)
[2022-09-24] MEDS ORDERED: ACETAMINOPHEN 325 MG TABLET (FP) PO PRN ×2 (12:39)
[2022-09-24] MEDS ORDERED: DICYCLOMINE HCL 10 MG CAPSULE PO PRN (12:39)
[2022-09-24] MEDS ORDERED: IBUPROFEN 400 MG TABLET (FP) PO PRN (12:39)
[2022-09-24] MEDS ORDERED: NALOXONE HCL (KLOXXADO) 8 MG SPRAY NS PRN (12:39)
[2022-09-24] MEDS: hydrOXYzine PAMOATE 25 MG CAPSULE (FP) PO PRN ×2 (13:24→22:29)
[2022-09-24] MEDS: NICOTINE 10 MG CARTRIDGE (INHALER) IH PRN (13:28)
[2022-09-24] MEDS: chlordiazePOXIDE HCL 25 MG CAPSULE PO SCH ×2 (17:43→22:29)
[2022-09-24] MEDS ORDERED: MELATONIN 5 MG TABLETS PO SCH (22:00)
[2022-09-24] MEDS: THIAMINE HCL 100 MG TABLET (FP) PO SCH (22:27)
[2022-09-24] MEDS: METHOCARBAMOL 500 MG TABLET PO PRN (22:29)
[2022-09-24] MEDS: BUDESONIDE/FORMETEROL FUMARATE 160/4.5 mcg INHALER IH SCH (23:44)
[2022-09-25] MEDS: chlordiazePOXIDE HCL 25 MG CAPSULE PO SCH ×4 (05:32→22:28)
[2022-09-25] MEDS: hydrOXYzine PAMOATE 25 MG CAPSULE (FP) PO PRN (10:11)
[2022-09-25] MEDS: PRENATAL VITAMINS W/ FOLIC ACID TABLET (FP) PO SCH (10:11)
[2022-09-25] MEDS: BUDESONIDE/FORMETEROL FUMARATE 160/4.5 mcg INHALER IH SCH ×2 (10:12→22:27)
[2022-09-25] MEDS: QUEtiapine FUMARATE 25 MG TABLET PO SCH (10:58)
[2022-09-25 12:00] LABS: HEMATOCRIT 38.4 % (32.4-45.2); HEMOGLOBIN 12.7 GM/dL (10.7-15.3); MCH 29.4 pg (25.7-33.7); MEAN CELL VOLUME 89.1 fl (80-96); MEAN PLT VOLUME 8.2 fl (7.5-11.1); PLATELET COUNT 306 10^3/uL (134-434); RBC 4.31 M/mm3 (3.60-5.2); RDW 13.9 % (11.6-15.6); WHITE BLOOD COUNT 5.9 K/mm3 (4.0-10.0)
[2022-09-25 12:12] LABS: ALBUMIN 2.9 g/dl (3.4-5.0); CALCIUM 8.8 mg/dL (8.5-10.1)
[2022-09-25 12:13] LABS: BLOOD UREA NITROGEN 13.9 mg/dL (7-18)
[2022-09-25 12:16] LABS: CREATININE 0.6 mg/dL (0.55-1.3)
[2022-09-25 12:17] LABS: BILIRUBIN,TOTAL 0.2 mg/dL (0.2-1); TOT PROT 5.8 g/dl (6.4-8.2)
[2022-09-25] MEDS: THIAMINE HCL 100 MG TABLET (FP) PO SCH (22:26)
[2022-09-25] MEDS: QUEtiapine FUMARATE 100 MG TABLET (FP) PO SCH (22:26)
[2022-09-26] MEDS: chlordiazePOXIDE HCL 25 MG CAPSULE PO SCH ×4 (05:54→22:27)
[2022-09-26] MEDS: hydrOXYzine PAMOATE 25 MG CAPSULE (FP) PO PRN (05:55)
[2022-09-26] MEDS: PRENATAL VITAMINS W/ FOLIC ACID TABLET (FP) PO SCH (10:15)
[2022-09-26] MEDS: QUEtiapine FUMARATE 25 MG TABLET PO SCH (10:15)
[2022-09-26] MEDS: ALBUTEROL SO4 HFA INHALER IH PRN ×2 (10:18→22:26)
[2022-09-26] MEDS: BUDESONIDE/FORMETEROL FUMARATE 160/4.5 mcg INHALER IH SCH ×2 (10:18→22:26)
[2022-09-26] MEDS: THIAMINE HCL 100 MG TABLET (FP) PO SCH (22:27)
[2022-09-26] MEDS: QUEtiapine FUMARATE 100 MG TABLET (FP) PO SCH (22:27)
[2022-09-26] MEDS: METHOCARBAMOL 500 MG TABLET PO PRN (22:28)
[2022-09-27] MEDS ORDERED: chlordiazePOXIDE HCL 10 MG CAPSULE PO PRN
[2022-09-27] MEDS: chlordiazePOXIDE HCL 10 MG CAPSULE PO SCH ×4 (06:29→22:17)
[2022-09-27] MEDS: BUDESONIDE/FORMETEROL FUMARATE 160/4.5 mcg INHALER IH SCH ×2 (10:04→22:19)
[2022-09-27] MEDS: PRENATAL VITAMINS W/ FOLIC ACID TABLET (FP) PO SCH (10:04)
[2022-09-27] MEDS: QUEtiapine FUMARATE 25 MG TABLET PO SCH (10:05)
[2022-09-27] MEDS: NICOTINE 10 MG CARTRIDGE (INHALER) IH PRN (10:19)
[2022-09-27] MEDS: QUEtiapine FUMARATE 100 MG TABLET (FP) PO SCH (22:17)
[2022-09-27] MEDS: THIAMINE HCL 100 MG TABLET (FP) PO SCH (22:17)
[2022-09-28] MEDS: chlordiazePOXIDE HCL 10 MG CAPSULE PO SCH ×2 (06:00→17:52)
[2022-09-28] MEDS: NICOTINE 10 MG CARTRIDGE (INHALER) IH PRN (06:02)
[2022-09-28] MEDS: PRENATAL VITAMINS W/ FOLIC ACID TABLET (FP) PO SCH (09:31)
[2022-09-28] MEDS: QUEtiapine FUMARATE 25 MG TABLET PO SCH (09:31)
[2022-09-28] MEDS: BUDESONIDE/FORMETEROL FUMARATE 160/4.5 mcg INHALER IH SCH ×2 (09:32→22:26)
[2022-09-28] MEDS: hydrOXYzine PAMOATE 25 MG CAPSULE (FP) PO PRN (17:50)
[2022-09-28] MEDS: METHOCARBAMOL 500 MG TABLET PO PRN (17:50)
[2022-09-28] MEDS: QUEtiapine FUMARATE 100 MG TABLET (FP) PO SCH (22:26)
[2022-09-28] MEDS: THIAMINE HCL 100 MG TABLET (FP) PO SCH (22:26)
[2022-09-29] MEDS ORDERED: chlordiazePOXIDE HCL 10 MG CAPSULE PO ONE (05:00)
[2022-09-29] MEDS: QUEtiapine FUMARATE 25 MG TABLET PO SCH (10:25)
[2022-09-29] MEDS: PRENATAL VITAMINS W/ FOLIC ACID TABLET (FP) PO SCH (10:25)
[2022-09-29] MEDS: BUDESONIDE/FORMETEROL FUMARATE 160/4.5 mcg INHALER IH SCH (10:26)
[2022-09-29 13:26] VITALS: BP 121/81; PULSE 98; RESP 16; TEMP 97.1
== END 2022-09-29 02:12 | disposition home or self-care (01) | DRG 774 ==
LOC: YASAS 10:17 → Y3N 12:39
PROVIDERS: ADMIT Allergy & Immunology; ATTEND Family Medicine
PROC: HZ2ZZZZ Detoxification Services for Substance Abuse Treatment (ICD-10-PCS; principal; 2022-09-24)
DX: F10.230 Alcohol dependence with withdrawal, uncomplicated (principal); F14.20 Cocaine dependence, uncomplicated; F17.210 Nicotine dependence, cigarettes, uncomplicated; F33.1 Major depressive disorder, recurrent, moderate; F19.282 Other psychoactive substance dependence with psychoactive substance-induced sleep disorder; F19.24 Other psychoactive substance dependence with psychoactive substance-induced mood disorder; F41.8 Other specified anxiety disorders; G47.33 Obstructive sleep apnea (adult) (pediatric); I10 Essential (primary) hypertension; J44.9 Chronic obstructive pulmonary disease, unspecified; J45.20 Mild intermittent asthma, uncomplicated; K21.9 Gastro-esophageal reflux disease without esophagitis; Z96.651 Presence of right artificial knee joint; Z99.89 Dependence on other enabling machines and devices; Z91.410 Personal history of adult physical and sexual abuse
CPT/HCPCS: 36415; 80053; 81025; 85027; 86780; 87811; C9803-CS; U0003; U0005

== ENCOUNTER 2022-09-29 14:20 | Inpatient (IN) | payer OTHER ==
[2022-09-29] MEDS ORDERED: guaiFENesin 200 MG/10 ML 10 ML UNIT-DOSE CUPS PO PRN (15:48)
[2022-09-29] MEDS ORDERED: MAG HYDROX/AL HYDROX/SIMETH 30 ML UNIT-DOSE CUP PO PRN (15:48)
[2022-09-29] MEDS ORDERED: P-EPHED 60MG/TRIPROLIDI 2.5MG TABLET PO PRN (15:48)
[2022-09-29] MEDS ORDERED: LOPERAMIDE HCL 2 MG CAPSULE PO PRN (15:48)
[2022-09-29] MEDS ORDERED: hydrOXYzine PAMOATE 25 MG CAPSULE (FP) PO PRN (15:48)
[2022-09-29] MEDS ORDERED: ACETAMINOPHEN 325 MG TABLET (FP) PO PRN (15:48)
[2022-09-29] MEDS ORDERED: IBUPROFEN 400 MG TABLET (FP) PO PRN (15:48)
[2022-09-29] MEDS ORDERED: POLYETHYLENE GLYCOL (HEALTHYLAX) 3350 17 GM PACKET PO PRN (15:48)
[2022-09-29] MEDS ORDERED: BENZOCAINE/MENTHOL (CHLORASEPTIC ) LOZENGE MM PRN (15:48)
[2022-09-29] MEDS ORDERED: NICOTINE 7 MG/24 HOURS TOPICAL PATCH TD PRN (15:48)
[2022-09-29] MEDS ORDERED: ALBUTEROL SO4 HFA INHALER IH PRN (15:50)
[2022-09-29] MEDS: MELATONIN 5 MG TABLETS PO SCH (21:28)
[2022-09-29] MEDS: THIAMINE HCL 100 MG TABLET (FP) PO SCH (21:28)
[2022-09-29] MEDS: QUEtiapine FUMARATE 100 MG TABLET (FP) PO SCH (21:28)
[2022-09-29] MEDS: BUDESONIDE/FORMETEROL FUMARATE 160/4.5 mcg INHALER IH SCH (21:29)
[2022-09-30] MEDS: BUDESONIDE/FORMETEROL FUMARATE 160/4.5 mcg INHALER IH SCH ×2 (10:16→21:20)
[2022-09-30] MEDS: PRENATAL VITAMINS W/ FOLIC ACID TABLET (FP) PO SCH (10:16)
[2022-09-30] MEDS: QUEtiapine FUMARATE 50 MG TABLET PO SCH (10:16)
[2022-09-30] MEDS: NICOTINE 10 MG CARTRIDGE (INHALER) IH PRN ×2 (10:17→19:29)
[2022-09-30] MEDS: metroNIDAZOLE 250 MG TABLET PO SCH ×2 (10:56→21:19)
[2022-09-30] MEDS: HYDROCORTISONE 2.5% TOPICAL CREAM 30 GM TUBE RC SCH ×2 (10:57→21:21)
[2022-09-30] MEDS ORDERED: PNEUMOC 20-VAL CONJ-DIP CRM/PF 0.5 ML SYRINGE IM ONE (12:00)
[2022-09-30] MEDS ORDERED: FLU VACC QS2022-23(6MOS UP)/PF 60 MCG/0.5 ML SYRINGE IM ONE (12:30)
[2022-09-30 16:11] LABS: HIV INTERPRETATION NEGATIVE (NEGATIVE)
[2022-09-30] MEDS: hydrOXYzine PAMOATE 50 MG CAPSULE (FP) PO PRN (17:28)
[2022-09-30] MEDS: QUEtiapine FUMARATE 100 MG TABLET (FP) PO SCH (21:17)
[2022-09-30] MEDS: MELATONIN 5 MG TABLETS PO SCH (21:17)
[2022-09-30] MEDS: traZODone HCL 50 MG TABLET (FP) PO SCH (21:17)
[2022-09-30] MEDS: THIAMINE HCL 100 MG TABLET (FP) PO SCH (21:17)
[2022-10-01] MEDS: hydrOXYzine PAMOATE 50 MG CAPSULE (FP) PO PRN ×3 (06:59→21:32)
[2022-10-01] MEDS: QUEtiapine FUMARATE 50 MG TABLET PO SCH (10:47)
[2022-10-01] MEDS: PRENATAL VITAMINS W/ FOLIC ACID TABLET (FP) PO SCH (10:47)
[2022-10-01] MEDS: metroNIDAZOLE 250 MG TABLET PO SCH ×2 (10:49→21:31)
[2022-10-01] MEDS: NICOTINE 10 MG CARTRIDGE (INHALER) IH PRN ×2 (10:50→19:28)
[2022-10-01] MEDS: BUDESONIDE/FORMETEROL FUMARATE 160/4.5 mcg INHALER IH SCH ×2 (10:51→21:33)
[2022-10-01] MEDS: MAGNESIUM HYDROX 2400MG/30ML ORAL SUSPENSION 30 ML CUP PO PRN (13:53)
[2022-10-01] MEDS: traZODone HCL 50 MG TABLET (FP) PO SCH (21:31)
[2022-10-01] MEDS: THIAMINE HCL 100 MG TABLET (FP) PO SCH (21:31)
[2022-10-01] MEDS: HYDROCORTISONE 2.5% TOPICAL CREAM 30 GM TUBE RC SCH (21:32)
[2022-10-01] MEDS: QUEtiapine FUMARATE 100 MG TABLET (FP) PO SCH (21:32)
[2022-10-01] MEDS: MELATONIN 5 MG TABLETS PO SCH (21:32)
[2022-10-02] MEDS: QUEtiapine FUMARATE 50 MG TABLET PO SCH (09:51)
[2022-10-02] MEDS: metroNIDAZOLE 250 MG TABLET PO SCH ×2 (09:51→21:12)
[2022-10-02] MEDS: PRENATAL VITAMINS W/ FOLIC ACID TABLET (FP) PO SCH (09:51)
[2022-10-02] MEDS: BUDESONIDE/FORMETEROL FUMARATE 160/4.5 mcg INHALER IH SCH ×2 (09:51→21:12)
[2022-10-02] MEDS: hydrOXYzine PAMOATE 50 MG CAPSULE (FP) PO PRN ×2 (09:52→16:31)
[2022-10-02] MEDS: NICOTINE 10 MG CARTRIDGE (INHALER) IH PRN ×2 (16:31→20:49)
[2022-10-02] MEDS: HYDROCORTISONE 2.5% TOPICAL CREAM 30 GM TUBE RC SCH (21:11)
[2022-10-02] MEDS: QUEtiapine FUMARATE 100 MG TABLET (FP) PO SCH (21:11)
[2022-10-02] MEDS: THIAMINE HCL 100 MG TABLET (FP) PO SCH (21:12)
[2022-10-02] MEDS: traZODone HCL 50 MG TABLET (FP) PO SCH (21:12)
[2022-10-02] MEDS: MELATONIN 5 MG TABLETS PO SCH (21:12)
[2022-10-03] MEDS: hydrOXYzine PAMOATE 50 MG CAPSULE (FP) PO PRN ×2 (06:47→21:37)
[2022-10-03] MEDS: QUEtiapine FUMARATE 50 MG TABLET PO SCH (10:29)
[2022-10-03] MEDS: metroNIDAZOLE 250 MG TABLET PO SCH ×2 (10:29→21:37)
[2022-10-03] MEDS: BUDESONIDE/FORMETEROL FUMARATE 160/4.5 mcg INHALER IH SCH ×2 (10:29→21:36)
[2022-10-03] MEDS: NICOTINE 10 MG CARTRIDGE (INHALER) IH PRN (10:30)
[2022-10-03] MEDS: PRENATAL VITAMINS W/ FOLIC ACID TABLET (FP) PO SCH (10:30)
[2022-10-03] MEDS: HYDROCORTISONE 2.5% TOPICAL CREAM 30 GM TUBE RC SCH (21:37)
[2022-10-03] MEDS: QUEtiapine FUMARATE 100 MG TABLET (FP) PO SCH (21:37)
[2022-10-03] MEDS: traZODone HCL 50 MG TABLET (FP) PO SCH (21:37)
[2022-10-03] MEDS: THIAMINE HCL 100 MG TABLET (FP) PO SCH (21:37)
[2022-10-03 22:03] LABS: URINE APPEARANCE CLEAR; URINE BILIRUBIN NEGATIVE (NEGATIVE); URINE COLOR YELLOW; URINE GLUCOSE (UA) NEGATIVE (NEGATIVE); URINE KETONE NEGATIVE (NEGATIVE); URINE LEUK ESTERASE NEGATIVE (NEGATIVE); URINE NITRITE NEGATIVE (NEGATIVE); URINE PROTEIN NEGATIVE (NEGATIVE); URINE UROBILINOGEN 0.2 mg/dL (0.2-1.0)
[2022-10-04] MEDS: MELATONIN 5 MG TABLETS PO SCH ×2 (01:14→21:12)
[2022-10-04] MEDS: metroNIDAZOLE 250 MG TABLET PO SCH ×2 (10:27→21:11)
[2022-10-04] MEDS: BUDESONIDE/FORMETEROL FUMARATE 160/4.5 mcg INHALER IH SCH ×2 (10:27→21:39)
[2022-10-04] MEDS: PRENATAL VITAMINS W/ FOLIC ACID TABLET (FP) PO SCH (10:27)
[2022-10-04] MEDS: QUEtiapine FUMARATE 50 MG TABLET PO SCH (10:27)
[2022-10-04] MEDS: hydrOXYzine PAMOATE 50 MG CAPSULE (FP) PO PRN ×3 (10:28→21:14)
[2022-10-04] MEDS: NICOTINE 10 MG CARTRIDGE (INHALER) IH PRN ×2 (10:32→19:58)
[2022-10-04] MEDS ORDERED: SODIUM PHOSPHATE/NA BIPHOS 133 ML ENEMA RC ONE (11:20)
[2022-10-04] MEDS: MINERAL OIL/PETROLAT/WATER TOPICAL CREAM 113 GM JAR TP SCH (13:19)
[2022-10-04] MEDS: DOCUSATE SODIUM 100 MG CAPSULE (FP) PO SCH ×2 (13:20→21:11)
[2022-10-04] MEDS: SELENIUM SULFIDE 2.25% 180 ML SHAMPOO TP SCH (13:21)
[2022-10-04] MEDS: MAGNESIUM HYDROX 2400MG/30ML ORAL SUSPENSION 30 ML CUP PO PRN (13:27)
[2022-10-04] MEDS: THIAMINE HCL 100 MG TABLET (FP) PO SCH (21:11)
[2022-10-04] MEDS: QUEtiapine FUMARATE 100 MG TABLET (FP) PO SCH (21:11)
[2022-10-04] MEDS: HYDROCORTISONE 2.5% TOPICAL CREAM 30 GM TUBE RC SCH (21:11)
[2022-10-04] MEDS: traZODone HCL 50 MG TABLET (FP) PO SCH (21:11)
[2022-10-04 22:55] VITALS: RESP 18
[2022-10-05] MEDS: DOCUSATE SODIUM 100 MG CAPSULE (FP) PO SCH ×3 (06:30→21:27)
[2022-10-05] MEDS: hydrOXYzine PAMOATE 50 MG CAPSULE (FP) PO PRN ×3 (06:32→21:28)
[2022-10-05] MEDS: NICOTINE 10 MG CARTRIDGE (INHALER) IH PRN ×4 (09:06→21:28)
[2022-10-05] MEDS ORDERED: COLLOIDAL OATMEAL 1 BAR EACH TP PRN (09:22)
[2022-10-05] MEDS: QUEtiapine FUMARATE 50 MG TABLET PO SCH (09:38)
[2022-10-05] MEDS: BUDESONIDE/FORMETEROL FUMARATE 160/4.5 mcg INHALER IH SCH ×2 (09:38→21:26)
[2022-10-05] MEDS: PRENATAL VITAMINS W/ FOLIC ACID TABLET (FP) PO SCH (09:38)
[2022-10-05] MEDS: MINERAL OIL/PETROLAT/WATER TOPICAL CREAM 113 GM JAR TP SCH (09:40)
[2022-10-05] MEDS: metroNIDAZOLE 250 MG TABLET PO SCH ×2 (09:41→21:27)
[2022-10-05] MEDS: SELENIUM SULFIDE 2.25% 180 ML SHAMPOO TP SCH (11:22)
[2022-10-05] MEDS: MAGNESIUM HYDROX 2400MG/30ML ORAL SUSPENSION 30 ML CUP PO PRN (15:45)
[2022-10-05] MEDS: THIAMINE HCL 100 MG TABLET (FP) PO SCH (21:27)
[2022-10-05] MEDS: MELATONIN 5 MG TABLETS PO SCH (21:27)
[2022-10-05] MEDS: traZODone HCL 50 MG TABLET (FP) PO SCH (21:27)
[2022-10-05] MEDS: QUEtiapine FUMARATE 100 MG TABLET (FP) PO SCH (21:27)
[2022-10-05] MEDS: HYDROCORTISONE 2.5% TOPICAL CREAM 30 GM TUBE RC SCH (21:32)
[2022-10-06] MEDS: DOCUSATE SODIUM 100 MG CAPSULE (FP) PO SCH (06:39)
[2022-10-06 07:08] VITALS: BP 139/78; PULSE 65; TEMP 97.7
[2022-10-06] MEDS: NICOTINE 10 MG CARTRIDGE (INHALER) IH PRN (09:12)
[2022-10-06] MEDS: PRENATAL VITAMINS W/ FOLIC ACID TABLET (FP) PO SCH (09:32)
[2022-10-06] MEDS: BUDESONIDE/FORMETEROL FUMARATE 160/4.5 mcg INHALER IH SCH (09:33)
[2022-10-06] MEDS: MINERAL OIL/PETROLAT/WATER TOPICAL CREAM 113 GM JAR TP SCH (09:33)
[2022-10-06] MEDS: metroNIDAZOLE 250 MG TABLET PO SCH (09:33)
[2022-10-06] MEDS: QUEtiapine FUMARATE 50 MG TABLET PO SCH (09:33)
[2022-10-06] MEDS: SELENIUM SULFIDE 2.25% 180 ML SHAMPOO TP SCH (09:34)
[2022-10-06] MEDS: hydrOXYzine PAMOATE 50 MG CAPSULE (FP) PO PRN (09:36)
== END 2022-10-06 10:40 | disposition home or self-care (01) | DRG 772 ==
LOC: YASAS 14:20 → Y5N 14:24
PROVIDERS: ADMIT Allergy & Immunology; ATTEND Psychiatry & Neurology Pain Medicine
PROC: HZ42ZZZ Group Counseling for Substance Abuse Treatment, Cognitive-Behavioral (ICD-10-PCS; principal; 2022-09-29)
DX: F10.20 Alcohol dependence, uncomplicated (principal); F14.20 Cocaine dependence, uncomplicated; F17.210 Nicotine dependence, cigarettes, uncomplicated; F19.282 Other psychoactive substance dependence with psychoactive substance-induced sleep disorder; F19.280 Other psychoactive substance dependence with psychoactive substance-induced anxiety disorder; F19.24 Other psychoactive substance dependence with psychoactive substance-induced mood disorder; F39 Unspecified mood [affective] disorder; F41.9 Anxiety disorder, unspecified; I10 Essential (primary) hypertension; J43.9 Emphysema, unspecified; K21.9 Gastro-esophageal reflux disease without esophagitis; K59.00 Constipation, unspecified; L85.3 Xerosis cutis; G47.33 Obstructive sleep apnea (adult) (pediatric); N89.8 Other specified noninflammatory disorders of vagina; Z96.651 Presence of right artificial knee joint
CPT/HCPCS: 36415; 81003; 86803; 87086; 87389; 87491; 87591; 87661

== ENCOUNTER 2023-01-29 12:12 | Inpatient (IN) | payer OTHER ==
[2023-01-29 13:32] VITALS: BMI 27.1
[2023-01-29] MEDS ORDERED: ALBUTEROL SO4 HFA INHALER IH PRN (13:52)
[2023-01-29] MEDS ORDERED: MAG HYDROX/AL HYDROX/SIMETH 30 ML UNIT-DOSE CUP PO PRN (14:05)
[2023-01-29] MEDS ORDERED: BENZOCAINE/MENTHOL (CHLORASEPTIC ) LOZENGE MM PRN (14:05)
[2023-01-29] MEDS ORDERED: IBUPROFEN 400 MG TABLET (FP) PO PRN (14:05)
[2023-01-29] MEDS ORDERED: BISMUTH SUBSALICYLATE 524 MG/30 ML PO PRN (14:05)
[2023-01-29] MEDS ORDERED: MAGNESIUM HYDROX 2400MG/30ML ORAL SUSPENSION 30 ML CUP PO PRN (14:05)
[2023-01-29] MEDS ORDERED: MELATONIN 5 MG TABLETS PO PRN (14:05)
[2023-01-29] MEDS ORDERED: ONDANSETRON *ODT* 4 MG TABLET SL PRN (14:05)
[2023-01-29] MEDS ORDERED: P-EPHED 60MG/TRIPROLIDI 2.5MG TABLET PO PRN (14:05)
[2023-01-29] MEDS ORDERED: NALOXONE HCL (KLOXXADO) 8 MG SPRAY NS PRN (14:05)
[2023-01-29] MEDS ORDERED: BENZONATATE 200 MG CAPSULE PO PRN (14:05)
[2023-01-29] MEDS ORDERED: POLYETHYLENE GLYCOL (HEALTHYLAX) 3350 17 GM PACKET PO PRN (14:05)
[2023-01-29] MEDS ORDERED: NALOXONE HCL 0.4 MG/ML VIAL IM PRN (14:05)
[2023-01-29] MEDS ORDERED: ACETAMINOPHEN 325 MG TABLET (FP) PO PRN (14:05)
[2023-01-29] MEDS ORDERED: LOPERAMIDE HCL 2 MG CAPSULE PO PRN (14:05)
[2023-01-29] MEDS ORDERED: DICYCLOMINE HCL 10 MG CAPSULE PO PRN (14:05)
[2023-01-29] MEDS ORDERED: guaiFENesin 600 MG TABLET.ER (FP) PO PRN (14:05)
[2023-01-29] MEDS: NICOTINE 14 MG/24 HOURS TOPICAL PATCH TD SCH (15:34)
[2023-01-29] MEDS ORDERED: NICOTINE 14 MG/24 HOURS TOPICAL PATCH TD ONE (15:39)
[2023-01-29] MEDS: diazePAM 5 MG TABLET PO SCH ×2 (17:26→22:18)
[2023-01-29] MEDS ORDERED: QUEtiapine FUMARATE 100 MG TABLET (FP) PO ONE (22:00)
[2023-01-29 22:08] LABS: EPI CELLS 21 /uL (0-25.1); HYALINE CASTS 1 /uL (0-3.1); PH,URINE 5.5 (5.0-8.0); URINE APPEARANCE CLEAR; URINE BACTERIA 95 /uL (0-1359); URINE BILIRUBIN NEGATIVE (NEGATIVE); URINE COLOR YELLOW; URINE GLUCOSE (UA) NEGATIVE (NEGATIVE); URINE KETONE NEGATIVE (NEGATIVE); URINE LEUK ESTERASE 2+ (NEGATIVE); URINE NITRITE NEGATIVE (NEGATIVE); URINE PROTEIN NEGATIVE (NEGATIVE); URINE RBC 7 /uL (0-23.9); URINE UROBILINOGEN 0.2 mg/dL (0.2-1.0); URINE WBC 26 /uL (0-25.8)
[2023-01-29] MEDS: THIAMINE HCL 100 MG TABLET (FP) PO SCH (22:18)
[2023-01-29] MEDS: BUDESONIDE/FORMETEROL FUMARATE 160/4.5 mcg INHALER IH SCH (22:18)
[2023-01-30] MEDS: diazePAM 5 MG TABLET PO SCH ×4 (05:23→22:23)
[2023-01-30] MEDS: PRENATAL VITAMINS W/ FOLIC ACID TABLET (FP) PO SCH (10:13)
[2023-01-30] MEDS: BUDESONIDE/FORMETEROL FUMARATE 160/4.5 mcg INHALER IH SCH ×2 (10:13→22:23)
[2023-01-30] MEDS: IBUPROFEN 600 MG TABLET (FP) PO PRN (10:13)
[2023-01-30] MEDS: NICOTINE 14 MG/24 HOURS TOPICAL PATCH TD SCH (10:13)
[2023-01-30] MEDS: METOPROLOL TARTRATE 25 MG TABLET (FP) PO SCH (13:14)
[2023-01-30] MEDS: diazePAM 5 MG TABLET PO PRN (13:17)
[2023-01-30 16:56] LABS: POTASSIUM 4.1 mmol/L (3.5-5.1)
[2023-01-30 17:02] LABS: CALCIUM 8.7 mg/dL (8.5-10.1); HEMATOCRIT 37.4 % (32.4-45.2); HEMOGLOBIN 12.4 GM/dL (10.7-15.3); MCH 29.5 pg (25.7-33.7); MCHC 33.2 g/dl (32.0-36.0); MEAN CELL VOLUME 88.9 fl (80-96); MEAN PLT VOLUME 8.5 fl (7.5-11.1); PLATELET COUNT 286 10^3/uL (134-434); RBC 4.21 M/mm3 (3.60-5.2); RDW 13.4 % (11.6-15.6); WHITE BLOOD COUNT 10.3 K/mm3 (4.0-10.0)
[2023-01-30 17:03] LABS: ALBUMIN 2.9 g/dl (3.4-5.0); BLOOD UREA NITROGEN 16.8 mg/dL (7-18)
[2023-01-30 17:06] LABS: CREATININE 0.7 mg/dL (0.55-1.3)
[2023-01-30 17:07] LABS: BILIRUBIN,TOTAL 0.3 mg/dL (0.2-1)
[2023-01-30] MEDS: hydrOXYzine PAMOATE 25 MG CAPSULE (FP) PO PRN (17:28)
[2023-01-30] MEDS: QUEtiapine FUMARATE 100 MG TABLET (FP) PO SCH (22:22)
[2023-01-30] MEDS: THIAMINE HCL 100 MG TABLET (FP) PO SCH (22:22)
[2023-01-31] MEDS: diazePAM 5 MG TABLET PO SCH ×3 (05:13→22:11)
[2023-01-31] MEDS: BUDESONIDE/FORMETEROL FUMARATE 160/4.5 mcg INHALER IH SCH ×2 (10:04→22:13)
[2023-01-31] MEDS: METOPROLOL TARTRATE 25 MG TABLET (FP) PO SCH (10:04)
[2023-01-31] MEDS: PRENATAL VITAMINS W/ FOLIC ACID TABLET (FP) PO SCH (10:04)
[2023-01-31] MEDS: diazePAM 5 MG TABLET PO PRN ×2 (10:05→17:48)
[2023-01-31] MEDS: NICOTINE 14 MG/24 HOURS TOPICAL PATCH TD SCH (10:11)
[2023-01-31] MEDS: hydrOXYzine PAMOATE 25 MG CAPSULE (FP) PO PRN (17:48)
[2023-01-31] MEDS: QUEtiapine FUMARATE 100 MG TABLET (FP) PO SCH (22:11)
[2023-01-31] MEDS: THIAMINE HCL 100 MG TABLET (FP) PO SCH (22:11)
[2023-02-01] MEDS: diazePAM 5 MG TABLET PO SCH ×2 (06:08→17:58)
[2023-02-01] MEDS: PRENATAL VITAMINS W/ FOLIC ACID TABLET (FP) PO SCH (09:50)
[2023-02-01] MEDS: BUDESONIDE/FORMETEROL FUMARATE 160/4.5 mcg INHALER IH SCH ×2 (09:50→22:14)
[2023-02-01] MEDS: METOPROLOL TARTRATE 25 MG TABLET (FP) PO SCH (09:50)
[2023-02-01] MEDS: NICOTINE 14 MG/24 HOURS TOPICAL PATCH TD SCH (09:51)
[2023-02-01] MEDS: IBUPROFEN 600 MG TABLET (FP) PO PRN (09:54)
[2023-02-01] MEDS: diazePAM 5 MG TABLET PO PRN (09:56)
[2023-02-01] MEDS: hydrOXYzine PAMOATE 25 MG CAPSULE (FP) PO PRN ×2 (17:58→22:14)
[2023-02-01] MEDS: THIAMINE HCL 100 MG TABLET (FP) PO SCH (22:14)
[2023-02-01] MEDS: QUEtiapine FUMARATE 100 MG TABLET (FP) PO SCH (22:14)
[2023-02-02] MEDS ORDERED: diazePAM 5 MG TABLET PO ONE (06:00)
[2023-02-02] MEDS: hydrOXYzine PAMOATE 25 MG CAPSULE (FP) PO PRN (06:11)
[2023-02-02 09:37] VITALS: BP 114/60; PULSE 80; RESP 17; TEMP 98.1
[2023-02-02] MEDS: PRENATAL VITAMINS W/ FOLIC ACID TABLET (FP) PO SCH (09:48)
[2023-02-02] MEDS: METOPROLOL TARTRATE 25 MG TABLET (FP) PO SCH (09:48)
[2023-02-02] MEDS: BUDESONIDE/FORMETEROL FUMARATE 160/4.5 mcg INHALER IH SCH (09:49)
[2023-02-02] MEDS: NICOTINE 14 MG/24 HOURS TOPICAL PATCH TD SCH (09:49)
== END 2023-02-02 10:25 | disposition home or self-care (01) | DRG 774 ==
LOC: YASAS 12:12 → Y6N 15:02
PROVIDERS: ADMIT Allergy & Immunology; ATTEND Surgery
PROC: HZ2ZZZZ Detoxification Services for Substance Abuse Treatment (ICD-10-PCS; principal; 2023-01-29)
DX: F10.230 Alcohol dependence with withdrawal, uncomplicated (principal); F14.20 Cocaine dependence, uncomplicated; F17.210 Nicotine dependence, cigarettes, uncomplicated; F19.282 Other psychoactive substance dependence with psychoactive substance-induced sleep disorder; F19.280 Other psychoactive substance dependence with psychoactive substance-induced anxiety disorder; F33.1 Major depressive disorder, recurrent, moderate; F41.9 Anxiety disorder, unspecified; E87.8 Other disorders of electrolyte and fluid balance, not elsewhere classified; I10 Essential (primary) hypertension; J43.9 Emphysema, unspecified; J45.20 Mild intermittent asthma, uncomplicated; K21.9 Gastro-esophageal reflux disease without esophagitis; G47.33 Obstructive sleep apnea (adult) (pediatric)
CPT/HCPCS: 36415; 80053; 81003; 81025; 85027; 86780; C9803-CS; U0003; U0005

== ENCOUNTER 2023-05-12 16:57 | Inpatient (IN) | payer OTHER ==
[2023-05-12 21:35] VITALS: BMI 25.3
[2023-05-12] MEDS ORDERED: ALBUTEROL SO4 HFA INHALER IH PRN (23:05)
[2023-05-12] MEDS ORDERED: MAG HYDROX/AL HYDROX/SIMETH 30 ML UNIT-DOSE CUP PO PRN (23:13)
[2023-05-12] MEDS ORDERED: ONDANSETRON *ODT* 4 MG TABLET SL PRN (23:13)
[2023-05-12] MEDS ORDERED: P-EPHED 60MG/TRIPROLIDI 2.5MG TABLET PO PRN (23:13)
[2023-05-12] MEDS ORDERED: NICOTINE POLACRILEX 2 MG GUM BUC PRN (23:13)
[2023-05-12] MEDS ORDERED: ACETAMINOPHEN 325 MG TABLET (FP) PO PRN (23:13)
[2023-05-12] MEDS ORDERED: BENZOCAINE/MENTHOL (CHLORASEPTIC ) LOZENGE MM PRN (23:13)
[2023-05-12] MEDS ORDERED: DICYCLOMINE HCL 10 MG CAPSULE PO PRN (23:13)
[2023-05-12] MEDS ORDERED: LOPERAMIDE HCL 2 MG CAPSULE PO PRN (23:13)
[2023-05-12] MEDS ORDERED: POLYETHYLENE GLYCOL (HEALTHYLAX) 3350 17 GM PACKET PO PRN (23:13)
[2023-05-12] MEDS ORDERED: guaiFENesin 600 MG TABLET.ER (FP) PO PRN (23:13)
[2023-05-12] MEDS ORDERED: IBUPROFEN 400 MG TABLET (FP) PO PRN (23:13)
[2023-05-12] MEDS ORDERED: BENZONATATE 200 MG CAPSULE PO PRN (23:13)
[2023-05-12] MEDS ORDERED: BISMUTH SUBSALICYLATE 524 MG/30 ML PO PRN (23:13)
[2023-05-12] MEDS ORDERED: MAGNESIUM HYDROX 2400MG/30ML ORAL SUSPENSION 30 ML CUP PO PRN (23:13)
[2023-05-13] MEDS ORDERED: chlordiazePOXIDE HCL 25 MG CAPSULE PO PRN (09:06)
[2023-05-13] MEDS ORDERED: chlordiazePOXIDE HCL 25 MG CAPSULE PO ONE (09:06)
[2023-05-13 09:46] LABS: HEMATOCRIT 40.2 % (32.4-45.2); HEMOGLOBIN 13.1 GM/dL (10.7-15.3); MCH 29.6 pg (25.7-33.7); MCHC 32.6 g/dl (32.0-36.0); MEAN CELL VOLUME 90.6 fl (80-96); MEAN PLT VOLUME 8.6 fl (7.5-11.1); PLATELET COUNT 285 10^3/uL (134-434); RBC 4.43 M/mm3 (3.60-5.2); RDW 13.5 % (11.6-15.6)
[2023-05-13 10:03] LABS: ALBUMIN 3.1 g/dl (3.4-5.0); BLOOD UREA NITROGEN 12.2 mg/dL (7-18); CALCIUM 8.5 mg/dL (8.5-10.1)
[2023-05-13 10:07] LABS: CREATININE 0.7 mg/dL (0.55-1.3)
[2023-05-13 10:08] LABS: BILIRUBIN,TOTAL 0.4 mg/dL (0.2-1); TOT PROT 6.3 g/dl (6.4-8.2)
[2023-05-13] MEDS ORDERED: chlordiazePOXIDE HCL 25 MG CAPSULE ONE ×2 (10:21→12:55)
[2023-05-13] MEDS ORDERED: PRENATAL VITAMINS W/ FOLIC ACID TABLET (FP) PO ONE (10:21)
[2023-05-13] MEDS: metoPROLOL SUCCINATE 25 MG TAB.SR.24H (FP) PO SCH (10:22)
[2023-05-13] MEDS: PRENATAL VITAMINS W/ FOLIC ACID TABLET (FP) PO SCH (10:22)
[2023-05-13] MEDS: BUDESONIDE/FORMETEROL FUMARATE 160/4.5 mcg INHALER IH SCH ×2 (10:23→22:15)
[2023-05-13] MEDS: chlordiazePOXIDE HCL 25 MG CAPSULE PO SCH ×3 (12:57→22:15)
[2023-05-13] MEDS: hydrOXYzine PAMOATE 25 MG CAPSULE (FP) PO PRN (17:33)
[2023-05-13] MEDS: MELATONIN 5 MG TABLETS PO SCH (22:15)
[2023-05-13] MEDS: THIAMINE HCL 100 MG TABLET (FP) PO SCH (22:15)
[2023-05-14] MEDS: chlordiazePOXIDE HCL 25 MG CAPSULE PO SCH ×4 (05:58→22:21)
[2023-05-14] MEDS: hydrOXYzine PAMOATE 25 MG CAPSULE (FP) PO PRN ×2 (10:10→17:47)
[2023-05-14] MEDS: BUDESONIDE/FORMETEROL FUMARATE 160/4.5 mcg INHALER IH SCH ×2 (10:10→22:21)
[2023-05-14] MEDS: PRENATAL VITAMINS W/ FOLIC ACID TABLET (FP) PO SCH (10:10)
[2023-05-14] MEDS: metoPROLOL SUCCINATE 25 MG TAB.SR.24H (FP) PO SCH (10:12)
[2023-05-14] MEDS: NICOTINE 14 MG/24 HOURS TOPICAL PATCH TD SCH (11:37)
[2023-05-14] MEDS: MELATONIN 5 MG TABLETS PO SCH (22:20)
[2023-05-14] MEDS: THIAMINE HCL 100 MG TABLET (FP) PO SCH (22:20)
[2023-05-15] MEDS: chlordiazePOXIDE HCL 25 MG CAPSULE PO SCH ×4 (05:32→22:25)
[2023-05-15] MEDS: PRENATAL VITAMINS W/ FOLIC ACID TABLET (FP) PO SCH (10:04)
[2023-05-15] MEDS: NICOTINE 14 MG/24 HOURS TOPICAL PATCH TD SCH (10:04)
[2023-05-15] MEDS: BUDESONIDE/FORMETEROL FUMARATE 160/4.5 mcg INHALER IH SCH ×2 (10:04→22:27)
[2023-05-15] MEDS: metoPROLOL SUCCINATE 25 MG TAB.SR.24H (FP) PO SCH (10:05)
[2023-05-15] MEDS: hydrOXYzine PAMOATE 25 MG CAPSULE (FP) PO PRN ×2 (10:05→17:46)
[2023-05-15] MEDS: MELATONIN 5 MG TABLETS PO SCH (22:25)
[2023-05-15] MEDS: THIAMINE HCL 100 MG TABLET (FP) PO SCH (22:25)
[2023-05-16] MEDS ORDERED: chlordiazePOXIDE HCL 10 MG CAPSULE PO PRN
[2023-05-16] MEDS: chlordiazePOXIDE HCL 10 MG CAPSULE PO SCH ×3 (05:27→17:20)
[2023-05-16] MEDS: IBUPROFEN 600 MG TABLET (FP) PO PRN ×2 (05:30→14:43)
[2023-05-16] MEDS: BUDESONIDE/FORMETEROL FUMARATE 160/4.5 mcg INHALER IH SCH (10:58)
[2023-05-16] MEDS: NICOTINE 14 MG/24 HOURS TOPICAL PATCH TD SCH (10:58)
[2023-05-16] MEDS: PRENATAL VITAMINS W/ FOLIC ACID TABLET (FP) PO SCH (10:58)
[2023-05-16] MEDS: metoPROLOL SUCCINATE 25 MG TAB.SR.24H (FP) PO SCH (10:59)
[2023-05-16] MEDS: hydrOXYzine PAMOATE 25 MG CAPSULE (FP) PO PRN ×2 (14:27→17:20)
[2023-05-16 17:17] VITALS: RESP 17
[2023-05-16] MEDS ORDERED: COLLOIDAL OATMEAL 1 BAR EACH TP PRN (17:54)
[2023-05-16 18:11] VITALS: PULSE 80; TEMP 98.1
[2023-05-16 18:12] VITALS: BP 141/80
[2023-05-16] MEDS ORDERED: QUEtiapine FUMARATE 100 MG TABLET (FP) PO SCH (22:00)
[2023-05-16] MEDS ORDERED: CEPHALEXIN MONOHYDRATE 500 MG CAPSULE (UD) PO SCH (22:00)
[2023-05-17] MEDS ORDERED: chlordiazePOXIDE HCL 10 MG CAPSULE PO SCH (05:00)
[2023-05-18] MEDS ORDERED: chlordiazePOXIDE HCL 10 MG CAPSULE PO ONE (05:00)
== END 2023-05-16 20:25 | disposition home or self-care (01) | DRG 774 ==
LOC: YASAS 16:57 → Y6N 05-13 15:57
PROVIDERS: ADMIT Allergy & Immunology; ATTEND Surgery
PROC: HZ2ZZZZ Detoxification Services for Substance Abuse Treatment (ICD-10-PCS; principal; 2023-05-13)
DX: F10.230 Alcohol dependence with withdrawal, uncomplicated (principal); F14.20 Cocaine dependence, uncomplicated; F17.210 Nicotine dependence, cigarettes, uncomplicated; F10.280 Alcohol dependence with alcohol-induced anxiety disorder; F10.24 Alcohol dependence with alcohol-induced mood disorder; F33.1 Major depressive disorder, recurrent, moderate; F10.282 Alcohol dependence with alcohol-induced sleep disorder; I10 Essential (primary) hypertension; J43.9 Emphysema, unspecified; J45.20 Mild intermittent asthma, uncomplicated; K21.9 Gastro-esophageal reflux disease without esophagitis; E78.5 Hyperlipidemia, unspecified; Z99.89 Dependence on other enabling machines and devices
CPT/HCPCS: 36415; 80053; 85027; 86780; 87635; 87811; 93005; 93010; Q0162

== ENCOUNTER 2023-05-16 06:43 | Emergency (ER) | payer OTHER ==
[2023-05-16 06:48] VITALS: RESP 18; TEMP 97.6; BMI 25.4
[2023-05-16] MEDS ORDERED: ACETAMINOPHEN 1000 MG/100 ML BAG IVPB ONE (08:19)
[2023-05-16] MEDS ORDERED: SODIUM CHLORIDE 0.9% 500 ML INFUS.BAG IV ONE (08:22)
[2023-05-16] MEDS ORDERED: ACETAMINOPHEN INJECTION 100 ML IVPB ONE (08:44)
[2023-05-16 08:57] LABS: BASO % 1.3 % (0-2.0); HEMATOCRIT 39.5 % (32.4-45.2); HEMOGLOBIN 13.4 GM/dL (10.7-15.3); LYMPH % 36.6 % (8-40); MCHC 33.8 g/dl (32.0-36.0); MEAN CELL VOLUME 88.6 fl (80-96); MEAN PLT VOLUME 7.9 fl (7.5-11.1); MONO % 8.1 % (3.8-10.2); PLATELET COUNT 260 10^3/uL (134-434); RBC 4.46 M/mm3 (3.60-5.2); RDW 13.8 % (11.6-15.6); WHITE BLOOD COUNT 6.8 K/mm3 (4.0-10.0)
[2023-05-16 09:22] LABS: POTASSIUM 4.5 mmol/L (3.5-5.1)
[2023-05-16 09:23] LABS: CALCIUM 8.5 mg/dL (8.5-10.1)
[2023-05-16 09:24] LABS: BLOOD UREA NITROGEN 19.8 mg/dL (7-18); MAGNESIUM 2.1 mg/dL (1.8-2.4)
[2023-05-16 09:27] LABS: CREATININE 0.8 mg/dL (0.55-1.3)
[2023-05-16 09:29] LABS: BILIRUBIN,TOTAL 0.2 mg/dL (0.2-1); TOT PROT 6.4 g/dl (6.4-8.2)
[2023-05-16 10:14] LABS: EPI CELLS 8 /uL (0-25.1); HYALINE CASTS 0 /uL (0-3.1); URINE APPEARANCE CLEAR; URINE BACTERIA 108 /uL (0-1359); URINE BILIRUBIN NEGATIVE (NEGATIVE); URINE COLOR YELLOW; URINE GLUCOSE (UA) NEGATIVE (NEGATIVE); URINE KETONE NEGATIVE (NEGATIVE); URINE LEUK ESTERASE 1+ (NEGATIVE); URINE NITRITE NEGATIVE (NEGATIVE); URINE PROTEIN NEGATIVE (NEGATIVE); URINE WBC 9 /uL (0-25.8)
[2023-05-16 10:19] LABS: URINE RBC 43.8 /uL (0-23.9)
[2023-05-16] MEDS ORDERED: IBUPROFEN 400 MG TABLET (FP) PO ONE ×2 (10:27→10:29)
[2023-05-16] MEDS ORDERED: LIDOCAINE 5% TOPICAL PATCH ONE (12:00)
[2023-05-16] MEDS ORDERED: LIDOCAINE 5% TOPICAL PATCH TP ONE (12:01)
[2023-05-16 12:07] VITALS: BP 110/70; PULSE 74
[2023-05-16] MEDS ORDERED: LIDOCAINE PATCH REMOVAL MC ONE (22:00)
== END 2023-05-16 12:45 | disposition home or self-care (01) ==
LOC: JER 06:43
PROC: 3E033NZ Introduction of Analgesics, Hypnotics, Sedatives into Peripheral Vein, Percutaneous Approach (ICD-10-PCS; principal; 2023-05-16)
DX: S09.90XA Unspecified injury of head, initial encounter (principal); M25.561 Pain in right knee; M25.521 Pain in right elbow; G89.29 Other chronic pain; R53.1 Weakness; I63.9 Cerebral infarction, unspecified; Q75.8 Other specified congenital malformations of skull and face bones; N39.0 Urinary tract infection, site not specified; Z96.651 Presence of right artificial knee joint; W01.198A Fall on same level from slipping, tripping and stumbling with subsequent striking against other object, initial encounter
CPT/HCPCS: 36415; 70450-TC; 72125-TC; 73070-TC-RT-FY; 73562-TC-RT-FY; 80053; 81003; 83735; 84484; 85025; 93005; 93010; 96374; 99285-25

== ENCOUNTER 2023-05-31 16:29 | Inpatient (IN) | payer OTHER ==
[2023-05-31 17:49] VITALS: BMI 25.7
[2023-05-31] MEDS ORDERED: guaiFENesin 600 MG TABLET.ER (FP) PO PRN (22:03)
[2023-05-31] MEDS ORDERED: NALOXONE HCL 0.4 MG/ML VIAL IM PRN (22:03)
[2023-05-31] MEDS ORDERED: IBUPROFEN 600 MG TABLET (FP) PO PRN (22:03)
[2023-05-31] MEDS ORDERED: IBUPROFEN 400 MG TABLET (FP) PO PRN (22:03)
[2023-05-31] MEDS ORDERED: hydrOXYzine PAMOATE 25 MG CAPSULE (FP) PO PRN (22:03)
[2023-05-31] MEDS ORDERED: BENZOCAINE/MENTHOL (CHLORASEPTIC ) LOZENGE MM PRN (22:03)
[2023-05-31] MEDS ORDERED: MAGNESIUM HYDROX 2400MG/30ML ORAL SUSPENSION 30 ML CUP PO PRN (22:03)
[2023-05-31] MEDS ORDERED: POLYETHYLENE GLYCOL (HEALTHYLAX) 3350 17 GM PACKET PO PRN (22:03)
[2023-05-31] MEDS ORDERED: BENZONATATE 200 MG CAPSULE PO PRN (22:03)
[2023-05-31] MEDS ORDERED: NICOTINE POLACRILEX 2 MG GUM BUC PRN (22:03)
[2023-05-31] MEDS ORDERED: MAG HYDROX/AL HYDROX/SIMETH 30 ML UNIT-DOSE CUP PO PRN (22:03)
[2023-05-31] MEDS ORDERED: NALOXONE HCL (KLOXXADO) 8 MG SPRAY NS PRN (22:03)
[2023-05-31] MEDS ORDERED: LOPERAMIDE HCL 2 MG CAPSULE PO PRN (22:03)
[2023-06-01] MEDS: MELATONIN 5 MG TABLETS PO SCH ×2 (01:35→01:43)
[2023-06-01 02:02] VITALS: RESP 18
[2023-06-01] MEDS: PRENATAL VITAMINS W/ FOLIC ACID TABLET (FP) PO SCH (10:20)
[2023-06-01] MEDS: NICOTINE 21 MG/24 HOURS TOPICAL PATCH TD SCH (10:21)
[2023-06-01] MEDS: QUEtiapine FUMARATE 50 MG TABLET PO SCH (10:21)
[2023-06-01 11:28] LABS: HEMATOCRIT 37.6 % (32.4-45.2); HEMOGLOBIN 12.9 GM/dL (10.7-15.3); MCH 30.6 pg (25.7-33.7); MCHC 34.2 g/dl (32.0-36.0); MEAN CELL VOLUME 89.7 fl (80-96); PLATELET COUNT 388 10^3/uL (134-434); RBC 4.19 M/mm3 (3.60-5.2); RDW 12.8 % (11.6-15.6)
[2023-06-01 11:40] LABS: ALBUMIN 3.1 g/dl (3.4-5.0); BILIRUBIN,TOTAL 0.3 mg/dL (0.2-1); BLOOD UREA NITROGEN 11.5 mg/dL (7-18); CALCIUM 8.7 mg/dL (8.5-10.1); CREATININE 0.8 mg/dL (0.55-1.3); POTASSIUM 4.4 mmol/L (3.5-5.1); TOT PROT 6.4 g/dl (6.4-8.2)
[2023-06-01] MEDS: FAMOTIDINE 20 MG TABLET PO SCH ×2 (12:53→21:25)
[2023-06-01] MEDS: hydrOXYzine PAMOATE 25 MG CAPSULE (FP) PO PRN (17:10)
[2023-06-01] MEDS: THIAMINE HCL 100 MG TABLET (FP) PO SCH (21:25)
[2023-06-01] MEDS: QUEtiapine FUMARATE 100 MG TABLET (FP) PO SCH (21:25)
[2023-06-02] MEDS: PRENATAL VITAMINS W/ FOLIC ACID TABLET (FP) PO SCH (10:12)
[2023-06-02] MEDS: FAMOTIDINE 20 MG TABLET PO SCH ×2 (10:12→21:44)
[2023-06-02] MEDS: NICOTINE 21 MG/24 HOURS TOPICAL PATCH TD SCH (10:12)
[2023-06-02] MEDS: QUEtiapine FUMARATE 50 MG TABLET PO SCH (10:13)
[2023-06-02] MEDS: ACETAMINOPHEN 325 MG TABLET (FP) PO PRN (10:16)
[2023-06-02 10:50] LABS: EPI CELLS 12 /uL (0-25.1); HYALINE CASTS 0 /uL (0-3.1); PH,URINE 6.5 (5.0-8.0); URINE APPEARANCE CLEAR; URINE BACTERIA 129 /uL (0-1359); URINE BILIRUBIN NEGATIVE (NEGATIVE); URINE COLOR YELLOW; URINE GLUCOSE (UA) NEGATIVE (NEGATIVE); URINE KETONE NEGATIVE (NEGATIVE); URINE LEUK ESTERASE 2+ (NEGATIVE); URINE NITRITE NEGATIVE (NEGATIVE); URINE PROTEIN NEGATIVE (NEGATIVE); URINE RBC 2 /uL (0-23.9); URINE UROBILINOGEN 0.2 mg/dL (0.2-1.0); URINE WBC 14 /uL (0-25.8)
[2023-06-02] MEDS: hydrOXYzine PAMOATE 25 MG CAPSULE (FP) PO PRN (18:52)
[2023-06-02] MEDS: QUEtiapine FUMARATE 100 MG TABLET (FP) PO SCH (21:44)
[2023-06-02] MEDS: THIAMINE HCL 100 MG TABLET (FP) PO SCH (21:44)
[2023-06-03] MEDS: FAMOTIDINE 20 MG TABLET PO SCH ×2 (10:28→21:21)
[2023-06-03] MEDS: QUEtiapine FUMARATE 50 MG TABLET PO SCH (10:29)
[2023-06-03] MEDS: PRENATAL VITAMINS W/ FOLIC ACID TABLET (FP) PO SCH (10:29)
[2023-06-03] MEDS: NICOTINE 21 MG/24 HOURS TOPICAL PATCH TD SCH (10:29)
[2023-06-03] MEDS: hydrOXYzine PAMOATE 25 MG CAPSULE (FP) PO PRN ×2 (10:31→21:21)
[2023-06-03] MEDS: QUEtiapine FUMARATE 100 MG TABLET (FP) PO SCH (21:21)
[2023-06-03] MEDS: THIAMINE HCL 100 MG TABLET (FP) PO SCH (21:21)
[2023-06-04] MEDS: PRENATAL VITAMINS W/ FOLIC ACID TABLET (FP) PO SCH (09:54)
[2023-06-04] MEDS: FAMOTIDINE 20 MG TABLET PO SCH ×2 (09:54→21:31)
[2023-06-04] MEDS: NICOTINE 21 MG/24 HOURS TOPICAL PATCH TD SCH (09:55)
[2023-06-04] MEDS: QUEtiapine FUMARATE 50 MG TABLET PO SCH (09:55)
[2023-06-04] MEDS: hydrOXYzine PAMOATE 25 MG CAPSULE (FP) PO PRN ×2 (09:55→16:18)
[2023-06-04] MEDS: THIAMINE HCL 100 MG TABLET (FP) PO SCH (21:27)
[2023-06-04] MEDS: QUEtiapine FUMARATE 100 MG TABLET (FP) PO SCH (21:27)
[2023-06-05] MEDS ORDERED: ALBUTEROL SO4 HFA INHALER IH PRN (09:19)
[2023-06-05] MEDS: NICOTINE 21 MG/24 HOURS TOPICAL PATCH TD SCH (10:33)
[2023-06-05] MEDS: FAMOTIDINE 20 MG TABLET PO SCH ×2 (10:33→21:18)
[2023-06-05] MEDS: PRENATAL VITAMINS W/ FOLIC ACID TABLET (FP) PO SCH (10:34)
[2023-06-05] MEDS: metoPROLOL SUCCINATE 25 MG TAB.SR.24H (FP) PO SCH (10:34)
[2023-06-05] MEDS: QUEtiapine FUMARATE 50 MG TABLET PO SCH (10:34)
[2023-06-05] MEDS: hydrOXYzine PAMOATE 25 MG CAPSULE (FP) PO PRN ×2 (10:36→18:47)
[2023-06-05] MEDS: BUDESONIDE/FORMETEROL FUMARATE 160/4.5 mcg INHALER IH SCH ×2 (13:07→21:17)
[2023-06-05] MEDS: THIAMINE HCL 100 MG TABLET (FP) PO SCH (21:17)
[2023-06-05] MEDS: QUEtiapine FUMARATE 100 MG TABLET (FP) PO SCH (21:18)
[2023-06-06] MEDS: BUDESONIDE/FORMETEROL FUMARATE 160/4.5 mcg INHALER IH SCH ×2 (10:00→21:23)
[2023-06-06] MEDS: metoPROLOL SUCCINATE 25 MG TAB.SR.24H (FP) PO SCH (10:01)
[2023-06-06] MEDS: PRENATAL VITAMINS W/ FOLIC ACID TABLET (FP) PO SCH (10:01)
[2023-06-06] MEDS: FAMOTIDINE 20 MG TABLET PO SCH ×2 (10:01→21:24)
[2023-06-06] MEDS: hydrOXYzine PAMOATE 50 MG CAPSULE (FP) PO PRN ×2 (10:03→17:42)
[2023-06-06] MEDS: NICOTINE 21 MG/24 HOURS TOPICAL PATCH TD SCH (10:03)
[2023-06-06] MEDS: QUEtiapine FUMARATE 100 MG TABLET (FP) PO SCH (10:03)
[2023-06-06] MEDS: THIAMINE HCL 100 MG TABLET (FP) PO SCH (21:24)
[2023-06-06] MEDS: QUEtiapine FUMARATE 200 MG TABLET PO SCH (21:24)
[2023-06-07] MEDS: metoPROLOL SUCCINATE 25 MG TAB.SR.24H (FP) PO SCH (09:57)
[2023-06-07] MEDS: QUEtiapine FUMARATE 100 MG TABLET (FP) PO SCH (09:57)
[2023-06-07] MEDS: FAMOTIDINE 20 MG TABLET PO SCH ×2 (09:57→21:11)
[2023-06-07] MEDS: NICOTINE 21 MG/24 HOURS TOPICAL PATCH TD SCH (09:58)
[2023-06-07] MEDS: BUDESONIDE/FORMETEROL FUMARATE 160/4.5 mcg INHALER IH SCH ×2 (09:58→21:10)
[2023-06-07] MEDS: PRENATAL VITAMINS W/ FOLIC ACID TABLET (FP) PO SCH (09:58)
[2023-06-07] MEDS: hydrOXYzine PAMOATE 50 MG CAPSULE (FP) PO PRN ×2 (09:59→15:00)
[2023-06-07] MEDS: COLLOIDAL OATMEAL 1 BAR EACH TP PRN (10:51)
[2023-06-07] MEDS: LIDOCAINE 5% TOPICAL PATCH TP SCH (14:54)
[2023-06-07] MEDS: BACLOFEN 10 MG TABLET (FP) PO SCH ×2 (14:54→21:11)
[2023-06-07] MEDS: QUEtiapine FUMARATE 200 MG TABLET PO SCH (21:11)
[2023-06-07] MEDS: traZODone HCL 50 MG TABLET (FP) PO SCH (21:12)
[2023-06-07] MEDS: THIAMINE HCL 100 MG TABLET (FP) PO SCH (21:12)
[2023-06-07] MEDS: LIDOCAINE PATCH REMOVAL MC SCH (21:14)
[2023-06-07] MEDS: METHYL SALICYLATE/MENTHOL OINT 30 GM TUBE TP SCH (22:07)
[2023-06-08] MEDS: BACLOFEN 10 MG TABLET (FP) PO SCH ×3 (06:45→21:22)
[2023-06-08] MEDS: hydrOXYzine PAMOATE 50 MG CAPSULE (FP) PO PRN ×3 (06:46→18:21)
[2023-06-08] MEDS: NICOTINE 21 MG/24 HOURS TOPICAL PATCH TD SCH (10:18)
[2023-06-08] MEDS: METHYL SALICYLATE/MENTHOL OINT 30 GM TUBE TP SCH ×2 (10:18→21:22)
[2023-06-08] MEDS: LIDOCAINE 5% TOPICAL PATCH TP SCH (10:18)
[2023-06-08] MEDS: BUDESONIDE/FORMETEROL FUMARATE 160/4.5 mcg INHALER IH SCH ×2 (10:18→21:23)
[2023-06-08] MEDS: FAMOTIDINE 20 MG TABLET PO SCH ×2 (10:19→21:23)
[2023-06-08] MEDS: PRENATAL VITAMINS W/ FOLIC ACID TABLET (FP) PO SCH (10:19)
[2023-06-08] MEDS: QUEtiapine FUMARATE 100 MG TABLET (FP) PO SCH (10:19)
[2023-06-08] MEDS: metoPROLOL SUCCINATE 25 MG TAB.SR.24H (FP) PO SCH (10:19)
[2023-06-08] MEDS: ACETAMINOPHEN 325 MG TABLET (FP) PO PRN (18:22)
[2023-06-08] MEDS: QUEtiapine FUMARATE 200 MG TABLET PO SCH (21:22)
[2023-06-08] MEDS: traZODone HCL 50 MG TABLET (FP) PO SCH (21:22)
[2023-06-08] MEDS: THIAMINE HCL 100 MG TABLET (FP) PO SCH (21:23)
[2023-06-08] MEDS: LIDOCAINE PATCH REMOVAL MC SCH (21:24)
[2023-06-09] MEDS: BACLOFEN 10 MG TABLET (FP) PO SCH ×3 (06:21→21:19)
[2023-06-09] MEDS: hydrOXYzine PAMOATE 50 MG CAPSULE (FP) PO PRN ×3 (06:21→19:25)
[2023-06-09] MEDS: LIDOCAINE 5% TOPICAL PATCH TP SCH (10:12)
[2023-06-09] MEDS: METHYL SALICYLATE/MENTHOL OINT 30 GM TUBE TP SCH ×2 (10:12→21:22)
[2023-06-09] MEDS: NICOTINE 21 MG/24 HOURS TOPICAL PATCH TD SCH (10:12)
[2023-06-09] MEDS: QUEtiapine FUMARATE 100 MG TABLET (FP) PO SCH (10:13)
[2023-06-09] MEDS: BUDESONIDE/FORMETEROL FUMARATE 160/4.5 mcg INHALER IH SCH ×2 (10:13→21:19)
[2023-06-09] MEDS: PRENATAL VITAMINS W/ FOLIC ACID TABLET (FP) PO SCH (10:13)
[2023-06-09] MEDS: FAMOTIDINE 20 MG TABLET PO SCH ×2 (10:13→21:20)
[2023-06-09] MEDS: metoPROLOL SUCCINATE 25 MG TAB.SR.24H (FP) PO SCH (10:15)
[2023-06-09] MEDS ORDERED: DOCUSATE SODIUM 100 MG CAPSULE (FP) PO PRN (15:23)
[2023-06-09] MEDS: traZODone HCL 100 MG TABLET (FP) PO SCH (21:19)
[2023-06-09] MEDS: QUEtiapine FUMARATE 200 MG TABLET PO SCH (21:20)
[2023-06-09] MEDS: THIAMINE HCL 100 MG TABLET (FP) PO SCH (21:20)
[2023-06-09] MEDS: LIDOCAINE PATCH REMOVAL MC SCH (21:22)
[2023-06-10] MEDS: BACLOFEN 10 MG TABLET (FP) PO SCH ×3 (07:47→21:16)
[2023-06-10] MEDS: PRENATAL VITAMINS W/ FOLIC ACID TABLET (FP) PO SCH (10:14)
[2023-06-10] MEDS: BUDESONIDE/FORMETEROL FUMARATE 160/4.5 mcg INHALER IH SCH ×2 (10:14→21:16)
[2023-06-10] MEDS: FAMOTIDINE 20 MG TABLET PO SCH ×2 (10:14→21:16)
[2023-06-10] MEDS: LIDOCAINE 5% TOPICAL PATCH TP SCH (10:14)
[2023-06-10] MEDS: metoPROLOL SUCCINATE 25 MG TAB.SR.24H (FP) PO SCH (10:14)
[2023-06-10] MEDS: QUEtiapine FUMARATE 100 MG TABLET (FP) PO SCH (10:14)
[2023-06-10] MEDS: NICOTINE 21 MG/24 HOURS TOPICAL PATCH TD SCH (10:14)
[2023-06-10] MEDS: METHYL SALICYLATE/MENTHOL OINT 30 GM TUBE TP SCH ×2 (10:15→21:55)
[2023-06-10] MEDS: QUEtiapine FUMARATE 200 MG TABLET PO SCH (21:16)
[2023-06-10] MEDS: traZODone HCL 100 MG TABLET (FP) PO SCH (21:16)
[2023-06-10] MEDS: THIAMINE HCL 100 MG TABLET (FP) PO SCH (21:16)
[2023-06-10] MEDS: LIDOCAINE PATCH REMOVAL MC SCH (21:17)
[2023-06-10] MEDS: hydrOXYzine PAMOATE 50 MG CAPSULE (FP) PO PRN (21:18)
[2023-06-11] MEDS: BACLOFEN 10 MG TABLET (FP) PO SCH ×3 (06:17→21:12)
[2023-06-11] MEDS: LIDOCAINE 5% TOPICAL PATCH TP SCH (09:46)
[2023-06-11] MEDS: BUDESONIDE/FORMETEROL FUMARATE 160/4.5 mcg INHALER IH SCH ×2 (09:46→21:12)
[2023-06-11] MEDS: QUEtiapine FUMARATE 100 MG TABLET (FP) PO SCH (09:46)
[2023-06-11] MEDS: NICOTINE 21 MG/24 HOURS TOPICAL PATCH TD SCH (09:46)
[2023-06-11] MEDS: FAMOTIDINE 20 MG TABLET PO SCH ×2 (09:46→21:12)
[2023-06-11] MEDS: PRENATAL VITAMINS W/ FOLIC ACID TABLET (FP) PO SCH (09:47)
[2023-06-11] MEDS: METHYL SALICYLATE/MENTHOL OINT 30 GM TUBE TP SCH ×2 (10:22→21:36)
[2023-06-11] MEDS: metoPROLOL SUCCINATE 25 MG TAB.SR.24H (FP) PO SCH (12:04)
[2023-06-11] MEDS: hydrOXYzine PAMOATE 50 MG CAPSULE (FP) PO PRN (15:54)
[2023-06-11] MEDS: traZODone HCL 100 MG TABLET (FP) PO SCH (21:12)
[2023-06-11] MEDS: QUEtiapine FUMARATE 200 MG TABLET PO SCH (21:12)
[2023-06-11] MEDS: THIAMINE HCL 100 MG TABLET (FP) PO SCH (21:12)
[2023-06-11] MEDS: LIDOCAINE PATCH REMOVAL MC SCH (21:36)
[2023-06-12] MEDS: BACLOFEN 10 MG TABLET (FP) PO SCH ×3 (06:13→21:25)
[2023-06-12] MEDS: BUDESONIDE/FORMETEROL FUMARATE 160/4.5 mcg INHALER IH SCH ×2 (10:38→21:25)
[2023-06-12] MEDS: METHYL SALICYLATE/MENTHOL OINT 30 GM TUBE TP SCH ×2 (10:38→21:26)
[2023-06-12] MEDS: NICOTINE 21 MG/24 HOURS TOPICAL PATCH TD SCH (10:38)
[2023-06-12] MEDS: LIDOCAINE 5% TOPICAL PATCH TP SCH (10:38)
[2023-06-12] MEDS: FAMOTIDINE 20 MG TABLET PO SCH ×2 (10:39→21:25)
[2023-06-12] MEDS: PRENATAL VITAMINS W/ FOLIC ACID TABLET (FP) PO SCH (10:39)
[2023-06-12] MEDS: QUEtiapine FUMARATE 100 MG TABLET (FP) PO SCH (10:39)
[2023-06-12] MEDS: hydrOXYzine PAMOATE 50 MG CAPSULE (FP) PO PRN ×2 (10:40→21:27)
[2023-06-12] MEDS: metoPROLOL SUCCINATE 25 MG TAB.SR.24H (FP) PO SCH (10:40)
[2023-06-12] MEDS: LIDOCAINE PATCH REMOVAL MC SCH (21:25)
[2023-06-12] MEDS: QUEtiapine FUMARATE 200 MG TABLET PO SCH (21:25)
[2023-06-12] MEDS: THIAMINE HCL 100 MG TABLET (FP) PO SCH (21:25)
[2023-06-12] MEDS: traZODone HCL 100 MG TABLET (FP) PO SCH (21:25)
[2023-06-13] MEDS: BACLOFEN 10 MG TABLET (FP) PO SCH ×3 (06:11→21:11)
[2023-06-13] MEDS: NICOTINE 21 MG/24 HOURS TOPICAL PATCH TD SCH (09:59)
[2023-06-13] MEDS: LIDOCAINE 5% TOPICAL PATCH TP SCH (09:59)
[2023-06-13] MEDS: QUEtiapine FUMARATE 100 MG TABLET (FP) PO SCH (09:59)
[2023-06-13] MEDS: FAMOTIDINE 20 MG TABLET PO SCH ×2 (09:59→21:11)
[2023-06-13] MEDS: PRENATAL VITAMINS W/ FOLIC ACID TABLET (FP) PO SCH (09:59)
[2023-06-13] MEDS: metoPROLOL SUCCINATE 25 MG TAB.SR.24H (FP) PO SCH (09:59)
[2023-06-13] MEDS: METHYL SALICYLATE/MENTHOL OINT 30 GM TUBE TP SCH ×2 (10:01→21:10)
[2023-06-13] MEDS: BUDESONIDE/FORMETEROL FUMARATE 160/4.5 mcg INHALER IH SCH ×2 (10:03→21:12)
[2023-06-13] MEDS: hydrOXYzine PAMOATE 50 MG CAPSULE (FP) PO PRN (14:55)
[2023-06-13] MEDS: THIAMINE HCL 100 MG TABLET (FP) PO SCH (21:11)
[2023-06-13] MEDS: traZODone HCL 100 MG TABLET (FP) PO SCH (21:11)
[2023-06-13] MEDS: QUEtiapine FUMARATE 200 MG TABLET PO SCH (21:11)
[2023-06-13] MEDS: LIDOCAINE PATCH REMOVAL MC SCH (21:12)
[2023-06-14] MEDS: BACLOFEN 10 MG TABLET (FP) PO SCH ×3 (07:00→21:18)
[2023-06-14] MEDS: NICOTINE 21 MG/24 HOURS TOPICAL PATCH TD SCH (09:49)
[2023-06-14] MEDS: BUDESONIDE/FORMETEROL FUMARATE 160/4.5 mcg INHALER IH SCH ×2 (09:49→21:50)
[2023-06-14] MEDS: PRENATAL VITAMINS W/ FOLIC ACID TABLET (FP) PO SCH (09:49)
[2023-06-14] MEDS: LIDOCAINE 5% TOPICAL PATCH TP SCH (09:49)
[2023-06-14] MEDS: METHYL SALICYLATE/MENTHOL OINT 30 GM TUBE TP SCH ×2 (09:49→21:49)
[2023-06-14] MEDS: QUEtiapine FUMARATE 100 MG TABLET (FP) PO SCH (09:50)
[2023-06-14] MEDS: FAMOTIDINE 20 MG TABLET PO SCH ×2 (09:50→21:18)
[2023-06-14] MEDS: metoPROLOL SUCCINATE 25 MG TAB.SR.24H (FP) PO SCH (09:50)
[2023-06-14] MEDS: hydrOXYzine PAMOATE 50 MG CAPSULE (FP) PO PRN ×2 (13:54→21:21)
[2023-06-14] MEDS ORDERED: NALTREXONE HCL 50 MG TABLET PO ONE (14:15)
[2023-06-14] MEDS: QUEtiapine FUMARATE 200 MG TABLET PO SCH (21:18)
[2023-06-14] MEDS: traZODone HCL 100 MG TABLET (FP) PO SCH (21:18)
[2023-06-14] MEDS: THIAMINE HCL 100 MG TABLET (FP) PO SCH (21:18)
[2023-06-14] MEDS: LIDOCAINE PATCH REMOVAL MC SCH (21:49)
[2023-06-15] MEDS: BACLOFEN 10 MG TABLET (FP) PO SCH ×3 (06:17→21:38)
[2023-06-15] MEDS: PRENATAL VITAMINS W/ FOLIC ACID TABLET (FP) PO SCH (09:54)
[2023-06-15] MEDS: NALTREXONE HCL 50 MG TABLET PO SCH (09:54)
[2023-06-15] MEDS: QUEtiapine FUMARATE 100 MG TABLET (FP) PO SCH (09:54)
[2023-06-15] MEDS: FAMOTIDINE 20 MG TABLET PO SCH ×2 (09:55→21:38)
[2023-06-15] MEDS: metoPROLOL SUCCINATE 25 MG TAB.SR.24H (FP) PO SCH (09:55)
[2023-06-15] MEDS: METHYL SALICYLATE/MENTHOL OINT 30 GM TUBE TP SCH ×2 (09:56→22:05)
[2023-06-15] MEDS: LIDOCAINE 5% TOPICAL PATCH TP SCH (09:56)
[2023-06-15] MEDS: NICOTINE 21 MG/24 HOURS TOPICAL PATCH TD SCH (09:57)
[2023-06-15] MEDS: BUDESONIDE/FORMETEROL FUMARATE 160/4.5 mcg INHALER IH SCH ×2 (10:49→21:37)
[2023-06-15] MEDS: hydrOXYzine PAMOATE 50 MG CAPSULE (FP) PO PRN ×2 (13:40→21:40)
[2023-06-15] MEDS: COLLOIDAL OATMEAL 1 BAR EACH TP PRN (13:43)
[2023-06-15] MEDS: QUEtiapine FUMARATE 200 MG TABLET PO SCH (21:37)
[2023-06-15] MEDS: THIAMINE HCL 100 MG TABLET (FP) PO SCH (21:38)
[2023-06-15] MEDS: traZODone HCL 100 MG TABLET (FP) PO SCH (21:38)
[2023-06-15] MEDS: LIDOCAINE PATCH REMOVAL MC SCH (22:05)
[2023-06-16] MEDS: BACLOFEN 10 MG TABLET (FP) PO SCH (06:20)
[2023-06-16 06:55] VITALS: TEMP 97.3
[2023-06-16 09:17] VITALS: BP 101/65; PULSE 69
[2023-06-16] MEDS: metoPROLOL SUCCINATE 25 MG TAB.SR.24H (FP) PO SCH (09:43)
[2023-06-16] MEDS: NICOTINE 21 MG/24 HOURS TOPICAL PATCH TD SCH (09:43)
[2023-06-16] MEDS: PRENATAL VITAMINS W/ FOLIC ACID TABLET (FP) PO SCH (09:43)
[2023-06-16] MEDS: FAMOTIDINE 20 MG TABLET PO SCH (09:43)
[2023-06-16] MEDS: QUEtiapine FUMARATE 100 MG TABLET (FP) PO SCH (09:43)
[2023-06-16] MEDS: NALTREXONE HCL 50 MG TABLET PO SCH (09:43)
[2023-06-16] MEDS: LIDOCAINE 5% TOPICAL PATCH TP SCH (09:43)
[2023-06-16] MEDS: BUDESONIDE/FORMETEROL FUMARATE 160/4.5 mcg INHALER IH SCH (09:44)
[2023-06-16] MEDS: hydrOXYzine PAMOATE 50 MG CAPSULE (FP) PO PRN (09:46)
[2023-06-16] MEDS: METHYL SALICYLATE/MENTHOL OINT 30 GM TUBE TP SCH (09:54)
== END 2023-06-16 10:06 | disposition home or self-care (01) | DRG 772 ==
LOC: YASAS 16:29 → Y5N 06-01 01:20
PROVIDERS: ADMIT Allergy & Immunology; ATTEND Psychiatry & Neurology Pain Medicine
PROC: HZ42ZZZ Group Counseling for Substance Abuse Treatment, Cognitive-Behavioral (ICD-10-PCS; principal; 2023-06-01)
DX: F10.20 Alcohol dependence, uncomplicated (principal); F14.20 Cocaine dependence, uncomplicated; F17.210 Nicotine dependence, cigarettes, uncomplicated; F19.282 Other psychoactive substance dependence with psychoactive substance-induced sleep disorder; F41.9 Anxiety disorder, unspecified; I10 Essential (primary) hypertension; J43.9 Emphysema, unspecified; J45.20 Mild intermittent asthma, uncomplicated; K21.9 Gastro-esophageal reflux disease without esophagitis; K59.00 Constipation, unspecified; M25.561 Pain in right knee; M54.50 Low back pain, unspecified
CPT/HCPCS: 36415; 80053; 81003; 85027; 86780; 87635; 87811; J0475

== ENCOUNTER 2024-11-12 16:45 | Inpatient (IN) | payer OTHER ==
[2024-11-12 18:47] VITALS: BMI 26.4
[2024-11-12] MEDS ORDERED: ACETAMINOPHEN 325 MG TABLET (FP) PO PRN (19:40)
[2024-11-12] MEDS ORDERED: MAGNESIUM HYDROX 2400MG/30ML ORAL SUSPENSION 30 ML CUP PO PRN (19:40)
[2024-11-12] MEDS ORDERED: NICOTINE POLACRILEX 2 MG GUM BUC PRN (19:40)
[2024-11-12] MEDS ORDERED: ONDANSETRON *ODT* 4 MG TABLET SL PRN (19:40)
[2024-11-12] MEDS ORDERED: IBUPROFEN 400 MG TABLET (FP) PO PRN (19:40)
[2024-11-12] MEDS ORDERED: BISMUTH SUBSALICYLATE 524 MG/30 ML PO PRN (19:40)
[2024-11-12] MEDS ORDERED: NALOXONE (NARCAN) HCL 4 MG/0.1 ML SPRAY NS PRN (19:40)
[2024-11-12] MEDS ORDERED: POLYETHYLENE GLYCOL (HEALTHYLAX) 3350 17 GM PACKET PO PRN (19:40)
[2024-11-12] MEDS ORDERED: BENZOCAINE/MENTHOL (CHLORASEPTIC ) LOZENGE MM PRN (19:40)
[2024-11-12] MEDS ORDERED: LOPERAMIDE HCL 2 MG CAPSULE PO PRN (19:40)
[2024-11-12] MEDS ORDERED: BENZONATATE 200 MG CAPSULE PO PRN (19:40)
[2024-11-12] MEDS ORDERED: guaiFENesin 600 MG TABLET.ER (FP) PO PRN (19:40)
[2024-11-12] MEDS ORDERED: DICYCLOMINE HCL 10 MG CAPSULE PO PRN (19:40)
[2024-11-12] MEDS ORDERED: MAG HYDROX/AL HYDROX/SIMETH 30 ML UNIT-DOSE CUP PO PRN (19:40)
[2024-11-12] MEDS: MELATONIN 5 MG TABLETS PO SCH (22:59)
[2024-11-12] MEDS: hydrOXYzine PAMOATE 25 MG CAPSULE (FP) PO PRN (22:59)
[2024-11-12] MEDS: METHOCARBAMOL 500 MG TABLET PO PRN (23:00)
[2024-11-12] MEDS: THIAMINE 100 MG TABLET PO SCH (23:22)
[2024-11-13] MEDS: PRENATAL VITAMINS W/ FOLIC ACID TABLET (FP) PO SCH (09:17)
[2024-11-13] MEDS ORDERED: ALBUTEROL SO4 HFA INHALER IH PRN (09:31)
[2024-11-13] MEDS ORDERED: chlordiazePOXIDE HCL 25 MG CAPSULE PO PRN (09:57)
[2024-11-13] MEDS: metoPROLOL SUCCINATE 25 MG TAB.SR.24H (FP) PO SCH (10:05)
[2024-11-13] MEDS: NALTREXONE HCL 50 MG TABLET PO SCH (10:05)
[2024-11-13] MEDS: BUDESONIDE/FORMETEROL FUMARATE 160/4.5 mcg INHALER IH SCH (10:05)
[2024-11-13] MEDS: FAMOTIDINE 20 MG TABLET PO SCH (10:05)
[2024-11-13] MEDS: chlordiazePOXIDE HCL 25 MG CAPSULE PO SCH (10:25)
[2024-11-13 11:20] LABS: HEMATOCRIT 39.1 % (32.4-45.2); MCH 30.2 pg (25.7-33.7); MCHC 33.3 g/dl (32.0-36.0); MEAN CELL VOLUME 90.6 fl (80-96); MEAN PLT VOLUME 8.6 fl (7.5-11.1); PLATELET COUNT 291 10^3/uL (134-434); RBC 4.32 M/mm3 (3.60-5.2); RDW 13.7 % (11.6-15.6)
[2024-11-13 11:24] LABS: CHLORIDE 111 mmol/L (98-107); POTASSIUM 3.7 mmol/L (3.5-5.1); SODIUM 146 mmol/L (136-145)
[2024-11-13 11:26] LABS: ANION GAP 7 mmol/L (4-13); BLOOD UREA NITROGEN 13.6 mg/dL (7-18); CO2 28 mmol/L (21-32); GLUCOSE,RANDOM 146 mg/dL (74-106)
[2024-11-13 11:29] LABS: CREATININE 0.7 mg/dL (0.55-1.3); SGOT/AST 10 U/L (15-37); SGPT/ALT 11 U/L (13-61)
[2024-11-13 11:31] LABS: BILIRUBIN,TOTAL 0.5 mg/dL (0.2-1); TOT PROT 5.9 g/dl (6.4-8.2)
[2024-11-13 11:43] LABS: ALK PHOS 82 U/L (45-117)
[2024-11-13] MEDS: QUEtiapine FUMARATE 50 MG TABLET PO SCH (22:20)
[2024-11-14] MEDS: chlordiazePOXIDE HCL 25 MG CAPSULE PO SCH (05:35)
[2024-11-14] MEDS: IBUPROFEN 600 MG TABLET (FP) PO PRN (17:50)
[2024-11-15] MEDS ORDERED: chlordiazePOXIDE HCL 10 MG CAPSULE PO PRN
[2024-11-15] MEDS: chlordiazePOXIDE HCL 10 MG CAPSULE PO SCH (06:00)
[2024-11-15] MEDS: NICOTINE POLACRILEX 2 MG LOZENGE BC PRN (22:59)
[2024-11-16] MEDS: chlordiazePOXIDE HCL 10 MG CAPSULE PO SCH (05:37)
[2024-11-16 09:54] VITALS: RESP 16
[2024-11-17] MEDS: chlordiazePOXIDE HCL 10 MG CAPSULE PO ONE (05:52)
[2024-11-17 09:12] VITALS: BP 134/79; PULSE 77; TEMP 98
== END 2024-11-17 10:07 | disposition home or self-care (01) | DRG 774 ==
LOC: YASAS 16:45 → Y6N 21:43
PROVIDERS: ADMIT Allergy & Immunology; ATTEND Allergy & Immunology
PROC: HZ2ZZZZ Detoxification Services for Substance Abuse Treatment (ICD-10-PCS; principal; 2024-11-12)
DX: F10.230 Alcohol dependence with withdrawal, uncomplicated (principal); F14.20 Cocaine dependence, uncomplicated; F17.210 Nicotine dependence, cigarettes, uncomplicated; F31.9 Bipolar disorder, unspecified; F10.282 Alcohol dependence with alcohol-induced sleep disorder; F10.280 Alcohol dependence with alcohol-induced anxiety disorder; F10.24 Alcohol dependence with alcohol-induced mood disorder; G47.33 Obstructive sleep apnea (adult) (pediatric); J43.9 Emphysema, unspecified; J45.20 Mild intermittent asthma, uncomplicated; I10 Essential (primary) hypertension; K21.9 Gastro-esophageal reflux disease without esophagitis; R73.9 Hyperglycemia, unspecified; Z99.89 Dependence on other enabling machines and devices
CPT/HCPCS: 36415; 80053; 80305; 80307; 81025; 85027; 86780; 93005; 93010